=== PATIENT | male | born 1975 | race Caucasian/White ===

== ENCOUNTER → 2021-11-04 | Outpatient (CLI) | payer OTHER, SELFPAY ==
--- NOTE | 2021-11-04 13:46 | RAD_ITS ---
STUDY: X-RAY - LEFT ANKLE REASON FOR EXAM: Male, 46 years old. Left ankle pain. No history of injury. TECHNIQUE: 3 view(s) of the ankle. COMPARISON: None. FINDINGS: Normal visualized distal tibia and fibula. Normal medial and lateral malleoli. Degenerative changes of the distal tibial talar joint. Normal visualized talus and calcaneus. The visualized subtalar, talonavicular, calcaneocuboid and tarsal articulations are normal. Diffuse bilateral soft tissue swelling. RAD/Ankle min 3 Views IMPRESSION: Soft tissue swelling. Degenerative changes of the distal tibial talar joint. Electronically Signed: Marco Antonio Harrison MD at 14:32 EDT ,
== END | disposition home or self-care (01) ==
LOC: MTRAD 13:43
PROVIDERS: PCP Internal Medicine; Referring Provider Internal Medicine; Visit Provider Internal Medicine
DX: M25.572 Pain in left ankle and joints of left foot (principal)
CPT/HCPCS: 73610

== ENCOUNTER → 2021-12-17 | Outpatient (CLI) | payer OTHER, SELFPAY ==
--- NOTE | 2021-12-17 13:45 | RAD_ITS ---
EXAM: XR ABDOMEN, 1 VIEW CLINICAL INDICATION: KUB TECHNIQUE: Frontal supine view of the abdomen/pelvis. This report was created using [employer] report generation technology. COMPARISON: None. FINDINGS: LOWER THORAX: No acute pathology. GASTROINTESTINAL TRACT: Normal bowel gas pattern. ORGANS: No organomegaly. BONES/JOINTS: Right-sided L5 laminectomy noted. Interpedicular screws in place bilaterally at L5 and S1. SOFT TISSUES: No pathological calcification. RAD/Abdomen Single View IMPRESSION: No acute findings. Electronically Signed: Shashi Lobo MD at 16:28 EDT ,
== END | disposition home or self-care (01) ==
LOC: RAD 13:42
PROVIDERS: PCP Internal Medicine; Referring Provider Urology; Visit Provider Urology
DX: N20.0 Calculus of kidney (principal)
CPT/HCPCS: 74018

== ENCOUNTER 2022-08-05 15:00 | Outpatient (RCR) | payer OTHER, SELFPAY ==
--- NOTE | 2022-06-09 09:54 | HP.PTEVAL_ITS ---
Patient's Visit Information CASSI BABB is a 47 year old M referred to Physical Therapy by Dr. Usama Olivo, DO with a diagnosis of s/p peroneal tendon repair, FHL left, Calcaneal osteotomy left, first metat. Date of Evaluation: 06/09/22 Physical Therapist: Pattie Duffy DPT - Visit Plan Frequency: 1x/Week Duration: 6 Weeks Plan: Focus on LE and Core Strength/Stabilization- proprioception and functional mobility. HEP Given IE: Ankle ROM, Gastroc Stretch Towel Stretch, weight shift - October jumped in his garage and felt a snap-ankle swelled up- went boating and then he came into Dr. Lott for something else and had her look at his ankle- got Dr. Nazario who he set up an appt- had an MRI's and then she referred to Dr. Olivo- Apr 07 he had surgery- s/p peroneal tendon repair, FHL left, Calcaneal osteotomy left, first metatarsal osteotomy. He gave him partial WB May 27 with progression WBAT in the boot. Let the pain be the guide and come back to him around Jun 24 and at that point he hopes for shoe with brace. He reports that the ankle is pretty swollen and along the lateral malleolus across the top and into the medial mall. Worst: 7/10. Agg: walking on it Eases: propping it up. Best: 0/10. Describes the pain as achy and sharp pain. Does have some N/T in his toes. 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 He wears his boot at work. Normally pretty active- boat and smart- need to be able to get on the water- on [place] [employer]- and wants to get back to all of his normal stuff. Sleep: not disturbed. He feels that he is 50% through the process. Most of the time he is in work boots- unless he is boating then he is in boat shoes. PMHx: Rods in his back 2016- L5- S1 fusion- had drop foot in his right LE- does have massage 1x a month. Meds: none - Objective Posture: fair throughout IE. Gait: antalgic- axillary crutches- dec WB through left LE- CAM walker. Girth: Figure 8: 59.5 cm Mets: 26 cm Mall:30 cm. ROM: DF: neutral, PF: 30 degrees, Inv: 30 degrees, Ever: 10 deg. Strength: Core: fair, Hip: 4/5 throughout, Knee: 5/5, Ankle: 4/5 in available range. Flex: Gastroc: severe, HS: moderate. Palpation: tender throughout ankle and across top of foot. Observation: incisions well healed. SLS: weight shift. HR/TR: able with weight shifted to the right Stairs: asc/desc 8 non recip - Balance/Special Test Scores Lower Extremity Functional Score: 22 - Goals Goal 1:: Patient will be I with HEP and progression Goal Time Frame: 4-6 Weeks Goal 2:: Patient will ambulate >300 feet with a normalized gait pattern and LRD Goal Time Frame: 4-6 Weeks Goal 3:: Patient will SLS for 15 sec without LOB Goal Time Frame: 4-6 Weeks Goal 4:: Patient will report 80% improvement Goal Time Frame: 4-6 Weeks - Rehabilitation Potential Physical Therapy Diagnosis: Patient presents with hypomobility- he has decreased LE and core strength/stabilization, flex, ROM, proprioception and functional mobility leading to abnormal gait and increased pain with ADL's. Rehabilitation Potential: Good - Anticipated Interventions Patient/Client Instruction: Educate patient on: Benefits of Fitness Program Therapeutic Exercise to Include: Strength training, Endurance training, Balance training, Coordination, Agility training, Body mechanics, Postural training, Flexibilty training, Gait and locomotor training, Neuromotor development, Passive ROM, Active ROM, Dynamic Lumbar Stabilization, Scapular Strength/Stabilization For the Purpose of:: To improve muscle performance and motor function TENS: Yes Cryotherapy (ice pack, ice massage): Yes Thermo therapy (hot pack): Yes Thank you for the opportunity to evaluate your patient. For Medicare and Medicare HMO plans, please review the plan of care and approve it. It will need to be FAXED BACK to us at [phone] for Medicare purposes. For Medicare only, by signing this I certify the plan of care. Please let me know if there are questions or concerns regarding this plan of care. Physician Signature: Date:
--- NOTE | 2022-11-15 11:15 | HP.PT.NRP ---
Patient Information Patient Information: CASSI BABB was seen in my office for initial evaluation on 06/09/22. The following Plan of Care was established for this patient: POC Established Initial Frequency: 1x/Week Initial Duration: 6 Weeks Anticipated Interventions Patient/Client Instruction: Educate patient on: Benefits of Fitness Program Therapeutic Exercise to Include: Strength training, Endurance training, Balance training, Coordination, Agility training, Body mechanics, Postural training, Flexibilty training, Gait and locomotor training, Neuromotor development, Passive ROM, Active ROM, Dynamic Lumbar Stabilization and Scapular Strength/Stabilization For the Purpose of:: To improve muscle performance and motor function Manual Therapy Techniques to Include: Soft tissue mobilization TENS: Yes Cryotherapy (ice pack, ice massage): Yes Thermo therapy (hot pack): Yes Last Seen Last Seen: This patient was last seen in our office . Pertinent comments regarding their Physical therapy will appear below: Patient to continue to follow up with MD- appropriate to be d/c from PT At this point I will be discontinuing this patient from physical therapy. I would be happy to see this patient again in the future if found appropriate by the physician. Thank you! Pattie Duffy, JUDIE Balance/Gait/Functional tests Balance/Special Test Scores Lower Extremity Functional Score: 22
== END 2022-08-05 19:00 | disposition home or self-care (01) ==
LOC: PT 15:00
PROVIDERS: PCP Internal Medicine
DX: Z98.890 Other specified postprocedural states (principal)
CPT/HCPCS: 97110; 97162

== ENCOUNTER → 2022-11-27 | Outpatient (CLI) | payer OTHER, SELFPAY ==
--- NOTE | 2022-11-27 07:22 | MRI_ITS ---
STUDY: MRI LEFT ANKLE WITHOUT CONTRAST REASON FOR EXAM: Male, 47 years old. LEFT ANKLE INSTABILTY,PERONEAL TENDINITIS,OTHER DEFORMITIES FOOT TECHNIQUE: Standardized fat and water weighted pulse sequences were obtained in all 3 orthogonal planes. COMPARISON: X-ray 11/04/2021 FINDINGS: Normal subcutis adipose space. Normal posterior tibialis tendon. Normal flexor digitorum longus tendon. The flexor hallucis longus tendon is not clearly identified and may be torn and retracted into the leg. Severe thickening and abnormal signal of the peroneal tendons consistent with severe tendinosis. Normal tibialis anterior tendon. Normal extensor hallucis longus tendon. Normal extensor digitorum longus tendons. Normal Achilles tendon and teno-osseous insertion. Normal plantar fascia. Normal plantar calcaneal tubercles. Normal intrinsic muscles of the rearfoot. Healed osteotomy of the calcaneus with 2 screws. Normal distal tibiofibular syndesmotic ligamentous complex. There is scarring with thickening of the anterior talofibular ligament consistent with a remote sprain. Normal subtalar ligaments and sinus tarsi. Normal deltoid ligamentous complexes. Normal plantar calcaneonavicular (spring) ligament. There is a joint effusion of the tibiotalar articulation with capsular distension. 1 cm os trigonum. Normal talar dome. Normal subtalar articulations. Normal talonavicular articulation. Normal calcaneocuboid articulation. Normal navicular-cuneiform articulations. MRI/Lower Ext Joint Only (Routine) IMPRESSION: 1. Healed osteotomy of the calcaneus with 2 screws. 2. Thickened anterior talofibular ligament consistent with prior tear. 3. Severe peroneal tendon tendinosis with thickening and abnormal signal. 4. Nonvisualization of the flexor hallucis longus tendon which may be torn and retracted. Electronically Signed: Wei Stephen MD at 21:53 EDT ,
== END | disposition home or self-care (01) ==
PROVIDERS: PCP Internal Medicine; Referring Provider Podiatrist; Visit Provider Podiatrist
DX: M25.372 Other instability, left ankle (principal); M76.72 Peroneal tendinitis, left leg; M21.6X2 Other acquired deformities of left foot
CPT/HCPCS: 73721

== ENCOUNTER → 2023-10-07 | Outpatient (CLI) | payer OTHER, SELFPAY ==
--- NOTE | 2023-10-07 15:24 | RAD_ITS ---
STUDY: X-RAY CHEST REASON FOR EXAM: Male, 48 years old. ASTHMA, DYSPNEA TECHNIQUE: Frontal and lateral views of the chest. COMPARISON: 05/03/2023 FINDINGS: The lungs are clear and expanded. There is no demonstrated pleural abnormality. Normal size heart. Normal mediastinum and veronique. Normal visualized pulmonary arteries. Normal visualized aortic arch and descending thoracic aorta. Normal visualized thoracic spine. Normal visualized ribs, clavicles, and shoulders. There is no demonstrated abnormality of the visualized soft tissue structures of the upper abdomen. RAD/Chest PA and Lateral IMPRESSION: Normal x-ray examination of the chest. Electronically Signed: Jesús Woo MD at 16:49 EDT ,
== END | disposition home or self-care (01) ==
LOC: MTRAD 15:22
PROVIDERS: PCP Internal Medicine; Referring Provider Internal Medicine Pulmonary Disease; Visit Provider Internal Medicine Pulmonary Disease
DX: J45.909 Unspecified asthma, uncomplicated (principal); R06.00 Dyspnea, unspecified
CPT/HCPCS: 71046

== ENCOUNTER → 2024-08-20 | Outpatient (CLI) | payer BC, SELFPAY ==
--- NOTE | 2024-08-20 15:52 | RAD_ITS ---
PROCEDURE: CHEST PA AND LATERAL 08/20/2024 REASON FOR EXAM: COUGH TECHNIQUE: Frontal and lateral views of the chest. COMPARISON: No relevant prior FINDINGS: Lungs: Lungs clear of pneumonia and congestion. Pleura: No pleural effusions, thickening, or pneumothorax. Heart: Normal in size and configuration. Mediastinum/Ana: Unremarkable. Great vessels: Unremarkable. Bones/soft tissues: Unremarkable. RAD/Chest PA and Lateral IMPRESSION: No active cardiopulmonary disease. Reading Location: [facility]
== END | disposition home or self-care (01) ==
LOC: MTRAD 15:51
PROVIDERS: PCP Internal Medicine; Referring Provider Internal Medicine; Visit Provider Internal Medicine
DX: R05.8 Other specified cough (principal)
CPT/HCPCS: 71046

== ENCOUNTER → 2024-08-21 | Outpatient (CLI) | payer BC, SELFPAY ==
[2024-08-21 10:20] LABS: D-Dimer Quantitative (DVT/PE) 0.27 FEU/ug/m (0.27-0.49)
[2024-08-21 11:08] LABS: ALB/GLOB Ratio 1.6 RATIO (0.9-2.4); AST(SGOT) 27 U/L (<=37); Alanine Aminotransfer ALT/SGPT 36 U/L (<=46); Albumin, Serum 4.1 g/dL (3.5-5.0); Alkaline Phosphatase 67 U/L (40-129); Anion Gap 13 (5-15); BUN 12 mg/dL (4-19); BUN/Creat Ratio 11.9 RATIO (10-20); Calcium,Total 8.8 mg/dL (7.6-11.0); Carbon Dioxide 22.9 mmol/L (21.0-32.0); Chloride 104 mmol/L (98-108); Creatinine, Serum 0.98 mg/dL (0.70-1.20); EST Glomerular Filtration Rate 95 (>60); Globulin 2.6 g/dL (2.2-4.2); Glucose 128 mg/dL (70-99); Potassium 4.2 mmol/L (3.3-5.1); Protein, Total 6.7 g/dL (5.9-8.4); Sodium Level 140 mmol/L (133-145); Total Bilirubin 0.53 mg/dL (0.00-1.30)
[2024-08-21 11:38] LABS: Cholesterol 270 mg/dL (<=200); High Density Lipoprotein 41 mg/dL; Low Density Lipoprotein Calc. 185 mg/dL; Triglycerides 221 mg/dL; Very Low Density Lipoprotein 44 mg/dL (5-40)
[2024-08-24 12:08] LABS: Testosterone Free 5.8 pg/mL (6.8-21.5)
== END | disposition home or self-care (01) ==
LOC: MTLAB 07:09
PROVIDERS: PCP Internal Medicine; Referring Provider Internal Medicine; Visit Provider Internal Medicine
DX: I10 Essential (primary) hypertension (principal); R07.9 Chest pain, unspecified; E34.9 Endocrine disorder, unspecified
CPT/HCPCS: 36415; 80053; 80061; 84402; 84443; 85379

== ENCOUNTER → 2024-08-31 | Outpatient (CLI) | payer BC, SELFPAY | END | disposition home or self-care (01) | PROVIDERS: Physician Assistant; PCP Internal Medicine; Referring Provider Internal Medicine; Visit Provider Internal Medicine | DX: R79.89 Other specified abnormal findings of blood chemistry (principal) | CPT/HCPCS: 36415; 84402; 84403 ==

== ENCOUNTER → 2024-11-13 | Outpatient (CLI) | payer BC, SELFPAY ==
--- NOTE | 2024-11-13 12:49 | RAD_ITS ---
PROCEDURE: LUMBAR SPINE 2 OR 3 VIEWS 11/13/2024 REASON FOR EXAM: LOWER BACK PAIN INTO LEG TECHNIQUE: LUMBAR SPINE 2 OR 3 VIEWS COMPARISON: None FINDINGS: Vertebrae: Patient is status post laminectomy and fusion at the L5-S1 level. Discs: Moderate degree of disc space narrowing at the L5-S1 level with minimal anterior listhesis of L5 on S1. Disc space narrowing at the L4-L5 level. Alignment: Minimal anterior listhesis of L5 on S1. Other: RAD/Lumbar Spine 2 or 3 Views IMPRESSION: MILD DEGENERATIVE CHANGES OF THE LUMBAR SPINE. Status post fusion at the L5-S1 level with anterior listhesis of L5 on S1. Reading Location: [facility]
--- NOTE | 2024-11-13 12:49 | RAD_ITS ---
PROCEDURE: LUMBAR SPINE 2 OR 3 VIEWS 11/13/2024 REASON FOR EXAM: LOWER BACK PAIN INTO LEG TECHNIQUE: LUMBAR SPINE 2 OR 3 VIEWS COMPARISON: None FINDINGS: Vertebrae: Patient is status post laminectomy and fusion at the L5-S1 level. Discs: Moderate degree of disc space narrowing at the L5-S1 level with minimal anterior listhesis of L5 on S1. Disc space narrowing at the L4-L5 level. Alignment: Minimal anterior listhesis of L5 on S1. Other: RAD/Lumbar Spine 2 or 3 Views IMPRESSION: MILD DEGENERATIVE CHANGES OF THE LUMBAR SPINE. Status post fusion at the L5-S1 level with anterior listhesis of L5 on S1. Reading Location: [facility]
--- NOTE | 2024-11-13 12:49 | RAD_ITS ---
PROCEDURE: KNEE 3 VIEWS 11/13/2024 REASON FOR EXAM: PAIN TECHNIQUE: KNEE 3 VIEWS COMPARISON: None FINDINGS: Bones: No fracture seen. Joints: Mild degree of joint space narrowing of the medial compartment of the knee joint as well as the patellofemoral joint. Effusion: Minimal joint effusion. Soft tissues: Unremarkable Other: RAD/Knee 3 Views IMPRESSION: DEGENERATIVE OSTEOARTHROSIS. NO ACUTE FINDINGS. Minimal joint effusion. Reading Location: [facility]
--- NOTE | 2024-11-13 12:49 | RAD_ITS ---
PROCEDURE: KNEE 3 VIEWS 11/13/2024 REASON FOR EXAM: PAIN TECHNIQUE: KNEE 3 VIEWS COMPARISON: None FINDINGS: Bones: No fracture seen. Joints: Mild degree of joint space narrowing of the medial compartment of the knee joint as well as the patellofemoral joint. Effusion: Minimal joint effusion. Soft tissues: Unremarkable Other: RAD/Knee 3 Views IMPRESSION: DEGENERATIVE OSTEOARTHROSIS. NO ACUTE FINDINGS. Minimal joint effusion. Reading Location: [facility]
== END | disposition home or self-care (01) ==
LOC: MTRAD 12:49
PROVIDERS: PCP Internal Medicine; Referring Provider Physician Assistant; Visit Provider Physician Assistant
DX: M54.50 Low back pain, unspecified (principal)
CPT/HCPCS: 72100; 73562

== ENCOUNTER → 2024-11-23 | Outpatient (CLI) | payer BC, SELFPAY ==
--- NOTE | 2024-11-23 11:01 | MRI_ITS ---
PROCEDURE: LOWER EXT JOINT ONLY (ROUTINE) 11/23/2024 REASON FOR EXAM: PAIN, LOCKING TECHNIQUE: LOWER EXT JOINT ONLY (ROUTINE) Multiplanar and multisequence images were obtained without IV contrast administration. COMPARISON: November 13, 2024 FINDINGS: Bone Marrow: There is a 0.5 x 0.7 cm developing osteochondral defect in the central portion of the medial femoral condyle with no free fragment. There is a 0.4 cm corticated osteochondral fragment within the popliteus tendon sheath. Cruciate ligaments: The anterior and posterior cruciate ligaments appear intact. Collateral ligaments: There is thickening and edema in the mid and upper portion of the medial collateral ligament without laxity, grade 2 sprain. The lateral collateral ligament complex appears intact. Menisci: There is a small horizontal tear in the body of the medial meniscus which extends to the tibial surface, coronal image 16/30. The lateral meniscus appears intact. Effusion: There is a small joint effusion. Cartilage: There is a 0.45 cm focal chondral defect in the lateral femoral condyle. There is moderate chondromalacia in the medial compartment. MRI/Lower Ext Joint Only (Routine) IMPRESSION: There is a 0.5 x 0.7 cm developing osteochondral defect in the central portion of the medial femoral condyle with no free fragment. There is a 0.4 cm corticated osteochondral fragment within the popliteus tendon sheath. There is thickening and edema in the mid and upper portion of the medial collat eral ligament without laxity, grade 2 sprain. There is a small horizontal tear in the body of the medial meniscus which exten ds to the tibial surface, coronal image 16/30. There is a small joint effusion. There is a 0.45 cm focal chondral defect in the lateral femoral condyle. There is moderate chondromalacia in the medial compartment. Reading Location: [facility]
== END | disposition home or self-care (01) ==
PROVIDERS: PCP Internal Medicine; Referring Provider Physician Assistant; Visit Provider Physician Assistant
DX: M23.91 Unspecified internal derangement of right knee (principal)
CPT/HCPCS: 73721

== ENCOUNTER → 2024-11-27 | Outpatient (CLI) | payer BC, SELFPAY ==
[2024-11-27 22:57] LABS: Synovial Fld Mononuclear WBC # 1.416 10^3/ul; Synovial Fld Mononuclear WBC % 27.4 %; Synovial Fld Polynuclear WBC # 3.753 10^3/uL; Synovial Fld Polynuclear WBC % 72.6 %; Total Cell Count Synovial Fld 5.1790 10^3/uL (0.000-0.000); WBC / Synovial Fluid 5.1690 10^3/uL (0.000-0.002)
[2024-11-27 23:04] LABS: RBC /Synovial Fluid 0.010 10^6/uL (0)
[2024-11-27 23:05] LABS: AUTO B FLUID DILUENT BKGD CT WBC <0.1 RBC <0.01 (W<.1,R<.01); Source- Body Fluid SYNOVIAL
[2024-11-27 23:06] LABS: Source / Synovial Fluid R KNEE; Total Volume / Synovial Fluid > 8.0 ml (0.1-3.5); Viscosity / Synovial Fluid Sl. Viscous (HIGH)
[2024-11-27 23:07] LABS: Appearance /Synovial Fluid Cloudy (CLEAR); Color / Synovial Fluid Yellow (Pale Yellow)
[2024-11-28 00:50] LABS: Monocyte /Synovial Fluid 18 %
[2024-11-28 00:51] LABS: Body Fluid QC Type(s) BF1Q,BF2Q
[2024-11-29 14:08] LABS: GLUCOSE, SYNOVIAL FLUID 136 mg/dL (.); PROTEIN, SYNOVIAL FLUID 3.9 g/dL (.)
[2024-11-29 14:22] LABS: CRYSTALS, BODY FLUID CALCIUM PYROPHOS
== END | disposition home or self-care (01) ==
LOC: LABSPEC 20:46
PROVIDERS: PCP Internal Medicine; Visit Provider Orthopaedic Surgery Sports Medicine
DX: M25.461 Effusion, right knee (principal); M25.561 Pain in right knee
CPT/HCPCS: 82945; 84157; 87070; 87075; 87205; 89050; 89051; 89060

== ENCOUNTER → 2024-11-27 | Outpatient (CLI) | payer BC, SELFPAY ==
[2024-11-27 18:18] LABS: Hematocrit 45.6 % (40-54); Hemoglobin 15.7 g/dL (13.0-16.5); Immature Granulocytes Count 0.030 X10^3/uL (0.0-0.0); Mean Corp Hgb Conc 34.4 g/dL (32-36); Mean Corpuscular Volume 90.5 fL (80-94); Mean Platelet Vol. 10.1 fl (6.2-12.0); NRBC Flagged by Analyzer 0 % (0-5); Platelet Count 259 K/mm3 (150-450); RBC Distribution Width CV 12.5 % (11.6-14.6); RBC Distribution Width SD 41.1 fl (35.1-43.9); Red Blood Count 5.04 M/mm3 (4.6-6.2); White Blood Count 7.7 K/mm3 (4.4-11.0)
[2024-11-27 18:28] LABS: Anion Gap 14 (5-15); BUN 13 mg/dL (4-19); BUN/Creat Ratio 14.7 RATIO (10-20); CRP 12.90 mg/L (0.0-3.0); Calcium,Total 9.1 mg/dL (7.6-11.0); Carbon Dioxide 20.4 mmol/L (21.0-32.0); Chloride 105 mmol/L (98-108); Glucose 116 mg/dL (70-99); Potassium 3.9 mmol/L (3.3-5.1); Uric Acid 5.8 mg/dL (3.5-7.2)
--- OUTSIDE RECORDS SUMMARY | 2024-11-27 23:08 | XMS RPT_ITS | CCD ---
Author Organization [facility] Care Team Providers Care Molder Operator Name Role Phone [employer] RECORD[employer] ENGINEER, Maci N Unavailable [employer] RECORD[employer] ENGINEER, Maci N Unavailable CONKLE, KAREN Unavailable Unavailable CONKLE, KAREN Unavailable Unavailable NO REFERRING DR Unavailable Unavailable Lucie Thornton Primary Care Provider Mariluz Gaytan Unavailable Herlinda Chiu Unavailable Nahum Braden Unavailable Cande Mora Unavailable Unavailable GravNani valdes Unavailable Unavailable Unavailable Unavailable Mariluz Gaytan DO Unavailable Herlinda Chiu MD Unavailable Nahum Braden MD Unavailable Dr. Shiraz Tamayo MD Unavailable Eric MARIN Nani Unavailable Unavailable Cande Mora RN Unavailable Unavailable Unavailable Unavailable Sophia Kimble MD Primary Care Provider Mariluz Gaytan DO Unavailable [phone] May MARIN, Kayela Unavailable Unavailable Dr. Suni Nazario Unavailable Albino MARIN, Norma Unavailable Unavailable Mariluz Gaytan DO Primary Care Provider Mariluz Gaytan DO Primary Care Provider Gina Kellogg Unavailable [phone] Mariluz Gaytan DO Primary Care Provider MARILUZ GAYTAN Referring Unavailable LUCILA, MARILUZ K Primary Care Unavailable LUCILA MARILUZ AFSHIN Primary Care Unavailab sonido Gaytan DO, Dr. Mcgraw Primary Care Provider Lucila DO, Dr. Mcgraw Referring Provider [phone] Erum BRIGGS, Dr. Bean Attending Provider Erum BRIGGS, Dr. Bean Primary Care Provider [phone] Erum BRIGGS, Dr. Bean Referring Provider Alvino Tanner Attending Provider [phone] Huy Alvarez Attending Provider [phone] Erum BRIGGS, Dr. Bean Attending Provider Huy Alvarez Referring Provider [phone] Zeigler, [place] Attending Unavailable Martha Gaytaneen Referring Unavailable Lucila Mariluz Primary Care Unavailable Zeigler, [place] Attending Unavailable Zeigler, [place] Referring Unavailable Zeigler, [place] Primary Care Unavailable Huy Alvarez Attending Unavailable Huy Alvarez Referring Unavailable Erum, [place] Primary Care Unavailable Erum, [place] Attending Unavailable Zeigler, [place] Referring Unavailable Erum, [place] Primary Care Unavailable Huy Alvarez Attending Unavailable Huy Alvarez Referring Unavailable Erum, [place] Primary Care Unavailable Erum, [place] Attending Unavailable Zeigler, [place] Referring Unavailable Zeigler, [place] Primary Care Unavailable Erum, [place] Attending Unavailable Zeigler, [place] Referring Unavailable Zeigler, [place] Primary Care Unavailable Huy Alvarez Attending Unavailable Zeigler, [place] Referring Unavailable Zeigler, [place] Primary Care Unavailable Alvino Tanner Attending Unavailable Zeigler, [place] Referring Unavailable Zeigler, [place] Primary Care Unavailable Zeigler, [place] Attending Unavailable Erum, [place] Referring Unavailable Zeigler, [place] Primary Care Unavailable Huy Alvarez Attending Unavailable Zeigler, [place] Referring Unavailable Erum, [place] Primary Care Unavailable Zeigler MD, Dr. Bean Primary Care Provider Dr. [place] Danielson MD Referring Provider Saw Somers MD Attending Provider [phone] Allergies Allergy Classification Reported Allergen(s) Allergy Type Date of Onset Reaction(s) Facility (19 sources) HYDROmorphone; Translations: [HYDROMORPHONE] Drug Allergy 6 Shortness Of Breath [place] (2 sources) rosuvastatin Drug Allergy 8 [place] (1 source) ALLERGIES NOT ON FILE; Translations: [ALLERGIES NOT ON FILE] Propensity to adverse reactions (disorder) [facility] 2 Repository Medications Completed/Discontinued Medications Medication Drug Class(es) Dates Sig (Normalized) Sig (Original) acetaminophen 500 mg oral tablet (16 sources) take 1 tablet by mouth every eight hours as needed acetaminophen (TYLENOL) 500 mg tablet Take 500 mg by mouth every 8 hours as needed. 0 Active Comment on above: Take 500 mg by mouth every 8 hours as needed. acetaminophen 325 mg / oxyCODONE hydrochloride 5 mg oral tablet (20 sources) Opioid Agonist Start: 04-24-2022 take 1 tablet by mouth every eight hours as needed for pain oxyCODONE-acetamino phen (PERCOCET) 5-325 mg tablet Indications: S/P foot surgery Take 1 tablet by mouth every 8 hours as needed for pain. 28 tablet 0 04/24/2022 Active Start: 04-07-2022 take 1 tablet by lizz th every four hours as needed for pain oxyCODONE-acetaminophen (PERCOCET) 5-325 mg tablet Indications: Postoperative state , Postoperative pain Take 1 tablet by mouth every 4 hours as needed for pain. for pain. 30 tablet 0 04/15/2022 Active Start: 12-02-2021 End: 04-01-2022 take 1 tablet by mouth every four hours as needed for pain oxyCODONE-acetaminophen (PERCOCET) 5-325 mg tablet Indications: Kidney stones Take 1 tablet by mouth every 4 hours as needed for pain. 15 tablet 0 12/02/2021 04/01/2022 Discontinued Comment on above: Take 1 tablet by lizz th every 4 hours as needed for pain. Take 1-2 tablets by mouth every 4 hours as needed for pain. Take 1 tablet by lizz th every 4 hours as needed for pain. for pain. Take 1 tablet by lizz th every 8 hours as needed for pain. [id number] 200 actuat albuterol 0.09 mg/actuat metered dose inhaler (15 sources) beta2-Adrenergic Agonist Start: 11-08-2016 End: 05-25-2019 take 2 puff(s) by inhalation three times daily as needed ProAir HFA 108 (90 Base) MCG/ACT Inhalation Aerosol Solution 2 (two) Puff tid prn for 0 days Quantity: 1 {Inhaler} Refills: 0 Ordered: 25-May-2019 Nani Reyes CMA Start : 08-Nov-2016 End : 25-May-2019 Inactive Start: 11-08-2016 End: 05-25-2019 take 2 puff(s) by inhalation three times daily as needed ProAir HFA 108 (90 Base) MCG/ACT Inhalation Aerosol Solution 2 (two) Puff tid prn for 0 days Quantity: 1 {Inhaler} Refills: 0 Ordered: 25-May-2019 Nani Reyes CMA Start : 08-Nov-2016 End : 25-May-2019 Inactive amitriptyline hydrochloride 10 mg oral tablet (15 sources) Tricyclic Antidepressant Start: 01-29-2013 End: 11-06-2013 take 1 tablet by mouth once daily at bedtime AMITRIPTYLINE HCL, 10MG (Oral Tablet) 1 Tablet qhs for 0 days Quantity: 30 {Tablet} Refills: 3 Ordered: 06-Nov-2013 Lulú Dinero LPN Start : 29-Jan-2013 End : 06-Nov-2013 Inactive amoxicillin 875 mg / clavulanate 125 mg oral tablet (15 sources) Penicillin-class Antibacterial Start: 05-19-2015 End: 05-23-2015 take 1 tablet by mouth twice daily AUGMENTIN, 875-125MG (Oral Tablet) 1 (one) Tablet bid for 4 days Quantity: 8 {Tablet} Refills: 0 Ordered: 19-May-2015 Sugey Gamino Start : 19-May-2015 End : 23-May-2015 Inactive aspirin 81 mg delayed release oral tablet (11 sources) Platelet Aggregation Inhibitor, Nonsteroidal Anti-inflammatory Drug Start: 04-08-2022 End: 04-29-2022 take 1 tablet by mouth twice daily aspirin, enteric coated (ASPIRIN, ENTERIC COATED) 81 mg EC tablet Take 1 tablet by mouth twice daily for 21 days. 42 tablet 0 04/08/2022 Active Comment on above: Take 1 tablet by lizz th twice daily for 21 days. atorvastatin 40 mg oral tablet (15 sources) HMG-CoA Reductase Inhibitor Start: 11-07-2013 End: 01-21-2014 take 1 tablet by mouth once daily ATORVASTATIN CALCIUM, 40MG (Oral Tablet) 1 (one) Tablet daily for 0 days Quantity: 30 {Tablet} Refills: 11 Ordered: 21-Jan-2014 CIARA Mann LPN Start : 07-Nov-2013 End : 21-Jan-2014 Inactive azithromycin 250 mg oral tablet (4 sources) Macrolide Antimicrobial Start: 08-21-2024 End: 11-27-2024 Azithromycin 250 mg tablet Discontinued 0 PO .COMPLEX 6 0 August 21, 2024 12:00am November 27, 2024 3:24pm For 250 mg dose pack: take 500 mg today (day 1), then 250 mg for 4 days (days 2-5) PO cholecalciferol 0.075 mg oral tablet (15 sources) Vitamin D Start: 01-29-2013 End: 11-06-2013 take 2 tablets by mouth once daily VITAMIN D3, 3000UNIT (Oral Tablet) 2 (two) Tablet qd for 0 days Quantity: 60 {Tablet} Refills: 0 Ordered: 06-Nov-2013 Lulú Dinero LPN Start : 29-Jan-2013 End : 06-Nov-2013 Inactive 24 hr clarithromycin 500 mg extended release oral tablet (15 sources) Macrolide Antimicrobial Start: 08-19-2014 End: 08-29-2014 take 2 tablets by mouth once daily BIAXIN XL PAC, 500MG (Oral Tablet Extended Release 24 Hour) 2 (two) Tablet ER 24HR daily for 10 days Quantity: 20 {Tablet} Refills: 0 Ordered: 19-Aug-2014 Sugey Gamino Start : 19-Aug-2014 End : 29-Aug-2014 Inactive diphenhydrAMINE hydrochloride 25 mg oral capsule (15 sources) Histamine-1 Receptor Antagonist Start: 11-06-2013 End: 01-21-2014 take 1 capsule by mouth once daily at bedtime as needed BENADRYL ALLERGY, 25MG (Oral Capsule) 1 (one) Capsule qhs prn for 0 days Quantity: 30 {Capsule} Refills: 0 Ordered: 21-Jan-2014 CIARA Mann LPN Start : 06-Nov-2013 End : 21-Jan-2014 Inactive 60 actuat fluticasone propionate 0.25 mg/actuat dry powder inhaler (15 sources) Corticosteroid Start: 01-29-2013 End: 11-06-2013 FLOVENT DISKUS, 250MCG/BLIST (Inhalation Aerosol Powder Breath Activated) 2 (two) Aero Pow Br Act puffs bid for 0 days Quantity: 1 {Aero_Pow_Br_Act} Refills: 1 Ordered: 06-Nov-2013 Lulú Dinero LPN Start : 29-Jan-2013 End : 06-Nov-2013 Inactive Start: 01-29-2013 End: 11-06-2013 FLOVENT DISKUS, 250MCG/BLIST (Inhalation Aerosol Powder Breath Activated) 2 (two) Aero Pow Br Act puffs bid for 0 days Quantity: 1 {Aero_Pow_Br_Act} Refills: 1 Ordered: 06-Nov-2013 Lulú Dinero LPN Start : 29-Jan-2013 End : 06-Nov-2013 Inactive gabapentin 300 mg oral capsule (20 sources) Anti-epileptic Agent Start: 04-09-2022 End: 05-09-2022 take 1 capsule by mouth three times daily gabapentin (NEURONTIN) 300 mg capsule Indications: Postoperative state Take 1 capsule by mouth three times daily for 30 days. 90 capsule 0 04/09/2022 Active Start: 02-02-2021 End: 10-28-2021 Gabapentin 300 MG Oral Capsu le 1 (one) Capsule qhs for 5days then bid if needed for continued pain for 0 days Quantity: 60 {Capsule} Refills: 1 Ordered: 28-Oct-2021 [employer] BROKER, Nani Start : 02-Feb-2021 End : 28-Oct-2021 Inactive Comments: [id number] rev Comment on above: [id number] rev Take 1 capsule by mo sdh three times daily for 30 days. hydrocortisone 10 mg/ml / neomycin 3.5 mg/ml / polymyxin b [id number] unt/ml otic solution (15 sources) Aminoglycoside Antibacterial, Polymyxin-class Antibacterial, Corticosteroid Start: 05-13-2015 End: 05-19-2015 CORTISPORIN, 3.5-77563-1 (Otic Solution) 4 Metric Drop qid for 10 days Quantity: 1 {Bottle} Refills: 0 Ordered: 19-May-2015 Cande Mora RN Start : 13-May-2015 End : 19-May-2015 Inactive Comments: 4 gtt to left ear, lie with affected ear upward x5 min Comment on above: 4 gtt to left ear, l ie with affected ear upward x5 min ibuprofen 800 mg oral tablet (20 sources) Nonsteroidal Anti-inflammatory Drug Start: 12-11-2012 End: 11-06-2013 IBUPROFEN, 800MG (Oral Tablet) 1 Tablet q6-8 hrs prn for 0 days Quantity: 30 {Tablet} Refills: 0 Ordered: 06-Nov-2013 Lulú Dinero LPN Start : 11-Dec-2012 End : 06-Nov-2013 Inactive take 1 tablet by lizz th every six hours as needed ibuprofen (MOTRIN) 200 mg tablet Take 20 0 mg by mouth every 6 hours as needed. 0 Active Comment on above: Take 200 mg by mouth every 6 hours as needed. ketorolac tromethamine 10 mg oral tablet (15 sources) Nonsteroidal Anti-inflammatory Drug, Cyclooxygenase Inhibitor Start: 017 End: Ketorolac Tromethamine 10 MG Oral Tablet 1 (one) Tablet q6hrs x 2 days for 0 days Quantity: 8 {Tablet} Refills: 0 Ordered: 25-May-2019 Nani Reyes CMA Start : 10-Nov-2016 End : 25-May-2019 Inactive levocetirizine dihydrochloride 5 mg oral tablet (4 sources) Histamine-1 Receptor Antagonist Start: 025 End: take 1 tablet by mouth once daily Levocetirizine (Xyzal) 5 mg tablet Discontinued 5 mg PO daily 30 July 25, 2024 12:00am August 20, 2024 2:29pm levoFLOXacin 500 mg oral tablet (15 sources) Quinolone Antimicrobial Start: End: take 1 tablet by mouth once daily levoFLOXacin 500 MG Oral Tablet 1 (one) Tablet qd for 0 days Quantity: 10 {Tablet} Refills: 0 Ordered: 02-Feb-2021 Nani Reyes CMA Start : 09-Aug-2019 End : 02-Feb-2021 Inactive lisinopril 2.5 mg oral tablet (14 sources) Angiotensin Converting Enzyme Inhibitor Start: End: take 1 tablet by mouth once daily Lisinopril 2.5 mg tablet Discontinued 2.5 mg PO daily 30 0 September 17, 2024 1:10pm October 11, 2024 8:25am meloxicam 15 mg oral tablet (11 sources) Nonsteroidal Anti-inflammatory Drug Start: take 1 tablet by mouth once daily at mealtime Mobic 15 MG Oral Tablet 1 (one) Tablet qd with food for 0 days Quantity: 30 {Tablet} Refills: 0 Ordered: 28-Oct-2021 Mariluz Gaytan DO, DO, Kathleen Start : 28-Oct-2021 Active metaxalone 800 mg oral tablet (18 sources) Start: End: take 1 tablet by mouth three times daily as needed for pain Metaxalone 800 mg tablet Discontinued 800 mg PO THREE TIMES A DAY as needed for muscle pain 30 0 November 13, 2024 12:00am November 27, 2024 3:24pm Start: 12-11-2012 End: 11-06-2013 take 1 tablet by mouth three times daily as needed METAXALONE, 800MG (Oral Tablet) 1 Tablet tid as needed for 0 days Quantity: 30 {Tablet} Refills: 0 Ordered: 06-Nov-2013 Lulú Dinero LPN Start : 11-Dec-2012 End : 06-Nov-2013 Inactive Comments: Medication taken as needed. Comment on above: Medication taken as needed. mutlivitamin (4 sources) Start: 05-03-19 End: 08-21-19 mutlivitamin Discontinued PO May 03, 2024 1:00am August 20, 2024 2:29pm naloxone hydrochloride 40 mg/ml nasal spray (7 sources) Opioid Antagonist Start: 04-24-20 naloxone 4 mg/actuation nasal spray (NARCAN) Use 1 spray in one nostril as needed for overdose. May repeat every 2 to 3 min in alternating nostrils until medical assistance is available 1 Each 0 04/24/2022 Active Comment on above: Use 1 spray in one n ostril as needed for overdose. May repeat every 2 to 3 min in alternating nostrils until medical assistance is available perflutren lipid microspheres (DEFINITY) injection 1.65 mg (1 source) Start: 04-16-20 End: 04-16-20 perflutren lipid microspheres (DEFINITY) injection 1.65 mg pitavastatin calcium 4 mg oral tablet (15 sources) HMG-CoA Reductase Inhibitor Start: 06-08-19 End: 06-22-19 20 take 1 tablet by mouth once daily Livalo 4 MG Oral Tablet 1 (one) Tablet qd for 0 days Quantity: 30 {Tablet} Refills: 3 Ordered: 22-Jun-2019 Cande Mora RN Start : 08-Jun-2019 End : 22-Jun-2019 Inactive predniSONE 20 mg oral tablet (20 sources) Corticosteroid Start: 02-03-20 End: 10-29-19 predniSONE 20 MG Oral Tablet 1 (one) Tablet bid for 2days then qd for 4days for 0 days Quantity: 8 {Tablet} Refills: 0 Ordered: 28-Oct-2021 Nani Reyes CMA Start : 02-Feb-2021 End : 28-Oct-2021 Inactive Comments: take with food Start: 11-19-2016 PREDNISONE 20 MG TABS 3 tablets daily for 3 days, then 2 tablets daily for 3 days, then 1 tablet daily for 3 days, then half a tablet daily for 4 days PREDNISONE [id number] Huy FRANCO Start: 06-17-2015 End: 11-08-2016 PredniSONE 10 MG Oral Tablet 3 (three) Tablet pills for 3 days 2 pills for 3 days 1 pill for 3 days for 0 days Quantity: 18 {Tablet} Refills: 0 Ordered: 08-Nov-2016 Karol Stroud LPN Start : 17-Jun-2015 End : 08-Nov-2016 Discontinued Comments: with food in am Comment on above: with food in am take with food rosuvastatin calcium 20 mg oral tablet (20 sources) HMG-CoA Reductase Inhibitor Start: 0 End: 2 take 1 tablet by mouth once daily in the evening Rosuvastatin Calcium 20 MG Oral Tablet 1 (one) Tablet daily in evening for 30 days Quantity: 30 {Tablet} Refills: 5 Ordered: 28-Oct-2021 Nani Reyes CMA Start : 09-Aug-2019 End : 28-Oct-2021 Inactive Start: 06-17-2015 End: 11-08-2016 take 1 tablet by mouth once daily Crestor 10 MG Oral Tablet 1 Tablet qd for 0 days Quantity: 30 {Tablet} Refills: 3 Ordered: 08-Nov-2016 Karol Stroud LPN Start : 17-Jun-2015 End : 08-Nov-2016 Discontinued simvastatin 20 mg oral tablet (15 sources) HMG-CoA Reductase Inhibitor Start: 11-19-2016 End: 05-25-2019 take 1 tablet by mouth once daily at bedtime Simvastatin 20 MG Oral Tablet 1 (one) Tablet qhs for 0 days Quantity: 30 {Tablet} Refills: 3 Ordered: 25-May-2019 Nani Reyes CMA Start : 19-Nov-2016 End : 25-May-2019 Inactive 3 ml sodium chloride 9 mg/ml injection (1 source) Start: 04-16-2019 End: 04-16-2019 sodium chloride flush 0.9 % injection 10 mL triamcinolone acetonide 0.055 mg/actuat metered dose nasal spray (15 sources) Corticosteroid Start: 05-19-2015 End: 11-08-2016 Nasacort Allergy 24HR 55 MCG/ACT Nasal Aerosol 2 (two) Puff Puff daily for 0 days Quantity: 1 {Box} Refills: 0 Ordered: 08-Nov-2016 Karol Stroud LPN Start : 19-May-2015 End : 08-Nov-2016 Discontinued NEGATED: Highlighted row has not occurred!drug or medication (2 sources) No Known Historical Medications NEGATED: Highlighted row has not occurred!No Known Historical Medications (9 sources) No Known Historical Medications Problems Active Problems Problem Classification Problem Date Documented Date Episodic/Chronic Abdominal pain (20 sources) Generalized abdominal pain; Translations: [Left flank pain] Onset: 7 Resolved: 1 05-29-2019 Episodic Acquired foot deformities (20 sources) Right foot drop; Translations: [Foot drop, right] Onset: 2 02-02-2021 Episodic Acquired foot deformities (5 sources) Acquired cavus deformity of left foot; Translations: [Other acquired deformities of left foot] Episodic Acute bronchitis (9 sources) Acute bronchitis; Translations: [Acute bronchitis, unspecified] Onset: 5 08-21-2024 Episodic Adjustment disorders (1 source) Stress; Translations: [Reaction to severe stress, unspecified] 05-03-2024 Chronic Administrative/socia l admission (1 source) First encounter by subject; Translations: [Persons encountering health services in other specified circumstances] 05-03-2024 Episodic Anxiety disorders (19 sources) Acute stress disorder; Translations: [Stress reaction] 08-09-2019 Chronic Calculus of urinary tract (20 sources) Calculus of ureter; Translations: [Kidney stone] Onset: 7 08-09-2019 Episodic Chronic obstructive pulmonary disease and bronchiectasis (20 sources) Bronchitis; Translations: [Bronchitis] 08-09-2019 Episodic Diabetes mellitus without complication (20 sources) Hyperglycemia; Translations: [Hyperglycemia] Onset: 5 06-30-2020 Episodic Comment on above: 02/20/19 [facility] 5.4 Disorders of lipid metabolism (20 sources) Hyperlipidemia; Translations: [Hyperlipidemia, unspecified] Onset: 6 11-19-2016 Chronic Comment on above: on stains in past no t effective at reducing # ( crestor and lipitor maybe pravastatin?) also didnt toelrate with muscle cramps -- willing to try antoher statin - will pick livaloLDL >180 consider cardiac Ca++ score test-- pt had normal stress test and if cant take statins doesnt see utility??- keep working on lifestyle Essential hypertension (10 sources) Essential hypertension; Translations: [Essential (primary) hypertension] Onset: 5 05-03-2024 Chronic Fracture of lower limb (1 source) Displaced fracture of lateral malleolus of left fibula, initial encounter for closed fracture; Translations: [Fracture of lateral malleolus of left fibula] 11-26-2024 Episodic Headache; including migraine (20 sources) Headache; Translations: [Headache] 08-09-2019 Episodic Joint disorders and dislocations; trauma-related (8 sources) Internal derangement of right knee; Translations: [Derangement of right knee] Onset: 5 Chronic Joint disorders and dislocations; trauma-related (2 sources) Other tear of medial meniscus, current injury, right knee, initial encounter; Translations: [Tear of medial meniscus of right knee] 11-27-2024 Episodic Lymphadenitis (19 sources) Enlargement of lymph nodes; Translations: [Enlarged lymph node] Resolved: 4 01-21-2014 Episodic Comment on above: posterior head near site of ? dermatitis/acne observe Malaise and fatigue (20 sources) Fatigue; Translations: [Fatigue] 06-30-2020 Episodic Comment on above: work on diet and exe rcise ck some basic labs and go from there02/17 stress test normal and EF 65% Neoplasms of unspecified nature or uncertain behavior (19 sources) Neoplasm of uncertain behavior of skin; Translations: [Lesion-Unknown behavior] Resolved: 0 05-29-2019 Episodic Nonspecific chest pain (20 sources) Chest pain; Translations: [CHEST PAIN] Onset: 5 Resolved: 4 01-21-2014 Episodic Nutritional deficiencies (20 sources) Vitamin D deficiency; Translations: [Vitamin D deficiency] 06-30-2020 Chronic Comment on above: will db what current ly taking -- so 2K DAILY NOW Nutritional deficiencies (20 sources) Vitamin B12 deficiency (non anemic); Translations: [Cobalamin deficiency] 06-30-2020 Episodic Comment on above: normal range but lil low side will do otc daily Osteoarthritis (2 sources) Osteoarthritis of right knee joint; Translations: [Unilateral primary osteoarthritis, right knee] 11-27-2024 Chronic Other connective tissue disease (17 sources) H/O: musculoskeletal disease; Translations: [History of herniated intervertebral disc] 02-02-2021 Episodic Comment on above: s/p decompression & [id number] Other connective tissue disease (15 sources) Pain in left foot; Translations: [Foot pain, left] 10-28-2021 Episodic Other connective tissue disease (1 source) Pain of left calf; Translations: [Pain in left lower leg] Episodic Other ear and sense organ disorders (20 sources) Otitis externa; Translations: [Otitis externa] Resolved: 6 05-29-2019 Chronic Other ear and sense organ disorders (20 sources) Otalgia; Translations: [Acute ear pain, left] Resolved: 6 05-29-2019 Episodic Comment on above: L ear pain no drg Other ear and sense organ disorders (8 sources) Otitis externa; Translations: [Otitis externa] Resolved: 6 05-29-2019 Episodic Other ear and sense organ disorders (19 sources) Impacted cerumen; Translations: [Cerumen impaction] Resolved: 3 02-04-2015 Episodic Other ear and sense organ disorders (19 sources) Excessive cerumen in ear canal ; Translations: [Excessive cerumen in ear canal, left] Resolved: 6 05-29-2019 Episodic Other endocrine disorders (20 sources) Other testicular hypofunction; 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] 08-09-2019 Chronic Other endocrine disorders (1 source) Hypotestosteronism; Translations: [Endocrine disorder, unspecified] 05-03-2024 Episodic Other eye disorders (19 sources) Redness or discharge of eye; Translations: [Eye redness] Resolved: 4 01-21-2014 Episodic Comment on above: and dryness, use art ificial tears Other lower respiratory disease (20 sources) Cough; Translations: [Cough] 08-09-2019 Episodic Other lower respiratory disease (4 sources) Persistent cough; Translations: [Cough present for greater than 3 weeks] 08-20-2024 Episodic Other nervous system disorders (19 sources) Carpal tunnel syndrome; Translations: [Carpel Tunnel Syndrome] 08-09-2019 Chronic Other nervous system disorders (3 sources) Postoperative pain ; Translations: [Other acute postprocedural pain] Episodic Other non-traumatic joint disorders (20 sources) Ankle pain; Translations: [Ankle pain, left] Resolved: 0 05-29-2019 Episodic Comment on above: history of sprain. s een Dr. snow, had cast amde for anjkle. told may need surgery or wear brace. ice rest nsaids. check xray and back up to Dr. snow. sounds grade 1to 2. moderate ecchymoiss until recently. mild instablity. need to get back to [facility] because need to deal with chronic problem and then retrain the ankle so not keep doing. Other non-traumatic joint disorders (3 sources) Instability of joint of left ankle; Translations: [Other instability, left ankle] Episodic Other non-traumatic joint disorders (2 sources) Effusion of right knee joint; Translations: [Effusion, right knee] 11-27-2024 Episodic Other non-traumatic joint disorders (2 sources) Pain in right knee; Translations: [Right knee pain] 11-27-2024 Episodic Other nutritional; endocrine; and metabolic disorders (20 sources) Body mass index 30+ - obesity; Translations: [BMI 32.0-32.9,adult] Resolved: 2 08-09-2019 Chronic Other nutritional; endocrine; and metabolic disorders (12 sources) Obese class I; Translations: [Obesity, unspecified] Onset: 2 Chronic Other nutritional; endocrine; and metabolic disorders (1 source) Obesity, unspecified; Translations: [Obesity, unspecified] Onset: 5 Chronic Other screening for suspected conditions (not mental disorders or infectious disease) (20 sources) Elevated C-reactive protein; Translations: [CRP elevated] Onset: 5 02-02-2021 Episodic Other upper respiratory disease (19 sources) Nasal sinus problem; Translations: [Sinus drainage] Resolved: 6 05-29-2019 Episodic Other upper respiratory disease (20 sources) Bronchospasm; Translations: [Bronchospasm] Resolved: 0 05-29-2019 Episodic Other upper respiratory disease (1 source) Pain in throat Episodic Other upper respiratory infections (20 sources) Acute sinusitis; Translations: [Sinusitis, acute] Onset: 5 Resolved: 4 03-17-2015 Episodic Residual codes; unclassified (20 sources) Chews tobacco ; Translations: [Tobacco chew use] 08-09-2019 Episodic Residual codes; unclassified (17 sources) Influenza vaccination declined; Translations: [Influenza vaccination declined (Renamed from Refused influenza vaccine)] 02-02-2021 Episodic Residual codes; unclassified (20 sources) Non-smoker; Translations: [Nonsmoker] Resolved: 0 06-08-2019 Episodic Residual codes; unclassified (8 sources) Postoperative state; Translations: [Other specified postprocedural states] Episodic Residual codes; unclassified (1 source) History of operative procedure on foot; Translations: [Other specified postprocedural states] Episodic Residual codes; unclassified (1 source) Colon cancer screening declined; Translations: [Procedure and treatment not carried out because of patient's decision for unspecified reasons] 05-03-2024 Episodic Residual codes; unclassified (1 source) Medication refused; Translations: [Immunization not carried out because of patient refusal] 05-03-2024 Episodic Residual codes; unclassified (1 source) Pain, unspecified; Translations: [Pain, unspecified] Onset: 5 Episodic Spondylosis; intervertebral disc disorders; other back problems (20 sources) Low back pain; Translations: [Low back pain potentially associated with radiculopathy] Onset: 6 08-09-2019 Episodic Sprains and strains (5 sources) Rupture of peroneal tendon; Translations: [Strain of muscle(s) and tendon(s) of peroneal muscle group at lower leg level, left leg, initial encounter] Episodic Substance-related disorders (20 sources) Nicotine dependence, chewing tobacco, uncomplicated; Translations: [Tobacco use disorder] Onset: 7 Resolved: 6 05-29-2019 Chronic Unclassified (20 sources) Tobacco chew use Unclassified (20 sources) Unclassified (20 sources) Hypercholesteremia (272.0) Unclassified (20 sources) Low testosterone (257.2) Unclassified (13 sources) Influenza vaccination declined; Translations: [Influenza vaccination declined (Renamed from Refused influenza vaccine)] 08-09-2019 Unclassified (20 sources) Dyslipidemia with elevated low density lipoprotein cholesterol and abnormally low high density lipoprotein cholesterol Unclassified (20 sources) Hypercholesteremia Unclassified (11 sources) Lesion-Unknown behavior (238.2) Unclassified (11 sources) Carpel Tunnel Syndrome (354.0) Unclassified (20 sources) Non-smoker; Translations: [Nonsmoker] Resolved: 0 06-08-2019 Unclassified (20 sources) BMI 34.0-34.9,adult Unclassified (7 sources) BMI 33.0-33.9,adult Unclassified (7 sources) Foot pain, left Unclassified (11 sources) Left ankle pain, unspecified chronicity Unclassified (1 source) R73.03 - Prediabetes Unclassified (3 sources) J02.9 - Acute pharyngitis, unspecified Unclassified (6 sources) M23.91 - Unspecified internal derangement of right knee Unclassified (1 source) Low back pain, unspecified; Translations: [Low back pain, unspecified] Onset: 5 Unclassified (1 source) Other specified cough; Translations: [Other specified cough] Onset: 5 Past or Other Problems Problem Classification Problem Date Documented Date Episodic/Chronic Allergic reactions (2 sources) Contact dermatitis due to plants; Translations: [Unspecified contact dermatitis due to plants, except food] Onset: 11-19-2016 11-19-2016 Episodic Other lower respiratory disease (2 sources) Dyspnea; Translations: [SOB (shortness of breath)] Episodic Other screening for suspected conditions (not mental disorders or infectious disease) (2 sources) Elevated C-reactive protein; Translations: [CRP elevated] 08-16-2019 Residual codes; unclassified (1 source) Tobacco use; Translations: [Tobacco use] Onset: 08-21-2024 Episodic Unclassified (11 sources) Enlarged lymph node (785.6) Unclassified (11 sources) CERUMEN IMPACTION (380.4) Unclassified (11 sources) Tobacco chew use (305.1) Unclassified (11 sources) Eye redness (379.93) Unclassified (11 sources) Sinus drainage Unclassified (11 sources) SINUSITIS, ACUTE NOS (461.9) Unclassified (20 sources) Unspecified Diagnosis 08-09-2019 Unclassified (11 sources) Ankle pain, left Unclassified (11 sources) Excessive cerumen in ear canal, left Unclassified (20 sources) Acute ear pain, left Unclassified (11 sources) Low back pain potentially associated with radiculopathy Unclassified (11 sources) BMI 32.0-32.9,adult Unclassified (11 sources) CRP elevated Unclassified (11 sources) Abdominal pain, acute Unclassified (11 sources) Abdominal pain, lower Unclassified (11 sources) Stress reaction Unclassified (11 sources) Kidney stones Unclassified (9 sources) Foot drop, right Unclassified (9 sources) Low back pain with radiation Unclassified (9 sources) History of herniated intervertebral disc Results Test Name Value Interpretation Reference Range Facility Lower Ext Joint Only (Routin e)on 11-23-2024 Lower Ext Joint Only (Routine) [facility] [address] [place] [id number] Lower Ext Joint Only (Routine) MR#: [id number] Acct: [id number] Name: SID PRUITT Rep #: [id number] : 1975 M 49 From: Ty Perry MD PCP: Dr. Geneva Danielson MD Status: REG CLI Study: Lower Ext Joint Only (Routine) Date of Exam: 0 11/23/24 Exam# [id number] Ordering Dr: Huy Rodriguez PROCEDURE: LOWER EXT JOINT ONLY (ROUTINE) 11/23/2024 REASON FOR EXAM: PAIN, LOCKING TECHNIQUE: LOWER EXT JOINT ONLY (ROUTINE) Multiplanar and multisequence images were obtained without IV contrast administration. COMPARISON: November 13, 2024 FINDINGS: Bone Marrow: There is a 0.5 x 0.7 cm developing osteochondral defect in the central portion of the medial femoral condyle with no free fragment. There is a 0.4 cm corticated osteochondral fragment within the popliteus tendon sheath. Cruciate ligaments: The anterior and posterior cruciate ligaments appear intact. Collateral ligaments: There is thickening and edema in the mid and upper portion of the medial collateral ligament without laxity, grade 2 sprain. The lateral collateral ligament complex appears intact. Menisci: There is a small horizontal tear in the body of the medial meniscus which extends to the tibial surface, coronal image 16/30. The lateral meniscus appears intact. Effusion: There is a small joint effusion. Cartilage: There is a 0.45 cm focal chondral defect in the lateral femoral condyle. There is moderate chondromalacia in the medial compartment. MRI/Lower Ext Joint Only (Routine) IMPRESSION: There is a 0.5 x 0.7 cm developing osteochondral defect in the central portion of the medial femoral condyle with no free fragment. There is a 0.4 cm corticated osteochondral fragment within the popliteus tendon sheath. There is thickening and edema in the mid and upper portion of the medial collateral ligament without laxity, grade 2 sprain. There is a small horizontal tear in the body of the medial meniscus which extends to the tibial surface, coronal image 16/30. There is a small joint effusion. There is a 0.45 cm focal chondral defect in the lateral femoral condyle. There is moderate chondromalacia in the medial compartment. Reading Location: [facility] CC: Dr. 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 Geneva Danielson MD Status: REG CLI Study: Knee 3 Views Date of Exam: 11/13/24 Exam# [id number] Ordering Dr: Huy Rodriguez PROCEDURE: KNEE 3 VIEWS 11/13/2024 REASON FOR EXAM: PAIN TECHNIQUE: KNEE 3 VIEWS COMPARISON: None FINDINGS: Bones: No fracture seen. Joints: Mild degree of joint space narrowing of the medial compartment of the knee joint as well as the patellofemoral joint. Effusion: Minimal joint effusion. Soft tissues: Unremarkable Other: RAD/Knee 3 Views IMPRESSION: DEGENERATIVE OSTEOARTHROSIS. NO ACUTE FINDINGS. Minimal joint effusion. Reading Location: [facility] CC: Dr. Geneva Danielson MD; JOAN Morley [employer]er: Signed Normal [facility] Lumbar Spine 2 or 3 Viewson 11-13-2024 Lumbar Spine 2 or 3 Views [facility] [address] [place], [place] [address] Lumbar Spine 2 or 3 Views MR#: [id number] Acct: [id number] Name: SID PRUITT Rep #: [id number] : 1975 M 49 From: Marco Antonio monge MD PCP: Dr. Geneva Danielson MD Status: REG CLI Study: Lumbar Spine 2 or 3 Views Date of Exam: Exam# [id number] Ordering Dr: Huy Rodriguez PROCEDURE: LUMBAR SPINE 2 OR 3 VIEWS 11/13/2024 REASON FOR EXAM: LOWER BACK PAIN INTO LEG TECHNIQUE: LUMBAR SPINE 2 OR 3 VIEWS COMPARISON: None FINDINGS: Vertebrae: Patient is status post laminectomy and fusion at the L5-S1 level. Discs: Moderate degree of disc space narrowing at the L5-S1 level with minimal anterior listhesis of L5 on S1. Disc space narrowing at the L4-L5 level. Alignment: Minimal anterior listhesis of L5 on S1. Other: RAD/Lumbar Spine 2 or 3 Views IMPRESSION: MILD DEGENERATIVE CHANGES OF THE LUMBAR SPINE. Status post fusion at the L5-S1 level with anterior listhesis of L5 on S1. Reading Location: [id number] CC: Dr. Gneeva Danielson MD; JOAN Morley Con[employer] [place]er: Signed Normal [facility] Urgent Care Visit Reporton 0 11-13-2024 Urgent Care Visit Report [facility] [address], [address] [place] [address] OFFICE VISIT Date of Service: 11/13/24 MR#: [id number] Acct: [id number] Name: SID PRUITT Rep #: [id number] : 1975 Provider: JOAN Morley Age/Sex: 49/M Location: [facility] Status: Signed Intake Vital Signs 08/21/24 07:38 11/13/24 12:36 Height 6 ft Weight: 266 lb BMI 36.1 BP 144/96 H 108/64 Blood Pressure Location Lt brachial Lt brachial Position Sitting Sitting Respiration 18 16 Pulse 71 88 Pulse Source Monitor Monitor Temp 98.3 F 98.4 F Temp Source Oral Oral Pulse Oximetry (%) 98 97 Oxygen Delivery Method room air Intake Visit Reasons: R KNEE PAIN Chief Complaint: R Knee Pain Field 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 Has surgical history of fusion in lower back and believes that this pain and numbness into right leg/knee is similar or due to the fusion. Has had pain for 2 weeks, but severe pain and numbness for 2 days. Patient has difficulty walking. 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 The knee pain began approximately a week ago and has progressively worsened, reaching a severity of 9 out of 10 today, making ambulation difficult. The patient reports a history of lumbar spine surgery in 2013, involving L5-S1 vertebrae fusion, which initially resulted in right leg weakness and foot drop, but these symptoms resolved post-surgery. The current knee pain is exacerbated by attempts to straighten the leg or stand, with tenderness noted laterally and posteriorly. The patient recalls a recent incident in a pool where a popping sensation was felt in the knee, suggesting possible internal derangement. The patient has been advised to undergo x-rays, which showed no significant bone abnormalities, but a possible meniscal tear is suspected due to the nature of the pain and physical examination findings. The patient has been referred for an MRI to further evaluate the knee condition and will follow up with orthopedics based on the MRI results. Attestation: Documentation on this patient encounter was supported using ambient scribe technology/ voice AI technology. The patient consented to recording for the purpose of documenting the encounter. Provider reviewed content of the generated note prior to signature. Review of Systems - Musculoskeletal: Reports severe right knee pain, inability to fully extend the knee, and lumbar spine discomfort. Denies loss of bowel or bladder control. Physical Exam - Musculoskeletal: Tenderness noted in the right knee, particularly laterally and posteriorly. Inability to fully extend the right knee. Tenderness upon palpation of the lateral collateral ligament area. Results - Imaging: X-ray of the right knee showed no significant bone abnormalities but suggested possible internal derangement. X-ray of the lumbar spine revealed stable surgical revision without acute pathology appreciated per my review, pending radiologist interpretation at the time patient discharge. Assessment and P (more content not included)... Normal [facility] Testosterone, Total / Freeon 09-18-2024 TESTMCLAREN FLINT,FREE 11.13 ng/dL Normal 5.00-21.00 [facility] Comment on above: Order Comment: N Performed By: #### L 3100.5310 #### [facility] [address] [place], [place], [address] TESTOSTER,TOTAL 289 ng/dL Normal 264-916 [facility] Comment on above: Order Comment: N Result Comment: Adul t male reference interval is based on a population of healthy nonobese males (BMI <30) between 19 and 39 years old. aristeo Lenz.al. JCEM 2017,102;8733-9329. PMID: [id number]. Performed By: #### L 3100.5310 #### [facility] [address] [place], [place], [address] TESTOSTERONE,%F 3.85 Normal 1.50-4.20 [facility] Comment on above: Order Comment: N Result Comment: Perf ormed at: [facility] [id number] Warehouse Operations Manager: Chevy Aparicio PhD, Phone: [phone] Performed at: [facility] [id number] Warehouse Operations Manager: Nichol Thomas MD, Phone: [phone] Performed By: #### L 4643.4884 #### [facility] [address] [place], [address] Free testosterone percentage Ordered By: Alvino Mathur on 08-31-2024 Testosterone Free/Testosterone.tot al [Mass fraction] 3.85 % 1.50-4.20 [facility] Comment on above: Performed at: [facility] [address] [id number] Director: Chevy Aparicio PhD, Phone: [phone] at: [facility] [id number] Director: Nichol Thomas MD, Phone: [phone] Serum or plasma free testost erone measurement (mass/volume)Ordered By: Alvino Mathur on 08-31-2024 Testosterone Free [Mass/Vol] 11.13 ng/dL 5.00-21.00 [facility] Testosterone, totalOrdered B y: Alvino Mathur on 08-31-2024 Testosterone [Mass/Vol] 289 ng/dL 264-916 [facility] Comment on above: Adult male reference interval is based on a population ofhealthy nonobese males (BMI <30) between 19 and 39 yearsold. aristeo Lenz.al. JCEM 2017,102;8346-4654. PMID:[id number]. Testosterone Freeon 08-25-19 TESTOSTER FREE 5.8 pg/mL Abnormal 6.8-21.5 [facility] Comment on above: Result Comment: Perf ormed at: [address] [id number] Warehouse Operations Manager: Nichol Thomas MD, Phone: [phone] Performed By: #### L 3400.4800, L500.4100, L500.4050, L300.8000, L501.9520 ####[facility] [id number] [place], [place], [id number] Anion gap in Serum or Plasma Ordered By: Geneva Danielson on 08-21-2024 Anion gap [Moles/Vol] 13 mmol/L 5-15 [facility] BUN/creatinine ratioOrdered By: Geneva Erum on 08-21-2024 Urea nitrogen/Creatinine [Mass ratio] 11.9 mg/mg 10- [facility] Bilirubin, totalOrdered By: Geneva Erum on 08-21-2024 Bilirubin [Mass/Vol] 0.53 mg/dL 0.00-1.30 [facility] Calculated very low density lipoprotein (VLDL) cholesterol measurementOrdered By: Geneva Erum on 08-21-2024 Calculated very low density lipoprotein (VLDL) cholesterol measurement 44 mg/dL High 5-40 [facility] VLDL Cholesterol 44 mg/dL High -40 [facility] Carbon dioxide, total [Moles /volume] in Central venous bloodOrdered By: Geneva Danielson on 08-21-2024 CO2 [Moles/Vol] 22.9 mmol/L 21.0-32.0 [facility] Chloride assayOrdered By: Elliot ycandriy Danielson on 08-21-2024 Chloride [Moles/Vol] 104 mmol/L 98-108 [facility] Comprehensive Metabolic Prof ilon 08-21-2024 Albumin [Mass/Vol] 4.1 g/dL Normal 3.5-5.0 [facility] Comment on above: Performed By: #### L 3400.4800, L500.4100, L500.4050, L300.8000, L501.9520 #### [facility] [address] [place], [place], [id number] Albumin/Globulin [Mass ratio] 1.6 {ratio} Normal 0.9-2.4 [facility] Comment on above: Performed By: #### L 3400.4800, L500.4100, L500.4050, L300.8000, L501.9520 #### [facility] [address] [place], [address] ALK PHOS 67 U/L Normal 40-129 [facility] Comment on above: Performed By: #### L 3400.4800, L500.4100, L500.4050, L300.8000, L501.9520 #### [facility] [address] [place], [address] ALT [Catalytic activity/Vol] 36 U/L Normal <=46 [facility] Comment on above: Performed By: #### L 3400.4800, L500.4100, L500.4050, L300.8000, L501.9520 #### [facility] [address] [place], [address] AST [Catalytic activity/Vol] 27 U/L Normal <=37 [facility] Comment on above: Performed By: #### L 3400.4800, L500.4100, L500.4050, L300.8000, L501.9520 #### [facility] [address] [place], [address] Bilirubin [Mass/Vol] 0.53 mg/dL Normal 0.00-1.30 [facility] Comment on above: Performed By: #### L 3400.4800, L500.4100, L500.4050, L300.8000, L501.9520 #### [facility] [address] [place], [address] BUN/CRE 11.9 RATIO Normal 10-20 [facility] Comment on above: Performed By: #### L 3400.4800, L500.4100, L500.4050, L300.8000, L501.9520 #### [facility] [address] [place], [address] Calcium [Mass/Vol] 8.8 mg/dL Normal 7.6-11.0 [facility] Comment on above: Performed By: #### L 3400.4800, L500.4100, L500.4050, L300.8000, L501.9520 #### [facility] [address] [place], [address] Chloride [Moles/Vol] 104 mmol/L Normal 98-108 [facility] Comment on above: Performed By: #### L 3400.4800, L500.4100, L500.4050, L300.8000, L501.9520 #### [facility] [address] [place], [address] CO2 [Moles/Vol] 22.9 mmol/L Normal 21.0-32.0 [facility] Comment on above: Performed By: #### L 3400.4800, L500.4100, L500.4050, L300.8000, L501.9520 #### [facility] [address] [place], [address] Creatinine [Mass/Vol] 0.98 mg/dL Normal 0.70-1.20 [facility] Comment on above: Performed By: #### L 3400.4800, L500.4100, L500.4050, L300.8000, L501.9520 #### [facility] [address] [place], [address] GAP 13 Normal 5-15 [facility] Comment on above: Performed By: #### L 3400.4800, L500.4100, L500.4050, L300.8000, L501.9520 #### [facility] [address] [place], [address] GFR/1.73 sq M.predicted among non-blacks MDRD (S/P/Bld) [Vol rate/Area] 95 mL/min/{1.73_m2} Normal >60 [facility] Comment on above: Result Comment: mL/m in/1.73m2 CKD-EPI Creatinine Equation (2020) Performed By: #### L 3400.4800, L500.4100, L500.4050, L300.8000, L501.9520 #### [facility] [address] [place], [address] Globulin (S) [Mass/Vol] 2.6 g/dL Normal 2.2-4.2 [facility] Comment on above: Performed By: #### L 3400.4800, L500.4100, L500.4050, L300.8000, L501.9520 #### [facility] [address] [place], [address] Glucose [Mass/Vol] 128 mg/dL High 70-99 [facility] Comment on above: Performed By: #### L 3400.4800, L500.4100, L500.4050, L300.8000, L501.9520 #### [facility] [address] [place], [address] Potassium [Moles/Vol] 4.2 mmol/L Normal 3.3-5.1 [facility] Comment on above: Performed By: #### L 3400.4800, L500.4100, L500.4050, L300.8000, L501.9520 #### [facility] [address] [place], [address] Sodium [Moles/Vol] 140 mmol/L Normal 133-145 [facility] Comment on above: Performed By: #### L 3400.4800, L500.4100, L500.4050, L300.8000, L501.9520 #### [facility] [address] [place], [address] T PROT 6.7 g/dL Normal 5.9-8.4 [facility] Comment on above: Performed By: #### L 3400.4800, L500.4100, L500.4050, L300.8000, L501.9520 #### [facility] [address] [place], [place], [address] Urea nitrogen [Mass/Vol] 12 mg/dL Normal 4-19 [facility] Comment on above: Performed By: #### L 3400.4800, L500.4100, L500.4050, L300.8000, L501.9520 #### [facility] [address] [place], [address] D-Dimer Quantitative (DVT/PE )on 08-21-2024 D-DIMER QUANT 0.27 FEU/ug/m Normal 0.27-0.49 [facility] Comment on above: Result Comment: NORM AL D-Dimer level (<0.50) indicates no DVT or PE. Performed By: #### L 3400.4800, L500.4100, L500.4050, L300.8000, L501.9520 #### [facility] [address] [place], [address] D-dimer measurement for deep venous thrombosisOrdered By: Geneva Danielson on 08-21-2024 D-Dimer Quantitative (PE/DVT) 0.27 FEU/ug/m 0.27-0.49 [facility] Comment on above: NORMAL D-Dimer level (<0.50) indicates no DVT or PE. GFR/1.73 sq M.predicted uriah g non-blacks MDRD (S/P/Bld) [Vol rate/Area]Ordered By: Geneva Danielson on 08-21-2024 Estimated GFR (MDRD) Non-Af Amer 95 >60 [facility] Comment on above: mL/min/1.73m2 CKD-EP I Creatinine Equation (2020) Glomerular filtration rate ( GFR) estimation/1.73 sq m using serum, plasma, or whole bOrdered By: Geneva Danielson on 08-21-2024 GFR/1.73 sq M.predicted among non-blacks MDRD (S/P/Bld) [Vol rate/Area] 95 mL/min/{1.73_m2} >60 [facility] Comment on above: mL/min/1.73m2 CKD-EP I Creatinine Equation (2020) LDL calc ser/plasOrdered By: Geneva Danielson on 08-21-2024 Cholesterol in LDL [Mass/Vol] 185 mg/dL [facility] Comment on above: Bnxhnhyplj=428-152 m g/dL & Higher Yajn=171 mg/dL or greater LDL Cholesterol, Calculated 185 mg/dL [facility] Comment on above: Hdnvoympwo=674-537 m g/dL & Higher Teux=123 mg/dL or greater Laboratory - Chemistry and C hemistry - challengeOrdered By: Geneva Danielson on 08-21-2024 AST [Catalytic activity/Vol] 27 U/L <38 [facility] Lipid Profileon 08-21-2024 CHOL:HDL 6.60 Normal [facility] Comment on above: Performed By: #### L 3400.4800, L500.4100, L500.4050, L300.8000, L501.9520 ####[facility] [address], [address] Cholesterol [Mass/Vol] 270 mg/dL High <=200 [facility] Comment on above: Result Comment: Chol esterol level, Desirable <200 mg/dL Borderline high cholesterol 200-239 mg/dL High cholesterol >=240 mg/dL Recommendations of the NCEP Adult Treatment Panel for the following risk-cutoff thresholds for the [place] population. Performed By: #### L 3400.4800, L500.4100, L500.4050, L300.8000, L501.9520 ####[facility] [address] [place] [place], [address] Cholesterol in HDL [Mass/Vol] 41 mg/dL Normal [facility] Comment on above: Result Comment: Jil onal Cholesterol Education Program (NCEP) guidelines: <40 mg/dL: Low HDL-cholesterol (major risk factor for CHD) >= 60 mg/dL: High HDL-cholesterol (negative risk factor for CHD) HDL-cholesterol is affected by a number of factors, e.g. smoking, exercise, hormones, sex and age. Performed By: #### L 3400.4800, L500.4100, L500.4050, L300.8000, L501.9520 ####[facility] [address] [place], [address] Cholesterol in LDL [Mass/Vol] 185 mg/dL Normal [facility] Comment on above: Result Comment: Bord imxkbn=368-860 mg/dL Higher Lyna=246 mg/dL or greater Performed By: #### L 3400.4800, L500.4100, L500.4050, L300.8000, L501.9520 ####[facility] [address] [place], [address] Cholesterol in VLDL [Mass/Vol] 44 mg/dL High 5-40 [facility] Comment on above: Performed By: #### L 3400.4800, L500.4100, L500.4050, L300.8000, L501.9520 ####[facility] [address] [place], [address] Triglyceride [Mass/Vol] 221 mg/dL High [facility] Comment on above: Result Comment: The drugs N-Acetylcysteine and Metamizole may falsely depress this assay. Normal range: <150 mg/dL Borderline High: 150-199 mg/dL High: 200-499 mg/dL Very High: >500 mg/dL Performed By: #### L 3400.4800, L500.4100, L500.4050, L300.8000, L501.9520 ####[facility] [address] [place], [address] Potassium (Unsp spec) [Mass/ Vol]Ordered By: Geneva Danielson on 08-21-2024 Potassium [Moles/Vol] 4.2 mmol/L 3.3-5.1 [facility] Potassium measurement (mass/ volume)Ordered By: Geneva Danielson on 08-21-2024 Potassium (Unsp spec) [Mass/Vol] 4.2 mmol/L 3.3-5.1 [facility] Screening total cholesterol/ high density lipoprotein (HDL) cholesterol ratioOrdered By: Geneva Danielson on 08-21-2024 Cholesterol.total/Cho lesterol in HDL [Mass ratio] 6.60 {ratio} [facility] Serum creatinine measurement (mass/volume)Ordered By: Geneva Danielson on 08-21-2024 Creatinine [Mass/Vol] 0.98 mg/dL 0.70-1.20 [facility] Serum globulin measurementOr dered By: Geneva Danielson on 08-21-2024 Globulin (S) [Mass/Vol] 2.6 g/dL 2.2-4.2 [facility] Serum glucose measurement (m ass/volume)Ordered By: Geneva Danielson on 08-21-2024 Glucose [Mass/Vol] 128 mg/dL High 70-99 [facility] Serum or plasma alanine suárez otransferase (ALT) measurementOrdered By: Geneva Danielson on 08-21-2024 ALT [Catalytic activity/Vol] 36 U/L <47 [facility] Serum or plasma albumin ainsley urement (mass/volume)Ordered By: Geneva Danielson on 08-21-2024 Albumin [Mass/Vol] 4.1 g/dL 3.5-5.0 [facility] Serum or plasma albumin/glob ulin mass ratioOrdered By: Geneva Danielson on 08-21-2024 Albumin/Globulin [Mass ratio] 1.6 {ratio} 0.9-2.4 [facility] Serum or plasma alkaline dawn sphatase measurementOrdered By: Geneva Danielson on 08-21-2024 ALP [Catalytic activity/Vol] 67 U/L 40-129 [facility] Serum or plasma calcium ainsley urement (mass/volume)Ordered By: Geneva Danielson on 08-21-2024 Calcium [Mass/Vol] 8.8 mg/dL 7.6-11.0 [facility] Serum or plasma cholesterol in HDL measurement (mass/volume)Ordered By: Geneva Danielson on 08-21-2024 Cholesterol in HDL [Mass/Vol] 41 mg/dL >40 [facility] Comment on above: National Cholesterol Education Program (NCEP) guidelines:<40 mg/dL: Low HDL-cholesterol (major risk factor for CHD)>= 60 mg/dL: High HDL-cholesterol (negative risk factor for CHD)HDL-cholesterol is affected by a number of factors, e.g. smoking, exercise, hormones, sex and age. Serum or plasma cholesterol measurement (mass/volume)Ordered By: Geneva Danielson on 08-21-2024 Cholesterol [Mass/Vol] 270 mg/dL High <201 [facility] Comment on above: Cholesterol level, D esirable <200 mg/dLBorderline high cholesterol 200-239 mg/dLHigh cholesterol >=240 mg/dLRecommendations of the NCEP Adult Treatment Panel for the following risk-cutoff thresholds for the [place] population. Serum or plasma free testost erone measurement (mass/volume)Ordered By: Geneva Danielson on 08-21-2024 Testosterone Free [Mass/Vol] 5.8 pg/mL Low 6.8-21.5 [facility] Comment on above: Performed at: - [address] [id number] Director: Nichol Thomas MD, Phone: [phone] Serum or plasma urea nitroge n measurement (mass/volume)Ordered By: Geneav Danielson on 08-21-2024 Urea nitrogen [Mass/Vol] 12 mg/dL 4-19 [facility] Sodium levelOrdered By: Gilberto Danielson on 08-21-2024 Sodium [Moles/Vol] 140 mmol/L 133-145 [facility] TSH DL <= 0.005 mIU/L QnOrde red By: Geneva Danielson on 08-21-2024 Thyroid Stimulating Hormone (TSH) 2.390 uIU/mL 0.300-4.200 [facility] TSH Qn 2.390 uIU/mL 0.300-4.200 [facility] Thyroid Stim Hormone (TSH)on 08-21-2024 TSH 2.390 uIU/mL Normal 0.300-4.200 [facility] Comment on above: Performed By: #### L 3400.4800, L500.4100, L500.4050, L300.8000, L501.9520 ####[facility] [address] [place], [place], [address] Total proteinOrdered By: Isaiahsanjeev horton Erum on 08-21-2024 Protein [Mass/Vol] 6.7 g/dL 5.9-8.4 [facility] Triglycerides measurementOrd ered By: Geneva Liaolay on 08-21-2024 Triglyceride [Mass/Vol] 221 mg/dL High <199 [facility] Comment on above: The drugs N-Acetylcy steine and Metamizole may falsely depress this assay. Normal range: <150 mg/dLBorderline High: 150-199 mg/dLHigh: 200-499 mg/dLVery High: >500 mg/dL Urgent Care Visit Reporton 0 08-21-2024 Urgent Care Visit Report [facility] [address], [address] [place], [place] [address] OFFICE VISIT Date of Service: 08/21/24 MR#: [id number] Acct: [id number] Name: SID PRUITT Rep #: [id number] : 1975 Provider: JOAN Morley Age/Sex: 49/M Location: [facility] Status: Signed Intake Vital Signs 08/20/24 14:29 08/21/24 07:38 Height 5 ft 11 in 6 ft Weight: 266 lb 266 lb BMI 37.0 36.1 BP 150/78 H 144/96 H Blood Pressure Location Lt brachial Lt brachial Position Sitting Sitting Respiration 18 18 Pulse 93 71 Pulse Source Monitor Monitor Temp 99 F 98.3 F Temp Source Temporal Oral Pulse Oximetry (%) 96 98 Oxygen Delivery Method room air room air Intake Visit Reasons: CHEST CONGESTION Chief Complaint: cough, chest congestion Field Irrigation Worker Required: No Accompanied by: Self Is patient in pain?: No Allergies No Known Allergies Allergy (Unverified 08/21/24 07:38) Medications ???Medication ???Instructions ???Recorded ???Confirmed ???Type lisinopril 2.5 mg tablet 2.5 mg PO QDAY #30 tabs 07/27/24 0 08/21/24 Rx azithromycin 250 mg tablet See Rx Instructions PO .COMPLEX #6 08/21/24 08/21/24 Rx tabs PFSH Medical History (Updated 08/21/24 @ 07:49 by Huy FRANCO, PA) Kidney stone Surgical History (Updated 08/21/24 @ 07:31 by Karen Willingham) History of ankle surgery H/O lithotripsy History of back surgery History of surgery Family History (Updated 08/21/24 @ 07:32 by Karen Willingham) Brother Cancer skin; mouth Aunt Diabetes Father Brain bleed Grandfather Myocardial infarction, Onset Age: 79 Social History (Updated 08/21/24 @ 07:32 by Karen Willingham) household members: spouse and children housing: house current occupational status: employed 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 No complaints of fever, chills, sweats, lightheadedness/dizzin ess, nausea/vomiting, and no complaints of chest pressure or shortness of breath or dyspnea on exertion. Patient notes ever since being exposed to environmental aerosol exposure from local farm a year ago and developing pneumonia as result he has had chronic intermittent persistent cough symptoms ever since. Non-smoker. No dref-gyx-izqbcnx products diagnosis. No other associated symptoms and no alleviating/aggravatin g factors. ROS Const Constitutional: No other (As above) Exam Const General: cooperative, healthy appearing and no acute distress Orientation: alert and awake [facility] Head: normal to inspection Ears: hearing grossly normal bilaterally, external ears normal, TM's normal bilaterally and EAC's normal Nose: external nose normal, nares normal, septum normal and no nasal discharge Face and sinus: normal facial exam, sinuses nontender and face symmetric Mouth: oral mucosae normal, lip normal, tongue normal, oropharynx normal and moist mucous membranes Throat: posterior oropharynx normal, tonsils normal, uvula midline and postnasal drainage Eyes General: appearance normal, both eyes and all related structures Neck Neck: normal visual inspection, no lymphadenopathy, no meningeal signs and supple Neck mass: No Thyroid: thyroid normal Lymphatic: no lymphadenopathy noted Chest Chest palpation inspection: normal inspection of the chest Resp Effort Inspection: normal respiratory effort and able to speak in complete sentences Auscultation: Bilateral: Clear to Auscultation Cardio Palpation: normal PMI Rate: regular rate Rhythm: regular rhythm Heart Sounds: S1 normal, S2 normal, no gallops, no murmurs and no rubs Pulses: radial pulses present GI Inspection: normal to inspection Neuro General: patient alert, patient awake and patient oriented x3 Cognition: normal cognition Speech: speech normal Psych Appearance: grossly normal Mental Status: mental status grossly normal Mood: congruent mood Affect: normal affect Speech and Movement: speech and movement normal Attitude: cooperative Coding Level of Care Code Off vis,new,level 3 Diagnoses Acute bronchitis, unspecified J20.9 Assessment and Plan Assessment and Plan (1) Acute bronchitis, unspecified: Status: Acute Plan: Azithromycin as prescribed today. Supportive measures as instructed today. Declined wor (more content not included)... Normal [facility] Chest PA and Lateralon 08-20 Chest PA and Lateral [facility] [address] [place] [address] Chest PA and Lateral MR#: [id number] Acct: [id number] Name: SID PRUITT Rep #: [id number] : 1975 M 49 From: Jose Coronado MD PCP: Dr. Geneva Danielson MD Status: REG CLI Study: Chest PA and Lateral Date of Exam: 08/20/24 Exam# [id number] Ordering Dr: Geneva Danielson MD PROCEDURE: CHEST PA AND LATERAL 08/20/2024 REASON FOR EXAM: COUGH TECHNIQUE: Frontal and lateral views of the chest. COMPARISON: No relevant prior FINDINGS: Lungs: Lungs clear of pneumonia and congestion. Pleura: No pleural effusions, thickening, or pneumothorax. Heart: Normal in size and configuration. Mediastinum/Ana: Unremarkable. Great vessels: Unremarkable. Bones/soft tissues: Unremarkable. RAD/Chest PA and Lateral IMPRESSION: No active cardiopulmonary disease. Reading Location: [facility] CC: Dr. Geneva Danielson MD [employer] [place]: Signed Normal [facility] Internal Medicine Office Vis agatha 08-20-2024 Internal Medicine Office Visit [facility] [address] [address] [place] [address] OFFICE VISIT Date of Service: 08/20/24 MR#: [id number] Acct: [id number] Name: SID PRUITT Rep #: [id number] : 1975 Provider: Dr. Geneva lucas MD Age/Sex: 49/M Location: [facility] Status: Signed Intake Vital Signs 07/25/24 07:39 08/20/24 14:29 08/20/24 16:56 Height 5 ft 11 in 5 ft 11 in Weight: 266 lb BMI 37.0 BP 150/78 H 122/78 H Blood Pressure Location Lt brachial Position Sitting Respiration 18 Pulse 93 Pulse Source Monitor Temp 99 F Temp Source Temporal Pulse Oximetry (%) 96 Oxygen Delivery Method room air Intake Visit Reasons: chest congestion/cough Field Irrigation Worker Required: No Is patient in pain?: No Allergies No Known Allergies Allergy (Unverified 08/20/24 14:18) Medications ???Medication ???Instructions ???Recorded ???Confirmed ???Type lisinopril 2.5 mg tablet 2.5 mg PO QDAY #30 tabs 07/27/24 0 08/20/24 Rx Nurse's Note: States for months he has had a lot of chest congestion which causes SOB. He denies rattling. He has a pretty tight, mostly nonproductive cough. He states his inhaler and nebulizer does not help. He gets into coughing spells and being SOB makes him dizzy and lightheaded.States last week he did have some nasal congestion but it resolved, and states when things come to him it goes straight to his lungs. States when he puts his L arm above his head breathing is a little bit better. Has taken clartin to help but got no relief. Had Influenza A in June. He thinks this is when sx's intially started. Was seen at [facility] for this, took an atb. States Dr. Danielson ran a CXR at last visit. 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 He never did his routine blood work as previously ordered. He previously declined any screening and immunizations. He doesn't smoke, but does chew tobacco. He states his dentist told him he wouldn't be at risk of cancer since he doesn't chew it in one spot. He states he has read about the benefits of nicotine use. He doesn't need any refills today. At the patient's last office visit, he complained of chest pain. He was started on medications and a stress test was ordered. He reports that the stress test was too expensive, so he never completed it. He reports the chest pain has since resolved. He has been checking his blood pressure and reports it has been in the 120-130/80-90s. He has been taking his lisinopril as prescribed without problems. He has concerns about cough and congestion. He reports that he has had a cough since last year, but states it has been worse a little over a month and worse still this morning. He reports he will occasionally bring up a white/yellow sputum. He reports he has been having chest tightness and shortness of breath. He has tried taking claritin which didn't help. He reports last year he saw Dr. Mehta and was diagnosed with asthma and lung irritation. He reports he tried using his nebulizer and inhaler which was prescribed last year (xopenex and budesonide) which didn't help. ROS Const Constitutional: Positive for headache(s) and weight change; No body ache, chills, excessive sweating, fatigue, fever(s) (resolved), frequent falls, snoring, weakness, sleep problems or change in appetite Eyes Eyes: No blurry vision, change in vision, eye pain or Light sensitivity ENT ENT: Positive for headache(s); No abnormal hearing, ear or mastoid pain, tinnitus, nasal congestion, sinus pressure, sinus pain, neck pain or sore throat (resolved) Resp Respiratory: Positive for cough, chest congestion, shortness of breath, pain with cough and other; No snoring or wheezing Cardio Cardiology: Positive for other (leg swelling); No chest pain at rest, chest pain with exertion, excessive sweating, shortness of breath, dyspnea on exertion, l (more content not included)... Normal [facility] Internal Medicine Office Vis iton 07-25-2024 Internal Medicine Office Visit [facility] [address] [place] [address] [place] [address] OFFICE VISIT Date of Service: 07/25/24 MR#: [id number] Acct: [id number] Name: SID PRUITT Rep #: [id number] : 1975 Provider: JOAN Murry Age/Sex: 49/M Location: [facility] Status: Signed Intake Vital Signs 05/03/24 13:56 07/25/24 07:39 Height 5 ft 11 in 5 ft 11 in Weight: 259 lb 263 lb BMI 36.1 36.6 BP 158/88 H 140/92 H Blood Pressure Location Lt brachial Lt brachial Position Sitting Sitting Respiration 16 16 Pulse 89 80 Pulse Source Monitor Monitor Temp 98.2 F 98.6 F Temp Source Temporal Temporal Pulse Oximetry (%) 97 96 Oxygen Delivery Method room air room air Intake Visit Reasons: ACUTE - SORE THROAT Chief Complaint: est care Field Irrigation Worker Required: No Is patient in pain?: No Allergies No Known Allergies Allergy (Unverified 07/25/24 07:35) Nurse's Note: Has been having a sore throat for months states he found a spot that is white and has a red spot. He is concerned. States his brother had a cancer that he did not know what the type was. It started w/ spots in his mouth/throat. He is concerned. Sore throat is staying the same. States he noticed the spot about a week ago, States the spot has not changed at all. has a residual cough from flu a from a month ago. States he has tried throat lozenges and gargling w/ peroxide. States that he feels like something is poking him and pain is described as stinging to achey states that eating makes it worse. 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 He states that it started randomly without any acute sickness / illness. He states that he was not sick at the time. He did get influenza about a month ago but the sore throat started before that. He did not have any fevers with this. He states that the pains are pretty constant without any certain time of day worse than others. HE denies having difficulties swallowing but that it is uncomfortable. He has not noticed any swollen glands or lumps in the neck area. He states that he as tried tylenol as well as as some throat lozenges, and peroxide. He states that he noticed a small area that is red on the bottom left of the throat. His brother had a form of mouth cancer that he states started out similar and that is worrisome to him. ROS Const Constitutional: No body ache, chills, excessive sweating, fatigue, fever(s), frequent falls, headache(s), snoring, weakness, sleep problems or change in appetite Eyes Eyes: No blurry vision, change in vision, eye pain or Light sensitivity ENT ENT: Positive for sore throat and other; No abnormal hearing, ear or mastoid pain, tinnitus, nasal congestion, headache(s) or neck pain Resp Respiratory: No cough, shortness of breath, snoring or wheezing Cardio Cardiology: No chest pain at rest, chest pain with exertion, excessive sweating, shortness of breath, dyspnea on exertion, lightheadedness, orthopnea or palpitations Gastro GI: No abdominal pain, change in bowel habits, constipation, cramping, diarrhea, nausea/dyspepsia or vomiting Genitourinary Male: No burning urination, painful urination, urinary incontinence or urinary frequency Musc Musculoskeletal: No abnormal gait, joint pain, back pain, limited range of motion, neck pain or numbness Skin Skin: No dry skin, redness, lesions, itchy eyes, rash or wounds Neuro Neurology: No abnormal gait, abnormal hearing, weakness, frequent falls, headache(s), memory loss or numbness Psych Psychiatric: No anxiety, No change in appetite, No depression, No memory loss and No Thoughts of harming yourself/Others Endo Endocrine: Positive for other; No cold intolerance, excessive sweating, fatigue, flushing, heat intolerance, increased thirst/drinking or increased hunger Aller (more content not included)... Normal [facility] Laboratory - Hematology and Cell countson 05-03-2024 HbA1c (Bld) [Mass fraction] 6.3 % 4.2-6.3 [facility] Internal Medicine Office Vis itopaulino 05-02-2024 Internal Medicine Office Visit [facility] [place] [address] [place] [address] OFFICE VISIT Date of Service: 05/03/24 MR#: [id number] Acct: [id number] Name: SID PRUITT Rep #: [id number] : 1975 Provider: Dr. 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 Geneva Danielson MD) Kidney stone Surgical History H/O lithotripsy History of back surgery History of surgery Family History (Updated 05/03/24 @ 14:[address] Geneva Danielson MD) Brother Cancer skin Aunt Diabetes Father Brain bleed Grandfather Myocardial infarction, Onset Age: 79 Social History (Updated 05/03/24 @ 14:[address] 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 He was seeing Dr. Gaytan and last saw them in the fall. He is due for some routine blood work. He doesn't want to do any colon cancer screening. He doesn't want any immunizations. He doesn't smoke, but does chew tobacco. He doesn't take any prescription medications. He reports he tries to eat healthy, but does eat fast food. He isn't very active. The patient was seen in the ED back in April with complaints of chest pain. Per the ED visit, his symptoms started the day prior, however, he reports it had been intermittent for a few months. He will get symptoms a few times per week, but seems to be getting more frequent. He has associated dizziness and short of breath. It doesn't seem to be associated with activity. He reports he does have associated pain between his shoulder blades occasionally. He describes the pain as a tightness in his substernal region. He states laying flat seems to help with his breathing, but he doesn't notice a difference in terms of the pain. He will occasionally take tylenol for his symptoms, but didn't feel it helped much. He reports he has some discomfort currently, rating it 5-6/10 currently. He denies any nausea, vomiting or numbness/tingling. He denies any immediate family history of heart disease or heart attacks. In the ED, the patient had blood work and a chest XR completed. An EKG was also done which showed NSR with sinus arrhythmia. It was unable to rule out an anterior infarct. He was given maalox to rule out GERD, which didn't seem to help. The patient had a stress echo in 2018 and a calcium score done earlier this year by his previous PCP. In the ED, the patient's blood pressure was elevated to 191/97. He was never told he had high blood pressure previously. He has been checking it every day since his ED visit and it has been consistently in the 160s/100s. He has never been on any medications. He drinks one cup of coffee per day and will rarely drink pop. He may add salt to certain foods. He doesn't feel he is eating much in terms of salty foods. During his ED visit, he was also noted to have a glucose of 213. He was told around a year ago that his sugars were borderline. He started checking his sugars since his ED visit and reports they have been consistently in the 200 ranges. He had one reading of 109, but hadn't eaten all day. He doesn't really monitor his carbohydrates or sugar intake. He is interested in seeing a principal clerk typist to help with his diet and weight. ROS Const Constitutional: Positive for weight change; No body ache, chills, excessive sweating, fatigue, fever(s), frequent falls, headache(s), snoring, weakness or change in appetite Eyes Eyes: Positive for blurry vision; No change in vision, eye pain or Light sensitivity ENT ENT: No abnormal hearing, (more content not included)... Normal [facility] Basic metabolic 2000 panelon 04-25-2024 Anion gap [Moles/Vol] 11 mmol/L Normal 8-15 [facility] Comment on above: Order Comment: Speci men Type: BLOOD SPECIMEN Ordering Facility: [facility] Address: [address] [place] [address] Performed By: #### 2 4321-2 #### [facility] CLIA [id number] [address] [place] [address] [place] Calcium [Mass/Vol] 8.9 mg/dL Normal 8.5-10.2 [facility] Comment on above: Order Comment: Speci men Type: BLOOD SPECIMEN Ordering Facility: [facility] Address: [address] [place] [address] Performed By: #### 2 4321-2 #### [facility] CLIA [id number] [address] [place] [address] [place] Chloride [Moles/Vol] 103 mmol/L Normal 98-107 [facility] Comment on above: Order Comment: Speci men Type: BLOOD SPECIMEN Ordering Facility: [facility] Address: [address] [place] [address] Performed By: #### 2 4321-2 #### [facility] CLIA [id number] [address] [place] [address] [place] CO2 [Moles/Vol] 23 mmol/L Normal 22-30 [facility] Comment on above: Order Comment: Speci men Type: BLOOD SPECIMEN Ordering Facility: [facility] Address: [address] [place] [address] Performed By: #### 2 4321-2 #### [facility] CLIA [id number] [address] [place] [address] [place] Creatinine [Mass/Vol] 1.00 mg/dL Normal 0.73-1.22 [facility] Comment on above: Order Comment: Steven lopes Type: BLOOD SPECIMEN Ordering Facility: [facility] Address: [address] [place] [address] Performed By: #### 2 4321-2 #### [facility] CLIA [id number] [address] [place] [address] [facility] [place] Creatinine and Glomerular filtration rate.predicted panel (S/P/Bld) 92 mL/min/1.73m??? Normal >=60 [facility] Comment on above: Order Comment: Steven lopes Type: BLOOD SPECIMEN Ordering Facility: [facility] Address: [address] [place] [address] Result Comment: Rosario mated Glomerular Filtration Rate (eGFR) is calculated using the 2020 CKD-EPI creatinine equation. This equation utilizes serum creatinine, sex, and age as parameters. The creatinine assay has traceable calibration to isotope dilution-mass spectrometry. Refer to KDIGO guidelines for clinical interpretation. In patients with unstable renal function, e.g. those with acute kidney injury, the eGFR may not accurately reflect actual GFR. Performed By: #### 2 4321-2 #### [facility] CLIA [id number] [address] [place] [address] [place] Glucose [Mass/Vol] 213 mg/dL High 74-99 [facility] Comment on above: Order Comment: Steven lopes Type: BLOOD SPECIMEN Ordering Facility: [facility] Address: [address] [place] [address] Result Comment: The [place] [employer] (ADA) provides guidance for cutoff values for fasting glucose and random glucose. The ADA defines fasting as no caloric intake for at least 8 hours. Fasting plasma glucose results between 100 to 125 mg/dL indicate increased risk for diabetes (prediabetes). Fasting plasma glucose results greater than or equal to 126 mg/dL meet the criteria for diagnosis of diabetes. In the absence of unequivocal hyperglycemia, results should be confirmed by repeat testing. In a patient with classic symptoms of hyperglycemia or hyperglycemic crisis, random plasma glucose results greater than or equal to 200 mg/dL meet the criteria for diagnosis of diabetes. Reference: Standards of Medical Care in Diabetes 2016, [place] [employer]. Diabetes Care. 2016.39(Suppl 1). Performed By: #### 2 4321-2 #### [facility] CLIA [id number] [address] [place] [address] [place] Potassium [Moles/Vol] 3.8 mmol/L Normal 3.7-5.1 [facility] Comment on above: Order Comment: Speci men Type: BLOOD SPECIMEN Ordering Facility: [facility] Address: [address] [place] [address] Performed By: #### 2 4321-2 #### [facility] CLIA [id number] [address] [place] [address] [place] Sodium [Moles/Vol] 137 mmol/L Normal 136-144 [facility] Comment on above: Order Comment: Mohseni marianne Type: BLOOD SPECIMEN Ordering Facility: [facility] Address: [address] [place] [address] Performed By: #### 2 4321-2 #### [facility] CLIA [id number] [address] [place], [place] [address] [place] [address] [place] Urea nitrogen [Mass/Vol] 15 mg/dL Normal 9-24 [facility] Comment on above: Order Comment: Mohseni men Type: BLOOD SPECIMEN Ordering Facility: [facility] Address: [address] [place] [address] Performed By: #### 2 4321-2 #### [facility] CLIA [id number] [address] [place] [address] [place] CBC W Auto Differential pane l (Bld)on 04-25-2024 Basophils (Bld) [#/Vol] 0.04 10*3/uL Normal <0.11 [facility] Comment on above: Order Comment: Mohseni men Type: BLOOD SPECIMEN Ordering Facility: [facility] Address: [address] [place] [address] Performed By: #### 5 7021-8 #### [facility] CLIA [id number] [address] [place] [address] [place] Basophils/100 WBC (Bld) 0.6 % Normal [facility] Comment on above: Order Comment: Speci men Type: BLOOD SPECIMEN Ordering Facility: [facility] Address: [address] [place] [address] Performed By: #### 5 7021-8 #### [facility] CLIA [id number] [address] [place] [address] [place] Differential cell count method Nom (Bld) Auto Normal [facility] Comment on above: Order Comment: Speci men Type: BLOOD SPECIMEN Ordering Facility: [facility] Address: [address] [place] [address] Performed By: #### 5 7021-8 #### [facility] CLIA [id number] [address] [place] [address] [place] Eosinophils (Bld) [#/Vol] 0.13 10*3/uL Normal <0.46 [facility] Comment on above: Order Comment: Speci men Type: BLOOD SPECIMEN Ordering Facility: [facility] Address: [address] [place] [address] Performed By: #### 5 7021-8 #### [facility] CLIA [id number] [address] [place] [address] [facility] Eosinophils/100 WBC (Bld) 1.9 % Normal [facility] Comment on above: Order Comment: Speci men Type: BLOOD SPECIMEN Ordering Facility: [facility] Address: [address] [place] [address] Performed By: #### 5 7021-8 #### [facility] CLIA [id number] [address] [place] [address] [facility] Erythrocyte distribution width (RBC) [Ratio] 12.4 % Normal 11.5-15.0 [facility] Comment on above: Order Comment: Speci men Type: BLOOD SPECIMEN Ordering Facility: [facility] Address: [address] [place] [address] Performed By: #### 5 7021-8 #### [facility] CLIA [id number] [address] [place] [address] [place] Hematocrit (Bld) [Volume fraction] 46.0 % Normal 39.0-51.0 [facility] Comment on above: Order Comment: Speci men Type: BLOOD SPECIMEN Ordering Facility: [facility] Address: [address] [place] [address] Performed By: #### 5 7021-8 #### [facility] CLIA [id number] [address] [place] [address] [place] Hemoglobin (Bld) [Mass/Vol] 15.2 g/dL Normal 13.0-17.0 [facility] Comment on above: Order Comment: Speci men Type: BLOOD SPECIMEN Ordering Facility: [facility] Address: [address] [place] [address] Performed By: #### 5 7021-8 #### [facility] CLIA [id number] [address] [place] [address] [place] Immature granulocytes (Bld) [#/Vol] 10*3/uL Normal <0.10 [facility] Comment on above: Order Comment: Speci men Type: BLOOD SPECIMEN Ordering Facility: [facility] Address: [address] [place] [address] Performed By: #### 5 7021-8 #### [facility] CLIA [id number] [address] [place] [address] [place] Immature granulocytes/100 WBC (Bld) 0.3 % Normal [facility] Comment on above: Order Comment: Speci men Type: BLOOD SPECIMEN Ordering Facility: [facility] Address: [address] [place] [address] Performed By: #### 5 7021-8 #### [facility] CLIA [id number] [address] [place] [address] [place] Lymphocytes (Bld) [#/Vol] 2.15 10*3/uL Normal 1.00-4.00 [facility] Comment on above: Order Comment: Speci men Type: BLOOD SPECIMEN Ordering Facility: [facility] Address: [address] [place] [address] Performed By: #### 5 7021-8 #### [facility] CLIA [id number] [address] [place] [address] [place] [facility] Lymphocytes/100 WBC (Bld) 31.3 % Normal [facility] Comment on above: Order Comment: Speci men Type: BLOOD SPECIMEN Ordering Facility: [facility] Address: [address] [place] [address] Performed By: #### 5 7021-8 #### [facility] CLIA [id number] [address] [place] [address] [place] MCH (RBC) [Entitic mass] 30.5 pg Normal 26.0-34.0 [facility] Comment on above: Order Comment: Speci men Type: BLOOD SPECIMEN Ordering Facility: [facility] Address: [address] [place] [address] Performed By: #### 5 7021-8 #### [facility] CLIA [id number] [address] [place], [place] [address] [place] [address] [place] MCHC (RBC) [Mass/Vol] 33.0 g/dL Normal 30.5-36.0 [facility] Comment on above: Order Comment: Speci men Type: BLOOD SPECIMEN Ordering Facility: [facility] Address: [address] [place] [address] Performed By: #### 5 7021-8 #### [facility] CLIA [id number] [address] [place] [address] [place] MCV (RBC) [Entitic vol] 92.4 fL Normal 80.0-100.0 [facility] Comment on above: Order Comment: Speci men Type: BLOOD SPECIMEN Ordering Facility: [facility] Address: [address] [place] [address] Performed By: #### 5 7021-8 #### [facility] CLIA [id number] [address] [place] [address] [place] Monocytes (Bld) [#/Vol] 0.75 10*3/uL Normal <0.87 [facility] Comment on above: Order Comment: Speci men Type: BLOOD SPECIMEN Ordering Facility: [facility] Address: [address] [place] [address] Performed By: #### 5 7021-8 #### [facility] CLIA [id number] [address] [place] [address] [place] Monocytes/100 WBC (Bld) 10.9 % Normal [facility] Comment on above: Order Comment: Speci men Type: BLOOD SPECIMEN Ordering Facility: [facility] Address: [address] [place] [address] Performed By: #### 5 7021-8 #### [facility] CLIA [id number] [address] [place] [address] [place] Neutrophils (Bld) [#/Vol] 3.78 10*3/uL Normal 1.45-7.50 [facility] Comment on above: Order Comment: Speci men Type: BLOOD SPECIMEN Ordering Facility: [facility] Address: [address] [place] [address] Performed By: #### 5 7021-8 #### [facility] CLIA [id number] [address] [place] [address] [place] Neutrophils/100 WBC (Bld) 55.0 % Normal [facility] Comment on above: Order Comment: Speci men Type: BLOOD SPECIMEN Ordering Facility: [facility] Address: [address] [place] [address] Performed By: #### 5 7021-8 #### [facility] CLIA [id number] [address] [place] [address] [place] Nucleated RBC (Bld) [#/Vol] Normal [facility] Comment on above: Order Comment: Speci men Type: BLOOD SPECIMEN Ordering Facility: [facility] Address: [address] [place] [address] Performed By: #### 5 7021-8 #### [facility] CLIA [id number] [address] [place] [address] [place] Nucleated RBC/100 WBC (Bld) [Ratio] Normal [facility] Comment on above: Order Comment: Speci men Type: BLOOD SPECIMEN Ordering Facility: [facility] Address: [address] [place] [address] Performed By: #### 5 7021-8 #### [facility] CLIA [id number] [address] [place] [address] [place] Platelet mean volume (Bld) [Entitic vol] 9.5 fL Normal 9.0-12.7 [facility] Comment on above: Order Comment: Speci men Type: BLOOD SPECIMEN Ordering Facility: [facility] Address: [address] [place] [address] Performed By: #### 5 7021-8 #### [facility] CLIA [id number] [address] [place] [address] [place] Platelets (Bld) [#/Vol] 237 10*3/uL Normal 150-400 [facility] Comment on above: Order Comment: Speci men Type: BLOOD SPECIMEN Ordering Facility: [facility] Address: [address] [place] [address] Performed By: #### 5 7021-8 #### [facility] CLIA [id number] [address] [place] [address] [place] RBC (Bld) [#/Vol] 4.98 10*6/uL Normal 4.20-6.00 [facility] Comment on above: Order Comment: Speci men Type: BLOOD SPECIMEN Ordering Facility: [facility] Address: [address] [place] [address] Performed By: #### 5 7021-8 #### [facility] CLIA [id number] [address] [place] [address] [place] WBC (Bld) [#/Vol] 6.87 10*3/uL Normal 3.70-11.00 [facility] Comment on above: Order Comment: Speci men Type: BLOOD SPECIMEN Ordering Facility: [facility] Address: [address] [place] [address] [place] [address] Performed By: #### 5 7021-8 #### [facility] CLIA [id number] [address] [place] [address] ECG COMPLETEon 04-25-2024 ECG COMPLETE Ventricular Rate : 6 9 BPM Atrial Rate : 69 BPM P-R Interval : 172 ms QRS Duration : 90 ms Q-T Interval : 362 ms QTC Calculation(Bazett) : 387 ms Calculated P Hasty : 34 degrees Calculated R Hasty : 43 degrees Calculated T Hasty : 15 degrees NORMAL SINUS RHYTHM WITH SINUS ARRHYTHMIA CANNOT RULE OUT ANTERIOR INFARCT , AGE UNDETERMINED ABNORMAL ECG NO PREVIOUS ECGS AVAILABLE Confirmed by MD JEFFRIES VINAYAK ([id number]) on 05/01/2024 10:08:50 PM NAME : SID PRUITT PID : [id number] : 1975 Gender : Male Race : ORD : [id number] Procedure Date : Apr 25 2024 20:26:04 Edit Date : May 01 2024 22:08:54 Diagnosis: NORMAL SINUS RHYTHM WITH SINUS ARRHYTHMIA CANNOT RULE OUT ANTERIOR INFARCT , AGE UNDETERMINED ABNORMAL ECG NO PREVIOUS ECGS AVAILABLE Confirmed by MD JEFFRIES VINAYAK ([id number]) on 05/01/2024 10:08:50 PM Test Reason : cp Location : 191 : [facility] ED Overread By : MD JEFFRIES VINAYAK Edited By : MD JEFFRIES VINAYAK Referred By : Vimal Acquired by : SEDA JOY [facility] ED PROV NOTEon 04-25-2024 ED PROV NOTE HNO ID: [id number] Author: JOSSELIN ARORA MD Service: Emergency Medicine Author Type: Physician Type: ED Provider Notes Filed: 04/25/2024 21:41 Note Text: ED Provider Note Patient Name: Sid Pruitt : 1975 SERVICE DATE: 04/25/24 History Patient presents with: Chest Pain The patient is a 49-year-old male presenting with complaint of chest pain. Chest pain has been present since about noon yesterday. States has been constant in nature although will somewhat improve when he stepped outside in the cool air. States he also notices the pain improves when he is up and more active. It is worse when he sits down and rests. Thought might be acid reflux and so he tried some water without much improvement. Describes as a tightness sensation with some burning. There are some radiation between his shoulder blades. No cardiac like this before. Only past medical history is of mild hyperlipidemia. He is currently not on any medications for it. No family history of heart disease at a young age. He does not smoke and has no history of hypertension. Denies any recent travel hospitalizations or surgeries. No recent cough runny nose or congestion. He gets some edema to his lower extremities but states that this has been going on for some time. Is better in the morning and accumulates by the afternoon. PAST MEDICAL HISTORY Diagnosis Date Acquired cavovarus foot deformity, left Arthritis Delayed emergence from general anesthesia when awakening from back sx 2016 w/ gamaliel had moderate SOB Kidney stone Left ankle pain Traumatic rupture of peroneal tendon of left foot PAST SURGICAL HISTORY Procedure Laterality Date ANKLE SURGERY HX Left 04/07/2022 PAST SURGICAL HISTORY OF 07/01/2015 lumbar spine decompression L5 S1 x2 PAST SURGICAL HISTORY OF 11/2021 procedure for kidney stone FAMILY HISTORY Problem Relation Age of Onset Prostate Cancer Father Cancer Brother Social History Tobacco Use Smoking status: Never Smokeless tobacco: Former Types: Chew Tobacco comments: i can lasts 4-6 days Vaping Use Vaping status: Never Used Substance and Sexual Activity Alcohol use: Yes Comment: rare Drug use: No Sexual activity: Not on file ALLERGIES Allergen Reactions Hydromorphone Shortness of Breath Pt received medication in 2016;AND reports moderate SOB upon awakening in RR Review of Systems Constitutional: Negative for activity change, appetite change, chills, fatigue and fever. HENT: Negative for congestion, ear pain, rhinorrhea and sore throat. Respiratory: Positive for chest tightness and shortness of breath. Negative for cough, wheezing and stridor. Cardiovascular: Positive for chest pain and leg swelling. Negative for palpitations. Gastrointestinal: Negative for abdominal pain, diarrhea, nausea and vomiting. Genitourinary: Negative for dysuria, frequency and urgency. Musculoskeletal: Negative for arthralgias and myalgias. Skin: Negative for rash and wound. Neurological: Negative for dizziness and headaches. Psychiatric/Behavioral : Negative for self-injury and suicidal ideas. All other systems reviewed and are negative. Physical Exam Vitals [04/25/242021] BP Pulse Temp Temp src Resp SpO2 Weight Height 191/97 87 36.9 ?C (98.4 ?F) -- 19 98 % 119.3 kg (263 lb) -- Physical Exam Vitals and nursing note reviewed. Constitutional: General: He is not in acute distress. Appearance: He is well-developed. HENT: Head: Normocephalic and atraumatic. Nose: Nose normal. Mouth/Throat: Mouth: Mucous membranes are moist. Eyes: Extraocular Movements: Extraocular movements intact. Pupils: Pupils are equal, round, and reactive to light. Cardiovascular: Rate and Rhythm: Normal rate and regular rhythm. Heart sounds: Normal heart sounds. No murmur heard. No friction rub. No gallop. Pulmonary: Effort: Pulmonary effort is normal. No respiratory distress. Breath sounds: Normal breath sounds. No stridor. No decreased breath sounds, wheezing or rhonchi. Abdominal: General: Bowel sounds are normal. There is no distension. Palpations: Abdomen is soft. Tenderness: There is no abdominal tenderness. Musculoskeletal: General: Normal range of motion. Cervical back: Normal range of motion and neck supple. Right lower leg: No edema. Left lower leg: No edema. Skin: General: Skin is warm and dry. Capillary Refill: Capillary refill takes less than 2 seconds. Neurological: General: No focal deficit present. Mental Status: He is alert and oriented to person, place, and time. GCS: GCS eye subscore is 4. GCS verbal subscore is 5. GCS motor subscore is 6. Psychiatric: Mood and Affect: Mood normal. Behavior: Behavior normal. Diagnostic Testing ED Labs Ordered and Reviewed - No data to display Procedures ED Course / Clinical Impression Clinical Impressions as of 04/25/242137 Chest pain, unspecified type H (more content not included)... Normal [facility] HIGH SENSITIVITY TROPONIN To n 04-25-2024 Troponin T.cardiac High sensitivity method [Mass/Vol] 7 ng/L Normal <12 [facility] Comment on above: Order Comment: Speci men Type: BLOOD SPECIMEN Ordering Facility: [facility] Address: [address] [place], [place] [address] Performed By: #### H STNT #### [facility] CLIA [id number] [address] [place] [address] [facility] XR CHEST 2V FRONTAL/LATon XR CHEST 2V FRONTAL/LAT * * *Final Report* * * DATE OF EXAM: Apr 25 2024 9:09PM LDX 5291 - XR CHEST 2V FRONTAL/LAT / PROCEDURE REASON: Chest Pain * * * * Physician Interpretation * * * * XR CHEST 2V FRONTAL/LAT Technique: XR CHEST 2V FRONTAL/LAT Clinical history: Chest Pain Chest Pain Comparison: None DISCUSSION: Lines and Tubes: None. Heart/mediastinum: Normal for technique. Lungs/pleura: No consolidation or edema. No effusion or pneumothorax. Other: No acute findings. IMPRESSION: No acute abnormality. [employer] [place]er: LULA Transcribe Date/Time: Apr 25 2024 9:28P Dictated by : JUANY DIAS MD This examination was interpreted and the report reviewed and electronically signed by: JUANY DIAS MD on Apr 25 2024 9:31PM EST [id number] Normal [facility] CT CARDIAC SCORING WO IV CON TRASTon 08-29-2023 CT CARDIAC SCORING WO IV CONTRAST Interpreted By: Michael Nails, STUDY: CT CARDIAC SCORING WO IV CONTRAST; 08/29/2023 5:37 pm INDICATION: Signs/Symptoms:CARDIAC SCREENING HYPERLIPIDEMIA. COMPARISON: None. ACCESSION NUMBER(S): [id number] ORDERING CLINICIAN: MARILUZ GAYTAN TECHNIQUE: Using prospective ECG gating, CT scan of the coronary arteries was performed without intravenous contrast. Coronary calcium scoring was performed according to the method of Agatston. FINDINGS: The score and distribution of calcium in the coronary arteries is as follows: LM 0 LAD 44.53 LCx 3.33 RCA 26.91 Total 74.77 The visualized mid/lower ascending thoracic aorta measures 3.4 cm in diameter. The heart is normal in size. No pericardial effusion is present. No gross evidence of mediastinal or hilar lymphadenopathy or masses is identified. The visualized segments of the lungs are normally expanded. The visualized subdiaphragmatic structures appear intact. IMPRESSION: 1. Coronary artery calcium score of 74.77*. *Coronary artery calcium scoring may be helpful in predicting the risk for future coronary heart disease events. According to the [place] [employer] Foundation Clinical Expert Consensus Task Force, such testing provides important prognostic information in patients with more than one coronary heart disease risk factor. The coronary artery calcium score correlates with the annual risk of a non-fatal myocardial infarction or coronary heart disease . Coronary artery score Annual Risk 0-99 0.4% 100-399 1.3% >400 2.4% These three breakpoints correspond to lower, intermediate and high risk states for future coronary events. Such information should be used, along with appropriate clinical judgment, to make decisions regarding the intensity of risk factor management strategies to treat blood lipids and to modify other non-lipid coronary risk factors. Reference: [place] P et al. Circulation. 2007; 115:402-426 MACRO: None Signed by: Michael Nails 08/30/2023 11:19 AM Dictation workstation: [id number] [facility] No Panel Informationon 05-13 [facility] No Panel Informationon 04-23 [facility] CALCIFEDIOL ([id number])Ordered B y: Middleware Engineer on 07-03-2020 25-hydroxyvitamin D [Mass/Vol] 53.4 ng/mL Normal 30.0-100.0 [facility]; [facility] Work Phone: Comment on above: Vitamin D deficiency has been defined by the [place] ofMedicine and an Endocrine Society practice guideline as alevel of serum 25-OH vitamin D less than 20 ng/mL (1,2).The Endocrine Society went on to further define vitamin Dinsufficiency as a level between 21 and 29 ng/mL (2).1. IOM ([place] of Medicine). 2010. Dietary reference intakes for calcium and D. Ac [place]: The National Academies Press.2. Herberth MF, Lise NC, Evangelina AMBRIZ, et al. Evaluation, treatment, and prevention of vitamin D deficiency: an Endocrine Society clinical practice guideline. JCEM. 2010; 96(7):1911-30. PATIENT WAS FASTINGP ERFORMED BY: [facility] Ofrxdq1756 [facility] [id number] CBC & PLATELETS (AUTO) ([id number])Ordered By: Middleware Engineer on 07-03-2020 Erythrocyte distribution width (RBC) [Ratio] 12.1 % Normal 11.6-15.4 [facility]; [facility] Work Phone: Comment on above: PATIENT WAS FASTINGP ERFORMED BY: SHOSHANA Juancho Worxer7353 [facility] [place] [id number] Hematocrit (Bld) [Volume fraction] 49.3 % Normal 37.5-51.0 [facility]; [facility] Work Phone: Comment on above: PATIENT WAS FASTINGP ERFORMED BY: SHOSHANA [facility] Lmltqz4902 [address] [facility] [id number] Hemoglobin (Bld) [Mass/Vol] 16.3 g/dL Normal 13.0-17.7 [facility]; [facility] Work Phone: Comment on above: PATIENT WAS FASTINGP ERFORMED BY: SHOSHANA [facility] Byhnsz2174 [address] [facility] [id number] MCH (RBC) [Entitic mass] 30.0 pg Normal 26.6-33.0 [facility]; [facility] Work Phone: Comment on above: PATIENT WAS FASTINGP ERFORMED BY: SHOSHANA [facility] Izhpdm3362 [facility] [id number] MCHC (RBC) [Mass/Vol] 33.1 g/dL Normal 31.5-35.7 [facility] prehensive Internal Medicine; [facility] Work Phone: Comment on above: PATIENT WAS FASTINGP ERFORMED BY: [facility]Up [facility] System6370 [facility] [id number] MCV (RBC) [Entitic vol] 91 fL Normal 79-97 [facility]; [facility] Work Phone: Comment on above: PATIENT WAS FASTINGP ERFORMED BY: SHOSHANA [facility] Zxlbyh4776 [address] [facility] [place] [id number] Platelets (Bld) [#/Vol] 270 10*3/uL Normal 150-450 [facility]; [facility] Work Phone: Comment on above: PATIENT WAS FASTINGP ERFORMED BY: SHOSHANA [facility] Xdjzgh1387 Diaz RoadDublin [place] [id number] RBC (Bld) [#/Vol] 5.43 10*6/uL Normal 4.14-5.80 [facility]; [facility] Work Phone: Comment on above: PATIENT WAS FASTINGP ERFORMED BY: SHOSHANA [facility] Vjpeoa9272 Diaz RoadDublin [place] [id number] WBC (Bld) [#/Vol] 6.7 10*3/uL Normal 3.4-10.8 [facility]; [facility] Work Phone: Comment on above: PATIENT WAS FASTINGP ERFORMED BY: SHOSHANA [facility] Hrszlw4254 Diaz RoadDublin [place] [id number] LIPID PANEL ([id number])Ordered B y: Middleware Engineer on 07-03-2020 Cholesterol [Mass/Vol] 244 mg/dL Abnormal 100-199 [facility]; [facility] Work Phone: Comment on above: PATIENT WAS FASTINGP ERFORMED BY: SHOSHANA [facility] Esasbs3003 [address] RoadDublin [place] [id number]; fu 3-10 kf Cholesterol in HDL [Mass/Vol] 38 mg/dL Abnormal [facility]; [facility] Work Phone: Comment on above: PATIENT WAS FASTINGP ERFORMED BY: SHOSHANA [facility] Knibst1420 [address] RoadDublin [place] [id number]; fu 3-10 kf Triglyceride [Mass/Vol] 220 mg/dL Abnormal 0-149 [facility]; [facility] Work Phone: Comment on above: PATIENT WAS FASTINGP ERFORMED BY: CB [facility] Ujdatb6582 Diaz RoadDublin [place] [id number]; fu 3-10 kf LIPID PANEL (19637) 41 mg/dL Abnormal 5-40 [facility] Internal [facility]; [facility] Work Phone: Comment on above: PATIENT WAS FASTINGP ERFORMED BY: CB [facility] Qlltlh6707 [address] RoadDublin [place] [id number]; fu 3-10 kf LIPID PANEL (81966) 165 mg/dL Abnormal 0-99 [facility]; [facility] Work Phone: Comment on above: PATIENT WAS FASTINGP ERFORMED BY: SHOSHANA LabDerrick Blum6370 [facility] [id number]; fu 310 kf LIPID PANEL (86714) 4.3 {ratio} Abnormal 0.0-3.6 [facility]; [facility] Work Phone: Comment on above: LDL/HDL Ratio Men Wo men 1/2 Avg.Risk 1.0 1.5 Avg.Risk 3.6 3.2 2X Avg.Risk 6.2 5.0 3X Avg.Risk 8.0 6.1 PATIENT WAS FASTINGP ERFORMED BY: SHOSHANA LabDerrick CarcamoWlfebk7036 [facility] [id number]; fu 07-09 kf METABOLIC PANEL, COMPREHENSI VE (83803)Ordered By: Middleware Engineer on 07-03-2020 Albumin [Mass/Vol] 4.3 g/dL Normal 4.0-5.0 [facility]; [facility] Work Phone: Comment on above: PATIENT WAS FASTINGP ERFORMED BY: SHOSHANA Blum6370 [facility] [id number] Albumin/Globulin [Mass ratio] 1.6 {ratio} Normal 1.2-2.2 [facility]; [facility] Work Phone: Comment on above: PATIENT WAS FASTINGP ERFORMED BY: SHOSHANA LabDerrick CarcamoUmhkfd6987 [facility] [id number] ALP [Catalytic activity/Vol] 81 U/L Normal 39-117 [facility]; [facility] Work Phone: Comment on above: PATIENT WAS FASTINGP ERFORMED BY: SHOSHANA LabDerrick CarcamoFeiwni0970 [facility] [id number] ALT [Catalytic activity/Vol] 27 U/L Normal 0-44 [facility]; [facility] Work Phone: Comment on above: PATIENT WAS FASTINGP ERFORMED BY: SHOSHANA Dawkins Enynxp0428 [address] [facility]in [place] [id number] AST [Catalytic activity/Vol] 20 U/L Normal 0-40 [facility]; [facility] Work Phone: Comment on above: PATIENT WAS FASTINGP ERFORMED BY: [facility] Lszrqg9460 [address] RoadCritical Access Hospitalin [place] [id number] Bilirubin [Mass/Vol] 0.3 mg/dL Normal 0.0-1.2 [facility] rehensive Internal Medicine; [facility] Work Phone: Comment on above: PATIENT WAS FASTINGP ERFORMED BY: Lab[facility] Pgzhcq0076 [address] [facility]in [place] [id number] Calcium [Mass/Vol] 9.1 mg/dL Normal 8.7-10.2 [facility]; [facility] Work Phone: Comment on above: PATIENT WAS FASTINGP ERFORMED BY: [facility] Vcfpqa9432 [address] [facility] [id number] Chloride [Moles/Vol] 103 mmol/L Normal 96-106 [facility] rehensive Internal Medicine; [facility] Work Phone: Comment on above: PATIENT WAS FASTINGP ERFORMED BY: LabMarco Xdiepi6180 [address] [facility]in [place] [id number] CO2 [Moles/Vol] 24 mmol/L Normal 20-29 [facility] Internal Medicine; [facility] Work Phone: Comment on above: PATIENT WAS FASTINGP ERFORMED BY: [facility] Zwtlku1195 [address] [facility]in [place] [id number] Creatinine [Mass/Vol] 1.04 mg/dL Normal 0.76-1.27 [facility]; [facility] Work Phone: Comment on above: PATIENT WAS FASTINGP ERFORMED BY: [facility] Ntjkwv2747 [address] [facility] [id number] GFR/1.73 sq M.predicted among blacks CKD-EPI (S/P/Bld) [Vol rate/Area] 100 mL/min/1.73 Normal [facility]; [facility] Work Phone: Comment on above: PATIENT WAS FASTINGP ERFORMED BY: [facility] Dgumwd8432 [address] RoadDublin [place] [id number] GFR/1.73 sq M.predicted among non-blacks CKD-EPI (S/P/Bld) [Vol rate/Area] 86 mL/min/1.73 Normal [facility]; [facility] Work Phone: Comment on above: PATIENT WAS FASTINGP ERFORMED BY: SHOSHANA [facility] Cjieyz2807 [address] RoadDublin [place] [id number] Globulin (S) [Mass/Vol] 2.7 g/dL Normal 1.5-4.5 [facility]; [facility] Work Phone: Comment on above: PATIENT WAS FASTINGP ERFORMED BY: SHOSHANA [facility] Ksoxsh3564 [address] RoadDublin [place] [id number] Glucose [Mass/Vol] 87 mg/dL Normal 65-99 [facility]; [facility] Work Phone: Comment on above: PATIENT WAS FASTINGP ERFORMED BY: SHOSHANA [facility] Zooyfm7737 [address] RoadDublin [place] [id number] Potassium [Moles/Vol] 4.6 mmol/L Normal 3.5-5.2 [facility] prehensive Internal Medicine; [facility] Work Phone: Comment on above: PATIENT WAS FASTINGP ERFORMED BY: [facility] Ydnhgb3870 [address] RoadDublin [place] [id number] Protein [Mass/Vol] 7.0 g/dL Normal 6.0-8.5 [facility]; [facility] Work Phone: Comment on above: PATIENT WAS FASTINGP ERFORMED BY: CB [facility] Suybea3841 [address] RoadDublin [place] [id number] Sodium [Moles/Vol] 140 mmol/L Normal 134-144 [facility]; [facility] Work Phone: Comment on above: PATIENT WAS FASTINGP ERFORMED BY: [facility] Viqnrh0973 [address] RoadDublin [place] [id number] Urea nitrogen [Mass/Vol] 21 mg/dL Normal 6-24 [facility]; [facility] Work Phone: Comment on above: PATIENT WAS FASTINGP ERFORMED BY: SHOSHANA [facility] Rurelb9822 [address] Roadblin [place] [id number] Urea nitrogen/Creatinine [Mass ratio] 20 mg/mg Normal 9-20 [facility]; [facility] Work Phone: Comment on above: PATIENT WAS FASTINGP ERFORMED BY: SHOSHANA [facility] Nwvwmp3907 Diaz Roadblin [place] [id number] TSH (THYROID STIMULATING HOR DIVYA) ([id number])Ordered By: Middleware Engineer on 07-03-2020 TSH Qn 3.200 {uIU/mL} Normal 0.450-4.500 [facility] Internal [facility]; [facility] Work Phone: Comment on above: PATIENT WAS FASTINGP ERFORMED BY: SHOSHANA Lab[facility] Dscfnl0322 [address] [facility]in [place] [id number] Vitamin B-12 (cyanocobalamin ) ([id number])Ordered By: Middleware Engineer on 07-03-2020 Cobalamin (Vitamin B12) [Mass/Vol] 598 pg/mL Normal 232-1245 [facility]; [facility] Work Phone: Comment on above: PATIENT WAS FASTINGP ERFORMED BY: SHOSHANA [facility] Htxlwp7012 [facility]in [place] [id number] C-REACTIVE PROTEIN ([id number])Or dered By: Middleware Engineer on 08-10-2019 CRP [Mass/Vol] 26 mg/L Abnormal 0-10 [facility] Internal [facility]; [facility] Work Phone: Comment on above: PATIENT NOT FASTINGP ERFORMED BY: [facility] Ocmape4872 [address] [facility] Hospitalblin [place] [id number] CBC with auto diff ([id number])Or dered By: Middleware Engineer on 08-10-2019 Basophils (Bld) [#/Vol] 0.1 {x10E3/uL} Normal 0.0-0.2 [facility]; [facility] Work Phone: Comment on above: PATIENT NOT FASTINGP ERFORMED BY: CB [facility] Xtonch2046 [address] RoadDublin [place] [id number] Basophils (Bld) [#/Vol] 0.1 10*3/uL Normal 0.0-0.2 [facility]; [facility] Work Phone: Comment on above: PATIENT NOT FASTINGP ERFORMED BY: CB [facility] Dmrmfp9242 [address] RoadDublin [place] [id number] Basophils/100 WBC (Bld) 1 % Normal [facility]; [facility] Work Phone: Comment on above: PATIENT NOT FASTINGP ERFORMED BY: CB [facility] Soecqz5647 [address] RoadDublin [place] [id number] Eosinophils (Bld) [#/Vol] 0.2 {x10E3/uL} Normal 0.0-0.4 [facility]; [facility] Work Phone: Comment on above: PATIENT NOT FASTINGP ERFORMED BY: CB [facility] Svkltq2355 [address] RoadDublin [place] [id number] Eosinophils (Bld) [#/Vol] 0.2 10*3/uL Normal 0.0-0.4 [facility]; [facility] Work Phone: Comment on above: PATIENT NOT FASTINGP ERFORMED BY: CB [facility] Jwyigl1465 [address] RoadDublin [place] [id number] Eosinophils/100 WBC (Bld) 2 % Normal [facility]; [facility] Work Phone: Comment on above: PATIENT NOT FASTINGP ERFORMED BY: CB [facility] Jhunpr7861 [address] RoadDublin [place] [id number] Erythrocyte distribution width (RBC) [Ratio] 11.8 % Normal 11.6-15.4 [facility]; [facility] Work Phone: Comment on above: PATIENT NOT FASTINGP ERFORMED BY: CB [facility] Eougey9847 [address] RoadDublin [place] [id number] Hematocrit (Bld) [Volume fraction] 46.8 % Normal 37.5-51.0 [facility]; [facility] Work Phone: Comment on above: PATIENT NOT FASTINGP ERFORMED BY: SHOSHANA Blum6370 [address] [facility] [id number] Hemoglobin (Bld) [Mass/Vol] 16.1 g/dL Normal 13.0-17.7 [facility]; [facility] Work Phone: Comment on above: PATIENT NOT FASTINGP ERFORMED BY: CB [facility] Ymldjj5571 [address] [facility] [id number] Immature granulocytes (Bld) [#/Vol] 0.0 {x10E3/uL} Normal 0.0-0.1 [facility]; [facility] Work Phone: Comment on above: PATIENT NOT FASTINGP ERFORMED BY: SHOSHANA Blum6370 [address] [facility] [id number] Immature granulocytes (Bld) [#/Vol] 0.0 10*3/uL Normal 0.0-0.1 [facility]; [facility] Work Phone: Comment on above: PATIENT NOT FASTINGP ERFORMED BY: SHOSHANA WaltersCojoni BlumZokpva1603 [address] [facility] [id number] Immature granulocytes/100 WBC (Bld) 0 % Normal [facility]; [facility] Work Phone: Comment on above: PATIENT NOT FASTINGP ERFORMED BY: SHOSHANA LabCojoni CarcamoEybomk7725 [address] [facility] [id number] Lymphocytes (Bld) [#/Vol] 1.4 {x10E3/uL} Normal 0.7-3.1 [facility]; [facility] Work Phone: Comment on above: PATIENT NOT FASTINGP ERFORMED BY: CB [facility] Grpmsm7665 [address] [facility] [id number] Lymphocytes (Bld) [#/Vol] 1.4 10*3/uL Normal 0.7-3.1 [facility]; [facility] Work Phone: Comment on above: PATIENT NOT FASTINGP ERFORMED BY: CB [facility] Nkfdzl9331 [address] RoadDublin [place] [id number] Lymphocytes/100 WBC (Bld) 21 % Normal [facility]; [facility] Work Phone: Comment on above: PATIENT NOT FASTINGP ERFORMED BY: SHOSHANA Blum6370 [facility] [id number] MCH (RBC) [Entitic mass] 30.9 pg Normal 26.6-33.0 [facility]; [facility] Work Phone: Comment on above: PATIENT NOT FASTINGP ERFORMED BY: SHOSHANA [facility] Ubkdpu0607 [facility] [id number] MCHC (RBC) [Mass/Vol] 34.4 g/dL Normal 31.5-35.7 [facility] prehensive Internal Medicine; [facility] Work Phone: Comment on above: PATIENT NOT FASTINGP ERFORMED BY: [facility] Qvfplv2767 [facility] [id number] MCV (RBC) [Entitic vol] 90 fL Normal 79-97 [facility]; [facility] Work Phone: Comment on above: PATIENT NOT FASTINGP ERFORMED BY: SHOSHANA Dawkins Yovpnm3763 [facility] [id number] Monocytes (Bld) [#/Vol] 0.8 {x10E3/uL} Normal 0.1-0.9 [facility]; [facility] Work Phone: Comment on above: PATIENT NOT FASTINGP ERFORMED BY: JuanchoHunterdon Medical CenterTfyefh0888 [facility] [id number] Monocytes (Bld) [#/Vol] 0.8 10*3/uL Normal 0.1-0.9 [facility]; [facility] Work Phone: Comment on above: PATIENT NOT FASTINGP ERFORMED BY: SHOSHANA LabMarco Kfxzjx3435 [facility] [id number] Monocytes/100 WBC (Bld) 12 % Normal [facility]; [facility] Work Phone: Comment on above: PATIENT NOT FASTINGP ERFORMED BY: CB [facility] Wyrkju8938 [address] RoadDublin [place] [id number] Neutrophils (Bld) [#/Vol] 4.2 {x10E3/uL} Normal 1.4-7.0 [facility]; [facility] Work Phone: Comment on above: PATIENT NOT FASTINGP ERFORMED BY: CB [facility] Qcgots6621 [address] RoadDublin [place] [id number] Neutrophils (Bld) [#/Vol] 4.2 10*3/uL Normal 1.4-7.0 [facility]; [facility] Work Phone: Comment on above: PATIENT NOT FASTINGP ERFORMED BY: CB LabCojoni CarcamoKidbtb8477 [address] RoadDublin [place] [id number] Neutrophils/100 WBC (Bld) 64 % Normal [facility]; [facility] Work Phone: Comment on above: PATIENT NOT FASTINGP ERFORMED BY: CB [facility] Lsvmsz6168 [address] RoadDublin [place] [id number] Platelets (Bld) [#/Vol] 268 {x10E3/uL} Normal 150-450 [facility]; [facility] Work Phone: Comment on above: PATIENT NOT FASTINGP ERFORMED BY: CB LabDerrick CarcamoIeoqpf5214 [address] RoadDublin [place] [id number] Platelets (Bld) [#/Vol] 268 10*3/uL Normal 150-450 [facility]; [facility] Work Phone: Comment on above: PATIENT NOT FASTINGP ERFORMED BY: CB [facility] Rfkgjm9961 [address] RoadDublin [place] [id number] RBC (Bld) [#/Vol] 5.21 {x10E6/uL} Normal 4.14-5.80 [facility] Internal [facility]; [facility] Work Phone: Comment on above: PATIENT NOT FASTINGP ERFORMED BY: CB [facility] Edbeiz9194 [address] RoadDublin [place] [id number] RBC (Bld) [#/Vol] 5.21 10*6/uL Normal 4.14-5.80 [facility]; [facility] Work Phone: Comment on above: PATIENT NOT FASTINGP ERFORMED BY: SHOSHANA LabCojoni BlumUckvfs5992 Diaz RoadAidanblin [place] [id number] WBC (Bld) [#/Vol] 6.6 {x10E3/uL} Normal 3.4-10.8 [facility] Internal [facility]; [facility] Work Phone: Comment on above: PATIENT NOT FASTINGP ERFORMED BY: CB [facility] Afmhtu5846 [address] RoadDublin [place] [id number] WBC (Bld) [#/Vol] 6.6 10*3/uL Normal 3.4-10.8 [facility]; [facility] Work Phone: Comment on above: PATIENT NOT FASTINGP ERFORMED BY: SHOSHANA [facility] Mbnejv3255 [address] RoadDublin [place] [id number] Metabolic Panel, Comprehensi ve ([id number])Ordered By: Middleware Engineer on 08-10-2019 Albumin [Mass/Vol] 4.5 g/dL Normal 4.0-5.0 [facility]; [facility] Work Phone: Comment on above: PATIENT NOT FASTINGP ERFORMED BY: SHOSHANA LabDerrick CarcamoRqbzee2545 [address] RoadDublin [place] [id number] Albumin/Globulin [Mass ratio] 2.0 {ratio} Normal 1.2-2.2 [facility] Internal [facility]; [facility] Work Phone: Comment on above: PATIENT NOT FASTINGP ERFORMED BY: CB [facility] Vtsfvk3014 [address] RoadDublin [place] [id number] ALP [Catalytic activity/Vol] 81 [iU]/L Normal 39-117 [facility] Internal [facility]; [facility] Work Phone: Comment on above: PATIENT NOT FASTINGP ERFORMED BY: SHOSHANA [facility] Ezhobj0826 [address] RoadDublin [place] [id number] ALP [Catalytic activity/Vol] 81 U/L Normal 39-117 [facility]; [facility] Work Phone: Comment on above: PATIENT NOT FASTINGP ERFORMED BY: SHOSHANA [facility] Zpqdrc2295 [address] RoadDublin [place] [id number] ALT [Catalytic activity/Vol] 32 [iU]/L Normal 0-44 [facility]; [facility] Work Phone: Comment on above: PATIENT NOT FASTINGP ERFORMED BY: CB [facility] Okuxzf0871 [address] RoadDublin [place] [id number] ALT [Catalytic activity/Vol] 32 U/L Normal 0-44 [facility]; [facility] Work Phone: Comment on above: PATIENT NOT FASTINGP ERFORMED BY: CB [facility] Yxuhmy0950 [address] RoadDublin [place] [id number] AST [Catalytic activity/Vol] 21 [iU]/L Normal 0-40 [facility]; [facility] Work Phone: Comment on above: PATIENT NOT FASTINGP ERFORMED BY: CB LabDerrick CarcamoRzwcod8287 [address] RoadDublin [place] [id number] AST [Catalytic activity/Vol] 21 U/L Normal 0-40 [facility]; [facility] Work Phone: Comment on above: PATIENT NOT FASTINGP ERFORMED BY: CB LabDerrick CarcamoOcsfad9239 [address] RoadDublin [place] [id number] Bilirubin [Mass/Vol] 0.4 mg/dL Normal 0.0-1.2 Comp rehensive Internal Medicine; [facility] Work Phone: Comment on above: PATIENT NOT FASTINGP ERFORMED BY: CB [facility] Xaqerv2327 Diaz RoadDublin [place] [id number] Calcium [Mass/Vol] 9.3 mg/dL Normal 8.7-10.2 [facility]; [facility] Work Phone: Comment on above: PATIENT NOT FASTINGP ERFORMED BY: CB [facility] Drdtkn0312 Diaz RoadDublin [place] [id number] Chloride [Moles/Vol] 100 mmol/L Normal 96-106 [facility] Internal Medicine; [facility] Work Phone: Comment on above: PATIENT NOT FASTINGP ERFORMED BY: CB [facility] Wtqlct8311 [address] RoadDublin [place] [id number] CO2 [Moles/Vol] 24 mmol/L Normal 20-29 [facility] Internal Medicine; [facility] Work Phone: Comment on above: PATIENT NOT FASTINGP ERFORMED BY: CB [facility] Ajneeh4389 [address] RoadDublin [place] [id number] Creatinine [Mass/Vol] 1.10 mg/dL Normal 0.76-1.27 [facility]; [facility] Work Phone: Comment on above: PATIENT NOT FASTINGP ERFORMED BY: CB [facility] Exzhcv8099 [address] RoadDublin [place] [id number] GFR/1.73 sq M predicted among blacks CKD-EPI (S/P/Bld) [Vol rate/Area] 94 mL/min/1.73 Normal [facility]; [facility] Work Phone: Comment on above: PATIENT NOT FASTINGP ERFORMED BY: CB [facility] Bmpnye0518 [address] RoadDublin [place] [id number] GFR/1.73 sq M predicted among non-blacks CKD-EPI (S/P/Bld) [Vol rate/Area] 81 mL/min/1.73 Normal [facility]; [facility] Work Phone: Comment on above: PATIENT NOT FASTINGP ERFORMED BY: CB [facility] Bxnyjd5882 [address] RoadDublin [place] [id number] Globulin (S) [Mass/Vol] 2.3 g/dL Normal 1.5-4.5 [facility]; [facility] Work Phone: Comment on above: PATIENT NOT FASTINGP ERFORMED BY: CB [facility] Qbqoaa9228 [address] RoadDublin [place] [id number] Glucose [Mass/Vol] 163 mg/dL Abnormal 65-99 [facility] Internal Medicine; [facility] Work Phone: Comment on above: PATIENT NOT FASTINGP ERFORMED BY: CB [facility] Xmfsxs9722 [address] RoadDublin [place] [id number] Potassium [Moles/Vol] 5.1 mmol/L Normal 3.5-5.2 [facility]; [facility] Work Phone: Comment on above: PATIENT NOT FASTINGP ERFORMED BY: SHOSHANA LabCojoni CarcamoZcbzso6762 [address] RoadDublin [place] [id number] Protein [Mass/Vol] 6.8 g/dL Normal 6.0-8.5 [facility] Internal Medicine; [facility] Work Phone: Comment on above: PATIENT NOT FASTINGP ERFORMED BY: SHOSHANA [facility] Hqlaid1734 [address] RoadDublin [place] [id number] Sodium [Moles/Vol] 140 mmol/L Normal 134-144 [facility] Internal Medicine; [facility] Work Phone: Comment on above: PATIENT NOT FASTINGP ERFORMED BY: SHOSHANA LabCojoni CarcamoQalfpf8229 [address] RoadDublin [place] [id number] Urea nitrogen [Mass/Vol] 11 mg/dL Normal 6-24 [facility] Internal Medicine; [facility] Work Phone: Comment on above: PATIENT NOT FASTINGP ERFORMED BY: SHOSHANA [facility] Feutbf2664 [address] RoadDublin [place] [id number] Urea nitrogen/Creatinine [Mass ratio] 10 mg/mg Normal 9-20 [facility] Internal Medicine; [facility] Work Phone: Comment on above: PATIENT NOT FASTINGP ERFORMED BY: SHOSHANA [facility] Sbglnr0535 [address] RoadDublin [place] [id number] Sed Rate Erythrocyte (89998) Ordered By: Middleware Engineer on 08-10-2019 ESR (Bld) [Velocity] 25 mm/h Abnormal 0-15 [facility]; [facility] Work Phone: Comment on above: PATIENT NOT FASTINGP ERFORMED BY: SHOSHANA [facility] Xxivjt6217 [address] Roadblin [place] [id number] C-REACTIVE PROTEIN (16430)Or dered By: Middleware Engineer on 05-25-2019 CRP [Mass/Vol] 4 mg/L Normal 0-10 [facility] Internal Medicine; [facility] Work Phone: Comment on above: Test(s) 658853-HFL-Y ; 119081-SJB-W; 880810-EMI-T; 180436-Svdilbcespivo; 685768-Ycbggunemei, Total; 580829-PTE-L (Total);233199-Wduiq LDL-P; 463152-BCX Size; 555222-EU-HR Scorewas developed and its performance characteristics determinedby Pixable. It has not been cleared or approved by the Foodand Drug Administration.PATIENT NOT FASTINGPERFORMED BY: BN [facility] Zcodvggexm0295 [facility] [id number] BY: CB [facility] Jemjsc6944 [facility] [id number] CALCIFIDIOL (38602) VIT D 25 Ordered By: Middleware Engineer on 05-25-2019 25-Hydroxyvitamin D2+25-Hydroxyvitamin D3 [Mass/Vol] 18.4 ng/mL Abnormal 30.0-100.0 [facility]; [facility] Work Phone: Comment on above: Vitamin D deficiency has been defined by the [place] ofMedicine and an Endocrine Society practice guideline as alevel of serum 25-OH vitamin D less than 20 ng/mL (1,2).The Endocrine Society went on to further define vitamin Dinsufficiency as a level between 21 and 29 ng/mL (2).1. IOM ([place] of Medicine). 2010. Dietary reference intakes for calcium and D. [place]: The National Academies Press.2. Herberth MF, Lise KENDALL, Evangelina AMBRIZ, et al. Evaluation, treatment, and prevention of vitamin D deficiency: an Endocrine Society clinical practice guideline. JCEM. 2010; 96(7):1911-30. Test(s) 038885-ETM-J ; 794380-LTR-V; 883766-CPB-O; 032267-Jgoxpnhxmqkjo; 989525-Hexciadscxn, Total; 894838-ESL-F (Total);197545-Urqaq LDL-P; 580537-TRH Size; 215308-HH-KB Scorewas developed and its performance characteristics determinedby Pixable. It has not been cleared or approved by the Foodand Drug Administration.PATIENT NOT FASTINGPERFORMED BY: [facility] [address] [id number] BY: Gridsum Rbobsx2500 RiverWiredCarolinas ContinueC[facility] [id number] CBC W/AUTO DIFF WBC (18765)O rdered By: Middleware Engineer on 05-25-2019 Basophils (Bld) [#/Vol] 0.1 {x10E3/uL} Normal 0.0-0.2 [facility]; [facility] Work Phone: Comment on above: Test(s) 307931-IKK-G ; 027658-TCK-K; 228339-BMR-I; 609393-Eakwghlgoagpm; 280864-Acckveshakv, Total; 117640-QUF-B (Total);518758-Jafuo LDL-P; 491606-ZBN Size; 732782-VX-RS Scorewas developed and its performance characteristics determinedby Pixable. It has not been cleared or approved by the Foodand Drug Administration.PATIENT NOT FASTINGPERFORMED BY: [email or web address] [address] [id number] BY: InStitchu70 RiverWiredCarolinas ContinueC[facility] [id number] Basophils (Bld) [#/Vol] 0.1 10*3/uL Normal 0.0-0.2 [facility]; [facility] Work Phone: Comment on above: Test(s) 794916-QWM-P ; 856401-BFY-J; 840562-YVN-P; 661398-Rjbgiatqyxqvz; 739201-Enqedliohcd, Total; 022741-IDV-C (Total);784170-Oqlsh LDL-P; 238416-MHC Size; 841836-CV-CX Scorewas developed and its performance characteristics determinedby Pixable. It has not been cleared or approved by the Foodand Drug Administration.PATIENT NOT FASTINGPERFORMED BY: [email or web address] [address] [id number] BY: [employer]works Nlcbeq6448 RiverWiredCarolinas [facility] [id number] Basophils/100 WBC (Bld) 1 % Normal [facility]; [facility] Work Phone: Comment on above: Test(s) 481314-VSB-G ; 415140-DUH-O; 575816-OWI-Y; 467904-Zukidsshzfijn; 812698-Hbylgiqlntr, Total; 676822-FLP-Z (Total);124630-Slmqc LDL-P; 877481-RBW Size; 771610-EM-HF Scorewas developed and its performance characteristics determinedby Pixable. It has not been cleared or approved by the Foodand Drug Administration.PATIENT NOT FASTINGPERFORMED BY: [facility] [address] [id number] BY: InStitchu70 [facility] [id number] Eosinophils (Bld) [#/Vol] 0.2 {x10E3/uL} Normal 0.0-0.4 [facility]; [facility] Work Phone: Comment on above: Test(s) 844477-CKN-Z ; 192269-VAF-Q; 934850-JTI-J; 596748-Snocfimoqysxi; 606742-Yxuknltlfoh, Total; 121336-BJO-E (Total);193960-Zzchw LDL-P; 791259-DJQ Size; 133201-PH-HU Scorewas developed and its performance characteristics determinedby Pixable. It has not been cleared or approved by the Foodand Drug Administration.PATIENT NOT FASTINGPERFORMED BY: [facility] [address] [id number] BY: Liquid[employer] Wqcmdt7273 [facility] [id number] Eosinophils (Bld) [#/Vol] 0.2 10*3/uL Normal 0.0-0.4 [facility]; [facility] Work Phone: Comment on above: Test(s) 312917-UYH-O ; 027027-GCO-F; 567409-GVM-G; 114533-Huhorfalguogg; 302892-Rfzqlqvnzwc, Total; 195005-BHG-M (Total);272305-Ouieh LDL-P; 137360-UDY Size; 516050-WS-DR Scorewas developed and its performance characteristics determinedby Pixable. It has not been cleared or approved by the Foodand Drug Administration.PATIENT NOT FASTINGPERFORMED BY: [email or web address] [address] [id number] BY: Segway Jwurrz3764 RiverWiredCarolin[facility] [id number] Eosinophils/100 WBC (Bld) 3 % Normal [facility]; [facility] Work Phone: Comment on above: Test(s) 745270-ARN-Y ; 667706-BZJ-V; 778345-CSC-F; 370141-Iqcgsmvbvkisz; 870682-Uohlbznygmf, Total; 617858-EMM-V (Total);918946-Dcbxg LDL-P; 930224-BQT Size; 337419-ZC-QO Scorewas developed and its performance characteristics determinedby Pixable. It has not been cleared or approved by the Foodand Drug Administration.PATIENT NOT FASTINGPERFORMED BY: [facility] [address] [id number] BY: InStitchu70 [facility]Car[facility] [id number] Erythrocyte distribution width (RBC) [Ratio] 12.8 % Normal 11.6-15.4 [facility]; [facility] Work Phone: Comment on above: Test(s) 998973-JHN-F ; 277507-RQD-I; 354916-SRD-W; 839540-Mehurphzbcvyd; 088448-Qkipdxrqchl, Total; 044023-TFM-A (Total);987788-Yznud LDL-P; 511509-XPA Size; 879243-UO-AK Scorewas developed and its performance characteristics determinedby Pixable. It has not been cleared or approved by the Foodand Drug Administration.PATIENT NOT FASTINGPERFORMED BY: [facility] [address] [id number] BY: InStitchu70 [address] ConferenceEdgeVidant P[facility] Hospital [id number] Hematocrit (Bld) [Volume fraction] 49.2 % Normal 37.5-51.0 [facility]; [facility] Work Phone: Comment on above: Test(s) 747218-KTE-Z ; 300471-TPH-D; 700787-NZQ-F; 949355-Zrkdjvttfwxdz; 503498-Llfxgunjbcl, Total; 080308-DTL-T (Total);081991-Szval LDL-P; 358871-DVY Size; 584914-XE-MX Scorewas developed and its performance characteristics determinedby Pixable. It has not been cleared or approved by the Foodand Drug Administration.PATIENT NOT FASTINGPERFORMED BY: GeoEye[address] [id number] BY: InStitchu70 Posh EyesVidant Pungo Hospital [id number] Hemoglobin (Bld) [Mass/Vol] 16.5 g/dL Normal 13.0-17.7 [facility]; [facility] Work Phone: Comment on above: Test(s) 111322-WPO-R ; 007836-AYL-P; 187876-BCI-T; 945080-Sejaceilmwqnq; 933927-Iffkjlhohzn, Total; 497225-DBA-J (Total);267430-Hjwwk LDL-P; 109494-KLZ Size; 325101-SV-ZV Scorewas developed and its performance characteristics determinedby Pixable. It has not been cleared or approved by the Foodand Drug Administration.PATIENT NOT FASTINGPERFORMED BY: [facility] [address] [id number] BY: Ivantis6370 RiverWiredCarolin[facility] [id number] Immature granulocytes (Bld) [#/Vol] 0.0 {x10E3/uL} Normal 0.0-0.1 [facility]; [facility] Work Phone: Comment on above: Test(s) 438214-MMP-J ; 513223-LMW-D; 675220-BLA-G; 220800-Pivofclzayolm; 019536-Ywbeopwsiuz, Total; 052306-COD-V (Total);368662-Rhjsx LDL-P; 464504-JIV Size; 335295-IP-HE Scorewas developed and its performance characteristics determinedby Pixable. It has not been cleared or approved by the Foodand Drug Administration.PATIENT NOT FASTINGPERFORMED BY: [facility] [address] [id number] BY: LiquidFrameworks Onnlaf2504 [facility] [id number] Immature granulocytes (Bld) [#/Vol] 0.0 10*3/uL Normal 0.0-0.1 [facility]; [facility] Work Phone: Comment on above: Test(s) 203615-LTP-F ; 489812-RWR-I; 057343-JXS-Q; 347032-Ahymbglbvqjuh; 950321-Ogxmzubbpgd, Total; 432429-OKI-M (Total);724715-Cebeq LDL-P; 196099-OFC Size; 816253-WQ-PY Scorewas developed and its performance characteristics determinedby Pixable. It has not been cleared or approved by the Foodand Drug Administration.PATIENT NOT FASTINGPERFORMED BY: [facility] [address] [id number] BY: InStitchu70 [facility] [id number] Immature granulocytes/100 WBC (Bld) 1 % Normal [facility]; [facility] Work Phone: Comment on above: Test(s) 452097-NGQ-R ; 473064-KHU-H; 256600-EKJ-H; 820622-Rjgpbryqcberp; 368130-Trrqsokloqf, Total; 249452-CSW-L (Total);531360-Szniw LDL-P; 343523-NNC Size; 516869-OQ-PN Scorewas developed and its performance characteristics determinedby Pixable. It has not been cleared or approved by the Foodand Drug Administration.PATIENT NOT FASTINGPERFORMED BY: [facility] [address] [id number] BY: InStitchu70 [facility] [id number] Lymphocytes (Bld) [#/Vol] 1.4 {x10E3/uL} Normal 0.7-3.1 [facility]; [facility] Work Phone: Comment on above: Test(s) 379509-YCX-D ; 415098-MES-M; 285502-KGA-B; 818823-Uaybzrqpoyzxi; 808044-Kxrbhvuvnlv, Total; 349883-CZS-U (Total);469487-Ldjsr LDL-P; 682570-KPB Size; 053257-PV-RS Scorewas developed and its performance characteristics determinedby Pixable. It has not been cleared or approved by the Foodand Drug Administration.PATIENT NOT FASTINGPERFORMED BY: [facility] [address] [id number] BY: Ivantis6370 [facility] [id number] Lymphocytes (Bld) [#/Vol] 1.4 10*3/uL Normal 0.7-3.1 [facility]; [facility] Work Phone: Comment on above: Test(s) 935211-STF-P ; 719180-TCL-M; 579432-FBV-A; 919257-Bzoyidjcpweyh; 266059-Ykmwedqrvih, Total; 575551-WVS-E (Total);044711-Mbnar LDL-P; 834735-SPQ Size; 388874-WH-PY Scorewas developed and its performance characteristics determinedby Pixable. It has not been cleared or approved by the Foodand Drug Administration.PATIENT NOT FASTINGPERFORMED BY: [email or web address].com[address] [id number] BY: Watt & Companylin6370 [facility] [id number] Lymphocytes/100 WBC (Bld) 23 % Normal [facility]; [facility] Work Phone: Comment on above: Test(s) 052184-BLA-F ; 130653-TNM-U; 594939-HDD-O; 788220-Hcqkcjcrrpfyd; 739505-Myhegzgsbde, Total; 398898-NHH-J (Total);319852-Gmwtc LDL-P; 529420-DQS Size; 051700-NJ-SH Scorewas developed and its performance characteristics determinedby Pixable. It has not been cleared or approved by the Foodand Drug Administration.PATIENT NOT FASTINGPERFORMED BY: [email or web address].com[address] [id number] BY: Pixable Aqjlli6216 [facility] [id number] MCH (RBC) [Entitic mass] 30.4 pg Normal 26.6-33.0 [facility] Internal Medicine; [facility] Work Phone: Comment on above: Test(s) 213056-EDY-O ; 706602-AYV-K; 392026-QRP-P; 662863-Nwfwdwezrfwwx; 080564-Saphnlxayxq, Total; 816005-MLB-U (Total);697978-Xulqg LDL-P; 372696-TCB Size; 516283-SN-DV Scorewas developed and its performance characteristics determinedby Pixable. It has not been cleared or approved by the Foodand Drug Administration.PATIENT NOT FASTINGPERFORMED BY: [facility] [address] [id number] BY: LiquidFrameworks Dhaczd7457 [facility] [id number] MCHC (RBC) [Mass/Vol] 33.5 g/dL Normal 31.5-35.7 [facility] Internal Medicine; [facility] Work Phone: Comment on above: Test(s) 634352-XSS-A ; 566095-UXY-X; 461023-PXI-X; 093101-Aitvfklpmspay; 092749-Ogesaixkzsd, Total; 289251-XKC-S (Total);653293-Lghiy LDL-P; 398838-NXI Size; 530031-MG-BO Scorewas developed and its performance characteristics determinedby Pixable. It has not been cleared or approved by the Foodand Drug Administration.PATIENT NOT FASTINGPERFORMED BY: [facility] [address] [id number] BY: Gridsum Ifwqcl6685 [facility] [id number] MCV (RBC) [Entitic vol] 91 fL Normal 79-97 [facility]; [facility] Work Phone: Comment on above: Test(s) 379868-ZIH-W ; 560282-CNF-Y; 668386-JCY-U; 516269-Zuxdowegkuvpz; 602302-Bjfmjpgrmxm, Total; 125041-JHU-Z (Total);600996-Cepxr LDL-P; 514791-KON Size; 329537-XZ-YV Scorewas developed and its performance characteristics determinedby Pixable. It has not been cleared or approved by the Foodand Drug Administration.PATIENT NOT FASTINGPERFORMED BY: [facility] [address] [id number] BY: Ivantis6[address] [facility] [id number] Monocytes (Bld) [#/Vol] 0.6 {x10E3/uL} Normal 0.1-0.9 [facility]; [facility] Work Phone: Comment on above: Test(s) 598105-FRT-I ; 275534-DVM-E; 886649-EMJ-V; 890164-Kevdipzddyqcw; 776076-Xalkhgqvcrl, Total; 024492-FUJ-E (Total);587706-Uyyur LDL-P; 983107-MTU Size; 270935-XL-YU Scorewas developed and its performance characteristics determinedby Pixable. It has not been cleared or approved by the Foodand Drug Administration.PATIENT NOT FASTINGPERFORMED BY: [facility] [address] [id number] BY: Gridsum Gnfaua8358 [facility] [id number] Monocytes (Bld) [#/Vol] 0.6 10*3/uL Normal 0.1-0.9 [facility]; [facility] Work Phone: Comment on above: Test(s) 989433-WDH-Q ; 724555-UDX-J; 155392-YPS-J; 340436-Ugeztwtlwiijn; 574223-Jxsryrhxbgg, Total; 613165-TEN-K (Total);132031-Abefo LDL-P; 767231-BCT Size; 330886-HZ-JE Scorewas developed and its performance characteristics determinedby Pixable. It has not been cleared or approved by the Foodand Drug Administration.PATIENT NOT FASTINGPERFORMED BY: [facility] [address] [id number] BY: LiquidFrameworks Hgjoar4422 [facility] [id number] Monocytes/100 WBC (Bld) 10 % Normal [facility]; [facility] Work Phone: Comment on above: Test(s) 301308-WHQ-N ; 529253-EWZ-M; 630697-HTM-Q; 431161-Gggmbnvuvifai; 345201-Xkiuiinmsru, Total; 957404-OZA-R (Total);251142-Guqkq LDL-P; 081327-XSY Size; 304780-JF-VZ Scorewas developed and its performance characteristics determinedby Pixable. It has not been cleared or approved by the Foodand Drug Administration.PATIENT NOT FASTINGPERFORMED BY: [facility] [address] [id number] BY: LiquidFrameworks Qpidhc3758 [facility] [id number] Neutrophils (Bld) [#/Vol] 3.8 {x10E3/uL} Normal 1.4-7.0 [facility]; [facility] Work Phone: Comment on above: Test(s) 207594-BZD-A ; 823238-PDW-K; 824748-ZEH-W; 942840-Oxytkcwrxmxyq; 273961-Xdppeetqjlx, Total; 860612-RAL-C (Total);507210-Vpjhe LDL-P; 320670-YJH Size; 374093-RL-QY Scorewas developed and its performance characteristics determinedby Pixable. It has not been cleared or approved by the Foodand Drug Administration.PATIENT NOT FASTINGPERFORMED BY: [facility] Nkjygdqasx2515 [facility] [id number] BY: Gridsum Odjfgn8551 [facility] EyesVidant Pung[facility] Hospital [id number] Neutrophils (Bld) [#/Vol] 3.8 10*3/uL Normal 1.4-7.0 [facility]; [facility] Work Phone: Comment on above: Test(s) 192745-LGX-A ; 415380-DFQ-M; 426811-DDG-J; 493258-Vncvbkfyrsulc; 700010-Ignnuauptnf, Total; 358576-QWH-N (Total);776095-Fzuui LDL-P; 742786-OBX Size; 555309-FV-DF Scorewas developed and its performance characteristics determinedby Pixable. It has not been cleared or approved by the Foodand Drug Administration.PATIENT NOT FASTINGPERFORMED BY: [facility] [address] [id number] BY: Ivantis6[address] CLASEMOVILCarolinas ContinueCARE Hospital [facility] [id number] Neutrophils/100 WBC (Bld) 62 % Normal [facility]; [facility] Work Phone: Comment on above: Test(s) 295834-YHU-E ; 124123-HDN-L; 589766-FEO-K; 230613-Jvlsehggciiaz; 156922-Jdpfjnknhyf, Total; 536190-ZYJ-E (Total);430205-Cwnri LDL-P; 116338-LKG Size; 240318-YM-YL Scorewas developed and its performance characteristics determinedby Pixable. It has not been cleared or approved by the Foodand Drug Administration.PATIENT NOT FASTINGPERFORMED BY: [facility] [address] [id number] BY: Watt [employer] Companylin6370 [place] ConferenceEdge[facility] [id number] Platelets (Bld) [#/Vol] 286 {x10E3/uL} Normal 150-450 [facility]; [facility] Work Phone: Comment on above: Test(s) 400569-OOY-G ; 623040-DGH-K; 146057-AAK-F; 845154-Epwcgfanzevqo; 856839-Oicgodzmbnm, Total; 292739-GWO-J (Total);406287-Hgvfd LDL-P; 859545-FMC Size; 302852-IN-EI Scorewas developed and its performance characteristics determinedby Pixable. It has not been cleared or approved by the Foodand Drug Administration.PATIENT NOT FASTINGPERFORMED BY: Pixable [address] [id number] BY: Pixable Vvqkjw7954 [facility] [id number] Platelets (Bld) [#/Vol] 286 10*3/uL Normal 150-450 [facility]; [facility] Work Phone: Comment on above: Test(s) 418984-NTF-C ; 694658-ICO-X; 750297-QWL-J; 968954-Qnxvaeaqarbim; 042090-Fbzpfieuwiu, Total; 944518-MRI-E (Total);669671-Dliok LDL-P; 747011-YVA Size; 375497-GS-LR Scorewas developed and its performance characteristics determinedby Pixable. It has not been cleared or approved by the Foodand Drug Administration.PATIENT NOT FASTINGPERFORMED BY: Segwayrp [address] [id number] BY: Pixable Baapep4355 [facility] [id number] RBC (Bld) [#/Vol] 5.43 {x10E6/uL} Normal 4.14-5.80 [facility] Internal Medicine; [facility] Work Phone: Comment on above: Test(s) 054575-MDO-K ; 254428-PBY-T; 978561-IBW-Q; 297487-Rkssogwtdrpye; 389150-Unarlzbrdxd, Total; 477800-OSQ-D (Total);939777-Jxlge LDL-P; 554741-XYM Size; 367932-PL-ZU Scorewas developed and its performance characteristics determinedby Pixable. It has not been cleared or approved by the Foodand Drug Administration.PATIENT NOT FASTINGPERFORMED BY: [facility] Zgzqvcxwdb8199 [facility] [id number] BY: LabCoHunterdon Medical CenterEezjed8408 [facility] [id number] RBC (Bld) [#/Vol] 5.43 10*6/uL Normal 4.14-5.80 [facility] ehensive Internal Medicine; [facility] Work Phone: Comment on above: Test(s) 288264-CEG-H ; 442271-GAU-E; 231239-RTP-P; 601392-Xeisosxaxxikt; 208213-Bhufoouletv, Total; 898795-FZJ-W (Total);176609-Cwoub LDL-P; 561376-IUI Size; 217338-PS-QO Scorewas developed and its performance characteristics determinedby Pixable. It has not been cleared or approved by the Foodand Drug Administration.PATIENT NOT FASTINGPERFORMED BY: 24Fundraiser.comrp [address]ay[address] [id number] BY: Segwayrp Wdbkrd2237 [facility] [facility] [id number] WBC (Bld) [#/Vol] 6.1 {x10E3/uL} Normal 3.4-10.8 [facility] Internal Medicine; [facility] Work Phone: Comment on above: Test(s) 971533-NVH-A ; 835542-YYA-B; 347370-VHC-A; 706722-Wgcurfznfjbko; 019805-Ggifbkwejcq, Total; 214207-TIL-I (Total);434268-Qeuld LDL-P; 400169-CVX Size; 017751-LY-EW Scorewas developed and its performance characteristics determinedby Pixable. It has not been cleared or approved by the Foodand Drug Administration.PATIENT NOT FASTINGPERFORMED BY: [facility] Zifwrlzxio0012 [facility] [id number] BY: [employer] Itmokw4368 [facility] [id number] WBC (Bld) [#/Vol] 6.1 10*3/uL Normal 3.4-10.8 [facility] Internal Medicine; [facility] Work Phone: Comment on above: Test(s) 947939-SPS-U ; 332656-AAX-I; 149774-JOY-S; 679688-Mmxdghnpokeip; 722618-Jicwdxbedba, Total; 680708-YMX-G (Total);390032-Xexqx LDL-P; 411638-KJJ Size; 484474-FQ-UL Scorewas developed and its performance characteristics determinedby Pixable. It has not been cleared or approved by the Foodand Drug Administration.PATIENT NOT FASTINGPERFORMED BY: GeoEye[address] [id number] BY: [facility] [id number] METABOLIC PANEL, COMPREHENSI VE (29675)Ordered By: Middleware Engineer on 05-25-2019 Albumin [Mass/Vol] 4.4 g/dL Normal 4.0-5.0 [facility] Internal Medicine; [facility] Work Phone: Comment on above: Please note refere nce interval change Test(s) 655822-POT-U ; 165883-XHS-T; 566370-KQJ-N; 633107-Pdgynghmulswb; 403903-Dqrnzwfqxyd, Total; 864448-ZCL-T (Total);431264-Gumhh LDL-P; 189799-OEM Size; 890173-PF-SD Scorewas developed and its performance characteristics determinedby Pixable. It has not been cleared or approved by the Foodand Drug Administration.PATIENT NOT FASTINGPERFORMED BY: [facility] [address] [id number] BY: InStitchu70 [facility]Carolin[facility] [id number] Albumin/Globulin [Mass ratio] 1.6 {ratio} Normal 1.2-2.2 [facility]; [facility] Work Phone: Comment on above: Test(s) 928153-IUP-G ; 034237-IZS-L; 825925-KOK-H; 110736-Umntpbesgcodq; 464160-Lwjfdywolph, Total; 233062-DAI-Z (Total);457325-Mmzip LDL-P; 766124-PEA Size; 404005-ZD-JO Scorewas developed and its performance characteristics determinedby Pix[employer]. It has not been cleared or approved by the Foodand Drug Administration.PATIENT NOT FASTINGPERFORMED BY: Segway[address] [id number] BY: SegwayDavid [place]ille 0621370 [facility] [id number] ALP [Catalytic activity/Vol] 73 [iU]/L Normal 39-117 [facility]; [facility] Work Phone: Comment on above: Test(s) 555708-TRV-I ; 594105-JTN-Q; 842142-GFV-A; 256906-Ovdwuxxqkrkxp; 151761-Hlbcmrhzykw, Total; 682917-FOL-Q (Total);261905-Dkhhf LDL-P; 331285-RIN Size; 940212-OG-FA Scorewas developed and its performance characteristics determinedby Pixable. It has not been cleared or approved by the Foodand Drug Administration.PATIENT NOT FASTINGPERFORMED BY: Segway[address] [id number] BY: SegwayHunterdon Medical CenterBlarmz9956 [facility] [id number] ALP [Catalytic activity/Vol] 73 U/L Normal 39-117 [facility]; [facility] Work Phone: Comment on above: Test(s) 936471-XQS-N ; 081247-QGC-L; 579900-QUT-N; 778436-Wockmsddvlmxp; 129435-Ncfkzumuvdw, Total; 860815-MIZ-P (Total);883400-Nazeo LDL-P; 490756-BKR Size; 976578-KL-PG Scorewas developed and its performance characteristics determinedby Pix[employer]. It has not been cleared or approved by the Foodand Drug Administration.PATIENT NOT FASTINGPERFORMED BY: Segway[address] [id number] BY: Liquid[employer]works Iqavrr6865 [facility] EyesVid[facility] [id number] ALT [Catalytic activity/Vol] 36 [iU]/L Normal 0-44 [facility]; [facility] Work Phone: Comment on above: Test(s) 059351-XAM-P ; 372926-TTK-V; 846468-QGZ-R; 422883-Xxagbmnjwduey; 269872-Ultyjoucxlk, Total; 791249-OZB-B (Total);449783-Wazot LDL-P; 409412-SWG Size; 525153-HD-NJ Scorewas developed and its performance characteristics determinedby Pixable. It has not been cleared or approved by the Foodand Drug Administration.PATIENT NOT FASTINGPERFORMED BY: [facility] [address] [id number] BY: InStitchu70 [facility]Car[facility] [id number] ALT [Catalytic activity/Vol] 36 U/L Normal 0-44 [facility]; [facility] Work Phone: Comment on above: Test(s) 381666-QEY-O ; 223367-NTT-U; 881863-FVV-P; 024686-Vwdskqpzxouvt; 340133-Scbwxzkgnzl, Total; 996429-LXY-L (Total);342737-Zfejk LDL-P; 193628-BMP Size; 863511-DW-NU Scorewas developed and its performance characteristics determinedby Pixable. It has not been cleared or approved by the Foodand Drug Administration.PATIENT NOT FASTINGPERFORMED BY: [facility] [address] [id number] BY: Ivantis6370 [address] ConferenceEdgeVid[facility] [id number] AST [Catalytic activity/Vol] 23 [iU]/L Normal 0-40 [facility]; [facility] Work Phone: Comment on above: Test(s) 004417-HWV-C ; 528095-JYG-X; 929231-CMQ-S; 748769-Obwhqnodantig; 044911-Wzyjluxclni, Total; 468059-LFP-X (Total);071649-Wcens LDL-P; 651050-NUV Size; 418830-RF-ZW Scorewas developed and its performance characteristics determinedby Pixable. It has not been cleared or approved by the Foodand Drug Administration.PATIENT NOT FASTINGPERFORMED BY: Segway[address] [id number] BY: Segway Xwbdxq2316 [facility] [id number] AST [Catalytic activity/Vol] 23 U/L Normal 0-40 [facility]; [facility] Work Phone: Comment on above: Test(s) 916796-KXR-R ; 016183-RTI-A; 650277-DBQ-H; 669281-Lceryncymrkrj; 871068-Kxiwyincgcv, Total; 484329-GXA-Q (Total);261830-Gnbjd LDL-P; 590851-KUA Size; 635966-PU-XI Scorewas developed and its performance characteristics determinedby Pixable. It has not been cleared or approved by the Foodand Drug Administration.PATIENT NOT FASTINGPERFORMED BY: Segway[address] [id number] BY: ParkWhiz6370 [facility] [id number] Bilirubin [Mass/Vol] 0.4 mg/dL Normal 0.0-1.2 [facility] Internal Medicine; [facility] Work Phone: Comment on above: Test(s) 614160-RGS-Y ; 982917-HQE-J; 495480-XXK-V; 182182-Okjguoxieutoo; 556673-Jumvyhznjnu, Total; 246465-NAD-Q (Total);545205-Hicvr LDL-P; 902144-BFT Size; 913706-BQ-HN Scorewas developed and its performance characteristics determinedby Pixable. It has not been cleared or approved by the Foodand Drug Administration.PATIENT NOT FASTINGPERFORMED BY: Segway[address] [id number] BY: [employer] Companylin6370 [facility]Car[facility] [id number] Calcium [Mass/Vol] 9.2 mg/dL Normal 8.7-10.2 [facility] Internal [facility]; [facility] Work Phone: Comment on above: Test(s) 715464-ZEU-E ; 675666-UNN-J; 033694-JTW-F; 918873-Andsehgfwxmtd; 963578-Vsnbwrvtacx, Total; 849259-UXB-U (Total);569266-Refsx LDL-P; 787788-CEZ Size; 002622-KJ-ZF Scorewas developed and its performance characteristics determinedby Pixable. It has not been cleared or approved by the Foodand Drug Administration.PATIENT NOT FASTINGPERFORMED BY: GeoEye[address] [id number] BY: Ivantis6370 [facility]Car[facility] [id number] Chloride [Moles/Vol] 104 mmol/L Normal 96-106 Comp [facility] Internal Medicine; [facility] Work Phone: Comment on above: Test(s) 509497-KTD-O ; 693076-EAB-M; 473395-QUK-N; 258552-Pdgqjdcddjsiu; 757056-Vnvprmuvpuv, Total; 012713-PAY-W (Total);082917-Twzqv LDL-P; 640022-SRT Size; 087132-IZ-OG Scorewas developed and its performance characteristics determinedby Pixable. It has not been cleared or approved by the Foodand Drug Administration.PATIENT NOT FASTINGPERFORMED BY: [facility] [address] [place] [address] [id number] BY: [employer]Frameworks Mivcfe8987 Diaz ConferenceEdgeVidant Pung[facility] Hospital [id number] CO2 [Moles/Vol] 22 mmol/L Normal 20-29 [facility] Internal Medicine; [facility] Work Phone: Comment on above: Test(s) 632227-KEY-Z ; 154825-MQN-Q; 293124-YQU-R; 093396-Oorcujhbuvghc; 703244-Cizyewmzfyy, Total; 062089-NVT-T (Total);359028-Gcatq LDL-P; 162736-RNS Size; 132094-YS-DA Scorewas developed and its performance characteristics determinedby Pixable. It has not been cleared or approved by the Foodand Drug Administration.PATIENT NOT FASTINGPERFORMED BY: [facility] [address] [id number] BY: SegwayHunterdon Medical CenterKvnbgf5524 [facility] [id number] Creatinine [Mass/Vol] 0.96 mg/dL Normal 0.76-1.27 [facility] prehensive Internal Medicine; [facility] Work Phone: Comment on above: Test(s) 612019-UQL-U ; 266798-UCI-Q; 737432-ZZZ-H; 224821-Oewsvgqnnxsip; 103210-Xgycpypciop, Total; 737551-PUZ-C (Total);264934-Qoqxn LDL-P; 073757-THT Size; 377967-XI-LD Scorewas developed and its performance characteristics determinedby Pixable. It has not been cleared or approved by the Foodand Drug Administration.PATIENT NOT FASTINGPERFORMED BY: [facility] [address] [id number] BY: SegwayUNM Children's HospitalHtlgqe9677 [facility] [id number] GFR/1.73 sq M predicted among blacks CKD-EPI (S/P/Bld) [Vol rate/Area] 111 mL/min/1.73 Normal [facility]; [facility] Work Phone: Comment on above: Test(s) 465957-KHI-I ; 396381-VUR-L; 590697-ZGG-Y; 659031-Pxyzikbymvmda; 056832-Yrbfpklauza, Total; 634311-CAQ-Q (Total);355578-Zloif LDL-P; 403261-SCQ Size; 524508-IS-JV Scorewas developed and its performance characteristics determinedby Pixable. It has not been cleared or approved by the Foodand Drug Administration.PATIENT NOT FASTINGPERFORMED BY: BN LabCo[address] [id number] BY: SegwayUNM Children's HospitalAlsprc6564 [facility] [id number] GFR/1.73 sq M predicted among non-blacks CKD-EPI (S/P/Bld) [Vol rate/Area] 96 mL/min/1.73 Normal [facility]; [facility] Work Phone: Comment on above: Test(s) 107346-WTM-A ; 781861-KCF-Y; 983667-EMN-Z; 665611-Qbufmlmbffxpc; 449377-Vsepgqntddz, Total; 284330-RAX-A (Total);724039-Qnoql LDL-P; 049247-PRG Size; 818287-IX-SP Scorewas developed and its performance characteristics determinedby Pixable. It has not been cleared or approved by the Foodand Drug Administration.PATIENT NOT FASTINGPERFORMED BY: [facility] [address] [id number] BY: Ivantis6370 [facility] [id number] Globulin (S) [Mass/Vol] 2.7 g/dL Normal 1.5-4.5 [facility]; [facility] Work Phone: Comment on above: Test(s) 340442-HOA-U ; 774957-GYQ-A; 500026-XTK-C; 350009-Ziuhjjqorrjkq; 205491-Afhxjfrfbno, Total; 808314-QTO-B (Total);653849-Wjota LDL-P; 474369-WZP Size; 685362-SN-BB Scorewas developed and its performance characteristics determinedby Pixable. It has not been cleared or approved by the Foodand Drug Administration.PATIENT NOT FASTINGPERFORMED BY: [facility] [address] [id number] BY: LiquidFrameworks Azfiyp6052 [facility] [id number] Glucose [Mass/Vol] 103 mg/dL Abnormal 65-99 [facility] Internal Medicine; [facility] Work Phone: Comment on above: Test(s) 835250-STW-U ; 454716-JWG-N; 180202-SNE-X; 800704-Gcbxjlsvhyitk; 246571-Hrcbqkeppjk, Total; 496313-VNI-X (Total);018138-Mxwsn LDL-P; 584424-NGM Size; 710237-JC-BJ Scorewas developed and its performance characteristics determinedby Pixable. It has not been cleared or approved by the Foodand Drug Administration.PATIENT NOT FASTINGPERFORMED BY: [facility] [address] [id number] BY: InStitchu70 Diaz ConferenceEdgeVidant P[facility] Hospital [id number] Potassium [Moles/Vol] 4.5 mmol/L Normal 3.5-5.2 [facility]; [facility] Work Phone: Comment on above: Test(s) 838443-ISU-O ; 827341-PUD-T; 869238-ZRM-S; 598520-Melkwbnpdqvbu; 274587-Irmkfoigvam, Total; 731861-EFJ-W (Total);057274-Dedpq LDL-P; 150810-KWX Size; 505668-CC-FS Scorewas developed and its performance characteristics determinedby Pixable. It has not been cleared or approved by the Foodand Drug Administration.PATIENT NOT FASTINGPERFORMED BY: [employer] [address] [id number] BY: Ivantis6370 DiazSaint [facility] Hospital [id number] Protein [Mass/Vol] 7.1 g/dL Normal 6.0-8.5 [facility] Internal Medicine; [facility] Work Phone: Comment on above: Test(s) 879120-TFY-O ; 408496-NDF-J; 066708-XIA-I; 038937-Fzmaqxcttsczi; 524893-Kbawrwfeblu, Total; 068377-AHA-C (Total);096757-Logcs LDL-P; 818103-JBQ Size; 011066-ZI-ME Scorewas developed and its performance characteristics determinedby Pixable. It has not been cleared or approved by the Foodand Drug Administration.PATIENT NOT FASTINGPERFORMED BY: [employer] [address] [id number] BY: Segway Pxbgco2198 [facility] [id number] Sodium [Moles/Vol] 142 mmol/L Normal 134-144 [facility] Internal [facility]; [facility] Work Phone: Comment on above: Test(s) 546591-PUI-J ; 322917-FOK-C; 976516-KTW-A; 746754-Cjimgrogrumwp; 778628-Jgnlaocloya, Total; 299181-CTP-M (Total);797637-Rubpz LDL-P; 126401-KPA Size; 954073-ZA-OT Scorewas developed and its performance characteristics determinedby Pixable. It has not been cleared or approved by the Foodand Drug Administration.PATIENT NOT FASTINGPERFORMED BY: [facility] [address] [id number] BY: SegwayHunterdon Medical CenterOfbeig1886 [facility] [id number] Urea nitrogen [Mass/Vol] 16 mg/dL Normal 6-24 [facility]; [facility] Work Phone: Comment on above: Test(s) 987507-VJG-L ; 504713-LIJ-W; 638138-LBB-G; 774817-Vwnmyndlorjep; 913391-Kgaehdevinl, Total; 365145-EFZ-C (Total);788311-Tcsmd LDL-P; 392970-TUI Size; 858847-IE-SD Scorewas developed and its performance characteristics determinedby Pixable. It has not been cleared or approved by the Foodand Drug Administration.PATIENT NOT FASTINGPERFORMED BY: Segway[address] [id number] BY: SegwayHunterdon Medical CenterSupryc1251 [facility] [id number] Urea nitrogen/Creatinine [Mass ratio] 17 mg/mg Normal 9-20 [facility]; [facility] Work Phone: Comment on above: Test(s) 432494-IZL-L ; 034689-NKL-J; 441947-VCZ-W; 445179-Bfaafigkpoiks; 375610-Ywibragjspn, Total; 537179-IQA-S (Total);427622-Izxec LDL-P; 983592-CFZ Size; 221567-XL-ZO Scorewas developed and its performance characteristics determinedby Pixable. It has not been cleared or approved by the Foodand Drug Administration.PATIENT NOT FASTINGPERFORMED BY: [facility] [address] [id number] BY: InStitchu70 Diaz ConferenceEdgeVidant P[facility] [id number] NMR Profile (52541)Ordered B y: Middleware Engineer on 05-25-2019 Cholesterol [Mass/Vol] 266 mg/dL Abnormal 100-199 [facility]; [facility] Work Phone: Comment on above: Test(s) 603293-GBZ-A ; 097230-AHV-N; 550845-OAJ-B; 608323-Byrkpenauajdt; 826581-Bjusbhznjwr, Total; 142957-OGL-A (Total);715685-Qhuvp LDL-P; 550182-KKL Size; 350803-DR-XL Scorewas developed and its performance characteristics determinedby Pixable. It has not been cleared or approved by the Foodand Drug Administration.PATIENT NOT FASTINGPERFORMED BY: [facility] [address] [id number] BY: Ivantis6370 [address] CLASEMOVILCarolinas ContinueCARE Hospital at [facility]ville [id number] Lipoprotein.alpha [Moles/Vol] 33.3 umol/L Normal [facility]; [facility] Work Phone: Comment on above: Test(s) 720159-WDJ-F ; 055268-WHP-J; 226118-JXM-Z; 256084-Vjumuoorwngtf; 908735-Fptpzqxjxno, Total; 862292-ISX-S (Total);881680-Diuui LDL-P; 972286-HIF Size; 164892-HX-VG Scorewas developed and its performance characteristics determinedby Pixable. It has not been cleared or approved by the Foodand Drug Administration.PATIENT NOT FASTINGPERFORMED BY: [facility] [address] [id number] BY: SHOSHANA NanoPackCojoni Mybaoq9065 [facility] [id number] Lipoprotein.beta.subp article [Entitic length] 20.0 nm Abnormal [facility]; [facility] Work Phone: Comment on above: INTERPRETATIVE INFORMATION PARTICLE CONCENTRATION AND SIZE <--Lower CVD Risk Higher CVD Risk--> LDL AND HDL PARTICLES Percentile in Reference Population HDL-P (total) High 75th 50th 25th Low >34.9 34.9 30.5 26.7 <26.7 . Small LDL-P Low 25th 50th 75th High <117 117 527 839 >839 . LDL Size <-Large (Pattern A)-> <-Small (Pattern B)-> 23.0 20.6 20.5 19.0 Small LDL-P and LDL Size are associated with CVD risk, but not afterLDL-P is taken into account. Test(s) 566972-BYH-O ; 639196-FWZ-S; 204203-YLL-R; 980344-Dbqegwtoypidg; 739537-Vgexniaqqpg, Total; 700978-JMB-T (Total);516523-Cqwrz LDL-P; 394059-EQN Size; 383073-ZJ-LS Scorewas developed and its performance characteristics determinedby Pixable. It has not been cleared or approved by the Foodand Drug Administration.PATIENT NOT FASTINGPERFORMED BY: [facility] [address] [id number] BY: Ivantis6370 [address] ConferenceEdgeVidant P[facility] [id number] Lipoprotein.beta.subp article [Moles/Vol] 2687 nmol/L Abnormal Comprehens[facility] e Internal Medicine; [facility] Work Phone: Comment on above: Low < 1000 Moderate 1000 - 1299 Borderline-High 1300 - 1599 High 1600 - 2000 Very High > 2000 Test(s) 813775-RZI-Z ; 393316-RSG-K; 773442-PLP-P; 437623-Djpbmturgujmm; 966396-Hnarbtznnhc, Total; 738597-JXO-N (Total);878150-Yxtfv LDL-P; 769677-ZHP Size; 604445-BM-LL Scorewas developed and its performance characteristics determinedby Pixable. It has not been cleared or approved by the Foodand Drug Administration.PATIENT NOT FASTINGPERFORMED BY: GeoEye[address] [id number] BY: InStitchu70 Diaz CLASEMOVILCarolinas ContinueCARE Hospital at [facility] [id number] Lipoprotein.beta.subp article.small [Moles/Vol] 1710 nmol/L Abnormal [facility]; [facility] Work Phone: Comment on above: Test(s) 798445-FTD-M ; 251710-SPX-W; 447642-EIZ-Z; 820667-Xmvybqqcpodnv; 795731-Bjkcewsomuy, Total; 089819-DJH-G (Total);759072-Pehqo LDL-P; 128027-CBE Size; 722032-VG-HR Scorewas developed and its performance characteristics determinedby Pixable. It has not been cleared or approved by the Foodand Drug Administration.PATIENT NOT FASTINGPERFORMED BY: [facility] [address] [id number] BY: Ivantis6370 [facility] [id number] Triglyceride [Mass/Vol] 251 mg/dL Abnormal 0-149 [facility]; [facility] Work Phone: Comment on above: Test(s) 785693-CLE-I ; 693464-IBD-N; 392402-JOV-J; 663640-Dwoovxcothbtg; 680245-Udsxobpamcy, Total; 824246-VNH-H (Total);737131-Syjuc LDL-P; 651932-CMO Size; 035205-MN-CV Scorewas developed and its performance characteristics determinedby Pixable. It has not been cleared or approved by the Foodand Drug Administration.PATIENT NOT FASTINGPERFORMED BY: Segway[address] [id number] BY: SegwayDavid [place] 0621370 [facility] [id number] NMR Profile (82512) 43 mg/dL Normal [facility] Internal Medicine; [facility] Work Phone: Comment on above: Test(s) 354186-MAH-X ; 580626-IOT-J; 623719-DXT-H; 851022-Ueghnnaosoaod; 981754-Kuzfzgujmsy, Total; 551400-XSY-Q (Total);612087-Anxbt LDL-P; 042896-HTY Size; 525429-CY-RW Scorewas developed and its performance characteristics determinedby Pixable. It has not been cleared or approved by the Foodand Drug Administration.PATIENT NOT FASTINGPERFORMED BY: Segway[address] [id number] BY: Pixable Rhflkc3427 [facility] [id number] NMR Profile (81048) 173 mg/dL Abnormal 0-99 [facility] Internal Medicine; [facility] Work Phone: Comment on above: . Optimal < 100 Abov e optimal 100 - 129 Borderline 130 - 159 High 160 - 189 Very high > 189 .LDL-C is inaccurate if patient is non-fasting. Test(s) 777604-JEX-O ; 040686-DHO-K; 487834-YCP-Z; 103526-Rnmlewccilpqz; 044083-Gknlzzcsruu, Total; 531594-LSI-K (Total);010292-Lqcch LDL-P; 016394-DEA Size; 225594-ML-CC Scorewas developed and its performance characteristics determinedby Pixable. It has not been cleared or approved by the Foodand Drug Administration.PATIENT NOT FASTINGPERFORMED BY: [facility] [address] [id number] BY: SegwayUNM Children's HospitalHqwaez5036 [facility] [id number] SED RATE ERYTHROCYTE (21810) Ordered By: Middleware Engineer on 05-25-2019 ESR (Bld) [Velocity] 16 mm/h Abnormal 0-15 [facility]; [facility] Work Phone: Comment on above: Test(s) 988857-FUS-E ; 874062-WMC-U; 831684-LPY-R; 936001-Gtmdsbrasnzny; 631215-Ellplimlecd, Total; 495443-MUX-V (Total);795053-Ihvwp LDL-P; 109469-RSJ Size; 194460-SI-KL Scorewas developed and its performance characteristics determinedby Pixable. It has not been cleared or approved by the Foodand Drug Administration.PATIENT NOT FASTINGPERFORMED BY: [facility] [address] [id number] BY: ParkWhiz6370 [facility] [id number] TSH (95775)Ordered By: Syste m Leadlighter on 05-25-2019 TSH Qn 1.990 {uIU/mL} Normal 0.450-4.500 [facility] Internal Medicine; [facility] Work Phone: Comment on above: Test(s) 338258-WOA-B ; 326186-RYM-N; 783964-XBT-B; 812211-Woljexgigesdm; 081060-Aobokuxzbaa, Total; 330123-TYQ-V (Total);281529-Cerjc LDL-P; 795858-LRI Size; 522013-ZN-CW Scorewas developed and its performance characteristics determinedby Pixable. It has not been cleared or approved by the Foodand Drug Administration.PATIENT NOT FASTINGPERFORMED BY: [facility] [address] [id number] BY: LabCoHunterdon Medical CenterLumrqo6652 [facility] [id number] VITAMIN B-12 (CYANOCOBALAMIN ) (98706)Ordered By: Middleware Engineer on 05-25-2019 Cobalamin (Vitamin B12) [Mass/Vol] 423 pg/mL Normal 232-1245 [facility]; [facility] Work Phone: Comment on above: Test(s) 852590-KIX-M ; 162493-QJC-A; 799254-NMF-W; 258618-Awqbaxnttajlp; 976588-Kzzuaizomph, Total; 359934-RVN-W (Total);241728-Isbjt LDL-P; 733243-KVF Size; 241870-FJ-EV Scorewas developed and its performance characteristics determinedby [employer]. It has not been cleared or approved by the Foodand Drug Administration.PATIENT NOT FASTINGPERFORMED BY: SegwayDavid Ville 924147 [facility] [id number] BY: SegwayHunterdon Medical CenterUniaxb2938 [facility] [id number] ECHO Stress TestOrdered By: Sophia Kimble on 04-16-2019 STRESS ECHOCARDIOGRA M Bladimir Protocol PATIENT: Sid Pruitt STUDY DATE: 04/16/2019 : 1975 AGE: 44 HT/WT: 182.9 cm (72 108.9 kg in) (239.5 lb) GENDER: M BP: 140 / 90 LOCATION: [facility]IENT [facility] STATUS: *ORDERING PHYSICIAN: * Sophia Kimble *SUPERVISING PHYSICIAN: * Yuliana, *RN: * Lolis Mitchell RN Loretta MD *READING PHYSICIAN: * David *POLYMER MATERIALS CONSULTANT: * Brit Mendoza RDCS, MD AE ----- INDICATIONS: Unspec chest pain (R07.9). Shortness breath (R06.02). Nonspec abnormal ECG (R94.31). ----- HISTORY: Dyslipidemia. Constant pressure in chest since September that worsens when his heart rate increases with walking or activity. Back surgeries. Fatigue and exertional dyspnea. Allergies: Hydromorphone. Rosuvastatin. Patient is NPO per policy. No Cardiac medications. ----- CONCLUSIONS SUMMARY: 1. Left ventricle: Systolic function is normal by the biplane method of disks. The estimated ejection fraction is 65%. There are no regional wall motion abnormalities. 2. Stress: Stress testing did not produce any symptoms suggestive of coronary artery disease. Functional capacity is average. 3. Stress ECG conclusions: The stress ECG is equivocal for ischemia. Inconsistent horizontal ST depressions in inferior leads. 4. Overall, study findings suggest a low risk of cardiovascular events. 5. Normal study after maximal exercise without reproduction of symptoms. The stress electrocardiography portion appears to be a false positive. Low risk/extent of ischemia. ----- STUDY DATA: Stress echocardiogram. Procedure: Initial setup. A baseline ECG was recorded. Surface ECG leads and blood pressure measurements were monitored. Image quality was suboptimal. The study was technically limited due to body habitus and respiratory interference. Intravenous imaging enhancement (Definity) was administered. Definity lot #: [id number]. Treadmill exercise testing was performed using the Bladimir protocol. The patient exercised for 9 min, to a maximal work rate of 10.1 mets. Exercise was terminated due to dyspnea and fatigue. Post-stress images were obtained within 90 seconds of peak stress. Transthoracic stress echocardiography. Images were captured at baseline and peak exercise. Exercise was terminated when the patient's Manohar scale was 17. Limited 2D, limited spectral Doppler, and color flow Doppler images were acquired and archived for permanent storage and are available for subsequent review. Study status: Routine. Patient status: Outpatient. Pre pain assessment is 2 out of 10. Pre pain location is chest pressure n middle of chest. Post pain assessment is 0 out of 10. Location: Echo laboratory. Consent: The procedure was reviewed with the patient and the patient voices understanding. Study completion: The patient tolerated the procedure well. There were no complications. Discharge: Discharge instructions given The patient was discharged to homewhile ambulatory. ----- FINDINGS LEFT VENTRICLE: Not well visualized. The cavity size is normal. Wall thickness is mildly increased. Systolic function is normal by the biplane method of disks. The estimated ejection fraction is 65%. There are no regional wall motion abnormalities. RIGHT VENTRICLE: Systolic function is normal by visual assessment. MITRAL VALVE: Normal (thickness) leaflets. Doppler: There is no significant regurgitation. AORTIC VALVE: Trileaflet. Doppler: There is no stenosis. There is no regurgitation. The peak systolic gradient is 8 mm Hg. The peak systolic velocity is 1.4 m/sec. TRICUSPID VALVE: Doppler: There is no significant regurgitation. AORTA: Aortic root: The aortic root is normal in size. Ascending aorta: The ascending aorta is normal in size. PERICARDIUM: There is no pericardial effusion. BASELINE ECG: Normal sinus rhythm. Poor R-wave progression in the precordial leads. STRESS PROTOCOL: + +---+--- ---------+ ----+ ----+ +Stage +HR +BP +Symptoms +Comments + + +---+--- ---------+ ----+ ----+ +Rest +81 +140/90 (107)+No symptoms. + + + +---+--- ---------+ ----+ ----+ +Peak stress +171+1 (more content not included)... [place] Work Phone: [facility], [employer] Incoming Cardiology Results From [employer] - 04/16/2019 3:15 PM EST STRESS ECHOCARDIOGRAM Bladimir Protocol PATIENT: Sid Pruitt STUDY DATE: 04/16/2019 : 1975 AGE: 44 HT/WT: 182.9 cm (72 108.9 kg in) (239.5 lb) GENDER: M BP: 140 / 90 LOCATION: [facility]IENT [facility] STATUS: *ORDERING PHYSICIAN: * Sophia Kimble *SUPERVISING PHYSICIAN: * Yuliana, *RN: * Lolis Mitchell RN Loretta MD *READING PHYSICIAN: * David *POLYMER MATERIALS CONSULTANT: Brit Araiza RDCS, MD AE ----- INDICATIONS: Unspec chest pain (R07.9). Shortness breath (R06.02). Nonspec abnormal ECG (R94.31). ----- HISTORY: Dyslipidemia. Constant pressure in chest since September that worsens when his heart rate increases with walking or activity. Back surgeries. Fatigue and exertional dyspnea. Allergies: Hydromorphone. Rosuvastatin. Patient is NPO per policy. No Cardiac medications. ----- CONCLUSIONS SUMMARY: 1. Left ventricle: Systolic function is normal by the biplane method of disks. The estimated ejection fraction is 65%. There are no regional wall motion abnormalities. 2. Stress: Stress testing did not produce any symptoms suggestive of coronary artery disease. Functional capacity is average. 3. Stress ECG conclusions: The stress ECG is equivocal for ischemia. Inconsistent horizontal ST depressions in inferior leads. 4. Overall, study findings suggest a low risk of cardiovascular events. 5. Normal study after maximal exercise without reproduction of symptoms. The stress electrocardiography portion appears to be a false positive. Low risk/extent of ischemia. ----- STUDY DATA: Stress echocardiogram. Procedure: Initial setup. A baseline ECG was recorded. Surface ECG leads and blood pressure measurements were monitored. Image quality was suboptimal. The study was technically limited due to body habitus and respiratory interference. Intravenous imaging enhancement (Definity) was administered. Definity lot #: [id number]. Treadmill exercise testing was performed using the Bladimir protocol. The patient exercised for 9 min, to a maximal work rate of 10.1 mets. Exercise was terminated due to dyspnea and fatigue. Post-stress images were obtained within 90 seconds of peak stress. Transthoracic stress echocardiography. Images were captured at baseline and peak exercise. Exercise was terminated when the patient's Manohar scale was 17. Limited 2D, limited spectral Doppler, and color flow Doppler images were acquired and archived for permanent storage and are available for subsequent review. Study status: Routine. Patient status: Outpatient. Pre pain assessment is 2 out of 10. Pre pain location is chest pressure n middle of chest. Post pain assessment is 0 out of 10. Location: Echo laboratory. Consent: The procedure was reviewed with the patient and the patient voices understanding. Study completion: The patient tolerated the procedure well. There were no complications. Discharge: Discharge instructions given The patient was discharged to homewhile ambulatory. ----- FINDINGS LEFT VENTRICLE: Not well visualized. The cavity size is normal. Wall thickness is mildly increased. Systolic function is normal by the biplane method of disks. The estimated ejection fraction is 65%. There are no regional wall motion abnormalities. RIGHT VENTRICLE: Systolic function is normal by visual assessment. MITRAL VALVE: Normal (thickness) leaflets. Doppler: There is no significant regurgitation. AORTIC VALVE: Trileaflet. Doppler: There is no stenosis. There is no regurgitation. The peak systolic gradient is 8 mm Hg. The peak systolic velocity is 1.4 m/sec. TRICUSPID VALVE: Doppler: There is no significant regurgitation. AORTA: Aortic root: The aortic root is normal in size. Ascending aorta: The ascending aorta is normal in size. PERICARDIUM: There is no pericardial effusion. BASELINE ECG: Normal sinus rhythm. Poor R-wave progression in the precordial leads. STRESS PROTOCOL: + +---+--- ---------+ ----+ ----+ +Stage +HR +BP +Symptoms +Comments + + +---+--- ---------+ ----+ ----+ +Rest +81 +140/90 (107)+No symptoms. + + + +---+--- ---------+ ----+ ----+ +Peak stress +171+180/80 (113)+Dyspnea, +SpO2 97% on room air.+ + + + +fatigue. + + + +---+--- ---------+ ----+ ----+ +Recovery +113+160/70 (100)+Subsiding. +-------- (more content not included)... [place] Work Phone: Echo Stress Echo w/wo Aldair cornejo 04-16-2019 Echo Stress Echo w/wo Contrast Patient Name: SID PRUITT Ultrasound Exam Date/Time 04/16/2019 14:50:31 EST Exam Echo Stress Echo w/wo Contrast Ordering Physician MD LAMIN, SOPHIA Bryan Accession Number [id number] Reason For Exam GIBBS chest pain abnormal electrocardiogram Report STRESS ECHOCARDIOGRAM Bladimir Protocol PATIENT: Sid Pruitt STUDY DATE: 04/16/2019 : 1975 AGE: 44 HT/WT: 182.9 cm (72 108.9 kg in) (239.5 lb) GENDER: M BP: 140 / 90 LOCATION: [facility] PATIENT [facility] STATUS: *ORDERING PHYSICIAN: * Sophia Kimble *SUPERVISING PHYSICIAN: * Yuliana, *RN: * Lolis Mitchell RN Loretta MD *READING PHYSICIAN: * David *POLYMER MATERIALS CONSULTANT: [place] [facility], MD Brit AE ----- INDICATIONS: Unspec chest pain (R07.9). Shortness breath (R06.02). Nonspec abnormal ECG (R94.31). ----- HISTORY: Dyslipidemia. Constant pressure in chest since September that worsens when his heart rate increases with walking or activity. Back surgeries. Fatigue and exertional dyspnea. Allergies: Hydromorphone. Rosuvastatin. Patient is NPO per policy. No Cardiac medications. ----- CONCLUSIONS SUMMARY: 1. Left ventricle: Systolic function is normal by the biplane method of disks. The estimated ejection fraction is 65%. There are no regional wall motion abnormalities. 2. Stress: Stress testing did not produce any symptoms suggestive of coronary artery disease. Functional capacity is average. 3. Stress ECG conclusions: The stress ECG is equivocal for ischemia. Inconsistent horizontal ST depressions in inferior leads. 4. Overall, study findings suggest a low risk of cardiovascular events. 5. Normal study after maximal exercise without reproduction of symptoms. The stress electrocardiography portion appears to be a false positive. Low risk/extent of ischemia. ----- STUDY DATA: Stress echocardiogram. Procedure: Initial setup. A baseline ECG was recorded. Surface ECG leads and blood pressure measurements were monitored. Image quality was suboptimal. The study was technically limited due to body habitus and respiratory interference. Intravenous imaging enhancement (Definity) was administered. Definity lot #: [id number]. Treadmill exercise testing was performed using the Bladimir protocol. The patient exercised for 9 min, to a maximal work rate of 10.1 mets. Exercise was terminated due to dyspnea and fatigue. Post-stress images were obtained within 90 seconds of peak stress. Transthoracic stress echocardiography. Images were captured at baseline and peak exercise. Exercise was terminated when the patient's Manohar scale was 17. Limited 2D, limited spectral Doppler, and color flow Doppler images were acquired and archived for permanent storage and are available for subsequent review. Study status: Routine. Patient status: Outpatient. Pre pain assessment is 2 out of 10. Pre pain location is chest pressure n middle of chest. Post pain assessment is 0 out of 10. Location: Echo laboratory. Consent: The procedure was reviewed with the patient and the patient voices understanding. Study completion: The patient tolerated the procedure well. There were no complications. Discharge: Discharge instructions given The patient was discharged to homewhile ambulatory. ----- FINDINGS LEFT VENTRICLE: Not well visualized. The cavity size is normal. Wall thickness is mildly increased. Systolic function is normal by the biplane method of disks. The estimated ejection fraction is 65%. There are no regional wall motion abnormalities. RIGHT VENTRICLE: Systolic function is normal by visual assessment. MITRAL VALVE: Normal (thickness) leaflets. Doppler: There is no significant regurgitation. AORTIC VALVE: Trileaflet. Doppler: There is no stenosis. There is no regurgitation. The peak systolic gradient is 8 mm Hg. The peak systolic velocity is 1.4 m/sec. TRICUSPID VALVE: Doppler: There is no significant regurgitation. AORTA: Aortic root: The aortic root is normal in size. Ascending aorta: The ascending aorta is normal in size. PERICARDIUM: There is no pericardial effusion. BASELINE ECG: Normal sinus rhythm. Poor R-wave progression in the precordial leads. STRESS PROTOCOL: + +---+--- ---------+ ----+ ----+ +Stage +HR +BP +Symptoms +Comments + + +---+--- ---------+ ----+ ----+ +Rest +81 +140/90 (107)+No symptoms. + + + +---+--- ---------+ ----+ ----+ +Peak stress +171+180/80 (113)+Dyspnea, +SpO2 97% on room air.+ + + + +fatigue. + + + +---+--- ---------+ ----+ ----+ +Recovery +113+160/70 (100)+Subsiding. + + + +---+--- ---------+ ----+ ----+ +Late recovery+105+126/80 (95) +No symptoms. + + + +---+--- ---------+ ----+ ----+ STRESS RESULTS: There is resting hypertension with an appropriate response to stress. The rate-pressure product for the peak heart rate and blood pressure was 56314 mm Hg/min. Stress testing did not produce any symptoms suggestive of coronary artery disease. Functional capacity is average. Peak heart rate during stress was 171 bpm (97% of maximal predicted heart rate). The maximal predicted heart rate was 176 bpm.The target heart rate was achieved. The heart rate recovery at one minute is normal. The heart rate at 1 minute into recovery was 130 bpm. The heart rate response to stress was normal. STRESS ECG: There are no stress arrhythmias or conduction abnormalities. The stress ECG is equivocal for ischemia. Inconsistent horizontal ST depressions in inferior leads. Significant ECG artifact at peak limits test interpretation. Baseline: LV size is normal. LV global systolic function is normal. Normal wall motion; no LV regional wall motion abnormalities. Wall motion score: 1.00. Peak stress: LV size is appropriately decreased from baseline. LV global systolic function is hyperdynamic and appropriately augmented from baseline. Normal wall motion; no LV regional wall motion abnormalities. No evidence for new LV regional wall motion abnormalities. Wall motion score: 1.00. STRESS ECHO RESULTS: Left ventricular ejection fraction was normal at rest and with stress. There is no evidence for stress-induced ischemia. ----- Measurements Value Reference Ascending aorta ID, A-P, S 3.0 cm --------- Ascending aorta ID/bsa, A-P, S 1.3 cm/m^2 --------- Left ventricle Value Reference LV ID, ED (L) 4.0 cm 4.2 - 5.8 LV ID, ES 2.5 cm 2.5 - 4.0 LV ID/bsa, ED (L) 1.7 cm/m^2 2.2 - 3.0 LV ID/bsa, ES (L) 1.1 cm/m^2 1.3 - 2.1 LV PW thickness, ED (H) 1.3 cm 0.6 - 1.0 LV PW/LV ID ratio, ED 0.34 --------- LV wall mass 176 g 96 - 200 LV wall mass/bsa 74 g/m^2 50 - 102 Stroke volume/bsa, 1-p A2C 34.7 ml/m^2 --------- LV end-diastolic volume, 1-p A4C 124 ml 69 - 185 LV end-systolic volume, 1-p A4C 40 ml 22 - 78 LV end-diastolic volume, 2-p 130 ml 62 - 150 LV end-systolic volume, 2-p 45 ml 21 - 61 LV ejection fraction, 2-p 65 % 52 - 72 Ventricular septum Value Reference IVS thickness, ED (H) 1.2 cm 0.6 - 1.0 LVOT Value Reference LVOT ID, A-P 2.1 cm --------- LVOT mean velocity, S 0.6 m/sec --------- LVOT peak gradient, S 3 mm Hg --------- Stroke volume (SV), LVOT DP 69 ml --------- Stroke index (SV/bsa), LVOT DP 29 ml/m^2 --------- Aortic valve Value Reference Aortic valve peak velocity, S 1.4 m/sec --------- Aortic peak gradient, S 8 mm Hg --------- Legend: (L) and (H) darien values outside specified reference range. Electronically signed by David Perea MD 04/16/2019 15:14 Prior Signatures: Final Dictated: 04/16/2019 3:15 pm Dictating Physician: MD PEREA STEPHEN A Signed Date and Time: 04/16/2019 3:14 pm Signed by: MD PEREA STEPHEN A Normal [facility] CR Chest PA/LATon 12-29-2018 CR Chest PA/LAT Patient Name: SID LEZAMA Diagnostic Radiology Exam Date/Time 12/29/2018 13:40:24 EDT Exam CR Chest PA/LAT Ordering Physician MD KIMBLE KRISTIN N. Accession Number [id number] CPT4 Codes 96571 () Reason For Exam chest pain Report CLINICAL INFORMATION: Chest pain for two weeks. Frontal and lateral views of the chest were obtained. No old examinations were available for comparison at the time of dictation. No acute pulmonary disease is noted. The cardiovascular silhouette is within normal limits. There are no pleural effusions. IMPRESSION: No acute pulmonary disease. Report Dictated on Final Dictated: 12/29/2018 2:06 pm Dictating Physician: DO RAIN ANTHONY Signed Date and Time: 12/29/2018 2:06 pm Signed by: DO RAIN ANTHONY Transcribed Date and Time: 12/29/2018 2:06 Normal [facility] XR CHEST STANDARD (2 VW)on 0 12-29-2018 Patient Name: SID LEZAMA ---Diagnostic Radiology--- Exam Date/Time 12/29/2018 13:40:24 EDT Exam CR Chest PA/LAT Ordering Physician MD KIMBLE KRISTIN N. Accession Number [id number] CPT4 Codes 28147 () Reason For Exam chest pain Report CLINICAL INFORMATION: Chest pain for two weeks. Frontal and lateral views of the chest were obtained. No old examinations were available for comparison at the time of dictation. No acute pulmonary disease is noted. The cardiovascular silhouette is within normal limits. There are no pleural effusions. IMPRESSION: No acute pulmonary disease. Report Dictated on --- Final --- Dictated: 12/29/2018 2:06 pm Dictating Physician: DO RAIN ANTHONY Signed Date and Time: 12/29/2018 2:06 pm Signed by: DO RAIN ANTHONY Transcribed Date and Time: 12/29/2018 2:06 [place], [place] [facility] Incoming Radiology Results From [facility] - 12/29/2018 2:08 PM EDT Patient Name: SID PRUITT ---Diagnostic Radiology--- Exam Date/Time 12/29/2018 13:40:24 EDT Exam CR Chest PA/LAT Ordering Physician MD LAMIN, SOPHIA Bryan Accession Number [id number] CPT4 Codes 13051 () Reason For Exam chest pain Report CLINICAL INFORMATION: Chest pain for two weeks. Frontal and lateral views of the chest were obtained. No old examinations were available for comparison at the time of dictation. No acute pulmonary disease is noted. The cardiovascular silhouette is within normal limits. There are no pleural effusions. IMPRESSION: No acute pulmonary disease. Report Dictated on --- Final --- Dictated: 12/29/2018 2:06 pm Dictating Physician: DO RAIN ANTHONY Signed Date and Time: 12/29/2018 2:06 pm Signed by: DO RAIN ANTHONY Transcribed Date and Time: 12/29/2018 2:06 [place], [place] Basic Panelon 12-01-2016 Anion gap 11 mmol/L Normal 8-20 [facility] Comment on above: Performed By: #### L P8 ####[address] [address] BUN (urea nitrogen) 19 mg/dL Normal 7-25 [facility] Comment on above: Performed By: #### L P8 ####[address] [address] BUN/Creatinine Ratio 16 mg/mg Normal 10-20 [facility] Comment on above: Performed By: #### L P8 ####[facility] [place], [place] [address] Calcium 9.2 mg/dL Normal 8.5-10.1 [facility] Comment on above: Performed By: #### L P8 ####[facility] [place], [place] [address] Chloride 101 mmol/L Normal 98-107 [facility] Comment on above: Performed By: #### L P8 ####[facility] [place], [place] [address] CO2 26 mmol/L Normal 21-32 [facility] Comment on above: Performed By: #### L P8 ####[facility] [place] [address] Creatinine 1.22 mg/dL High 0.67-1.17 [facility] Comment on above: Performed By: #### L P8 ####[facility] [place] [address] Glucose mass conc 124 mg/dL High 70-99 [facility] [place] [facility] Comment on above: Performed By: #### L P8 ####[facility] [place] [address] Potassium molar conc 4.2 mmol/L Normal 3.5-5.1 [facility] Comment on above: Performed By: #### L P8 ####[facility] [place] [address] Sodium 134 mmol/L Low 136-145 [facility] Comment on above: Performed By: #### L P8 ####[place] [address] CT ABDOMEN AND PELVIS W/O CO NTRASTon 12-01-2016 CT ABDOMEN AND PELVIS W/O CONTRAST Performed at [facility] APPROVED BY: Dustin Alicia MD EXAM TITLE: CT OF THE ABDOMEN AND PELVIS WITHOUT CONTRAST DATE:12/01/2016 13:54 COMPARISON: None. CLINICAL INDICATION/HISTORY: Right flank pain; patient had CT 2 weeks ago at [facility] and the patient reports left-sided stones TECHNIQUE: Axial images were obtained of the abdomen and pelvis without contrast CT Radiation dose: Integrated Dose-length product (DLP) for this visit = 1211 mGy*cm.CT Dose Reduction Employed: Automated exposure control (AEC) was used. FINDINGS: The lack of intravenous contrast does somewhat degrade evaluation of the solid abdominal organs and vascular structures. Oral contrast was not administered. Included lung bases and lower thorax: UnremarkableIncluded osseous structures: Unremarkable Liver: Diffuse hepatic steatosis without a focal lesion seen.Gallbladder and extrahepatic bile duct: Unremarkable. No ductal dilatation is seen.Pancreas and spleen: UnremarkableAdrenal glands: Unremarkable Kidneys: There are multiple punctate calculi within the right kidney. There is mild to moderate right-sided hydronephrosis which appears to be secondary to a 3 mm calculus within the distal right ureter at the ureterovesicular junction.The left kidney demonstrates a punctate nonobstructive calculus. No left hydronephrosis.Ureters and urinary bladder: Mild right ureteral dilatation. Left ureter is unremarkable.Pelvic Organs: Unremarkable Stomach and small bowel: Unremarkable. No evidence of obstruction or acute inflammatory process.Large bowel: Unremarkable with no acute inflammatory process.Appendix: Visualized and unremarkable. No peritoneal free air, free fluid or lymphadenopathy is seen.The aorta is normal in caliber. Small fat-containing umbilical hernia. IMPRESSION: 1. Mild to moderate right-sided hydronephrosis secondary to a 3 mm right UVJ calculus. Additional punctate calculi within the right kidney. 2. Punctate nonobstructive left renal calculus. 3. Hepatic steatosis Normal [facility] Cult Urineon 12-01-2016 Cult Urine Test performed at [facility] No growth Normal [facility] Comment on above: Performed By: #### C _URI ####[place] [address] Hemogram/Diffon 12-01-2016 Erythrocyte distribution width Auto Ratio (RBC) 12.8 % Normal 11.5-15.9 [facility] Comment on above: Performed By: #### L CBCD ####[place] [address] Performed By: #### L MCBD ####[place] [address] MCH 30.9 pg Normal 27.0-31.0 [facility] Comment on above: Performed By: #### L CBCD ####[place] [address] Performed By: #### L MCBD ####[place] [address] MCV 90.1 fL Normal 80.0-94.0 [facility] Comment on above: Performed By: #### L CBCD ####[place] [address] Performed By: #### L MCBD ####[place] [address] Platelet mean volume (PMV) 9.9 fL Normal 7.1-10.5 [facility] Comment on above: Performed By: #### L CBCD ####[place] [address] Performed By: #### L MCBD ####[place] [address] Platelets 288 thou/cmm Normal 150-400 [facility] Comment on above: Performed By: #### L CBCD ####[place] [address] Performed By: #### L MCBD ####[place] [address] Hemogram/Manual Diffon 12-01 Basophils Auto #/vol (Bld) 0.13 thou/cmm High 0.00-0.08 [facility] Comment on above: Performed By: #### L MCBD ####[place] [address] Basophils/100 WBC Auto (Bld) 1.0 % Normal [facility] Comment on above: Performed By: #### L MCBD ####[place] [address] Eosinophils 0.00 thou/cmm Normal 0.00-0.41 [facility] Comment on above: Performed By: #### L MCBD ####[place] [address] Eosinophils/100 leukocytes 0.0 % Normal [facility] Comment on above: Performed By: #### L MCBD ####[facility] [place], [place] [address] Erythrocyte morphology Normal Normal [facility] Comment on above: Performed By: #### L MCBD ####[facility] [place], [place] [address] Lymphocytes 1.81 thou/cmm Normal 1.50-3.65 [facility] Comment on above: Performed By: #### L MCBD ####[address] [address] Lymphocytes/100 leukocytes 14.0 % Normal [facility] Comment on above: Performed By: #### L MCBD ####[place] [address] Monocytes 0.52 thou/cmm Normal 0.20-1.00 [facility] Comment on above: Performed By: #### L MCBD ####[place] [address] Monocytes/100 leukocytes 4.0 % Normal [facility] Comment on above: Performed By: #### L MCBD ####[address] [address] Platelets Normal Normal [facility] Comment on above: Performed By: #### L MCBD ####[address] [address] Seg Neutrophil 81.0 % Normal [facility] Comment on above: Performed By: #### L MCBD ####[place] [address] Seg. Neut.# 10.44 thou/cmm High 3.00-5.67 [facility] Comment on above: Performed By: #### L MCBD ####[place] [address] Erythrocytes (RBC) 5.24 mil/cmm Normal 4.60-6.20 [facility] Comment on above: Performed By: #### L MCBD ####[place] [address] Performed By: #### L CBCD ####[place] [address] Hematocrit (HCT) 47.2 % Normal 42.0-52.0 [facility] Comment on above: Performed By: #### L MCBD ####[place] [address] Performed By: #### L CBCD ####[place] [address] Hemoglobin mass conc (Bld) 16.2 g/dL Normal 14.0-18.0 [facility] Comment on above: Performed By: #### L MCBD ####[place] [address] Performed By: #### L CBCD ####[place] [address] MCHC mass conc (RBC) 34.3 % Normal 32.0-36.0 [facility] Comment on above: Performed By: #### L MCBD ####[place] [address] Performed By: #### L CBCD ####[place] [address] WBC (Leukocytes) 12.9 thou/cmm High 4.8-10.8 [facility] Comment on above: Performed By: #### L MCBD ####[place] [address] Performed By: #### L CBCD ####[place] [address] MDRD eGFRon 12-01-2016 eGFR (non-black) mL/min/{1.73_m2} Normal >60mL/m in/1 .73m2 [facility] Comment on above: Result Comment: If t he patient is , multiply the result by 1.210. Performed By: #### L GFR ####[place] [address] Urinalysis Routineon 017 Bilirubin Urine Negative Normal Negative [facility] Comment on above: Performed By: #### L URIN ####[facility] [place], [place] [address] Ep Cells Urine 0-2 Normal 0-5 [facility] Comment on above: Performed By: #### L URIN ####[address] [address] Hemoglobin,Urine 2+ Abnormal Negative [facility] Comment on above: Performed By: #### L URIN ####[place] [address] Ketone Urine Negative Normal Negative [facility] Comment on above: Performed By: #### L URIN ####[place] [address] Mucus Threads FEW Normal None [facility] Comment on above: Performed By: #### L URIN ####[place] [address] Nitrites Urine Negative Normal Negative [facility] Comment on above: Performed By: #### L URIN ####[place] [address] Protein Urine Negative Normal Negative [facility] Comment on above: Performed By: #### L URIN ####[place] [address] Specific Pender, Ur 1.020 Normal 1.005-1.030 [facility] Comment on above: Performed By: #### L URIN ####[place] [address] Urine, appearance 1+ (HAZY) Normal [facility] Comment on above: Performed By: #### L URIN ####[place] [address] Urine, bacteria in sediment FEW Abnormal None [facility] Comment on above: Performed By: #### L URIN ####[place] [address] Urine, color YELLOW Normal [facility] Comment on above: Performed By: #### L URIN ####[place] [address] Urine, erythrocytes in sediment by area 6-12 Abnormal 0-3 [facility] Comment on above: Performed By: #### L URIN ####[facility] [place] [address] Urine, glucose presence Negative Normal Negative [facility] Comment on above: Performed By: #### L URIN ####[facility] [place] [address] Urine, leukocytes in sedmiment 1-3 Normal 0-5 [facility] Comment on above: Performed By: #### L URIN ####[facility] [place] [address] Urine, pH 6.0 [pH] Normal 5.0-8.0 [facility] Comment on above: Performed By: #### L URIN ####[facility] [place] [address] Urobilinogen,Ur 0.2 EU/dL Normal 0.0-1.0 [facility] Comment on above: Performed By: #### L URIN ####[place] [address] WBC (Leukocytes) Negative Normal Negative [facility] Comment on above: Performed By: #### L URIN ####[place] [address] Office Visit: [facility]: contact [place] 11-19-2016 Documentation of current medications (procedure) Done Invalid Interpretation Code [facility] Work Phone: Tobacco smoking status NHIS Current Invalid Interpretation Code [facility] Work Phone: Tobacco use CPHS Never smoker Invalid Interpretation Code [facility] Work Phone: Urinalysis, Office ([id number])Or dered By: Afshin Jasmine on 11-08-2016 Bilirubin Ql (U) Negative Normal [facility]; [facility] Work Phone: Bilirubin Ql (U) Negative Normal [facility]; [facility] Work Phone: Glucose Test strip (U) [Mass/Vol] Negative Normal [facility]; [facility] Work Phone: Glucose Test strip (U) [Mass/Vol] Negative Normal [facility]; [facility] Work Phone: Hemoglobin Ql (U) Negative Normal Compreh ens[facility]; [facility] Work Phone: Hemoglobin Ql (U) Negative Normal [facility]pre[facility]; [facility] Work Phone: Ketones Ql (U) Negative Normal Comprehens [facility]; [facility] Work Phone: Ketones Ql (U) Negative Normal [facility]; [facility] Work Phone: Leukocyte esterase Test strip Ql (U) Negative Normal [facility]; [facility] Work Phone: Leukocyte esterase Test strip Ql (U) Negative Normal [facility]; [facility] Work Phone: Nitrite Ql (U) Negative Normal [facility]; [facility] Work Phone: Nitrite Ql (U) Negative Normal [facility]; [facility] Work Phone: pH (U) 6.5 [pH] Normal [facility]; [facility] Work Phone: Protein Ql (U) Trace Normal [facility]prehens [facility]; [facility] Work Phone: Specific gravity (U) [Rel density] 1.020 1 Normal [facility]; [facility] Work Phone: Urobilinogen (24H U) [Mass/Time] Normal Normal [facility]; [facility] Work Phone: Sputum Culture ([id number])Ordere d By: Middleware Engineer on 08-19-2014 Bacteria identified Cx Nom (Sput) Final report Normal [facility]; [facility] Work Phone: Comment on above: PATIENT NOT FASTINGP ERFORMED BY: SHOSHANA [facility] Qzklul2272 [facility] [id number] Information: [id number] Bacteria identified Cx Nom (Unsp spec) RRF Normal [facility]; [facility] Work Phone: Comment on above: Routine respiratory jose PATIENT NOT FASTINGP ERFORMED BY: SHOSHANA Blum6370 [facility] [id number] Information: [id number] Lipid Panel (00836)Ordered B y: Middleware Engineer on 11-06-2013 Cholesterol [Mass/Vol] 287 mg/dL Abnormal 100-199 [facility]; [facility] Work Phone: Comment on above: PATIENT WAS FASTINGP ERFORMED BY: SHOSHANA Dawkins Osvdpt9416 [facility] [id number] Information: [id number] Cholesterol in HDL [Mass/Vol] 51 mg/dL Normal [facility]; [facility] Work Phone: Comment on above: According to ATP-III Guidelines, HDL-C >59 mg/dL is considered anegative risk factor for CHD. PATIENT WAS FASTINGP ERFORMED BY: SHOSHANA Carcamolin6370 [facility] [id number] Information: [id number] Cholesterol in LDL [Mass/Vol] 198 mg/dL Abnormal 0-99 [facility]; [facility] Work Phone: Comment on above: PATIENT WAS FASTINGP ERFORMED BY: SHOSHANA Carcamolin6370 [facility] [id number] Information: [id number] Cholesterol in LDL/Cholesterol in HDL [Mass ratio] 3.9 {ratio_units} Abnormal 0.0-3.6 [facility]; [facility] Work Phone: Comment on above: PATIENT WAS FASTINGP ERFORMED BY: SHOSHANA [facility] Cpbcrs6424 [facility] [id number] Information: [id number] Cholesterol in VLDL [Mass/Vol] 38 mg/dL Normal 5-40 [facility]; [facility] Work Phone: Comment on above: PATIENT WAS FASTINGP ERFORMED BY: SHOSHANA [facility] Cxdjdr2883 [facility] [id number] Information: [id number] Laboratory comment Ceasar (Report) LDLCOM Normal [facility]; [facility] Work Phone: Comment on above: Possible Familial Hy percholesterolemia. FH should be suspected whenfasting LDL cholesterol is above 189 mg/dL or non-HDL cholesterolis above 219 mg/dL. A family history of high cholesterol and heartdisease in 1st degree relatives should be collected. J Clin Ikpjrrj9541;5:133-140 PATIENT WAS FASTINGP ERFORMED BY: LabCoDavid [place] 0621370 [facility] [id number] Information: [id number] Triglyceride [Mass/Vol] 190 mg/dL Abnormal 0-149 [facility]; [facility] Work Phone: Comment on above: PATIENT WAS FASTINGP ERFORMED BY: [address] [id number] Information: [id number] CBC WITH MANUAL DIFF (12396) Ordered By: Middleware Engineer on 01-12-2013 Basophils (Bld) [#/Vol] 0.1 {x10E3/uL} Normal 0.0-0.2 [facility]; [facility] Work Phone: Comment on above: PATIENT WAS FASTINGP ERFORMED BY: [facility]6370 [facility] [id number] Information: ADD [id number] AND DRAW FEE 99 [address] Basophils (Bld) [#/Vol] 0.1 10*3/uL Normal 0.0-0.2 [facility]; [facility] Work Phone: Comment on above: PATIENT WAS FASTINGP ERFORMED BY: [facility] Bxueen2568 [facility] [id number] Information: ADD [id number] AND DRAW FEE 99 6660 Basophils/100 WBC (Bld) 1 % Normal 0-3 [facility]; [facility] Work Phone: Comment on above: PATIENT WAS FASTINGP ERFORMED BY: [facility]Co[place] 0621370 [facility] [id number] Information: ADD [id number] AND DRAW FEE 99 6660 Eosinophils (Bld) [#/Vol] 0.2 {x10E3/uL} Normal 0.0-0.4 [facility]; [facility] Work Phone: Comment on above: Please note refere nce interval change PATIENT WAS FASTINGP ERFORMED BY: SHOSHANA Sweetie Gerardo70 [facility] [id number] Information: ADD [id number] AND DRAW FEE 99 6660 Eosinophils (Bld) [#/Vol] 0.2 10*3/uL Normal 0.0-0.4 [facility]; [facility] Work Phone: Comment on above: Please note refere nce interval change PATIENT WAS FASTINGP ERFORMED BY: SHOSHANA Juanchojoni CarcamoXjtgff8709 [facility] [id number] Information: ADD Q74039 AND DRAW FEE 99 6660 Eosinophils/100 WBC (Bld) 3 % Normal 0-5 [facility]; [facility] Work Phone: Comment on above: Please note refere nce interval change PATIENT WAS FASTINGP ERFORMED BY: SHOSHANA Juanchojoni CarcamoLqmray8347 [facility] [id number] Information: ADD [id number] AND DRAW FEE 99 6660 Erythrocyte distribution width (RBC) [Ratio] 13.3 % Normal 12.3-15.4 [facility]; [facility] Work Phone: Comment on above: PATIENT WAS FASTINGP ERFORMED BY: SHOSHANA Juanchojoni Welooc2780 [facility] [id number] Information: ADD [id number] AND DRAW FEE 99 6660 Hematocrit (Bld) [Volume fraction] 46.0 % Normal 37.5-51.0 [facility]; [facility] Work Phone: Comment on above: PATIENT WAS FASTINGP ERFORMED BY: SHOSHANA Juanchojoni Smjlwy7159 [facility] [id number] Information: ADD [id number] AND DRAW FEE 99 6660 Hemoglobin (Bld) [Mass/Vol] 15.5 g/dL Normal 12.6-17.7 [facility]; [facility] Work Phone: Comment on above: PATIENT WAS FASTINGP ERFORMED BY: SHOSHANA [facility] Vsqmrt7015 [facility] [id number] Information: ADD [id number] AND DRAW FEE 99 6660 Immature granulocytes (Bld) [#/Vol] 0.0 {x10E3/uL} Normal 0.0-0.1 [facility]; [facility] Work Phone: Comment on above: PATIENT WAS FASTINGP ERFORMED BY: SHOSHANA [facility] Hztqxx12[address] [id number] Information: ADD [id number] AND DRAW FEE 99 6660 Immature granulocytes (Bld) [#/Vol] 0.0 10*3/uL Normal 0.0-0.1 [facility]; [facility] Work Phone: Comment on above: PATIENT WAS FASTINGP ERFORMED BY: SHOSHANA [facility] Prbkuk153[address] [id number] Information: ADD [id number] AND DRAW FEE 99 6660 Immature granulocytes/100 WBC (Bld) 0 % Normal 0-2 [facility]; [facility] Work Phone: Comment on above: PATIENT WAS FASTINGP ERFORMED BY: SHOSHANA [facility] Yzvepn5061 [facility] [id number] Information: ADD H50759 AND DRAW FEE 99 6660 Lymphocytes (Bld) [#/Vol] 2.1 {x10E3/uL} Normal 0.7-3.1 [facility]; [facility] Work Phone: Comment on above: Please note refere nce interval change PATIENT WAS FASTINGP ERFORMED BY: [facility]6370 [facility] [id number] Information: ADD [id number] AND DRAW FEE 99 6660 Lymphocytes (Bld) [#/Vol] 2.1 10*3/uL Normal 0.7-3.1 [facility]; [facility] Work Phone: Comment on above: Please note refere nce interval change PATIENT WAS FASTINGP ERFORMED BY: SHOSHANA Carcamolin6370 [facility] [id number] Information: ADD [id number] AND DRAW FEE 99 6660 Lymphocytes/100 WBC (Bld) 29 % Normal 14-46 [facility]; [facility] Work Phone: Comment on above: Please note refere nce interval change PATIENT WAS FASTINGP ERFORMED BY: [address] [id number] Information: ADD [id number] AND DRAW FEE 99 6660 MCH (RBC) [Entitic mass] 30.3 pg Normal 26.6-33.0 [facility]; [facility] Work Phone: Comment on above: PATIENT WAS FASTINGP ERFORMED BY: SHOSHANA Dawkins Yvtyvy5386 [facility] [id number] Information: ADD [id number] AND DRAW FEE 99 6660 MCHC (RBC) [Mass/Vol] 33.7 g/dL Normal 31.5-35.7 [facility]; [facility] Work Phone: Comment on above: PATIENT WAS FASTINGP ERFORMED BY: SHOSHANA Walters[address] [id number] Information: ADD [id number] AND DRAW FEE 99 6660 MCV (RBC) [Entitic vol] 90 fL Normal 79-97 [facility]; [facility] Work Phone: Comment on above: PATIENT WAS FASTINGP ERFORMED BY: SHOSHANA Walters[address] [id number] Information: ADD [id number] AND DRAW FEE 99 6660 Monocytes (Bld) [#/Vol] 0.8 {x10E3/uL} Normal 0.1-0.9 [facility]; [facility] Work Phone: Comment on above: Please note refere nce interval change PATIENT WAS FASTINGP ERFORMED BY: SHOSHANA Blum[address] [facility] [id number] Information: ADD [id number] AND DRAW FEE 99 6660 Monocytes (Bld) [#/Vol] 0.8 10*3/uL Normal 0.1-0.9 [facility]; [facility] Work Phone: Comment on above: Please note refere nce interval change PATIENT WAS FASTINGP ERFORMED BY: SHOSHANA Blum6370 [facility] [id number] Information: ADD [id number] AND DRAW FEE 99 6660 Monocytes/100 WBC (Bld) 11 % Normal 4-12 [facility]; [facility] Work Phone: Comment on above: Please note refere nce interval change PATIENT WAS FASTINGP ERFORMED BY: SHOSHANA Blum6370 [facility] [id number] Information: ADD F55592 AND DRAW FEE 99 6660 Neutrophils (Bld) [#/Vol] 4.0 {x10E3/uL} Normal 1.4-7.0 [facility]; [facility] Work Phone: Comment on above: Please note refere nce interval change PATIENT WAS FASTINGP ERFORMED BY: SHOSHANA Blum6370 [facility] [id number] Information: ADD [id number] AND DRAW FEE 99 6660 Neutrophils (Bld) [#/Vol] 4.0 10*3/uL Normal 1.4-7.0 [facility]; [facility] Work Phone: Comment on above: Please note refere nce interval change PATIENT WAS FASTINGP ERFORMED BY: SHOSHANA Blum6370 [facility] [id number] Information: ADD [id number] AND DRAW FEE 99 6660 Neutrophils/100 WBC (Bld) 56 % Normal 40-74 [facility]; [facility] Work Phone: Comment on above: Please note refere nce interval change PATIENT WAS FASTINGP ERFORMED BY: SHOSHANA LabCojoni BlumCqlski6537 [facility] [id number] Information: ADD R70094 AND DRAW FEE 99 6660 Platelets (Bld) [#/Vol] 282 {x10E3/uL} Normal 155-379 [facility]; [facility] Work Phone: Comment on above: Please note refere nce interval change PATIENT WAS FASTINGP ERFORMED BY: SHOSHANA LabCojoni CarcamoXyqzvg9842 [facility] [id number] Information: ADD [id number] AND DRAW FEE 99 6660 Platelets (Bld) [#/Vol] 282 10*3/uL Normal 155-379 [facility]; [facility] Work Phone: Comment on above: Please note refere nce interval change PATIENT WAS FASTINGP ERFORMED BY: SHOSHANA Pitt Yalbhs6839 [facility] [id number] Information: ADD [id number] AND DRAW FEE 99 6660 RBC (Bld) [#/Vol] 5.11 {x10E6/uL} Normal 4.14-5.80 [facility]; [facility] Work Phone: Comment on above: PATIENT WAS FASTINGP ERFORMED BY: SHOSHANA Juanchojoni CarcamoRetsih2580 [facility] [id number] Information: ADD [id number] AND DRAW FEE 99 6660 RBC (Bld) [#/Vol] 5.11 10*6/uL Normal 4.14-5.80 [facility]; [facility] Work Phone: Comment on above: PATIENT WAS FASTINGP ERFORMED BY: SHOSHANA [facility] Oiejla9649 [facility] [id number] Information: ADD [id number] AND DRAW FEE 99 6660 WBC (Bld) [#/Vol] 7.3 {x10E3/uL} Normal 3.4-10.8 Com [facility]; [facility] Work Phone: Comment on above: Please note refere nce interval change PATIENT WAS FASTINGP ERFORMED BY: SHOSHANA Blum6370 [address] ConferenceEdgeDublin [place] [id number] Information: ADD [id number] AND DRAW FEE 99 6660 WBC (Bld) [#/Vol] 7.3 10*3/uL Normal 3.4-10.8 [facility]; [facility] Work Phone: Comment on above: Please note refere nce interval change PATIENT WAS FASTINGP ERFORMED BY: SHOSHANA Blum[address] ConferenceEdgeCritical Access Hospitalin [place] [id number] Information: ADD [id number] AND DRAW FEE 99 6660 LIPID PANEL ([id number])Ordered B y: Middleware Engineer on 01-12-2013 Cholesterol [Mass/Vol] 282 mg/dL Abnormal 100-199 [facility]; [facility] Work Phone: Comment on above: PATIENT WAS FASTINGP ERFORMED BY: SHOSHANA Carcamolin6370 [address] ConferenceEdgeCritical Access Hospitalin [place] [id number] Cholesterol in HDL [Mass/Vol] 45 mg/dL Normal [facility]; [facility] Work Phone: Comment on above: According to ATP-III Guidelines, HDL-C >59 mg/dL is considered anegative risk factor for CHD. PATIENT WAS FASTINGP ERFORMED BY: SHOSHANA LabDerrick Zuhczp7525 [address] ConferenceEdgeCritical Access Hospitalin [place] [id number] Cholesterol in LDL [Mass/Vol] 196 mg/dL Abnormal 0-99 [facility]; [facility] Work Phone: Comment on above: PATIENT WAS FASTINGP ERFORMED BY: SHOSHANA [facility] Bejrwd7653 [address] ConferenceEdgeblin [place] [id number] Cholesterol in LDL/Cholesterol in HDL [Mass ratio] 4.4 {ratio_units} Abnormal 0.0-3.6 [facility]; [facility] Work Phone: Comment on above: PATIENT WAS FASTINGP ERFORMED BY: SHOSHANA [facility] Mbkddt8620 [address] ConferenceEdgeDocena [place] [id number] Cholesterol in VLDL [Mass/Vol] 41 mg/dL Abnormal 5-40 [facility]; [facility] Work Phone: Comment on above: PATIENT WAS FASTINGP ERFORMED BY: SHOSHANA Juanchojoni Ucyafx3699 [facility] [id number] Laboratory comment Ceasar (Report) LDLCOM Normal [facility]; [facility] Work Phone: Comment on above: Possible Familial Hy percholesterolemia. FH should be suspected whenfasting LDL cholesterol is above 189 mg/dL or non-HDL cholesterolis above 219 mg/dL. A family history of high cholesterol and heartdisease in 1st degree relatives should be collected. J Clin Vnvdtbq1552;5:133-140 PATIENT WAS FASTINGP ERFORMED BY: SHOSHANA SelenaMarco Euqqeo4526 [facility] [id number] Triglyceride [Mass/Vol] 203 mg/dL Abnormal 0-149 [facility]; [facility] Work Phone: Comment on above: PATIENT WAS FASTINGP ERFORMED BY: SHOSHANA [facility] Hpmsrp6513 [facility] [id number] METABOLIC PANEL, COMPREHENSI VE ([id number])Ordered By: Middleware Engineer on 01-12-2013 Albumin [Mass/Vol] 4.3 g/dL Normal 3.5-5.5 [facility]; [facility] Work Phone: Comment on above: PATIENT WAS FASTINGP ERFORMED BY: SHOSHANA [facility] Fiyzjc4217 [facility] [id number] Albumin/Globulin [Mass ratio] 1.9 {ratio} Normal 1.1-2.5 [facility]; [facility] Work Phone: Comment on above: PATIENT WAS FASTINGP ERFORMED BY: SHOSHANA [facility] Nugmkm6470 [facility] [id number] ALP [Catalytic activity/Vol] 71 [iU]/L Normal 44-102 [facility]; [facility] Work Phone: Comment on above: PATIENT WAS FASTINGP ERFORMED BY: SHOSHANA [facility]6370 Diaz RoadDublin [place] [id number] ALP [Catalytic activity/Vol] 71 U/L Normal 44-102 [facility]; [facility] Work Phone: Comment on above: PATIENT WAS FASTINGP ERFORMED BY: SHOSHANA [facility] Oeptfa9718 Diaz RoadDublin [place] [id number] ALT [Catalytic activity/Vol] 35 [iU]/L Normal 0-44 [facility]; [facility] Work Phone: Comment on above: PATIENT WAS FASTINGP ERFORMED BY: SHOSHANA [facility] Kthgzp5375 [address] RoadDublin [place] [id number] ALT [Catalytic activity/Vol] 35 U/L Normal 0-44 [facility]; [facility] Work Phone: Comment on above: PATIENT WAS FASTINGP ERFORMED BY: SHOSHANA SelenaDerrick CarcamoKnhqab4267 Diaz RoadDublin [place] [id number] AST [Catalytic activity/Vol] 22 [iU]/L Normal 0-40 [facility]; [facility] Work Phone: Comment on above: PATIENT WAS FASTINGP ERFORMED BY: SHOSHANA LabCojoni CarcamoNglmmn7548 Diaz RoadDublin [place] [id number] AST [Catalytic activity/Vol] 22 U/L Normal 0-40 [facility]; [facility] Work Phone: Comment on above: PATIENT WAS FASTINGP ERFORMED BY: SHOSHANA LabDerrick CarcamoLkmobn3712 Diaz RoadDublin [place] [id number] Bilirubin [Mass/Vol] 0.5 mg/dL Normal 0.0-1.2 [facility]; [facility] Work Phone: Comment on above: PATIENT WAS FASTINGP ERFORMED BY: SHOSHANA [facility] [id number] Diaz RoadDublin [place] [id number] Calcium [Mass/Vol] 9.1 mg/dL Normal 8.7-10.2 [facility]; [facility] Work Phone: Comment on above: PATIENT WAS FASTINGP ERFORMED BY: SHOSHANA LabCo [id number] Diaz RoadDublin [place] [id number] Chloride [Moles/Vol] 105 mmol/L Normal 97-108 [facility] rehensive Internal Medicine; [facility] Work Phone: Comment on above: PATIENT WAS FASTINGP ERFORMED BY: CB [facility] [id number] Diaz RoadDublin [place] [id number] CO2 [Moles/Vol] 21 mmol/L Normal 19-28 [facility]; [facility] Work Phone: Comment on above: PATIENT WAS FASTINGP ERFORMED BY: CB [facility] Zuznxu2414 [address] RoadDublin [place] [id number] Creatinine [Mass/Vol] 0.99 mg/dL Normal 0.76-1.27 [facility]; [facility] Work Phone: Comment on above: PATIENT WAS FASTINGP ERFORMED BY: CB [facility] Qzfzhp0504 [address] RoadDublin [place] [id number] GFR/1.73 sq M predicted among blacks CKD-EPI (S/P/Bld) [Vol rate/Area] 112 mL/min/1.73 Normal [facility]; [facility] Work Phone: Comment on above: PATIENT WAS FASTINGP ERFORMED BY: CB [facility] Mhvcft2124 Diaz RoadDublin [place] [id number] GFR/1.73 sq M predicted among non-blacks CKD-EPI (S/P/Bld) [Vol rate/Area] 97 mL/min/1.73 Normal [facility]; [facility] Work Phone: Comment on above: PATIENT WAS FASTINGP ERFORMED BY: CB [facility] Vipidq9749 [address] RoadDublin [place] [id number] Globulin (S) [Mass/Vol] 2.3 g/dL Normal 1.5-4.5 [facility]; [facility] Work Phone: Comment on above: PATIENT WAS FASTINGP ERFORMED BY: CB [facility] Xfwksv8615 [address] RoadDublin [place] [id number] Glucose [Mass/Vol] 97 mg/dL Normal 65-99 [facility]; [facility] Work Phone: Comment on above: PATIENT WAS FASTINGP ERFORMED BY: CB [facility] Eqbfed6010 [address] RoadDublin [place] [id number] Potassium [Moles/Vol] 4.3 mmol/L Normal 3.5-5.2 [facility] Internal Medicine; [facility] Work Phone: Comment on above: PATIENT WAS FASTINGP ERFORMED BY: CB [facility] Kcojyz8032 Diaz RoadDublin [place] [id number] Protein [Mass/Vol] 6.6 g/dL Normal 6.0-8.5 [facility]; [facility] Work Phone: Comment on above: PATIENT WAS FASTINGP ERFORMED BY: CB [facility] Ognnrk1757 [address] RoadDublin [place] [id number] Sodium [Moles/Vol] 140 mmol/L Normal 134-144 [facility]; [facility] Work Phone: Comment on above: PATIENT WAS FASTINGP ERFORMED BY: CB [facility] Isfgxh7147 [address] RoadDublin [place] [id number] Urea nitrogen [Mass/Vol] 16 mg/dL Normal 6-20 [facility]; [facility] Work Phone: Comment on above: PATIENT WAS FASTINGP ERFORMED BY: CB [facility] Cqhegc9373 [address] RoadDublin [place] [id number] Urea nitrogen/Creatinine [Mass ratio] 16 mg/mg Normal 8-19 [facility]; [facility] Work Phone: Comment on above: PATIENT WAS FASTINGP ERFORMED BY: CB [facility] Mrhvwi8661 [address] RoadDublin [place] [id number] TSH ([id number])Ordered By: Lenore Edgar on 01-12-2013 TSH Qn 3.630 {uIU/mL} Normal 0.450-4.500 [facility] Internal Medicine; [facility] Work Phone: Comment on above: PATIENT WAS FASTINGP ERFORMED BY: CB [facility] Fschiu6711 [address] RoadDublin [place] [id number] URINALYSIS, W/ MICRO ([id number]) Ordered By: Middleware Engineer on 01-12-2013 Appearance (U) Clear Normal Comprehens latosha Internal Medicine; [facility] Work Phone: Comment on above: PATIENT WAS FASTINGP ERFORMED BY: SHOSHANA [facility] Nytrqi1984 Diaz RoadDublin [place] [id number] Bilirubin Ql (U) Negative Normal Comprehe nsive Internal Medicine; [facility] Work Phone: Comment on above: PATIENT WAS FASTINGP ERFORMED BY: SHOSHANA [facility] Ydiiip2582 [address] RoadDublin [place] [id number] Bilirubin Ql (U) Negative Normal Comprehe nsive Internal Medicine; [facility] Work Phone: Comment on above: PATIENT WAS FASTINGP ERFORMED BY: SHOSHANA LabCojoni CarcamoPvuqqf8247 [address] RoadDublin [place] [id number] Color (U) Yellow Normal [facility]; [facility] Work Phone: Comment on above: PATIENT WAS FASTINGP ERFORMED BY: SHOSHANA [facility] Owwljh0734 [address] RoadDublin [place] [id number] Glucose Ql (U) Negative Normal Comprehens latosha [facility]; [facility] Work Phone: Comment on above: PATIENT WAS FASTINGP ERFORMED BY: SHOSHANA [facility] Yqoqjv1810 [address] RoadDublin [place] [id number] Glucose Ql (U) Negative Normal Comprehens latosha [facility]; [facility] Work Phone: Comment on above: PATIENT WAS FASTINGP ERFORMED BY: SHOSHANA [facility] Yrrezy0904 [address] RoadDublin [place] [id number] Hemoglobin Ql (U) Negative Normal Compreh ensive Internal Medicine; [facility] Work Phone: Comment on above: PATIENT WAS FASTINGP ERFORMED BY: SHOSHANA [facility] Ghvyar3214 [address] RoadDublin [place] [id number] Hemoglobin Ql (U) Negative Normal Compreh ensive Internal Medicine; [facility] Work Phone: Comment on above: PATIENT WAS FASTINGP ERFORMED BY: SHOSHANA [facility] [id number] [address] RoadDublin [place] [id number] Ketones Ql (U) Negative Normal Comprehens latohsa [facility]; [facility] Work Phone: Comment on above: PATIENT WAS FASTINGP ERFORMED BY: SHOSHANA [facility] Esbkkz7062 [address] RoadDublin [place] [id number] Ketones Ql (U) Negative Normal Comprehens latosha [facility]; [facility] Work Phone: Comment on above: PATIENT WAS FASTINGP ERFORMED BY: SHOSHANA [facility] Sdvgnc8104 [address] RoadDublin [place] [id number] Leukocyte esterase Test strip Ql (U) Negative Normal [facility]; [facility] Work Phone: Comment on above: PATIENT WAS FASTINGP ERFORMED BY: SHOSHANA [facility] Inwvvm8943 [address] RoadDublin [place] [id number] Leukocyte esterase Test strip Ql (U) Negative Normal [facility]; [facility] Work Phone: Comment on above: PATIENT WAS FASTINGP ERFORMED BY: SHOSHANA [facility] Jmqeyf8161 [address] RoadDublin [place] [id number] Microscopic observation LM Nom (Urine sed) MICRON Normal [facility]; [facility] Work Phone: Comment on above: Microscopic follows if indicated. PATIENT WAS FASTINGP ERFORMED BY: SHOSHANA [facility] Smvlgq7959 [address] RoadDublin [place] [id number] Microscopic observation LM Nom (Urine sed) See below: Normal [facility]; [facility] Work Phone: Comment on above: PATIENT WAS FASTINGP ERFORMED BY: SHOSHANA [facility] Wcncyo6620 [address] RoadDublin [place] [id number] Nitrite Ql (U) Negative Normal Comprehens latosha [facility]; [facility] Work Phone: Comment on above: PATIENT WAS FASTINGP ERFORMED BY: SHOSHANA [facility] Ltssmg1105 [address] RoadDublin [place] [id number] Nitrite Ql (U) Negative Normal Comprehens latosha [facility]; [facility] Work Phone: Comment on above: PATIENT WAS FASTINGP ERFORMED BY: SHOSHANA LabCojoni Llcfmk1031 [address] RoadDublin [place] [id number] pH (U) 6.0 [pH] Normal 5.0-7.5 [facility]; [facility] Work Phone: Comment on above: PATIENT WAS FASTINGP ERFORMED BY: SHOSHANA [facility] Vfwfbz7199 Diaz RoadDublin [place] [id number] Protein Ql (U) Negative Normal Comprehens latosha [facility]; [facility] Work Phone: Comment on above: PATIENT WAS FASTINGP ERFORMED BY: SHOSHANA [facility] Vzhgsp1336 [address] RoadDublin [place] [id number] Protein Ql (U) Negative Normal Comprehens latosha [facility]; [facility] Work Phone: Comment on above: PATIENT WAS FASTINGP ERFORMED BY: SHOSHANA LabMarcorp Vgsrty5087 Diaz RoadDublin [place] [id number] Specific gravity (U) [Rel density] 1.023 1 Normal 1.005-1.030 [facility]; [facility] Work Phone: Comment on above: PATIENT WAS FASTINGP ERFORMED BY: SHOSHANA [facility] Elkwsw5768 Diaz RoadDublin [place] [id number] Urobilinogen (U) [Mass/Vol] 0.2 mg/dL Normal 0.0-1.9 [facility]; [facility] Work Phone: Comment on above: PATIENT WAS FASTINGP ERFORMED BY: [facility] Nmmuqv7289 Diaz RoadDublin [place] [id number] Urobilinogen Test strip (U) [Mass/Vol] 0.2 mg/dL Normal 0.0-1.9 Comprehensi ve Internal Medicine; [facility] Work Phone: Comment on above: PATIENT WAS FASTINGP ERFORMED BY: SHOSHANA [facility] Aenvqa0500 Diaz RoadDublin [place] [id number] VITAMIN B-12 (CYANOCOBALAMIN ) ([id number])Ordered By: Middleware Engineer on 01-12-2013 Cobalamin (Vitamin B12) [Mass/Vol] 428 pg/mL Normal 211-946 [facility]; [facility] Work Phone: Comment on above: PATIENT WAS FASTINGP ERFORMED BY: [employer] Qzmrcv2853 [facility] [id number] Vitamin D Hydroxy ([id number])Ord ered By: Middleware Engineer on 01-12-2013 25-Hydroxyvitamin D2+25-Hydroxyvitamin D3 [Mass/Vol] 18.0 ng/mL Abnormal 30.0-100.0 [facility]; [facility] Work Phone: Comment on above: Vitamin D deficiency has been defined by the [place] ofMedicine and an Endocrine Society practice guideline as alevel of serum 25-OH vitamin D less than 20 ng/mL (1,2).The Endocrine Society went on to further define vitamin Dinsufficiency as a level between 21 and 29 ng/mL (2).1. IOM ([place] of Medicine). 2010. Dietary reference intakes for calcium and D. [place]: The National Academies Press.2. Herberth MF, Lise NC, Evangelina AMBRIZ, et al. Evaluation, treatment, and prevention of vitamin D deficiency: an Endocrine Society clinical practice guideline. JCEM. 2010; 96(7):1911-30. PATIENT WAS FASTINGP ERFORMED BY: [employer] Mejrcm3289 [facility] [id number] No Panel Information [facility] Vital Signs Date Time Vital Sign Value Performing Clinician Facility 11-27-2024 15:22-0400 Body height 182.[address] Geneva Danielson MD Work Phone: [facility] 11-27-2024 15:22-0400 Body mass index (BMI) [Ratio] 35.2 kg/m2 Dr. Geneva Danielson MD Work Phone: [facility] 11-27-2024 15:22-0400 Body weight 117.[address] Geneva Danielson MD Work Phone: [facility] 11-13-2024 12:36-0400 Body temperature 98.4 [degF] Dr. Geneva Danielson MD Work Phone: [facility] 11-13-2024 12:36-0400 Diastolic blood pressure 64 mm[Hg] Dr. Geneva Danielson MD Work Phone: [facility] 11-13-2024 12:36-0400 Heart rate 88 /min Dr. Geneva Danielson MD Work Phone: [facility] 11-13-2024 12:36-0400 Respiratory rate 16 /min Dr. Geneva Danielson MD Work Phone: [facility] 11-13-2024 12:36-0400 SaO2% (BldA) [Mass fraction] 97 % Dr. Geneva Danielson MD Work Phone: [facility] 11-13-2024 12:36-0400 Systolic blood pressure 108 mm[Hg] Dr. Geneva Danielson MD Work Phone: [facility] 08-21-2024 07:38-0400 Body height 182.[address] Mariluz Gaytan DO Work Phone: [facility] 08-21-2024 07:38-0400 Body mass index (BMI) [Ratio] 36.1 kg/m2 Dr. Mariluz Gaytan DO Work Phone: [facility] 08-21-2024 07:38-0400 Body temperature 98.3 [degF] Dr. Mariluz Gaytan DO Work Phone: [facility] 08-21-2024 07:38-0400 Body weight 120.[address] Mariluz Gaytan DO Work Phone: [facility] 08-21-2024 07:38-0400 Diastolic blood pressure 96 mm[Hg] Dr. Mariluz Gaytan DO Work Phone: [facility] 08-21-2024 07:38-0400 Heart rate 71 /min Dr. Mariluz Gaytan DO Work Phone: [facility] 08-21-2024 07:38-0400 Respiratory rate 18 /min Dr. Mariluz Gaytan DO Work Phone: [facility] 08-21-2024 07:38-0400 SaO2% (BldA) [Mass fraction] 98 % Dr. Mariluz Gaytan DO Work Phone: [facility] 08-21-2024 07:38-0400 Systolic blood pressure 144 mm[Hg] Dr. Mariluz Gaytan DO Work Phone: [facility] 08-20-2024 16:56-0400 Diastolic blood pressure 78 mm[Hg] Dr. Mariluz Gaytan DO Work Phone: [facility] 08-20-2024 16:56-0400 Systolic blood pressure 122 mm[Hg] Dr. Mariluz Gaytan DO Work Phone: [facility] 08-20-2024 14:29-0400 Body mass index (BMI) [Ratio] 37 kg/m2 Dr. Mariluz Gaytan DO Work Phone: [facility] 08-20-2024 14:29-0400 Body temperature 99 [degF] Dr. Mariluz Gaytan DO Work Phone: [facility] 08-20-2024 14:29-0400 Body weight 120.[address] Mariluz Gaytan DO Work Phone: [facility] 08-20-2024 14:29-0400 Heart rate 93 /min Dr. Mariluz Gaytan DO Work Phone: [facility] 08-20-2024 14:29-0400 Respiratory rate 18 /min Dr. Mariluz Gaytan DO Work Phone: [facility] 08-20-2024 14:29-0400 SaO2% (BldA) [Mass fraction] 96 % Dr. Mariluz Gaytan DO Work Phone: [facility] 07-25-2024 07:39-0400 Body mass index (BMI) [Ratio] 36.6 kg/m2 Dr. Mariluz Gaytan DO Work Phone: [facility] 07-25-2024 07:39-0400 Body temperature 98.6 [degF] Dr. Mariluz Gaytan DO Work Phone: [facility] 07-25-2024 07:39-0400 Body weight 119.[address] Mariluz Gaytan DO Work Phone: [facility] 07-25-2024 07:39-0400 Diastolic blood pressure 92 mm[Hg] Dr. Mariluz Gaytan DO Work Phone: [facility] 07-25-2024 07:39-0400 Heart rate 80 /min Dr. Mariluz Gaytan DO Work Phone: [facility] 07-25-2024 07:39-0400 Respiratory rate 16 /min Dr. Mariluz Gaytan DO Work Phone: [facility] 07-25-2024 07:39-0400 SaO2% (BldA) [Mass fraction] 96 % Dr. Mariluz Gaytan DO Work Phone: [facility] 07-25-2024 07:39-0400 Systolic blood pressure 140 mm[Hg] Dr. Mariluz Gaytan DO Work Phone: [facility] 05-03-2024 17:24-0500 Diastolic blood pressure 82 mm[Hg] Dr. Mariluz Gaytan DO Work Phone: [facility] 05-03-2024 17:24-0500 Systolic blood pressure 138 mm[Hg] Dr. Mariluz Gaytan DO Work Phone: [facility] 05-03-2024 13:56-0500 Body mass index (BMI) [Ratio] 36.1 kg/m2 Dr. Mariluz Gaytan DO Work Phone: [facility] 05-03-2024 13:56-0500 Body temperature 98.2 [degF] Dr. Mariluz Gaytan DO Work Phone: [facility] 05-03-2024 13:56-0500 Body weight 117.[address] Mariluz Gaytan DO Work Phone: [facility] 05-03-2024 13:56-0500 Heart rate 89 /min Dr. Mariluz Gaytan DO Work Phone: [facility] 05-03-2024 13:56-0500 Respiratory rate 16 /min Dr. Mariluz Gaytan DO Work Phone: [facility] 05-03-2024 13:56-0500 SaO2% (BldA) [Mass fraction] 97 % Dr. Mariluz Gaytan DO Work Phone: [facility] 06-24-2022 08:42-0500 Body height 182.9 cm Usama Pallavi DPM Work Phone: [facility] 06-24-2022 08:42-0500 Body weight 104.33 kg Usama Pallavi DPM Work Phone: [facility] 06-24-2022 08:42-0500 Respiratory rate 16 /min Usama Pallavi DPM Work Phone: [facility] 05-27-2022 09:07-0500 Body height 182.9 cm Usama Pallavi DPM Work Phone: [facility] 05-27-2022 09:07-0500 Body temperature 98.2 [degF] Usama Pallavi DPM Work Phone: [facility] 05-27-2022 09:07-0500 Body weight 104.33 kg Usama Pallavi DPM Work Phone: [facility] 05-13-2022 09:00-0500 Body height 182.9 cm Usama Pallavi DPM Work Phone: [facility] 05-13-2022 09:00-0500 Body weight 104.33 kg Usama Pallavi DPM Work Phone: [facility] 05-13-2022 09:00-0500 Respiratory rate 17 /min Usama Pallavi DPM Work Phone: [facility] 04-23-2022 09:13-0500 Body height 182.9 cm Usama Pallavi DPM Work Phone: [facility] 04-23-2022 09:13-0500 Body weight 104.33 kg Usama Pallavi DPM Work Phone: [facility] 04-23-2022 09:13-0500 Respiratory rate 18 /min Usama Pallavi DPM Work Phone: [facility] 04-15-2022 09:25-0500 Body height 182.9 cm Usama Pallavi DPM Work Phone: [facility] 04-15-2022 09:25-0500 Body weight 104.33 kg Usama Pallavi DPM Work Phone: [facility] 04-15-2022 09:25-0500 Respiratory rate 20 /min Usama Pallavi DPM Work Phone: [facility] 04-01-2022 15:10-0500 Body height 182.9 cm [address] 1 [facility] 04-01-2022 15:10-0500 Body temperature 99 [degF] [address] [place] [address] 04-01-2022 15:10-0500 Body weight 109.32 kg Pst 1 [facility] 04-01-2022 15:10-0500 Diastolic blood pressure 91 mm[Hg] Pst 1 [facility] 04-01-2022 15:10-0500 Heart rate 92 /min Pst 1 [facility] 04-01-2022 15:10-0500 Respiratory rate 16 /min Pst [address] [place] [address] 04-01-2022 15:10-0500 SaO2% (BldA) [Mass fraction] 95 % Pst 1 [facility] 04-01-2022 15:10-0500 Systolic blood pressure 139 mm[Hg] Pst 1 [facility] 02-04-2022 08:35-0400 Body height 182.9 cm Usama Pallavi DPM Work Phone: [facility] 02-04-2022 08:35-0400 Body weight 104.33 kg Usama Pallavi DPM Work Phone: [facility] 02-04-2022 08:35-0400 Respiratory rate 20 /min Usama Pallavi DPM Work Phone: [facility] 01-14-2022 08:22-0400 Body height 182.9 cm Usama Pallavi DPM Work Phone: [facility] 01-14-2022 08:22-0400 Body weight 103.42 kg Usama Pallavi DPM Work Phone: [facility] 01-14-2022 08:22-0400 Respiratory rate 18 /min Usama Pallavi DPM Work Phone: [facility] 10-28-2021 15:34-0400 Body height 182.88 cm Nani Reyes [facility]; [facility] Work Phone: 10-28-2021 15:34-0400 Body mass index (BMI) [Ratio] 33.36 kg/m2 Nani Reyes [facility]; [facility] Work Phone: 10-28-2021 15:34-0400 Body surface area Derived from formula 2.33 m2 Nani Reyes [facility]; [facility] Work Phone: 10-28-2021 15:34-0400 Body temperature 97.3 [degF] Nani Reyes [employer] Comprehensiv e Internal Medicine; [facility] Work Phone: Comment on above: Method: Infrared 10-28-2021 15:34-0400 Body weight 111.59 kg Nani Reyes [facility]; [facility] Work Phone: 10-28-2021 15:34-0400 Diastolic blood pressure 68 mm[Hg] Nani Reyes [facility]; [facility] Work Phone: Comment on above: Patient Position: Sitting; Cuff Location : Left Arm; Cuff Size: Standard 10-28-2021 15:34-0400 Heart rate 94 /min Nani Reyes [facility]; [facility] Work Phone: Comment on above: Pattern: Regular 10-28-2021 15:34-0400 Respiratory rate 18 /min Nani Reyes [facility] Comprehensiv e Internal Medicine; [facility] Work Phone: Comment on above: Pattern: Unlabored 10-28-2021 15:34-0400 SaO2% (BldA) [Mass fraction] 97 % Nani Reyes [facility]; [facility] Work Phone: Comment on above: Room air 10-28-2021 15:34-0400 Systolic blood pressure 122 mm[Hg] Nani Reyes [facility]; [facility] Work Phone: Comment on above: Patient Position: Sitting; Cuff Location : Left Arm; Cuff Size: Standard 02-02-2021 09:19-0400 Body height 182.88 cm Nani Reyes [facility]; [facility] Work Phone: Comment on above: no vs taken as this is phone encounter d ue to covid 02-02-2021 09:19-0400 Body mass index (BMI) [Ratio] 34.72 kg/m2 Nani Reyes [facility]; [facility] Work Phone: Comment on above: no vs taken as this is phone encounter d ue to covid 02-02-2021 09:19-0400 Body surface area Derived from formula 2.37 m2 Nani Reyes [facility]; [facility] Work Phone: Comment on above: no vs taken as this is phone encounter d ue to covid 02-02-2021 09:19-0400 Body weight 116.12 kg Nani Reyes [facility]; [facility] Work Phone: Comment on above: no vs taken as this is phone encounter d ue to covid 08-09-2019 07:54-0400 BMI (Body Mass Index) 34.72 kg/m2 Cande Mora RN [facility]; [facility] Work Phone: Comment on above: no fevers 08-09-2019 07:54-0400 Body Temperature 98 [degF] Cande Mora RN [facility]; [facility] Work Phone: Comment on above: Method: Temporal no fevers 08-09-2019 07:54-0400 Body weight 116.12 kg Cande Mora RN [facility]; [facility] Work Phone: Comment on above: no fevers 08-09-2019 07:54-0400 BSA (Body Surface Area) 2.37 m2 Cande Mora RN [facility]; [facility] Work Phone: Comment on above: no fevers 08-09-2019 07:54-0400 Height 182.88 cm Cande Mora RN [facility]; [facility] Work Phone: Comment on above: no fevers 08-09-2019 07:54-0400 Pulse (Heart Rate) 80 /min Cande Mora RN [facility]; [facility] Work Phone: Comment on above: Pattern: Regular no fevers 06-08-2019 07:30-0500 BMI (Body Mass Index) 34.72 kg/m2 Nani Gravius [employer] [facility]; [facility] Work Phone: 06-08-2019 07:30-0500 Body Temperature 97.2 [degF] Nani Gravius [employer] Comprehens e [facility] Medicine; [facility] Work Phone: Comment on above: Method: Temporal 06-08-2019 07:30-0500 Body weight 116.12 kg Nani Gravius [employer] [facility]; [facility] Work Phone: 06-08-2019 07:30-0500 BP Diastolic 80 mm[Hg] Nani Gravius [employer] [facility]; [facility] Work Phone: Comment on above: Patient Position: Sitting; Cuff Location : Left Arm; Cuff Size: Standard 06-08-2019 07:30-0500 BP Systolic 142 mm[Hg] Nani Gravius [employer] [facility]; [facility] Work Phone: Comment on above: Patient Position: Sitting; Cuff Location : Left Arm; Cuff Size: Standard 06-08-2019 07:30-0500 BSA (Body Surface Area) 2.37 m2 Nani Gravius [facility]; [facility] Work Phone: 06-08-2019 07:30-0500 Height 182.88 cm Nani Reyes CMA [facility]; [facility] Work Phone: 06-08-2019 07:30-0500 Pulse (Heart Rate) 75 /min Nani Reyes CMA [facility]; [facility] Work Phone: Comment on above: Pattern: Regular 06-08-2019 07:30-0500 Pulse Oximetry 95 % Mariluz Gaytan [facility]; [facility] Work Phone: Comment on above: Room air 06-08-2019 07:30-0500 Respiratory Rate 18 /min Nani Reyes CMA [facility]; [facility] Work Phone: Comment on above: Pattern: Unlabored 06-08-2019 07:30-0500 SaO2% (BldA) [Mass fraction] 95 % Nani Reyes [facility]; [facility] Work Phone: Comment on above: Room air 05-25-2019 07:20-0500 BMI (Body Mass Index) 34.86 kg/m2 Nani Reyes [employer] [facility]; [facility] Work Phone: 05-25-2019 07:20-0500 Body Temperature 96.8 [degF] Nani Reyes CMA [facility]; [facility] Work Phone: Comment on above: Method: Temporal 05-25-2019 07:20-0500 Body weight 116.58 kg Nani Reyes [facility]; [facility] Work Phone: 05-25-2019 07:20-0500 BP Diastolic 80 mm[Hg] Nani Reyes [employer] [facility]; [facility] Work Phone: Comment on above: Patient Position: Sitting; Cuff Location : Left Arm; Cuff Size: Standard 05-25-2019 07:20-0500 BP Systolic 118 mm[Hg] Nani Reyes [employer] [facility]; [facility] Work Phone: Comment on above: Patient Position: Sitting; Cuff Location : Left Arm; Cuff Size: Standard 05-25-2019 07:20-0500 BSA (Body Surface Area) 2.37 m2 Nani Reyes CMA [facility]; [facility] Work Phone: 05-25-2019 07:20-0500 Height 182.88 cm Nani Reyes CMA [facility]; [facility] Work Phone: 05-25-2019 07:20-0500 Pulse (Heart Rate) 86 /min Nani Reyes CMA [facility]; [facility] Work Phone: Comment on above: Pattern: Regular 05-25-2019 07:20-0500 Pulse Oximetry 94 % Mariluz Gaytan [facility]; [facility] Work Phone: Comment on above: Room air 05-25-2019 07:20-0500 Respiratory Rate 16 /min Nani Reyes CMA [facility]; [facility] Work Phone: Comment on above: Pattern: Unlabored 05-25-2019 07:20-0500 SaO2% (BldA) [Mass fraction] 94 % Nani Reyes [facility]; [facility] Work Phone: Comment on above: Room air 04-16-2019 13:43-0500 Body height 182.9 cm Sophia Kimble MD Work Phone: [facility] Work Phone: 04-16-2019 13:43-0500 Body mass index (BMI) [Ratio] 32.55 kg/m2 Sophia Kimble MD Work Phone: [facility] Work Phone: 04-16-2019 13:43-0500 Body weight 108.86 kg Sophia Kimble MD Work Phone: [facility] Work Phone: 11-19-2016 17:42-0400 BMI (Body Mass Index) 32.95 kg/m2 Maci Umana LPN [facility] Work Phone: 11-19-2016 17:42-0400 Body Temperature 98.5 [degF] Maci Umana LPN [facility] Work Phone: 11-19-2016 17:42-0400 BP Diastolic 76 mm[Hg] Maci Umana LPN [facility] Work Phone: 11-19-2016 17:42-0400 BP Systolic 118 mm[Hg] Maci Umana LPN [facility] Work Phone: 11-19-2016 17:42-0400 Height 182.88 cm Maci Umana LPN [facility] Work Phone: 11-19-2016 17:42-0400 Pulse (Heart Rate) 87 /min Maci Umana LPN [facility] Work Phone: 11-19-2016 17:42-0400 Respiratory Rate 14 /min Maci Umana LPN [facility] Work Phone: 11-19-2016 17:42-0400 Weight 110.22 kg Maci Umana LPN [facility] Work Phone: 11-08-2016 15:44-0400 BMI (Body Mass Index) 32.96 kg/m2 Karol Maximus DANIELSN [facility]; [facility] Work Phone: 11-08-2016 15:44-0400 Body Temperature 97.5 [degF] Karol Caseyrb [employer] [facility]; [facility] Work Phone: 11-08-2016 15:44-0400 Body weight 110.22 kg Karol Slarb [employer] ENGINEER [facility]; [facility] Work Phone: 11-08-2016 15:44-0400 BP Diastolic 80 mm[Hg] Karol Slarb [employer]INE[employer] [facility]; [facility] Work Phone: Comment on above: Patient Position: Sitting; Cuff Location : Left Arm; Cuff Size: Standard 11-08-2016 15:44-0400 BP Systolic 120 mm[Hg] Karol Slarb [employer] [facility]; [facility] Work Phone: Comment on above: Patient Position: Sitting; Cuff Location : Left Arm; Cuff Size: Standard 11-08-2016 15:44-0400 BSA (Body Surface Area) 2.31 m2 Karol Stroud LPN [facility]; [facility] Work Phone: 11-08-2016 15:44-0400 Height 182.88 cm Karol Maximus BENNETT [facility]; [facility] Work Phone: 11-08-2016 15:44-0400 Pulse (Heart Rate) 80 /min Karol Maximus BENNETT [facility]; [facility] Work Phone: Comment on above: Pattern: Regular 11-08-2016 15:44-0400 Pulse Oximetry 98 % Mariluz Gaytan [facility]; [facility] Work Phone: Comment on above: Room air 11-08-2016 15:44-0400 Respiratory Rate 17 /min Karol Stroud LPN [facility]; [facility] Work Phone: Comment on above: Pattern: Unlabored 11-08-2016 15:44-0400 SaO2% (BldA) [Mass fraction] 98 % Karol Stroud LPN [facility]; [facility] Work Phone: Comment on above: Room air 06-17-2015 14:27-0500 BMI (Body Mass Index) 31.87 kg/m2 Josselin Oneal [facility]; [facility] Work Phone: 06-17-2015 14:27-0500 Body Temperature 99 [degF] Josselin Oneal [facility]; [facility] Work Phone: Comment on above: Method: Temporal 06-17-2015 14:27-0500 Body weight 106.6 kg Josselin Oneal [facility]; [facility] Work Phone: 06-17-2015 14:27-0500 BP Diastolic 70 mm[Hg] Josselin Oneal [facility]; [facility] Work Phone: Comment on above: Patient Position: Sitting; Cuff Location : Left Arm; Cuff Size: Standard 06-17-2015 14:27-0500 BP Systolic 122 mm[Hg] Josselin Oneal [facility]; [facility] Work Phone: Comment on above: Patient Position: Sitting; Cuff Location : Left Arm; Cuff Size: Standard 06-17-2015 14:27-0500 BSA (Body Surface Area) 2.28 m2 Josselin Oneal [facility]; [facility] Work Phone: 06-17-2015 14:27-0500 Height 182.88 cm Josselin Oneal [facility]; [facility] Work Phone: 06-17-2015 14:27-0500 Pulse (Heart Rate) 82 /min [facility]; [facility] Work Phone: Comment on above: Pattern: Regular 06-17-2015 14:27-0500 Pulse Oximetry 96 % Mariluz Gaytan [facility]; [facility] Work Phone: Comment on above: Room air 06-17-2015 14:27-0500 Respiratory Rate 16 /min Josselin Oneal [facility]; [facility] Work Phone: Comment on above: Pattern: Unlabored 06-17-2015 14:27-0500 SaO2% (BldA) [Mass fraction] 96 % Josselin Oneal [facility]; [facility] Work Phone: Comment on above: Room air 05-19-2015 15:47-0500 BMI (Body Mass Index) 32.55 kg/m2 Cande Mora RN [facility]; [facility] Work Phone: 05-19-2015 15:47-0500 Body Temperature 97.8 [degF] Cande Mora RN [facility]; [facility] Work Phone: Comment on above: Method: Temporal 05-19-2015 15:47-0500 Body weight 108.86 kg Cande Mora RN [facility]; [facility] Work Phone: 05-19-2015 15:47-0500 BP Diastolic 70 mm[Hg] Cande Mora RN [facility]; [facility] Work Phone: Comment on above: Patient Position: Sitting; Cuff Location : Left Arm; Cuff Size: Standard 05-19-2015 15:47-0500 BP Systolic 124 mm[Hg] Cande Mora RN [facility]; [facility] Work Phone: Comment on above: Patient Position: Sitting; Cuff Location : Left Arm; Cuff Size: Standard 05-19-2015 15:47-0500 BSA (Body Surface Area) 2.3 m2 Cande Mora RN [facility]; [facility] Work Phone: 05-19-2015 15:47-0500 Height 182.88 cm Cande Mora RN [facility]; [facility] Work Phone: 05-19-2015 15:47-0500 Pulse (Heart Rate) 88 /min Cande Mora RN [facility]; [facility] Work Phone: Comment on above: Pattern: Regular 05-19-2015 15:47-0500 Pulse Oximetry 98 % Mariluz Gaytan [facility]; [facility] Work Phone: Comment on above: Room air 05-19-2015 15:47-0500 Respiratory Rate 16 /min Cande Mora RN [facility]; [facility] Work Phone: Comment on above: Pattern: Unlabored 05-19-2015 15:47-0500 SaO2% (BldA) [Mass fraction] 98 % Cande Mora RN [facility]; [facility] Work Phone: Comment on above: Room air 05-13-2015 15:28-0500 BMI (Body Mass Index) 32.41 kg/m2 Karol Stroud LPN [facility]; [facility] Work Phone: 05-13-2015 15:28-0500 Body Temperature 97.6 [degF] Karol Stroud LPN [facility]; [facility] Work Phone: 05-13-2015 15:28-0500 Body weight 108.41 kg Karol Stroud LPN [facility]; [facility] Work Phone: 05-13-2015 15:28-0500 BP Diastolic 76 mm[Hg] Karol Slarb [employer] ENGINEER [facility]; [facility] Work Phone: Comment on above: Patient Position: Sitting; Cuff Location : Left Arm; Cuff Size: Standard 05-13-2015 15:28-0500 BP Systolic 112 mm[Hg] Karol Slarb [employer] ENGINEER [facility]; [facility] Work Phone: Comment on above: Patient Position: Sitting; Cuff Location : Left Arm; Cuff Size: Standard 05-13-2015 15:28-0500 BSA (Body Surface Area) 2.3 m2 Karol Slarb [employer] ENGINEER [facility]; [facility] Work Phone: 05-13-2015 15:28-0500 Height 182.88 cm Karol Slarb [employer] ENGINEER [facility]; [facility] Work Phone: 05-13-2015 15:28-0500 Pulse (Heart Rate) 79 /min Karol Slarb [employer] ENGINEER [facility]; [facility] Work Phone: Comment on above: Pattern: Regular 05-13-2015 15:28-0500 Pulse Oximetry 97 % Mariluz Gaytan [facility]; [facility] Work Phone: Comment on above: Room air 05-13-2015 15:28-0500 Respiratory Rate 17 /min Karol Slarb [employer] ENGINEER [facility]; [facility] Work Phone: Comment on above: Pattern: Unlabored 05-13-2015 15:28-0500 SaO2% (BldA) [Mass fraction] 97 % Karol Slarb [employer] ENGINEER [facility]; [facility] Work Phone: Comment on above: Room air 03-19-2015 15:12-0500 BMI (Body Mass Index) 32.41 kg/m2 Sofi Mendieta [facility]; [facility] Work Phone: 03-19-2015 15:12-0500 Body Temperature 99 [degF] Sofi Mendieta [facility]; [facility] Work Phone: Comment on above: Method: Tympanic 03-19-2015 15:12-0500 Body weight 108.41 kg Sofi Mendieta [facility]; [facility] Work Phone: 03-19-2015 15:12-0500 BP Diastolic 58 mm[Hg] Sofi Mendieta [facility]; [facility] Work Phone: Comment on above: Patient Position: Sitting; Cuff Location : Left Arm; Cuff Size: Standard 03-19-2015 15:12-0500 BP Systolic 102 mm[Hg] Sofi Mendieta [facility]; [facility] Work Phone: Comment on above: Patient Position: Sitting; Cuff Location : Left Arm; Cuff Size: Standard 03-19-2015 15:12-0500 BSA (Body Surface Area) 2.3 m2 Sofi Mendieta [facility]; [facility] Work Phone: 03-19-2015 15:12-0500 Height 182.88 cm Sofi Mendieta [facility]; [facility] Work Phone: 03-19-2015 15:12-0500 Pulse (Heart Rate) 60 /min Sofi Mendieta [facility]; [facility] Work Phone: Comment on above: Pattern: Regular 03-19-2015 15:12-0500 Pulse Oximetry 96 % Mariluz Lucila [facility]; [facility] Work Phone: Comment on above: Room air 03-19-2015 15:12-0500 Respiratory Rate 18 /min Sofi Mendieta [facility]; [facility] Work Phone: Comment on above: Pattern: Unlabored 03-19-2015 15:12-0500 SaO2% (BldA) [Mass fraction] 96 % Sofi Mendieta [facility]; [facility] Work Phone: Comment on above: Room air 08-19-2014 09:39-0400 BMI (Body Mass Index) 30.52 kg/m2 Lulú Dinero LPN [facility]; [facility] Work Phone: 08-19-2014 09:39-0400 Body Temperature 98.9 [degF] Lulú Bar BENNETT [facility]; [facility] Work Phone: Comment on above: Method: Oral 08-19-2014 09:39-0400 Body weight 102.06 kg Lulú Bar BENNETT [facility]; [facility] Work Phone: 08-19-2014 09:39-0400 BP Diastolic 80 mm[Hg] Lulúgeorges Dinero LPN [facility]; [facility] Work Phone: Comment on above: Patient Position: Sitting; Cuff Location : Left Arm; Cuff Size: Standard 08-19-2014 09:39-0400 BP Systolic 120 mm[Hg] Lulú Dinero LPN [facility]; [facility] Work Phone: Comment on above: Patient Position: Sitting; Cuff Location : Left Arm; Cuff Size: Standard 08-19-2014 09:39-0400 BSA (Body Surface Area) 2.24 m2 Lulú Dinero LPN [facility]; [facility] Work Phone: 08-19-2014 09:39-0400 Height 182.88 cm Lulú Dinero LPN [facility]; [facility] Work Phone: 08-19-2014 09:39-0400 Pulse (Heart Rate) 82 /min Lulú Bar BENNETT [facility]; [facility] Work Phone: Comment on above: Pattern: Regular 08-19-2014 09:39-0400 Pulse Oximetry 98 % Mariluz Gaytan [facility]; [facility] Work Phone: Comment on above: Room air 08-19-2014 09:39-0400 SaO2% (BldA) [Mass fraction] 98 % Lulú Dinero LPN [facility]; [facility] Work Phone: Comment on above: Room air 01-21-2014 16:22-0400 BMI (Body Mass Index) 32.01 kg/m2 CIARA Mann LPN [facility]; [facility] Work Phone: 01-21-2014 16:22-0400 Body Temperature 97.9 [degF] CIARA Mann DONALD [facility]; [facility] Work Phone: Comment on above: Method: Oral 01-21-2014 16:220400 Body weight 107.05 kg CIARA Mann DONALD [facility]; [facility] Work Phone: 01-21-2014 16:22-0400 BP Diastolic 74 mm[Hg] CIARARIMA Mann LPN [facility]; [facility] Work Phone: Comment on above: Patient Position: Sitting; Cuff Location : Left Arm; Cuff Size: Standard 01-21-2014 16:22-0400 BP Systolic 118 mm[Hg] CIARA Mann DONALD [facility]; [facility] Work Phone: Comment on above: Patient Position: Sitting; Cuff Location : Left Arm; Cuff Size: Standard 01-21-2014 16:220400 BSA (Body Surface Area) 2.29 m2 CIARA Mann LPN [facility]; [facility] Work Phone: 01-21-2014 16:220400 Height 182.88 cm CIARA Mann LPN [facility]; [facility] Work Phone: 01-21-2014 16:22-0400 Pulse (Heart Rate) 74 /min CIARA Mann DONALD [facility]; [facility] Work Phone: Comment on above: Pattern: Regular 01-21-2014 16:22-0400 Respiratory Rate 20 /min CIARA Mann DONALD [facility]; [facility] Work Phone: Comment on above: Pattern: Unlabored 11-06-2013 11:22-0400 BMI (Body Mass Index) 32.01 kg/m2 Lulú Dinero LPN [facility]; [facility] Work Phone: 11-06-2013 11:22-0400 Body Temperature 98.6 [degF] Lulú Dinero LPN [facility]; [facility] Work Phone: Comment on above: Method: Oral 11-06-2013 11:220400 Body weight 107.05 kg Lulú Bar BENNETT [facility]; [facility] Work Phone: 11-06-2013 11:22-0400 BP Diastolic 70 mm[Hg] Lulú Dinero DONALD [facility]; [facility] Work Phone: Comment on above: Patient Position: Sitting; Cuff Location : Left Arm; Cuff Size: Standard 11-06-2013 11:22-0400 BP Systolic 118 mm[Hg] Lulú Dinero DONALD [facility]; [facility] Work Phone: Comment on above: Patient Position: Sitting; Cuff Location : Left Arm; Cuff Size: Standard 11-06-2013 11:220400 BSA (Body Surface Area) 2.29 m2 Lulú Dueñasyola BENNETT [facility]; [facility] Work Phone: 11-06-2013 11:22-0400 Height 182.88 cm Lulú Bar BENNETT [facility]; [facility] Work Phone: 11-06-2013 11:22-0400 Pulse (Heart Rate) 66 /min Lulú Bar BENNETT [facility]; [facility] Work Phone: Comment on above: Pattern: Regular 11-06-2013 11:22-0400 Pulse Oximetry 98 % Mariluz Gaytan [facility]; [facility] Work Phone: Comment on above: Room air 11-06-2013 11:22-0400 Respiratory Rate 16 /min Lulú Dinero DONALD [facility]; [facility] Work Phone: 11-06-2013 11:22-0400 SaO2% (BldA) [Mass fraction] 98 % Lulú Bar BENNETT [facility]; [facility] Work Phone: Comment on above: Room air 01-29-2013 14:58-0400 BMI (Body Mass Index) 33.23 kg/m2 Cande Mora RN [facility]; [facility] Work Phone: 01-29-2013 14:58-0400 Body Temperature 97.4 [degF] Cande Mora RN [facility]; [facility] Work Phone: Comment on above: Method: Temporal 01-29-2013 14:58-0400 Body weight 111.13 kg Cande Mora RN [facility]; [facility] Work Phone: 01-29-2013 14:58-0400 BP Diastolic 76 mm[Hg] Cande Mora RN [facility]; [facility] Work Phone: Comment on above: Patient Position: Sitting; Cuff Location : Left Arm; Cuff Size: Standard 01-29-2013 14:58-0400 BP Systolic 122 mm[Hg] Cande Mora RN [facility]; [facility] Work Phone: Comment on above: Patient Position: Sitting; Cuff Location : Left Arm; Cuff Size: Standard 01-29-2013 14:58-0400 BSA (Body Surface Area) 2.32 m2 Cande Mora RN [facility]; [facility] Work Phone: 01-29-2013 14:58-0400 Height 182.88 cm Cande Mora RN [facility]; [facility] Work Phone: 01-29-2013 14:58-0400 Pulse (Heart Rate) 72 /min Cande Mora RN [facility]; [facility] Work Phone: Comment on above: Pattern: Regular 01-29-2013 14:58-0400 Respiratory Rate 16 /min Cande Mora RN [facility]; [facility] Work Phone: Comment on above: Pattern: Unlabored 12-25-2012 17:11-0400 BMI (Body Mass Index) 33.23 kg/m2 Josselin Oneal [facility]; [facility] Work Phone: 12-25-2012 17:11-0400 Body Temperature 98 [degF] Josselin Oneal [facility]; [facility] Work Phone: 12-25-2012 17:11-0400 Body weight 111.13 kg Josselin Oneal [facility]; [facility] Work Phone: 12-25-2012 17:11-0400 BP Diastolic 70 mm[Hg] Josselin Kimmy [facility]; [facility] Work Phone: Comment on above: Patient Position: Sitting; Cuff Location : Left Arm; Cuff Size: Large 12-25-2012 17:11-0400 BP Systolic 106 mm[Hg] Josselin Oneal [facility]; [facility] Work Phone: Comment on above: Patient Position: Sitting; Cuff Location : Left Arm; Cuff Size: Large 12-25-2012 17:11-0400 BSA (Body Surface Area) 2.32 m2 Josselin Oneal [facility]; [facility] Work Phone: 12-25-2012 17:11-0400 Height 182.88 cm Josselin Oneal [facility]; [facility] Work Phone: 12-25-2012 17:11-0400 Pulse (Heart Rate) 62 /min Josselin Oneal [facility]; [facility] Work Phone: Comment on above: Pattern: Regular 12-25-2012 17:11-0400 Respiratory Rate 18 /min Josselin Oneal [facility]; [facility] Work Phone: Comment on above: Pattern: Unlabored 12-11-2012 16:42-0400 BMI (Body Mass Index) 33.24 kg/m2 Lulú Dinero LPN [facility]; [facility] Work Phone: 12-11-2012 16:42-0400 Body Temperature 98.2 [degF] Lulú Dinero LPN [facility]; [facility] Work Phone: Comment on above: Method: Oral 12-11-2012 16:42-0400 Body weight 111.16 kg Lulú Dinero LPN [facility]; [facility] Work Phone: 12-11-2012 16:42-0400 BP Diastolic 74 mm[Hg] Lulú Dinero LPN [facility]; [facility] Work Phone: Comment on above: Patient Position: Sitting; Cuff Location : Left Arm; Cuff Size: Standard 12-11-2012 16:42-0400 BP Systolic 120 mm[Hg] Lulú Dinero DONALD [facility]; [facility] Work Phone: Comment on above: Patient Position: Sitting; Cuff Location : Left Arm; Cuff Size: Standard 12-11-2012 16:42-0400 BSA (Body Surface Area) 2.32 m2 Lulú Dueñasyola BENNETT [facility]; [facility] Work Phone: 12-11-2012 16:42-0400 Height 182.88 cm Lulú Bar BENNETT [facility]; [facility] Work Phone: 12-11-2012 16:42-0400 Pulse (Heart Rate) 70 /min Lulú Dinero DONALD [facility]; [facility] Work Phone: Comment on above: Pattern: Regular 12-11-2012 16:42-0400 Pulse Oximetry 98 % Mariluz Gaytan [facility]; [facility] Work Phone: Comment on above: Room air 12-11-2012 16:42-0400 Respiratory Rate 18 /min Lulú Dinero DONALD [facility]; [facility] Work Phone: 12-11-2012 16:42-0400 SaO2% (BldA) [Mass fraction] 98 % Lulú Dueñasyola BENNETT [facility]; [facility] Work Phone: Comment on above: Room air Encounters Encounter Date Encounter Type Care Provider Facility Start: 11-27-2024 End: 11-27-[address] Geneva Danielson MD Work Phone: -[facility] Start: 11-27-2024 End: 11-27-[address] Saw Somers MD -[facility] Work Phone: Start: 11-23-2024 Patient encounter procedure Huy [place] -[facility] Work Phone: Start: 11-23-2024 ambulatory Huy FRANCO [facility] ity:[facility] Start: 11-13-2024 End: 11-13-[address] Geneva Danielson MD Work Phone: -[facility] [place] Start: 11-13-2024 End: 11-13-2024 Patient encounter procedure Huy FRANCO -[facility] [place] Work Phone: Start: 11-13-2024 End: 11-13-[address] Geneva Danielson MD Work Phone: [facility] Start: 11-13-2024 End: 11-13-2024 Patient encounter procedure Huy FRANCO -[facility] Work Phone: Start: 11-13-2024 End: 11-13-2024 ambulatory Huy FRANCO Facility:[facility] Start: 08-31-2024 End: 08-31-[address] Geneva Danielson MD -[facility] [place] Work Phone: Start: 08-31-2024 End: 08-31-2024 ambulatory Geneva Danielson Facility:[facility] Start: 08-21-2024 End: 08-21-2024 ambulatory Huy FRANCO Facility:[facility] Start: 08-21-2024 End: 08-21-2024 Patient encounter procedure Huy FRANCO -[facility] Work Phone: Start: 08-20-2024 End: 08-21-[address] Mariluz Gaytan DO Work Phone: [facility] Work Phone: Start: 08-20-2024 End: 08-20-[address] Geneva Danielson MD -[facility] [place] Work Phone: Start: 08-20-2024 End: 08-20-[address] Geneva Danielson MD -[facility] Work Phone: Start: 08-20-2024 End: 08-20-2024 ambulatory Geneva Zeigler Facility:[facility] Start: 08-20-2024 End: 08-20-2024 ambulatory Geneva Erum Facility:[facility] Start: 07-25-2024 End: 07-25-2024 Patient encounter procedure Alvino FRANCO -[facility] Work Phone: Start: 07-25-2024 End: 07-25-2024 ambulatory Alvino FRANCO Facility:[facility] Start: 05-21-2024 ambulatory Geneva Zeigler Facility :[facility] Start: 05-03-2024 End: 05-03-[address] Geneva Danielson MD -[facility] Work Phone: Start: 05-03-2024 End: 05-03-2024 ambulatory Geneva Zeigler Facility:[facility] Start: 04-25-2024 Emergency department patient visit MARILUZ GAYTAN Facility:[facility] Start: 08-29-2023 End: 08-30-2023 ambulatory MARILUZ Jg [facility] Start: 08-29-2023 End: 08-29-2023 Subsequent hospital visit by physician Leander Loaiza [facility] Comment on above: Hyperlipidemia, unsp ecified Start: 11-27-2022 End: 11-27-2022 ambulatory [facility] Work Phone: Start: 11-27-2022 End: 11-27-2022 Patient encounter procedure [facility] Work Phone: Start: 08-05-2022 End: 08-05-2022 ambulatory [facility] Work Phone: Start: 08-05-2022 End: 08-05-2022 Discharged Recurring [facility]-Physical Therapy Work Phone: Start: 06-24-2022 End: 06-24-2022 Patient encounter procedure Usama Olivo DPM Work Phone: [facility] Comment on above: Post-operative state (Primary Dx) Start: 05-27-2022 End: 05-27-2022 Patient encounter procedure Usama Olivo DPM Work Phone: [facility] Comment on above: Post-operative state (Primary Dx) Start: 05-13-2022 End: 05-13-2022 Subsequent hospital visit by physician [facility] Comment on above: Postoperative state [Z98.890] Start: 05-13-2022 End: 05-13-2022 Patient encounter procedure Usama TERRELLM Work Phone: [facility] Comment on above: Postoperative state (Primary Dx); Pain of left calf Start: 04-27-2022 Telephone encounter Usama Olivo DPM Work Phone: [facility] Comment on above: Appointment Start: 04-24-2022 Admission to [facility] Maurilio Mcfadden MD Work Phone: [facility] Comment on above: S/P foot surgery (Pr imary Dx) Start: 04-24-2022 Refill Usama TERRELLM Work Phone: [facility] Comment on above: Refill Request Start: 04-23-2022 End: 04-23-2022 Refill Usama Olivo DPM Work Phone: [facility] Comment on above: Refill Request; Refi ll Request Postoperative state (Primary Dx); Cavus deformity of left foot, acquired; Peroneal tendon rupture, left, subsequent encounter Start: 04-15-2022 End: 04-15-2022 Patient encounter procedure Usama Olivo DPM Work Phone: [facility] Comment on above: Postoperative state (Primary Dx); Postoperative pain Start: 04-09-2022 Telephone encounter Usama Olivo DPM Work Phone: [facility] Comment on above: Medication Problem Start: 04-01-2022 End: 04-01-2022 Admission to [facility] Start: 04-01-2022 End: 12-01-2022 ambulatory Pst 1 Pre Surgical Testing Comment on above: Preop examination [Z 01.818 (ICD-10-CM)] (Primary Dx); Obesity (BMI 30.0-34.9) [E66.9 (ICD-10-CM)]; Hyperlipidemia, unspecified hyperlipidemia type [E78.5 (ICD-10-CM)]; Ankle instability, left [M25.372 (ICD-10-CM)]; Acquired cavovarus foot deformity, left [M21.6X2 (ICD-10-CM)]; Traumatic rupture of peroneal tendon of left foot, subsequent encounter [S86.312D (ICD-10-CM)] Start: 04-01-2022 End: 04-01-2022 Preprocedural examination done Pst 1 Pre Surgical Testing Start: 02-18-2022 Telephone encounter Usama lOivo DPM Work Phone: [facility] Comment on above: Patient Question Start: 02-12-2022 Telephone encounter Ag Jhonatan Work Phone: [facility] Comment on above: Return Call Request Start: 02-04-2022 End: 02-04-2022 Patient encounter procedure Usama Olivo DPM Work Phone: [facility] Comment on above: Cavus deformity of l eft foot, acquired (Primary Dx); Peroneal tendon rupture, left, subsequent encounter; Ankle instability, left Start: 01-14-2022 End: 01-14-2022 Patient encounter procedure Usama TERRELLM Work Phone: [facility] Comment on above: Cavus deformity of l eft foot, acquired (Primary Dx); Peroneal tendon rupture, left, initial encounter; Ankle instability, left Start: 12-17-2021 End: 12-17-2021 ambulatory [facility] Work Phone: Start: 12-17-2021 End: 12-17-2021 Patient encounter procedure [facility], [facility] Start: 11-11-2021 End: 11-18-2021 Phone Encounter Mariluz Gaytan DO Work Phone: [facility] Start: 11-11-2021 Review Mariluz Cano n DO Work Phone: [facility] Start: 11-04-2021 End: 11-04-2021 Patient encounter procedure [facility] Start: 10-28-2021 End: 10-28-2021 Office outpatient visit 25 minutes Mariluz Lucila DO Work Phone: [facility] Start: 02-02-2021 End: 02-02-2021 Office outpatient visit 15 minutes Mariluz Lucila DO Work Phone: [facility] Start: 06-30-2020 End: 06-30-2020 Phone Encounter Mariluz Gaytan [facility] Start: 08-16-2019 End: 08-16-2019 Phone Encounter Mariluz Gaytan [facility] Start: 08-09-2019 End: 08-09-2019 Office outpatient visit 25 minutes Mariluz Gaytan [facility] Start: 07-10-2019 End: 07-12-2019 Office outpatient visit 5 minutes Mariluz Gaytan [facility] Start: 06-22-2019 End: 06-22-2019 Phone Encounter Mariluz Gaytan [facility] Start: 06-08-2019 End: 06-08-2019 Office outpatient visit 25 minutes Mariluz Gaytan [facility] Start: 05-25-2019 End: 05-25-2019 Office outpatient visit 25 minutes Mariluz Gaytan [facility] Start: 04-16-2019 End: 04-16-2019 Subsequent hospital visit by physician Sophia Kimble MD Work Phone: [facility] [employer] Comment on above: Chest pain, unspecif ied type; SOB (shortness of breath); Hypercholesteremia; Abnormal electrocardiogram Start: 12-29-2018 End: 12-29-2018 Subsequent hospital visit by physician Sophia Kimble Work Phone: [facility] Comment on above: Chest pain, unspecif ied type; SOB (shortness of breath) Start: 12-01-2016 End: 12-01-2016 Emergency department patient visit KAREN CHU Facility:[facility] Start: 11-19-2016 End: 11-19-2016 Phone Encounter Mariluz Gaytan [facility] Start: 11-19-2016 End: 11-19-2016 Annotation/Addendum Mariluz Gaytan [facility] Start: 11-10-2016 End: 11-10-2016 Annotation/Addendum Mariluz Gaytan [facility] Start: 11-08-2016 End: 11-08-2016 Office outpatient visit 25 minutes Mariluz Lucila [facility] Start: 06-17-2015 End: 06-17-2015 Office outpatient visit 25 minutes Mariluz Lucila [facility] Start: 05-19-2015 End: 05-19-2015 Office outpatient visit 15 minutes Mariluzrl Canon [facility] Start: 05-14-2015 End: 05-14-2015 Phone Encounter Mariluz Gaytan [facility] Start: 05-13-2015 End: 05-13-2015 Office outpatient visit 15 minutes Mariluz Canon [facility] Start: 03-19-2015 End: 03-19-2015 Office outpatient visit 25 minutes Mariluz Lucila [facility] Start: 03-10-2015 End: 03-10-2015 Phone Encounter Mariluz Gaytan [facility] Start: 08-19-2014 End: 08-19-2014 Office outpatient visit 15 minutes Mariluzrl Canon [facility] Start: 01-21-2014 End: 01-21-2014 Office outpatient visit 15 minutes Mariluzrl Canon [facility] Start: 11-07-2013 End: 11-07-2013 Lab Order Mariluz Gaytan [facility] Start: 11-07-2013 End: 11-07-2013 Annotation/Addendum Mariluz Gaytan [facility] Start: 11-06-2013 End: 11-06-2013 Patient encounter procedure Mariluz Lucila [facility] Start: 01-29-2013 End: 01-29-2013 Patient encounter procedure Mariluz Lucila [facility] Start: 12-25-2012 End: 12-25-2012 Patient encounter procedure Mariluz Lucila [facility] Start: 12-11-2012 End: 12-11-2012 Office outpatient visit 15 minutes Mariluz Lucila [facility] Procedures Date Procedure Procedure Detail Performing Clinician Start: 11-23-2024 MRI of joint of lowe r extremity Dr. Geneva Danielson MD Work Phone: Start: 11-13-2024 X-ray of lumbar spin e, two or three views Dr. Geneva Danielson MD Work Phone: Start: 11-13-2024 XR knee, [address] Demetrius BRIGGS Work Phone: Start: 08-21-2024 D-dimer assay, quantitative Dr. Geneva Danielson MD Work Phone: Comment on above: NORMAL D-Dimer level (<0.50) indicates no DVT or PE. Start: 08-20-2024 X-ray of chest, PA a nd lateral views Dr. Mariluz Gaytan DO Work Phone: Start: 08-29-2023 CT CARDIAC SCORING W O IV CONTRAST MARILUZ GAYTAN Start: 11-27-2022 MRI of joint of lowe r extremity Start: 06-24-2022 Radex foot complete minimum 3 views Dorothy TERRELLM Work Phone: Start: 06-09-2022 End: 06-09-2022 Inital Evaluation (1) - PT Procedure Note: See Note; NOTES: [facility] [address] [place] [address]. [address] [place] [address] / REHABILITATION SERVICES INITIAL EVALUATION MR#: [id number] Acct: [id number] Name: SID PRUITT Rep #: [id number] : 1975 47 From: Pattie Duffy DPT Referring Dr.: Dr. Usama Olivo, DO Status: REG RCR Insurance: [facility] SELF PAY INSURANCE Patient's Visit Information SID PRUITT is a 47 year old M referred to Physical Therapy by Dr. Usama Olivo, DO with a diagnosis of s/p peroneal tendon repair, FHL left, Calcaneal osteotomy left, first metat. Date of Evaluation: 06/09/22 Physical Therapist: Pattie Duffy DPT - Visit Plan Frequency: 1x/Week Duration: 6 Weeks Plan: Focus on LE and Core Strength/Stabilization- proprioception and functional mobility. HEP Given IE: Ankle ROM, Gastroc Stretch Towel Stretch, weight shift - Subjective October jumped in his garage and felt a snap-ankle swelled up- went boating and then he came into Dr. Gaytan for something else and had her look at his ankle- got Dr. Nazario who he set up an appt- had an MRI's and then she referred to Dr. Olivo- Apr 07 he had surgery- s/p peroneal tendon repair, FHL left, Calcaneal osteotomy left, first metatarsal osteotomy. He gave him partial WB May 27 with progression WBAT in the boot. Let the pain be the guide and come back to him around Jun 24 and at that point he hopes for shoe with brace. He reports that the ankle is pretty swollen and along the lateral malleolus across the top and into the medial mall. Worst: 7/10. Agg: walking on it Eases: propping it up. Best: 0/10. Describes the pain as achy and sharp pain. Does have some N/T in his toes. 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 He wears his boot at work. Normally pretty active- boat and smart- need to be able to get on the water- on [place] [employer]- and wants to get back to all of his normal stuff. Sleep: not disturbed. He feels that he is 50% through the process. Most of the time he is in work boots- unless he is boating then he is in boat shoes. PMHx: Rods in his back 2016- L5-S1 fusion- had drop foot in his right LE- does have massage 1x a month. Meds: none - Objective Posture: fair throughout IE. Gait: antalgic- axillary crutches- apr WB through left LE- CAM walker. Girth: Figure 8: 59.5 cm Mets: 26 cm Mall:30 cm. ROM: DF: neutral, PF: 30 degrees, Inv: 30 degrees, Ever: 10 deg. Strength: Core: fair, Hip: 4/5 throughout, Knee: 5/5, Ankle: 4/5 in available range. Flex: Gastroc: severe, HS: moderate. Palpation: tender throughout ankle and across top of foot. Observation: incisions well healed. SLS: weight shift. HR/TR: able with weight shifted to the right Stairs: asc/desc 8 non recip - Balance/Special Test Scores Lower Extremity Functional Score: 22 - Goals Goal 1:: Patient will be I with HEP and progression Goal Time Frame: 4-6 Weeks Goal 2:: Patient will ambulate >300 feet with a normalized gait pattern and LRD Goal Time Frame: 4-6 Weeks Goal 3:: Patient will SLS for 15 sec without LOB Goal Time Frame: 4-6 Weeks Goal 4:: Patient will report 80% improvement Goal Time Frame: 4-6 Weeks - Rehabilitation Potential Physical Therapy Diagnosis: Patient presents with hypomobility- he has decreased LE and core strength/stabilization, flex, ROM, proprioception and functional mobility leading to abnormal gait and increased pain with ADL's. Rehabilitation Potential: Good - Anticipated Interventions Patient/Client Instruction: Educate patient on: Benefits of Fitness Program Therapeutic Exercise to Include: Strength training, Endurance training, Balance training, Coordination, Agility training, Body mechanics, Postural training, Flexibilty training, Gait and locomotor training, Neuromotor development, Passive ROM, Active ROM, Dynamic Lumbar Stabilization, Scapular Strength/Stabilization For the Purpose of:: To improve muscle performance and motor function TENS: Yes Cryotherapy (ice pack, ice massage): Yes Thermo therapy (hot pack): Yes Thank you for the opportunity to evaluate your patient. For Medicare and Medicare HMO plans, please review the plan of care and approve it. It will need to be FAXED BACK to us at [phone] for Medicare purposes. For Medicare only, by signing this I certify the plan of care. Please let me know if there are questions or concerns regarding this plan of care. Physician Signature: Date: _ <Electronically signed by Pattie Duffy DPT> 06/09/22 0954 CC: Dr. Usama Olivo DO; Dr. Mariluz Gaytan DO ELR Signed Mariluz Gaytan DO Work Phone: Start: 05-27-2022 Radex foot complete minimum 3 views Dorothy Damon DPM Work Phone: Start: 05-13-2022 Dup-scan xtr veins unilateral/limited study Usama Olivo DPM Work Phone: Start: 04-23-2022 Radex foot complete minimum 3 views Bull Judge DPM Work Phone: Start: 01-14-2022 Radex ankle complete minimum 3 views Jacques Garcia DPM Work Phone: Start: 12-17-2021 End: 12-17-2021 Abdomen Single View Procedure Note: See Note; NOTES: [facility] [address] [place] [address] Abdomen Single View MR#: [id number] Acct: [id number] Name: SID PRUITT Rep #: [id number] : 1975 M 46 From: Shashi Lobo MD PCP: Dr. Mariluz Gaytan DO Status: REG CLI Study: Abdomen Single View Date of Exam: 12/17/21 Exam# [id number] Ordering Dr: Giuseppe Alvarado MD EXAM: XR ABDOMEN, 1 VIEW CLINICAL INDICATION: KUB TECHNIQUE: Frontal supine view of the abdomen/pelvis. This report was created using [employer] report generation technology. COMPARISON: None. FINDINGS: LOWER THORAX: No acute pathology. GASTROINTESTINAL TRACT: Normal bowel gas pattern. ORGANS: No organomegaly. BONES/JOINTS: Right-sided L5 laminectomy noted. Interpedicular screws in place bilaterally at L5 and S1. SOFT TISSUES: No pathological calcification. RAD/Abdomen Single View IMPRESSION: No acute findings. Electronically Signed: Shashi Lobo MD at 16:28 EDT , CC: Dr. Giuseppe Alvarado MD; Dr. Mariluz Gaytan DO [employer]: Signed Mariluz Gaytan DO Work Phone: Start: 12-17-2021 Diagnostic radiograp hy of abdomen Start: 11-04-2021 End: 11-04-2021 Ankle min 3 Views Comments: See Note; NOTES: [facility] [address] [place] [address] Ankle min 3 Views MR#: [id number] Acct: [id number] Name: SID PRUITT Rep #: [id number] : 1975 M 46 From: Marco Antonio monge MD PCP: Dr. Mariluz Gaytan DO Status: REG CLI Study: Ankle min 3 Views Date of Exam: 11/04/21 Exam# [id number] Ordering Dr: Mariluz Gaytan DO STUDY: X-RAY - LEFT ANKLE REASON FOR EXAM: Male, 46 years old. Left ankle pain. No history of injury. TECHNIQUE: 3 view(s) of the ankle. COMPARISON: None. FINDINGS: Normal visualized distal tibia and fibula. Normal medial and lateral malleoli. Degenerative changes of the distal tibial talar joint. Normal visualized talus and calcaneus. The visualized subtalar, talonavicular, calcaneocuboid and tarsal articulations are normal. Diffuse bilateral soft tissue swelling. RAD/Ankle min 3 Views IMPRESSION: Soft tissue swelling. Degenerative changes of the distal tibial talar joint. Electronically Signed: Marco Antonio Harrison MD at 14:32 EDT , CC: Dr. Mariluz Gaytan DO [employer]: Signed Mariluz Gaytan DO Work Phone: Start: 11-04-2021 Radiography of ankle Start: 02-03-2021 End: 02-03-2021 L/S Spine Min 4 Views Comments: See Note; NOTES: [facility] [address] [place] [address] L/S Spine Min 4 Views MR#: [id number] Acct: [id number] Name: SID PRUITT Rep #: [id number] : 1975 M 45 From: Herbert Sifuentes MD PCP: Dr. Mariluz Gaytan DO Status: DEP AMB Study: L/S Spine Min 4 Views Date of Exam: 02/03/21 Exam# [id number] Ordering Dr: Mariluz Gaytan DO EXAM: XR LUMBOSACRAL SPINE, 4 OR 5 VIEWS CLINICAL INDICATION: Pain -- STAT TECHNIQUE: Frontal, lateral and oblique views of the lumbar spine. This report was created using [employer] report [employer] technology. COMPARISON: None. FINDINGS: VERTEBRAE: Minimal degenerative retrolisthesis of L4 on L5. Preserved vertebral body height. No fracture. No spondylolisthesis. Preservation of the normal lumbar lordosis. No significant facet arthropathy. DISC SPACES: Intact pedicular screws and rods at L5-S1 level. GASTROINTESTINAL TRACT: Unremarkable as visualized. Included bowel gas pattern is non-obstructive. RAD/L/S Spine Min 4 Views IMPRESSION: 1. No acute findings in the lumbar spine. 2. Minimal degenerative retrolisthesis of L4 on L5. 3. Intact pedicular screws and rods at L5-S1 disc level. Electronically Signed: Herbert Sifuentes MD at 13:07 EDT , Service support , CC: Dr. Mariluz Gaytan DO [employer]: Signed Mariluz Gaytan DO Work Phone: Start: 04-16-2019 ECHOCARDIOGRAM EXERC ISE STRESS TEST Sophia Kimble MD Work Phone: Start: 12-29-2018 Radiologic exam ches t 2 views Sophia Kimble Work Phone: Start: 11-10-2016 End: 11-10-2016 Abdomen/Pelvis without Cont Comments: See Note; NOTES: [facility] [address] [place] [address] Verdana 4d Abdomen/Pelvis without Cont MR#: [id number] Acct: [id number] Name: SID PRUITT Rep #: [id number] : 1975 M 41 From: Marco Antonio Harrison MD PCP: Mariluz Gaytan DO Status: REG CLI Study: Abdomen/Pelvis without Cont Date of Exam: 11/10/16 Exam# [id number] Ordering Dr: Sugey Gamino STUDY: CT ABDOMEN AND PELVIS WITHOUT CONTRAST REASON FOR EXAM: Male, 41 years old. Left-sided flank pain. RADIATION DOSAGE (If Supplied By Facility): CTDIvol = ( 26.06 ) mGy, DLP = ( 1328.29 ) mGycm TECHNIQUE: Transaxial images were obtained from the dome of the diaphragm to the symphysis pubis without oral contrast, and without intravenous contrast. Sagittal and coronal images were reconstructed. Individualized dose optimization techniques were used for this CT. COMPARISON: None. FINDINGS: The visualized lung bases are unremarkable. The visualized portions of the heart are within normal limits. There is decreased attenuation of the liver consistent with steatosis. Normal gallbladder and extrahepatic biliary system. Normal spleen. Normal pancreas. Normal bilateral adrenal glands. 2 mm calculus in the upper pole calyx of the right kidney. There is a 3.4 mm calculus in the mid posterior calyx of the right kidney as well as tiny nonobstructive punctate calculus in the lower pole. There are 3 tiny nonobstructive left intrarenal calculi. There is evidence of a left retroaortic renal vein. Normal visualized stomach. Normal small intestine. There are multiple colonic diverticula consistent with diverticulosis. The appendix is visualized and appears normal. Normal abdominal aorta. Normal inferior vena cava. There is borderline retroperitoneal lymphadenopathy with enlarged nodes no greater than 10mm in the short axis diameter. Small mesenteric lymph nodes. Normal urinary bladder. There are prostatic calcifications. There is a small umbilical hernia containing fat. Small bilateral inguinal hernias containing fat. Prior fusion at the L5-S1 level. CT/Abdomen/Pelvis without Cont IMPRESSION: Several small nonobstructive bilateral intrarenal calculi. Sigmoid diverticulosis. Electronically Signed: Marco Antonio Harrison MD at 10:04 EDT Tel [phone], Service support , CC: Sugey Gamino; Mariluz Gaytan DO [employer]: Signed Sugey Gamino Work Phone: Start: 01-21-2014 End: 01-21-2014 Ankle min 3 Views Comments: See Note; NOTES: [facility] [address] [place] [address] Radiology Report MR#: [id number] Acct: [id number] Name: SID PRUITT Rep #: [id number] : 1975 M 38 From: Valentino Flores MD PCP: Alejandra Buchanan MD Status: REG CLI Study: Ankle min 3 Views Date of Exam: 01/21/14 Exam# [id number] Ordering Dr: Alejandra Buchanan MD STUDY: X-RAY - LEFT ANKLE REASON FOR EXAM: Male, 38 years old. Pain. Swelling TECHNIQUE: 3 view(s) of the ankle. COMPARISON: None. FINDINGS: Normal visualized distal tibia and fibula. Normal medial and lateral malleoli. Normal tibiotalar articulation and ankle mortise. Normal visualized talus and calcaneus. The visualized subtalar, talonavicular, calcaneocuboid and tarsal articulations are normal. There is no demonstrated fracture. Soft tissue swelling laterally. IMPRESSION: No fracture. Soft tissue swelling. Electronically Signed: Valentino Flores MD at 17:52 EDT , Service support [phone], RAD/Ankle min 3 Views IMPRESSION: No fracture. Soft tissue swelling. Electronically Signed: Valentino Flores MD at 17:52 EDT , Service support [phone], CC: Alejandra Buchanan MD [employer] [place]: Signed Alejandra Buchanan Work Phone: Kidney Stone Removal Cande L Long Kidney Stone Removal Nani Gravius [employer] Kidney Stone Removal Kayela May [employer] Operation on vertebra Cande L Long Comment on above: Decompression L5 S1, Fusion 2016 Operation on vertebra Nani Gravius [employer] Comment on above: Decompression L5 S1, Fusion 2016 Operation on vertebra Kayela May [employer] Comment on above: Decompression L5 S1, Fusion 2016 Plan of Treatment Date Care Activity Detail Author Start: 04-08-2025 DIABETES SCREEN [facility] Start: 2025 Zoster Vaccines (1 of 2) Zoste r Vaccines (1 of 2) [facility] Start: 12-02-2024 DIABETES SCREEN DIABETES SCREEN [facility] Start: 08-21-2024 Testosterone Free [Mass/volume] in Serum or Plasma [facility] Start: 07-25-2024 Patient referral [facility] Work Phone: Start: 05-03-2024 Patient referral [facility] Work Phone: Start: 02-21-2024 Lipid screen Lipid screen [facility] Work Phone: Start: 01-01-2024 Influenza vaccination Influenz a Vaccine (Season Ended) [facility] Start: 12-31-2022 COVID-19 Vaccine ( season) COVID-19 Vaccine ( season) [facility] Start: 11-14-2022 Lipid screen Lipid screen Masha Garcia th- [place], [place] Start: 05-02-2022 DEPRESSION ASSESSMENT DEPRESSION ASS ESSMENT [facility] Start: 12-31-2021 Influenza vaccination INFLUENZA (#1) [facility] Start: 10-28-2021 Procedure Education Eprescribe d prescriptions (G8553) [facility] Work Phone: Start: 05-02-2021 DEPRESSION ASSESSMENT DEPRESSION ASS ESSMENT [facility] Start: 02-02-2021 Procedure Education Eprescribe d prescriptions (G8553) [facility] Work Phone: Start: 06-30-2020 Lipid panel LIPID PANEL (93108) [facility] Work Phone: Start: 06-30-2020 Comprehensive metabo lic panel METABOLIC PANEL, COMPREHENSIVE (12691) [facility] Work Phone: Start: 06-30-2020 Blood count complete automated CBC & PLATELETS (AUTO) (60597) [facility] Work Phone: Start: 06-30-2020 TSH Qn TSH (THYROID STIMULATING HORMONE) (56304) [facility] Work Phone: Start: 06-30-2020 25 hydroxy includes fractions if performed CALCIFEDIOL (67117) [facility] Work Phone: Start: 06-30-2020 Cobalamin (Vitamin B 12) [Mass/Vol] Vitamin B-12 (cyanocobalamin) (28474) [facility] Work Phone: Start: 2020 COLOGUARD (FIT-DNA) COLOGUARD (FIT-D NA) [facility] Start: 2020 Colonoscopy COLONOSCOPY [facility] Start: 2020 COLORECTAL CANCER SCREENING COLORECTAL CANCER SCREENING [facility] Start: [address] COLONOGRAPHY [facility] Start: 2020 FECAL OCCULT BLOOD FECAL OCCULT BLOO D [facility] Start: 2020 SIGMOIDOSCOPY SIGMOIDOSCOPY [facility] Start: 08-16-2019 Sedimentation rate r bc automated Sedimentation Rate-ESR (76783) [facility] Work Phone: Start: 08-16-2019 C-reactive protein C-REACTIVE PROTEIN (11436) [facility] Work Phone: Start: 08-16-2019 CRP [Mass/Vol] C-REACTIVE PRO TEIN (21552) [facility] Work Phone: Start: 08-09-2019 Procedure Education Eprescribe d prescriptions (G8553) [facility] Work Phone: Start: 08-09-2019 Provider Instruction s for Treatment Follow up in 2 weeks [facility] Work Phone: Start: 06-22-2019 Renal function panel Renal fun ction Panel (00750) [facility] Work Phone: Start: 06-22-2019 Lipid panel Lipid Panel (09948) [facility] Work Phone: Start: 06-08-2019 Procedure Education Eprescribe d prescriptions (G8553) [facility] Work Phone: Start: 06-08-2019 Provider Instruction s for Treatment Reviewed Lab [facility] Work Phone: Start: 06-08-2019 Hepatic function panel HEPATIC FUNCTION PANEL (97865) [facility] Work Phone: Start: 06-08-2019 Lipoprotein blood qu an numbers & subclasses NMR Profile (61264) [facility] Work Phone: Start: 06-08-2019 HbA1c (Bld) [Mass fraction] HGB A1C (73098) [facility] Work Phone: Start: 06-08-2019 Hemoglobin glycosyla teresa a1c HGB A1C (80957) [facility]; [facility] Work Phone: Start: 05-25-2019 Procedure Education Eprescribe d prescriptions (G8553) [facility] Work Phone: Start: 05-25-2019 Provider Instruction s for Treatment [facility] Work Phone: Start: 02-02-2019 End: 02-02-2019 Office Visit 02/02/2019 Office Visit Family Medicine Sophia Kimble MD [address] [place] [address] [facility] Start: 12-31-2018 Influenza vaccination [facility] (# [facility] Start: 11-19-2016 End: 11-19-2016 Appointment Appointment [facility] Work Phone: Start: 11-19-2016 Comprehensive metabo lic panel Metabolic Panel, Comprehensive (75511) [facility] Work Phone: Comment on above: First week Sept Start: 11-19-2016 Lipid panel Lipid Panel (83672) [facility] Work Phone: Comment on above: First week Sep t Start: 11-08-2016 Comprehensive metabo lic panel Metabolic Panel, Comprehensive (91416) [facility]; [facility] Work Phone: Start: 11-08-2016 Blood count complete automated CBC & PLATELETS (AUTO) (88834) [facility]; [facility] Work Phone: Start: 11-08-2016 Lipid panel LIPID PANEL (87717) [facility]; [facility] Work Phone: Start: 11-08-2016 Procedure Education Eprescribe d prescriptions (G8553) [facility]; [facility] Work Phone: Start: 06-17-2015 Procedure Education Eprescribe d prescriptions (G8553) [facility]; [facility] Work Phone: Start: 05-19-2015 Procedure Education Eprescribe d prescriptions (G8553) [facility]; [facility] Work Phone: Start: 05-19-2015 Provider Instruction s for Treatment Follow up if no improvement or if symptoms worsen [facility]; [facility] Work Phone: Start: 2015 Diabetes screen Diabetes screen Luis Miguel [facility] Start: 03-19-2015 25 hydroxy includes fractions if performed Vitamin D Hydroxy (08723) [facility]; [facility] Work Phone: Start: 03-19-2015 Gonadotropin luteini zing hormone GONADOTROPIN-LH (94151) [facility] Work Phone: Start: 03-19-2015 Gonadotropin follicl e stimulating hormone GONADOTROPIN-FSH (79766) [facility]; [facility] Work Phone: Start: 03-19-2015 Assay of testosteron e free TESTOSTERONE FREE (17661) [facility]; [facility] Work Phone: Start: 03-19-2015 Assay of prolactin PROLACTIN (93572) [facility]; [facility] Work Phone: Start: 03-19-2015 Comprehensive metabo lic panel METABOLIC PANEL, COMPREHENSIVE (65519) [facility]; [facility] Work Phone: Start: 03-19-2015 Lipid panel LIPID PANEL (89616) [facility] Work Phone: Start: 03-19-2015 Cobalamin (Vitamin B 12) [Mass/Vol] VITAMIN B-12 (CYANOCOBALAMIN) (61600) [facility]; [facility] Work Phone: Start: 03-19-2015 Cyanocobalamin vitam in b-12 VITAMIN B-12 (CYANOCOBALAMIN) (04926) [facility]; [facility] Work Phone: Start: 03-19-2015 Procedure Education Eprescribe d prescriptions (G8553) [facility]; [facility] Work Phone: Start: 03-19-2015 Provider Instruction s for Treatment *Cholesterol - Medication Side Effects [facility] Work Phone: Start: 03-10-2015 25 hydroxy includes fractions if performed CALCIFEDIOL (15110) [facility]; [facility] Work Phone: Start: 03-10-2015 Assay of testosteron e free TESTOSTERONE FREE (34293) [facility]; [facility] Work Phone: Start: 03-10-2015 Lipid panel LIPID PANEL (68918) [facility]; [facility] Work Phone: Start: 03-10-2015 Comprehensive metabo lic panel METABOLIC PANEL, COMPREHENSIVE (81544) [facility]; [facility] Work Phone: Start: 08-19-2014 Provider Instruction s for Treatment [facility]; [facility] Work Phone: Start: 12-10-2013 Hepatic function panel HEPATIC FUNCTION PANEL (80531) [facility]; [facility] Work Phone: Start: 12-10-2013 Lipid panel Lipid Panel (10244) [facility]; [facility] Work Phone: Start: 11-07-2013 Hepatic function panel HEPATIC FUNCTION PANEL (42407) [facility]; [facility] Work Phone: Start: 11-07-2013 Lipid panel Lipid Panel (15959) [facility] Work Phone: Start: 11-06-2013 Provider Instruction s for Treatment [facility]; [facility] Work Phone: Start: 01-29-2013 Assay of prolactin PROLACTIN (28673) [facility]; [facility] Work Phone: Start: 01-29-2013 Assay of testosteron e free TESTOSTERONE FREE (62993) [facility]; [facility] Work Phone: Start: 01-29-2013 25 hydroxy includes fractions if performed Vitamin D Hydroxy (60151) [facility]; [facility] Work Phone: Start: 01-29-2013 Provider Instruction s for Treatment *Cholesterol - Medication Side Effects [facility]; [facility] Work Phone: Start: 12-11-2012 Provider Instruction s for Treatment Follow up in [address] Thornton but if not better return sooner [facility]; [facility] Work Phone: Start: 2010 LIPID SCREEN LIPID SCREEN [facility] Start: 1997 DTaP/Tdap/Td Vaccine s (1 - Tdap) DTaP/Tdap/Td Vaccines (1 - Tdap) [facility] Start: 1994 DTaP/Tdap/Td vaccine (1 - Tdap) DTaP/Tdap/Td vaccine (1 - Tdap) [place] Start: 1994 Hepatitis B Vaccines (1 of 3 - 19+ 3-dose series) Hepatitis B Vaccines (1 of 3 - 19+ 3-dose series) [facility] Start: 1994 Urine microalbumin profile DTAP,TDAP,TD (1 - Tdap) [facility] Start: 1993 HEPATITIS C SCREENING HEPATITIS C [facility] Start: 1993 Hepatitis C screening Hepatitis C [facility] Start: 1993 HIV SCREENING HIV SCREENING [facility] Start: 1990 HIV screen HIV screen [place], [place] Start: 1986 DTaP/Tdap/Td vaccine (1 - Tdap) DTaP/Tdap/Td vaccine (1 - Tdap) [facility] Work Phone: Start: 1976 MMR Vaccines (1 of 1 - Standard series) MMR Vaccines (1 of 1 - Standard series) [facility] Start: 1975 COVID-19 VACCINE (#1) COVID-19 VACCI NE (#1) [facility] Start: 1975 HEPATITIS B (1 of 3 - 3-dose series) HEPATITIS B (1 of 3 - 3-dose series) [facility] Start: 1975 HIV screening HIV Screening [facility] Start: 1975 Lipid panel Lipid Panel [facility] Start: 1975 Screening for malign ant neoplasm of colon [facility] Start: 1975 Yearly Adult Physical Yearly Adult P hysical [facility] Basic metabolic 2008 panel with ionized calcium - Serum or Plasma [facility] C reactive protein [Mass/volume] in Serum or Plasma [facility] Cardiovascular stres s testing [facility] CBC W Auto Different ial panel - Blood [facility] Cell count and Differential panel - Body fluid [facility] Crystals [type] in B latosha fluid by Light microscopy [facility] End: 08-29-2023 CT for calcium scoring WO contrast and CTA W contrast IV Heart and coronary arteries [facility] Service Area Work Phone: Comment on above: Once for 1 Occurrenc es starting 08/29/2023 until 08/29/2023 Glucose [Mass/volume ] in Synovial fluid [facility] Measurement of Borre taylor burgdorferi antibody [facility] Microbial culture, b latosha fluid [facility] Microscopic observat ion [Identifier] in Unspecified specimen by Gram stain [facility] MR Lower Extremity Joint [facility] End: 04-16-2019 Nasal Cannula Oxygen Nasal Cannula Oxygen Respiratory Care Routine As Needed until discontinued starting 04/16/2019 [facility] Work Phone: Comment on above: As Needed until disc ontinued starting 04/16/2019 Patient Education CONTACT%20DERMATITIS [facility] Work Phone: Patient referral [facility] Work Phone: Protein [Mass/volume ] in Synovial fluid [facility] Urate [Mass/volume] in Serum or Plasma [facility] Work Phone: [facility] Work Phone: [facility] Work Phone: [facility] Work Phone: [facility] Work Phone: [facility] Work Phone: [facility] Work Phone: [facility] Work Phone: [facility] Work Phone: [facility] Work Phone: [facility] Work Phone: [facility] Work Phone: [facility] Work Phone: [facility] Work Phone: [facility] Work Phone: [facility] Immunizations Immunization Date Immunization Notes Care Provider [facility] 04-16-2003 TD(adult) unspecifie d formulation Dr. Mariluz Gaytan DO Work Phone: [facility] 03-13-2003 poliovirus vaccine, inactivated Dr. Mariluz Gaytan DO Work Phone: [facility] Payers Date Payer Category Payer Unknown [id number] 2024 Unknown [id number] 2024 Self-pay [id number] 2022 Unknown 2022 Unknown [id number] 2021 Private Health Insurance [facility] [employer] [id number] 2021-Present [phone] [address] [place] [address] PPO [id number] 2017 Unknown [facility] xxxxxxxxxxx 2017-Present [phone] [address] [place] [address] xxxxxxxxxxx [id number] 2016 Private Health Insurance [id number] 1975 Unknown [id number] 1243 Unknown [id number] Unknown [id number] Unknown [id number]. 462 Unknown [id number] [id number]. 462 Unknown [id number] [id number]. 462 Unknown [id number] [id number]. 462 Unknown [id number] [id number]. 462 Unknown [id number] [id number]. 462 Unknown [id number] [id number]. 462 Unknown [id number] [id number]. 462 Unknown [id number] [id number]. 462 Unknown [id number]. 462 Unknown [id number] 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 Tobacco Use: Tobacco Use: [facility] Work Phone: Comment on above: working on quitting Alcohol Use: Alcohol Use: [facility] Work Phone: Tobacco Use: Tobacco Use: [facility] Work Phone: Comment on above: working on quitting Start: 04-16-2019 End: 02-04-2022 Alcohol intake Current non-drinker of alcohol (finding) [facility] Work Phone: Start: 1975 Sex Assigned At Male W [facility] Start: 01-14-2022 Tobacco use and exposure User of smokeless tobacco [facility] Start: 01-14-2022 Tobacco Comment i can lasts 4-6 days [facility] Start: 01-04-2022 End: 08-29-2023 Exposure to SARS-CoV-2 (event) Not sure [facility] Start: 04-01-2022 End: 07-06-2022 Alcohol intake Current drinker of alcohol (finding) [facility] Start: 04-01-2022 Alcohol Comment rare [facility] Start: 04-15-2022 Tobacco use and exposure Former smokeless tobacco user [facility] Tobacco smoking status NHIS Tobacco smoking consumption unknown [facility] Work Phone: Start: 08-22-2024 Sex Male (finding) [facility] Medical Equipment Procedure Code Equipment Code Equipment Origin al Text Equipment Identifier Dates Substitute Proge nix Plus Demineralized Bone Matrix Bovine Collagen Bone - [id number] Start: 09-05-2015 Comment on above: Description: Progeni x Plus Substitute Proge nix Demineralized Bone Matrix Bovine Collagen Bone Graft - [id number] Start: 09-05-2015 Comment on above: Description: Progeni x Bone Putty Screw Emma 3 Aarti nium Set Marie Spine - [id number] Start: 09-05-2015 Comment on above: Description: Marie s Yaa Emma 3 6mm Titanium 40mm Spinal Radiolucent - [id number] Start: 09-05-2015 Comment on above: Description: fixatio n yaa Screw Emma 7.5mm Titanium 55mm Bone Cannulated Spine Thoracolumbar - [id number] Start: 09-05-2015 Comment on above: Description: 7.5mm F ixation Screw Bee-Rs-C-Kind Im plant - [id number] Start: 04-07-2022 Wire Paul 6 5mm Fixation Smooth Trocar Tip 1.2mm [place] Plating - [id number] Start: 04-07-2022 Plt Slim Y 2 Hole [id number] Start: 04-07-2022 Screw Tamiko T8 F/T 2.7x28mm [id number] Start: 04-07-2022 Gwire Unthrd 2.5n271is [id number] Start: 04-07-2022 Functional Status Date Assessment Result Facility 05-25-2019 LP-IR Score LP-IR Score 87 [facility] Work Phone: Comment on above: INSULIN RESISTANCE Bronwyn HOPSON <--Insulin Sensitive Insulin Resistant--> Percentile in Reference PopulationInsulin Resistance ScoreLP-IR Score Low 25th 50th 75th High <27 27 45 63 >63LP-IR Score is inaccurate if patient is non-fasting. .The LP-IR score is a laboratory developed index that has beenassociated with insulin resistance and diabetes risk and should beused as one component of a physician's clinical assessment. Test(s) 453611-ATF-H ; 597916-GTL-J; 795054-ETJ-U; 766782-Cataracptlvrv; 985214-Ziljieulumx, Total; 945318-UCY-O (Total);154628-Zozyx LDL-P; 161556-FZS Size; 794829-NV-EW Scorewas developed and its performance characteristics determinedby [employer]. It has not been cleared or approved by the Foodand Drug Administration.PATIENT NOT FASTINGPERFORMED BY: BN [employer] [id number] BY: CB SegwayHunterdon Medical CenterWaxzkf4664 [facility] [id number] Clinical Notes 01-14-2022 to 11-27-2024 Note Date & Type Note Facility 11-27-2024 Progress note [facility] 11-27-2024 Progress note Note Date/Time November 27, 2024 4:10pm [facility] [address] [place], [place] [address] OFFICE VISIT Date of Service: 11/27/24 MR#: [id number] Acct: [id number] Name: SID PRUITT Rep #: [id number] : 1975 Provider: Dr. Darion Somers MD Age/Sex: 49/M Location: [facility] Status: Signed Intake Vital Signs 08/21/24 07:38 11/27/24 15:22 Height 6 ft 6 ft Weight: 259 lb 6 oz BMI 35.2 Intake Visit Reasons: RIGHT KNEE Chief Complaint: R Knee Pain Accompanied by: Is patient in pain?: Yes Pain scale (1-10): 9 Allergies No Known Allergies Allergy (Verified 11/27/24 15:24) Medications ?Medication ?Instructions ?Recorded ?Confirmed ?Type lisinopril 2.5 mg tablet 2.5 mg PO QDAY #30 tabs 09/3011/27/24 Rx PFSH Medical History (Updated 11/27/24 @ 15:45 by Saw Somers MD) Effusion, right knee Osteoarthritis of right knee Tear of medial meniscus of right knee Right knee pain Fracture of left ankle, lateral malleolus Internal derangement of right knee Kidney stone Surgical History History of ankle surgery H/O lithotripsy History of back surgery History of surgery Family History Brother Cancer skin; mouth Aunt Diabetes Father Brain bleed Grandfather Myocardial infarction, Onset Age: 79 Social History (Updated 11/27/24 @ 15:25 by Marcelle Huerta) household members: spouse and children housing: house current occupational status: employed 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 Saw Somers MD 11/27/24 1310. Part of today?s visit was documented by [ ], acting as scribe. SID PRUITT is a 49 year old M here today for R knee pain. medial and lateral side. 3 weeks no injury. never had it before. has a L spine fusion but no concerns from him there. No injury has had spontaneous diffuse onset of severe knee pain. It is a 12 out of 10. It is quite severe at night. There is been no injury. He has not had any drainage. There no history of gout. He was traveling about a week ago in [place]. 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 He has not hunted recently or had any recent tick bites. Denies fever chills or malaise. here with his and child. Supplemental Info [facility] Services [address] [place] [address] Knee 3 Views MR#: [id number] Acct: [id number] Name: SID PRUITT Rep #: [id number] : 1975 M 49 From: Marco Antonio Harrison MD PCP: Dr. Geneva Danielson MD Status: REG CLI Study: Knee 3 Views Date of Exam: 11/13/24 Exam# [id number] Ordering Dr: Huy Rodriguez PROCEDURE: KNEE 3 VIEWS 11/13/2024 REASON FOR EXAM: PAIN TECHNIQUE: KNEE 3 VIEWS COMPARISON: None FINDINGS: Bones: No fracture seen. Joints: Mild degree of joint space narrowing of the medial compartment of the knee joint as well as the patellofemoral joint. Effusion: Minimal joint effusion. Soft tissues: Unremarkable Other: RAD/Knee 3 Views IMPRESSION: DEGENERATIVE OSTEOARTHROSIS. NO ACUTE FINDINGS. Minimal joint effusion. Reading Location: [id number] [address] [place] [address] Lower Ext Joint Only (Routine) MR#: [id number] Acct: [id number] Name: SID PRUITT Rep #: [id number] : 1975 M 49 From: Ty Perry MD PCP: Dr. Geneva Danielson MD Status: REG CLI Study: Lower Ext Joint Only (Routine) Date of Exam: 11/23/24 Exam# [id number] Ordering Dr: Huy Rodriguez PROCEDURE: LOWER EXT JOINT ONLY (ROUTINE) 11/23/2024 REASON FOR EXAM: PAIN, LOCKING TECHNIQUE: LOWER EXT JOINT ONLY (ROUTINE) Multiplanar and multisequence images were obtained without IV contrast administration. COMPARISON: November 13, 2024 FINDINGS: Bone Marrow: There is a 0.5 x 0.7 cm developing osteochondral defect in the central portion of the medial femoral condyle with no free fragment. There is a 0.4 cm corticated osteochondral fragment within the popliteus tendon sheath. Cruciate ligaments: The anterior and posterior cruciate ligaments appear intact. Collateral ligaments: There is thickening and edema in the mid and upper portionof the medial collateral ligament without laxity, grade 2 sprain. The lateral collateral ligament complex appears intact. Menisci: There is a small horizontal tear in the body of the medial meniscus which extends to the tibial surface, coronal image 16/30. The lateral meniscus appears intact. Effusion: There is a small joint effusion. Cartilage: There is a 0.45 cm focal chondral defect in the lateral femoral condyle. There is moderate chondromalacia in the medial compartment. MRI/Lower Ext Joint Only (Routine) IMPRESSION: There is a 0.5 x 0.7 cm developing osteochondral defect in the central portion of the medial femoral condyle with no free fragment. There is a 0.4 cm corticated osteochondral fragment within the popliteus tendon sheath. There is thickening and edema in the mid and upper portion of the medial collateral ligament without laxity, grade 2 sprain. There is a small horizontal tear in the body of the medial meniscus which extends to the tibial surface, coronal image 16/30. There is a small joint effusion. There is a 0.45 cm focal chondral defect in the lateral femoral condyle. There is moderate chondromalacia in the medial compartment. Reading Location: [facility] I independently reviewed the imaging. Concur with radiologist report. Coding Level of Care Code Attention [employer] Product Tester Diagnoses Right knee pain M25.561 Tear of medial meniscus of right knee S83.241A Osteoarthritis of right knee M17.11 Effusion, right knee M25.461 Comment [id number] and cpt inject major joint Assessment and Plan Assessment and Plan (1) Right knee pain: Status: Acute Plan: 49 yr M with R knee pain moderate medial comp OA, small MM tear. Patient has a moderate-sized effusion and spontaneous onset of severe knee pain over 3 weeks, this could be gout pseudogout or infectious, Staph aureus or gonorrhea chlamydiainfection reactive arthritis, lyme, or effusion from osteoarthritis although given the severe pain moderate size of the effusion no trauma I would be leaningmore towards either a gout flare or an infectious cause. Discussed the pros cons risks and benefits going ahead with a right knee aspiration as well as I will send the patient for bloodwork. Right knee aspiration We discussed the pros and cons risks and benefits of going ahead with right kneeaspiration. The risks include but are not limited to infection, pain, acute flare reaction, stiffness, bleeding, damage to surrounding structures, worseningarthritis or damage to the cartilage, or missing a serious diagnosis that needs to be treated. This is to help in making the diagnosis. The patient wished to proceed. The lateral aspect of the knee was prepped with chlorhexidine in the usual sterile fashion. Sterile no touch technique was employed. Used Gebauer spray per bottle instructions. 6 cc of 0.25% bupivicaine was injected into the soft tissues. Gave it 10 minutes. Then 60cc syringe with 18 g needle to [id number] cc of orange/ straw fluid. No purulence. Bandage placed. The patient tolerated procedure well. There is no complications. Standard post procedure care instructions were given. Red flag symptoms were discussed in which case to return to clinic immediately or go to the emergency department such as redness, swelling, fever, discharge, drainage, increase pain or other symptoms. Sent to the lab for stat Gram stain culture and sensitivities crystals as well as glucose cell count and protein analysis. Asked the patient to follow-up on , but will call if abnormal results. I will also follow-up his blood work including the CBC with differential as well as CRP uric acid and Lyme titers and a basic metabolic panel. I stressed this is important to the patientshe understands will follow-up on . Cheryle to send fluids to lab for STAT analysis. Patient counselled on diagnosis, prognosis and treatment options. Osteoarthritis (OA) occurs when the cartilage in the knee joint breaks down, causing pain and stiffness. Here are several treatment options to help manage knee pain: 1. Lifestyle Changes What it is: Losing weight, avoiding high-impact activities, and exercising with low-impact activities like swimming or walking. How it helps: Reduces strain on the knee joint, improves muscle strength, and eases pain. 2. Physical Therapy What it is: Targeted exercises to strengthen the muscles around the knee and improve flexibility. How it helps: Provides support to the knee and improves mobility, reducing pain. 3. Medications What they are: Edry-mai-idmddlz pain relievers like ibuprofen, naproxen, or acetaminophen. How they help: Reduce pain and inflammation, making it easier to move the knee. 4. Injections What they are: Corticosteroid injections for inflammation, hyaluronic acid for lubrication, or PRP injections to promote healing. How they help: Provide temporary pain relief and improve knee function. 5. Assistive Devices What they are: Knee braces, sleeves, or custom shoe inserts. How they help: Provide support, stabilize the knee, and reduce pain. 6. Heat and Cold Therapy What it is: Applying heat or cold to the knee to relieve pain and swelling. How it helps: Heat relaxes muscles, and cold reduces inflammation. 7. Surgery What it is: Options like arthroscopy or knee replacement surgery for severe cases. How it helps: Provides long-term pain relief and improves knee function. When to Seek Help: If knee pain affects daily activities or doesn?t improve with self-care measures. (2) Tear of medial meniscus of right knee: Status: Acute (3) Osteoarthritis of right knee: Status: Acute (4) Effusion, right knee: Status: Acute Orders: Orders CBC W/Diff, Automated Today M25.461 - Effusion, right knee CRP Today M25.461 - Effusion, right knee Lyme Screen W/Reflex Today M25.461 - Effusion, right knee Uric Acid Today M25.461 - Effusion, right knee Basic Metabolic Profile (BMP) Today M25.461 - Effusion, right knee Ortho Exam General General: Yes no acute distress Neurologic: Yes alert and Yes oriented x3 Psychologic: Yes reasonable and appropriate Right Knee Skin/Wound: Yes CDI, No erythema, No ecchymosis and Yes swelling 2+: Effusion Examination: Yes Med jt line tenderness, Yes Lat jt line tenderness, Yes TTP infpole patella, No Crepitus, Yes Pain with flexion, No Thomas's Test, Yes TTP Patellar tendon, Yes TTP Tibial tubercle, No TTP Pes Anserine and No Illiotibialband tenderness Quad Atrophy: No Stability: NML: Anterior Drawer, NML: Jordon, NML: Posterior Drawer, NML: Valgus 0, NML: Valgus 30, NML: Varus 0 and NML: Varus 30 Patella Translation: 2 Apprehension with Lateral Translation: No Patellar Tilt Normal: Yes Patella Grind: No KNEE: NVI, antalgic gait, normal alignment, mild warmth, no redness or drainage, pain with flexion over 90, rom 0-90. Left Knee Patella Translation: 2 11/27/24 1610 <Electronically signed by Saw bob MD> Date _ Saw Somers MD Cosigner Signature: Date (if applicable) CC: ~ [facility] Work Phone: 1(534) 185-285007-15-2025 Radiology Diagnostic study note [facility] [address] [place], [place] [id number] Lumbar Spine 2 or 3 Views MR#: [id number] Acct: [id number] Name: SID PRUITT Rep #: [id number] : 1975 M 49 From: Gary Harrison MD PCP: Dr. Geneva Danielson MD Status: REG CLI Study:Lumbar Spine 2 or 3 Views Date of Exam: 11/13/24 Exam# [id number] Ordering Dr: St darline Rodriguez PROCEDURE: LUMBAR SPINE 2 OR 3 VIEWS 11/13/2024 REASON FOR EXAM: LOWER BACK PAIN INTO LEG TECHNIQUE: LUMBAR SPINE 2 OR 3 VIEWS COMPARISON: None FINDINGS: Vertebrae: Patient is status post laminectomy and fusion at the L5-S1 level. Discs: Moderate degree of disc space narrowing at the L5-S1 level with minimal anterior listhesis of L5 on S1. Disc space narrowing at the L4-L5 level. Alignment: Minimal anterior listhesis of L5 on S1. Other: RAD/Lumbar Spine 2 or 3 Views IMPRESSION: MILD DEGENERATIVE CHANGES OF THE LUMBAR SPINE. Status post fusion at the L5-S1 level with anterior listhesis of L5 on S1. Reading Location: [facility] CC: Dr. Geneva Danielson MD; JOAN Morley [employer]er: Signed [facility]07-15-2025 Radiology Diagnostic study note [facility] Services [address] [place] [id number] Knee 3 Views MR#: [id number] Acct: [id number] Name: SID PRUITT Rep #: [id number] : 1975 M 49 From: Gary Harrison MD PCP: Dr. Geneva Danielson MD Status: REG CLI Study:Knee 3 Views Date of Exam: 5 Exam# [id number] Ordering Dr: St darline Rodriguez PROCEDURE: KNEE 3 VIEWS 11/13/2024 REASON FOR EXAM: PAIN TECHNIQUE: KNEE 3 VIEWS COMPARISON: None FINDINGS: Bones: No fracture seen. Joints: Mild degree of joint space narrowing of the medial compartment of the knee joint as well asthe patellofemoral joint. Effusion: Minimal joint effusion. Soft tissues: Unremarkable Other: RAD/Knee 3 Views IMPRESSION: DEGENERATIVE OSTEOARTHROSIS. NO ACUTE FINDINGS. Minimal joint effusion. Reading Location: [id number] CC: Dr. Geneva Danielson MD; JOAN Morley ~ [employer]er: Signed [facility]04-21-2025 Radiology Diagnostic study note [facility] [address] [place] [address] Chest PA and Lateral MR#: [id number] Acct: [id number] Name: SID PRUITT Rep #: [id number] : 1975 M 49 From: Breana Coronado MD PCP: Dr. Geneva Danielson MD Status: REG CLI Study:Chest PA and Lateral Date of Exam: 08/20/24 Exam# [id number] Ordering Dr: Geneva Danielson MD PROCEDURE: CHEST PA AND LATERAL 08/20/2024 REASON FOR EXAM: COUGH TECHNIQUE: Frontal and lateral views of the chest. COMPARISON: No relevant prior FINDINGS: Lungs: Lungs clear of pneumonia and congestion. Pleura: No pleural effusions, thickening, or pneumothorax. Heart: Normal in size and configuration. Mediastinum/Ana: Unremarkable. Great vessels: Unremarkable. Bones/soft tissues: Unremarkable. RAD/Chest PA and Lateral IMPRESSION: No active cardiopulmonary disease. Reading Location: [facility] CC: Dr. Geneva Danielson MD ~ [employer]er: Signed [facility]04-21-2025 Evaluation note* Diagnosis Onset Date Resolution Status Admit Date Essential hypertension acute Ap 2024 2:18pm Prediabetes acute August 20, 2 025 2:18pm Chews tobacco noneactive August 20, 2024 2:18pm Cough present for greater th an 3 weeks noneactive August 20, 2024 2:18pm Chest pain in adult noneactive August 20, 2024 2:18pm Obesity (BMI 30-39.9) noneactive Jul 2:18pm Acute bronchitis, unspecified acute August 21, 2024 7:34am Effusion, right knee acute November 27, 2024 3:17pm Osteoarthritis of right knee acute November 27, 2024 3:17pm Right knee pain acute October 3:17pm Tear of medial meniscus of right knee acute November 27, 2024 3:17pm [facility] Work Phone: 1([phone]) 965-173503-26-2025 Evaluation note* Diagnosis Onset Date Resolution Status Admit Date Sore throat acute July 25, 2 025 7:34am Essential hypertension acute Ap ril 2024 2:18pm Prediabetes acute August 20, 2 025 2:18pm Chews tobacco noneactive August 20, 2024 2:18pm Cough present for greater th an 3 weeks noneactive August 20, 2024 2:18pm Chest pain in adult noneactive August 20, 2024 2:18pm Obesity (BMI 30-39.9) noneactive Jul 2:18pm Acute bronchitis, unspecified acute August 21, 2024 7:34am [facility] Work Phone: 1(650) 688-199201-02-2025 Evaluation note* Diagnosis Onset Date Resolution Status Admit Date Essential hypertension acute Ja nuary 2024 1:43pm Prediabetes acute May 03, 2024 1:43pm Colon cancer screening declined noneactive May 03 1:43pm Immunization declined noneactive May ua2024 1:43pm Establishing care with new doctor, encounter for noneactive May 1:43pm Stress noneactive May 03 2 025 1:43pm Testosterone deficiency noneactive J anuary 2024 1:43pm Chest pain in adult noneactive Janua ry 2024 1:43pm Sore throat acute July 25, 2 025 7:34am Essential hypertension acute Ap ril 2024 2:18pm Prediabetes acute August 20, 2 025 2:18pm Chews tobacco noneactive August 20, 2024 2:18pm Cough present for greater than 3 weeks noneactive August 20, 2024 2:18pm Chest pain in adult noneactive August 20, 2024 2:18pm Obesity (BMI 30-39.9) noneactive Jul 2:18pm Acute bronchitis, unspecified acute August 21, 2024 7:34am [facility] Work Phone: 1(344) 524-745007-17-2023 Discharge summary Author Pattie Duffy [facility] November 15, 2022 11:15am Note Date/Time November 15, 2022 11:1 5am [facility] Physical Therapy [facility] [address] [place] [address] / REHABILITATION SERVICES DISCHARGE SUMMARY MR#: [id number] Acct: [id number] Name: SID PRUITT Rep #: [id number] : 1975 47 From: Pattie Logan Referring Dr.: Dr. Usama Olivo DO Status: REG RCR Insurance: [facility] SELF PAY INSURANCE Patient Information Patient Information: SID PRUITT was seen in my office for initial evaluation on 06/09/22. The following Plan of Care was established for this patient: POC Established Initial Frequency: 1x/Week Initial Duration: 6 Weeks Anticipated Interventions Patient/Client Instruction: Educate patient on: Benefits of Fitness Program Therapeutic Exercise to Include: Strength training, Endurance training, Balance training, Coordination, Agility training, Body mechanics, Postural training, Flexibilty training, Gait and locomotor training, Neuromotor development, Passive ROM, Active ROM, Dynamic Lumbar Stabilization and Scapular Strength/Stabilization For the Purpose of:: To improve muscle performance and motor function Manual Therapy Techniques to Include: Soft tissue mobilization TENS: Yes Cryotherapy (ice pack, ice massage): Yes Thermo therapy (hot pack): Yes Last Seen Last Seen: This patient was last seen in our office . Pertinent comments regarding their Physical therapy will appear below: Patient to continue to follow up with MD- appropriate to be d/c from PT At this point I will be discontinuing this patient from physical therapy. I would be happy to see this patient again in the future if found appropriate by the physician. Thank you! Pattie Duffy DPT Balance/Gait/Functional tests Balance/Special Test Scores Lower Extremity Functional Score: 22 <Electronically signed by Pattie Duffy DPT> 11/15/22 1115 CC: Dr. Usama Olivo DO; Dr. Mariluz Gaytan, ~ ELR Signed [facility] Work Phone: 1(158) 770-744602-23-2023 History of Present illness Narrative* Usama Olivo DPM - 06/24/2022 8:45 AM EST DOS: 04/07/22 POD: 78 POV: 5 Procedure: Repair peroneal tendon rupture, left ankle Flexor hallucis longus tendon transfer, left ankle Calcaneal osteotomy, left foot First metatarsal osteotomy, left foot This 47 year old male presents for a post op visit. Patient states they are doing well overall. Pain is well controlled and primarily soreness at this point. Patient has been WB in CAM boot with the assistance of crutches when weight bearing. He has been going to PT. Rates pain as 3/10 which is improved compared to previous visit. Denies any current nausea, vomiting, fever, chills, shortness of breath, chest pain or calf pain. Denies any other pedal complaints. PAST MEDICAL HISTORY Diagnosis Date Acquired cavovarus foot deformity, left Arthritis Delayed emergence from general anesthesia when awakening from back sx 2016 w/ dilpauid had moderate SOB Kidney stone Left ankle pain Traumatic rupture of peroneal tendon of left foot Current Outpatient Medications Medication Sig naloxone 4 mg/actuation nasal spray (NARCAN) Use 1 spray in one nostril as needed for overdose. Mayrepeat every 2 to 3 min in alternating nostrils until medical assistance is available oxyCODONE-acetaminophen (PERCOCET) 5-325 mg tablet Take 1-2 tablets by mouth every 4 hours as needed for pain. acetaminophen (TYLENOL) 500 mg tablet Take 500 mg by mouth every 8 hours as needed. oxyCODONE-acetaminophen (PERCOCET) 5-325 mg tablet Take 1 tablet by mouth every 8 hours as needed for pain. (Patient not taking: Reported on 05/13/2022) oxyCODONE-acetaminophen (PERCOCET) 5-325 mg tablet Take 1 tablet by mouth every 4 hours as needed for pain. for pain. (Patient not taking: Reported on 05/13/2022) gabapentin (NEURONTIN) 300 mg capsule Take 1 capsule by mouth three times daily for 30 days. aspirin, enteric coated (ASPIRIN, ENTERIC COATED) 81 mg EC tablet Take 1 tablet by mouth twice daily for 21 days. ibuprofen (MOTRIN) 200 mg tablet Take 200 mg by mouth every 6 hours as needed. (Patient not taking:Reported on 05/13/2022) No current facility-administered medications for this visit. ALLERGIES Allergen Reactions Hydromorphone Shortness of Breath Pt received medication in 2016;& reports moderate SOB upon awakening in RR Objective: Patient presents weight bearing to left leg in CAM boot. Dressing is dry, clean, and intact with normal strike through noted. Problem focus examination to the left lower extremity: Incision site is well coapted without evidence of dehiscence. Mild erythema and edema surrounding surgical site. No drainage. No lymphadenopathy. No lymphangitis. No surrounding cellulitis. No signs of infection. Patient has no pain to palpation of calf. The calf is soft, supple no evidence of DVT. Satisfactoryalignment is noted. Pedal pulses are palpable. Capillary refill time is less than three seconds to all digits. Sensations are intact to light touch. Radiographs: 2 views left ankle, 3 views left foot (06/24/22) Impression: Hardware intact without breakage or loosening. Triplane position is maintained. No acute destructive changes. No soft tissue gas. No complications seen. Bony trabeculation with interval healing across osteotomy sites. Assessment: Satisfactory post-operative progress Plan: The patient was educated on clinical examination findings, postoperative prognosis and protocol. All questions were answered to patient's apparent satisfaction. -Begin to transition to weight bearing in lace up ankle brace with regular tennis shoe. Self limit from pain. -Lace up ankle brace fitted and dispensed to be worn on the operative extremity. -Continue physical therapy. -X-rays left foot and ankle reviewed. -Consider custom foot orthotics at next visit. Dorothy Damon DPM PGY-3 I personally saw and evaluated the patient. I reviewed the resident's note. I agree with the resident's assessment and plan unless otherwise noted. Usama Olivo DPM, FACFAS [facility] History of Present illness Narrative* Usama Olivo DPM - 05/27/2022 9:29 AM EST DOS: 04/07/22 POD: 50 POV: 4 Procedure: Repair peroneal tendon rupture, left ankle Flexor hallucis longus tendon transfer, left ankle Calcaneal osteotomy, left foot First metatarsal osteotomy, left foot This 47 year old male presents for a post op visit. Patient states they are doing well overall. Pain is well controlled and primarily soreness at this point. Has been icing and elevating the extremity as instructed preoperatively and has been nonweightbearing to the left lower extremity in cast. Denies any current nausea, vomiting, fever, chills, shortness of breath, chest pain or calf pain. Has discontinued taking Aspirin for DVT prophylaxis DVT US negative for DVT of the operative extremity. Denies any other pedal complaints. PAST MEDICAL HISTORY Diagnosis Date Acquired cavovarus foot deformity, left Arthritis Delayed emergence from general anesthesia when awakening from back sx 2016 w/ gamaliel had moderate SOB Kidney stone Left ankle pain Traumatic rupture of peroneal tendon of left foot Current Outpatient Medications Medication Sig naloxone 4 mg/actuation nasal spray (NARCAN) Use 1 spray in one nostril as needed for overdose. Mayrepeat every 2 to 3 min in alternating nostrils until medical assistance is available gabapentin (NEURONTIN) 300 mg capsule Take 1 capsule by mouth three times daily for 30 days. aspirin, enteric coated (ASPIRIN, ENTERIC COATED) 81 mg EC tablet Take 1 tablet by mouth twice daily for 21 days. oxyCODONE-acetaminophen (PERCOCET) 5-325 mg tablet Take 1-2 tablets by mouth every 4 hours as needed for pain. acetaminophen (TYLENOL) 500 mg tablet Take 500 mg by mouth every 8 hours as needed. oxyCODONE-acetaminophen (PERCOCET) 5-325 mg tablet Take 1 tablet by mouth every 8 hours as needed for pain. (Patient not taking: Reported on 05/13/2022) oxyCODONE-acetaminophen (PERCOCET) 5-325 mg tablet Take 1 tablet by mouth every 4 hours as needed for pain. for pain. (Patient not taking: Reported on 05/13/2022) ibuprofen (MOTRIN) 200 mg tablet Take 200 mg by mouth every 6 hours as needed. (Patient not taking:Reported on 05/13/2022) No current facility-administered medications for this visit. ALLERGIES Allergen Reactions Hydromorphone Shortness of Breath Pt received medication in 2016;& reports moderate SOB upon awakening in RR Objective: Patient presents nonweightbearing to left leg. Dressing is dry, clean, and intact with normal strike through noted. Problem focus examination to the left lower extremity: Incision site is well coapted without evidence of dehiscence. Mild erythema and edema surrounding surgical site. No drainage. No lymphadenopathy. No lymphangitis. No surrounding cellulitis. No signs of infection. Patient has no pain to palpation of calf. The calf is soft, supple no evidence of DVT. Satisfactoryalignment is noted. Pedal pulses are palpable. Capillary refill time is less than three seconds to all digits. Sensations are intact to light touch. Radiographs: 2 views left ankle, 3 views left foot (05/27/22) Impression: Hardware intact without breakage or loosening. Triplane position is maintained. No acute destructive changes. No soft tissue gas. No complications seen. Bony trabeculation with interval healing across osteotomy sites. Assessment: Satisfactory post-operative progress Plan: The patient was educated on clinical examination findings, postoperative prognosis and protocol. All questions were answered to patient's apparent satisfaction. -Begin to transition to weight bearing in CAM boot to operative extremity. Continue using knee scooter outside of the house. Self limit from pain. -Rx Physical therapy dispensed. -X-rays left foot and ankle reviewed. Follow up in 1 month Dorothy Damon DPM PGY-3 I personally saw and evaluated the patient. I reviewed the resident's note. I agree with the resident's assessment and plan unless otherwise noted. Usama Olivo DPM, FACFAS documented [facility] encounter[facility] History of Present illness Narrative* RT Dylan(Steff) - 05/13/2022 3:30 PM EST Radiology Service Progress Note PATIENT NAME: Sid Pruitt DATE OF SERVICE: May 13, 2022 TIME: 3:30 PM PATIENT IDENTITY VERIFICATION COMPLETED USING TWO (2) IDENTIFIERS: Name and Date of confirmedby patient verbally. FALL SCREENING: Has the patient had 2 falls in the last year or 1 fall with injury or currently using an Ambulatory Assistive Device (Walker, Cane, Wheelchair, Crutches, etc.)? No PATIENT GENDER DATA: Male PATIENT RELEVANT IMPLANT DATA REVIEWED: Not Applicable RADIOLOGY DEPARTMENT: Ultrasound PERIPHERAL IV DATA: Not applicable SIGNED BY: RT Dylan(R) May 13, 2022 3:30 PM documented in this encounterM[facility]01[facility] History of Present illness Narrative* Usama Olivo, KRIS - 05/13/2022 9:27 AM EST DOS: 04/07/22 POD: 36 POV: 3 Procedure: Repair peroneal tendon rupture, left ankle Flexor hallucis longus tendon transfer, left ankle Calcaneal osteotomy, left foot First metatarsal osteotomy, left foot This 47 year old male presents for a post op visit. Patient states they are doing well overall. Pain is well controlled and primarily soreness at this point. Has been icing and elevating the extremity as instructed preoperatively and has been nonweightbearing to the left lower extremity in cast. Denies any current nausea, vomiting, fever, chills, shortness of breath, chest pain or calf pain. Has discontinued taking Aspirin for DVT prophylaxis. + new calf pain and cramping over the past 1 week. Denies any other pedal complaints. PAST MEDICAL HISTORY Diagnosis Date Acquired cavovarus foot deformity, left Arthritis Delayed emergence from general anesthesia when awakening from back sx 2016 w/ gamaliel had moderate SOB Kidney stone Left ankle pain Traumatic rupture of peroneal tendon of left foot Current Outpatient Medications Medication Sig acetaminophen (TYLENOL) 500 mg tablet Take 500 mg by mouth every 8 hours as needed. oxyCODONE-acetaminophen (PERCOCET) 5-325 mg tablet Take 1 tablet by mouth every 8 hours as needed for pain. (Patient not taking: Reported on 05/13/2022) naloxone 4 mg/actuation nasal spray (NARCAN) Use 1 spray in one nostril as needed for overdose. Mayrepeat every 2 to 3 min in alternating nostrils until medical assistance is available oxyCODONE-acetaminophen (PERCOCET) 5-325 mg tablet Take 1 tablet by mouth every 4 hours as needed for pain. for pain. (Patient not taking: Reported on 05/13/2022) gabapentin (NEURONTIN) 300 mg capsule Take 1 capsule by mouth three times daily for 30 days. aspirin, enteric coated (ASPIRIN, ENTERIC COATED) 81 mg EC tablet Take 1 tablet by mouth twice daily for 21 days. oxyCODONE-acetaminophen (PERCOCET) 5-325 mg tablet Take 1-2 tablets by mouth every 4 hours as needed for pain. (Patient not taking: Reported on 05/13/2022) ibuprofen (MOTRIN) 200 mg tablet Take 200 mg by mouth every 6 hours as needed. (Patient not taking:Reported on 05/13/2022) No current facility-administered medications for this visit. ALLERGIES Allergen Reactions Hydromorphone Shortness of Breath Pt received medication in 2016;& reports moderate SOB upon awakening in RR Objective: Patient presents nonweightbearing to left leg. Dressing is dry, clean, and intact with normal strike through noted. Problem focus examination to the left lower extremity: Incision site is well coapted without evidence of dehiscence. Mild erythema and edema surrounding surgical site. No drainage. No lymphadenopathy. No lymphangitis. No surrounding cellulitis. No signs of infection. Patient has + pain to palpation of calf. The calf is soft, supple. + Serjio's test. Satisfactory alignment is noted. Pedal pulses are palpable. Capillary refill time is less than three seconds to all digits. Sensations are intact to light touch. Radiographs: 2 views left ankle, 3 views left foot (04/23/22) Impression: Hardware intact without breakage or loosening. Triplane position is maintained. No acute destructive changes. No soft tissue gas. No complications seen. Assessment: Satisfactory post-operative progress Plan: The patient was educated on clinical examination findings, postoperative prognosis and protocol. All questions were answered to patient's apparent satisfaction. - Tall CAM boot fitted and dispensed. - Begin NWB ROM exercises. - Patient to continue nonweightbearing to the operative extremity. - Stressed importance of continuing ASA 81 mg BID for DVT ppx. - STAT DVT US ordered LLE Follow up in 2 weeks with weight bearing x-rays of left foot. Mayra Givens DPM PGY-3 I personally saw and evaluated the patient. I reviewed the resident's note. I agree with the resident's assessment and plan unless otherwise noted. Usama Olivo DPM, FACFAS documented in this encounterM[facility]12-27-[facility] Miscellaneous Notes* Telephone Encounter - Geno Tineo [place] [facility] - 04/27/2022 9:10 AM EST This was sent to the providers and was address on Tuesday Geno John * Telephone Encounter - Geno John - 04/27/2022 9:10 AM EST ----- Message from Marjorie Roberts sent at 04/23/2022 4:10 PM EST ----- Regarding: ORthopedics/[facility]/Waiting on Meds Subject Line Format: Orthopedics / [Provider Name or Open & Body Part] / [Issue] Patient has been identified by name and Date of (Y/N): Y Patient: Sid Pruitt Date of : 1975 Previous Provider Seen: Pallavi Body Part(s) Identified: Left Ankle Diagnosis/Reason For Visit: waiting on Meds. Reason for the call/escalation: Pt currently waiting at the pharmacy because his meds have not beensent over. Explained provider has not signed off on them. Pt, said he called at noon. Explained provider is seeing pts. If reason for call/escalation is discharge from ED/ER or Hospital, which facility was the patient seen at: na Was an appointment scheduled (Y/N): N Person calling if other than patient: pt Return call to if other than patient: pt Best contact number: [phone] Thank you, Marjorie Roberts April 23, 2022 4:10 PM documented in this encounterM[facility]12-24-[facility] History of Present illness Narrative* Usama Olivo DPM - 04/24/2022 10:15 AM EST DOS: 04/07/22 POD: 16 POV: 2 Procedure: Repair peroneal tendon rupture, left ankle Flexor hallucis longus tendon transfer, left ankle Calcaneal osteotomy, left foot First metatarsal osteotomy, left foot This 47 year old male presents for a post op visit. Patient states they are doing well overall. Pain is better controlled since last visit. Has been icing and elevating the extremity as instructed preoperatively and has been nonweightbearing to the left lower extremity in cast. Denies any current nausea, vomiting, fever, chills, shortness of breath, chest pain or calf pain. Has been taking Aspirin for DVT prophylaxis. Denies any other pedal complaints. PAST MEDICAL HISTORY Diagnosis Date Acquired cavovarus foot deformity, left Arthritis Delayed emergence from general anesthesia when awakening from back sx 2016 w/ gamaliel had moderate SOB Kidney stone Left ankle pain Traumatic rupture of peroneal tendon of left foot Current Outpatient Medications Medication Sig oxyCODONE-acetaminophen (PERCOCET) 5-325 mg tablet Take 1 tablet by mouth every 4 hours as needed for pain. for pain. gabapentin (NEURONTIN) 300 mg capsule Take 1 capsule by mouth three times daily for 30 days. aspirin, enteric coated (ASPIRIN, ENTERIC COATED) 81 mg EC tablet Take 1 tablet by mouth twice daily for 21 days. oxyCODONE-acetaminophen (PERCOCET) 5-325 mg tablet Take 1-2 tablets by mouth every 4 hours as needed for pain. ibuprofen (MOTRIN) 200 mg tablet Take 200 mg by mouth every 6 hours as needed. acetaminophen (TYLENOL) 500 mg tablet Take 500 mg by mouth every 8 hours as needed. No current facility-administered medications for this visit. ALLERGIES Allergen Reactions Hydromorphone Shortness of Breath Pt received medication in 2016;& reports moderate SOB upon awakening in RR Objective: Patient presents nonweightbearing to left leg. Dressing is dry, clean, and intact with normal strike through noted. Problem focus examination to the left lower extremity: Incision site is well coapted without evidence of dehiscence. Mild erythema and edema surrounding surgical site. No drainage. No lymphadenopathy. No lymphangitis. No surrounding cellulitis. No signs of infection. Patient has no pain to palpation of calf. The calf is soft, supple and nontender without evidence of DVT. Negative Serjio's test. Satisfactory alignment is noted. Pedal pulses are palpable. Capillary refill time is less than three seconds to all digits. Sensations are intact to light touch. Radiographs: 2 views left ankle, 3 views left foot (04/23/22) Impression: Hardware intact without breakage or loosening. Triplane position is maintained. No acute destructive changes. No soft tissue gas. No complications seen. Assessment: Satisfactory post-operative progress Plan: The patient was educated on clinical examination findings, postoperative prognosis and protocol. All questions were answered to patient's apparent satisfaction. - X-rays reviewed with patient - Sutures removed today - Short leg cast was applied today - Patient to continue nonweightbearing to the operative extremity. - Continue ASA for DVT ppx. Follow up in 2 weeks Bull Judge DPM PGY-3 I personally saw and evaluated the patient. I reviewed the resident's note. I agree with the resident's assessment and plan unless otherwise noted. Usama Olivo DPM, FACFAS * Usama Olivo DPM - 04/23/2022 9:11 AM EST REVIEW OF SYSTEMS: GENERAL: Well developed, well nourished. No acute distress PAIN: Negative for pain, history of chronic pain or current treatment for chronic pain conditions left ankle CARDIOVASCULAR: Negative for chest pain, leg swelling and palpations. MSK: Negative for joint swelling SKIN: Negative for lesions, rash, itching, metal sensitivity NEURO: Negative for seizure, trauma, numbness/tingling of extremities. ENDOCRINE: Negative for diabetic associated symptoms HEMATOLOGY: Negative for excessive bleeding, clots, bleeding disorders. documented in this encounterM[facility]12-15-[facility]22 History of Present illness Narrative* Usama Olivo DPM - 04/15/2022 9:15 AM EST DOS: 04/07/22 POD: 8 POV: 1 Procedure: Repair peroneal tendon rupture, left ankle Flexor hallucis longus tendon transfer, left ankle Calcaneal osteotomy, left foot First metatarsal osteotomy, left foot This 47 year old male presents for a post op visit. Patient states they are doing well overall, butis complaining of significant pain despite percocet and gabapentin. Relates the gabapentin has beencausing him to breathe differently so he has stopped this. Has been icing and elevating the extremity as instructed preoperatively and has been nonweightbearing to the left lower extremity. Denies any current nausea, vomiting, fever, chills, shortness of breath, chest pain or calf pain. Has been taking Aspirin for DVT prophylaxis. Denies any other pedal complaints PAST MEDICAL HISTORY Diagnosis Date Acquired cavovarus foot deformity, left Arthritis Delayed emergence from general anesthesia when awakening from back sx 2016 w/ gamaliel had moderate SOB Kidney stone Left ankle pain Traumatic rupture of peroneal tendon of left foot Current Outpatient Medications Medication Sig gabapentin (NEURONTIN) 300 mg capsule Take 1 capsule by mouth three times daily for 30 days. aspirin, enteric coated (ASPIRIN, ENTERIC COATED) 81 mg EC tablet Take 1 tablet by mouth twice daily for 21 days. oxyCODONE-acetaminophen (PERCOCET) 5-325 mg tablet Take 1-2 tablets by mouth every 4 hours as needed for pain. ibuprofen (MOTRIN) 200 mg tablet Take 200 mg by mouth every 6 hours as needed. acetaminophen (TYLENOL) 500 mg tablet Take 500 mg by mouth every 8 hours as needed. No current facility-administered medications for this visit. ALLERGIES Allergen Reactions Hydromorphone Shortness of Breath Pt received medication in 2016;& reports moderate SOB upon awakening in RR Objective: Patient presents nonweightbearing to left leg. Dressing is dry, clean, and intact with normal strike through noted. Problem focus examination to the left lower extremity: Incision site is well coapted without evidence of dehiscence. Mild erythema and edema surrounding surgical site. No drainage. No lymphadenopathy. No lymphangitis. No surrounding cellulitis. No signs of infection. Patient has no pain to palpation of calf. The calf is soft, supple and nontender without evidence of DVT. Negative Serjio's test. Satisfactory alignment is noted. Pedal pulses are palpable. Capillary refill time is less than three seconds to all digits. Sensations are intact to light touch. Assessment: Satisfactory post-operative progress Plan: The patient was educated on clinical examination findings, postoperative prognosis and protocol. All questions were answered to patient's apparent satisfaction. - Bandage removed and new dressing applied. - Sutures were left intact at today's visit. - Short leg cast was applied today - Patient to continue nonweightbearing to the operative extremity. - Continue ASA for DVT ppx. - Rx for knee scooter dispensed to patient today. - Discussed pain control and given acute postoperative period, new Rx percocet dispensed. Advised patient to slowly wean off of percocet. Recommend additional supplementation with ibuprofen. Follow up in 1 week. Pat Steele DPM PGY3 I personally saw and evaluated the patient. I reviewed the resident's note. I agree with the resident's assessment and plan unless otherwise noted. Usama Olivo DPM, FACFAS documented in this encounterM[facility]12-09-2022 Miscellaneous Notes* Telephone Encounter - Geno Tineo Services Advisor Ppg - 04/09/2022 1:38 PM EST Sent to Dr Francois covering for Dr Pallavi Tineo Services Advisor Ppg documented in this encounterM[facility]12-[facility] History of Past illness Narrative* Problem Noted Date Resolved Date Ankle instability, left 04/07/2022 04/07/20 22 Acquired cavovarus foot deformity, left 04/07/20 22 04/07/2022 Traumatic rupture of peroneal tendon of left lisa t 04/07/2022 04/07/2022 documented as of this encounter (statuses as of 04/09/2022) [facility] of [facility] illness Narrative* Problem Noted Date Resolved Date Ankle instability, left 04/07/2022 04/07/20 22 Acquired cavovarus foot deformity, left 04/07/20 22 04/07/2022 Traumatic rupture of peroneal tendon of left lisa t 04/07/2022 04/07/2022 documented as of this encounter (statuses as of 04/15/2022) [facility] of [facility] illness Narrative* Problem Noted Date Resolved Date Ankle instability, left 04/07/2022 04/07/20 22 Acquired cavovarus foot deformity, left 04/07/20 22 04/07/2022 Traumatic rupture of peroneal tendon of left lisa t 04/07/2022 04/07/2022 documented as of this encounter (statuses as of 04/26/2022) [facility] of Past illness Narrative* Problem Noted Date Resolved Date Ankle instability, left 04/07/2022 04/07/20 22 Acquired cavovarus foot deformity, left 04/07/20 22 04/07/2022 Traumatic rupture of peroneal tendon of left lisa t 04/07/2022 04/07/2022 documented as of this encounter (statuses as of 05/02/2022) [facility] of [facility] illness Narrative* Problem Noted Date Resolved Date Ankle instability, left 04/07/2022 04/07/20 22 Acquired cavovarus foot deformity, left 04/07/20 22 04/07/2022 Traumatic rupture of peroneal tendon of left lisa t 04/07/2022 04/07/2022 documented as of this encounter (statuses as of 05/02/2022) [facility] of [facility] illness Narrative* Problem Noted Date Resolved Date Ankle instability, left 04/07/2022 04/07/20 22 Acquired cavovarus foot deformity, left 04/07/20 22 04/07/2022 Traumatic rupture of peroneal tendon of left lisa t 04/07/2022 04/07/2022 documented as of this encounter (statuses as of 05/05/2022) [facility] of [facility] illness Narrative* Problem Noted Date Resolved Date Ankle instability, left 04/07/2022 04/07/20 22 Acquired cavovarus foot deformity, left 04/07/20 22 04/07/2022 Traumatic rupture of peroneal tendon of left lisa t 04/07/2022 04/07/2022 documented as of this encounter (statuses as of 05/14/2022) [facility] of [facility] illness Narrative* Problem Noted Date Resolved Date Ankle instability, left 04/07/2022 04/07/20 22 Acquired cavovarus foot deformity, left 04/07/20 22 04/07/2022 Traumatic rupture of peroneal tendon of left lisa t 04/07/2022 04/07/2022 documented as of this encounter (statuses as of 05/14/2022) [facility] of [facility] illness Narrative* Problem Noted Date Resolved Date Ankle instability, left 04/07/2022 04/07/20 22 Acquired cavovarus foot deformity, left 04/07/20 22 04/07/2022 Traumatic rupture of peroneal tendon of left lisa t 04/07/2022 04/07/2022 documented as of this encounter (statuses as of 06/05/2022) [facility] of [facility] illness Narrative* Problem Noted Date Resolved Date Ankle instability, left 04/07/2022 04/07/20 Acquired cavovarus foot deformity, left 04/07/20 22 04/07/2022 Traumatic rupture of peroneal tendon of left lisa t 04/07/2022 04/07/2022 documented as of this encounter (statuses as of 07/07/2022) [facility] History and physical note* Shannon Caruso, ANJUM.[employer] OUTREACH WORKER - 04/01/2022 3:00 PM EST HISTORY AND PHYSICAL EXAMINATION SERVICE DATE: 04/01/2022 SERVICE TIME: 3:31 PM PRIMARY CARE PHYSICIAN: Mariluz Gaytan DO, DO REASON FOR VISIT: Sid Pruitt is a 46 year old male who is scheduled for Procedure(s) with comments: REPAIR, PERONEAL TENDON RUPTURE (Left) - POPLITEAL BLOCK OSTEOTOMY CALCANEOUS (Left) FHL TENDON TRANSFER (Left) OSTEOTOMY METATARSAL FIRST METATARSAL (Left) LATERAL ANKLE STABILIZATION (Left) at the request of Dr. Usama Olivo for routine H&P. My final recommendation will be communicated back to the requesting physician by way of shared medical record or letter. Subjective The patient has the following: ACTIVE PROBLEM LIST Low Back Pain With Right-Sided Sciatica Hyperlipemia Lumbar Stenosis Kidney Stones COVID-19 Immunization Status Overdue - COVID-19 VACCINE (1) Overdue - never done No completion, postpone, frequency change, or communication history exists for this topic. CHIEF COMPLAINT: left ankle pain HPI: Patient is a 46 year old male here for a preoperative exam. PT complaint of left ankle pain for the last 5 months after sustaining an injury 10/2021, describing the pain as burning across the topin the foot. Today pt rates pain 3/10. Walking makes the pain worse, elevation improves the pain. Pt discussed with surgeon and agrees to surgical intervention. REVIEW OF SYSTEMS: General: Negative for: unintentional weight change, malaise and fever. Neurological: Negative for: headaches, seizures and strokes. Respiratory: Negative for: asthma, COPD, URI < 2 weeks and obstructive sleep apnea. Cardiovascular: Positive for: hyperlipidemia Negative for: arrhythmia, CAD, chest pain, CHF, DVT/PE and hypertension. GI: Negative for: abdominal pain, GERD, nausea and vomiting. : Negative for: dysuria, hematuria and renal failure. Endocrine: Negative for: diabetes mellitus and hypothyroidism. Hematology: Negative for: anemia, factor V Leiden, von Willebrand disease and chronic anti-coagulation/plateletmeds. Oncology: No history of CA metastasis, chemo within 30 days, or radiotherapy within 90 days. No history of oncological symptoms or problems. Psych: Negative for: anxiety and depression. Musculoskeletal: See HPI. Positive for: back pain and joint pain. Skin: Negative for lesions, rash and itching. PAST MEDICAL HISTORY Diagnosis Date Acquired cavovarus foot deformity, left Kidney stone Left ankle pain Traumatic rupture of peroneal tendon of left foot PAST SURGICAL HISTORY Procedure Laterality Date PAST SURGICAL HISTORY OF 07/01/2015 lumbar spine decompression L5 S1 x2 PAST SURGICAL HISTORY OF 11/2021 procedure for kidney stone FAMILY HISTORY Problem Relation Age of Onset Prostate Cancer Father Cancer Brother Social History Tobacco Use Smoking status: Never Smokeless tobacco: Current Types: Chew Tobacco comments: i can lasts 4-6 days Vaping Use Vaping Use: Never used Substance Use Topics Alcohol use: Yes Comment: rare Drug use: No Prior to Admission medications as of 04/01/22 1502 Medication Sig Last Dose Taking ibuprofen (MOTRIN) 200 mg tablet Take 200 mg by mouth every 6 hours as needed. Taking Yes acetaminophen (TYLENOL) 500 mg tablet Take 500 mg by mouth every 8 hours as needed. Taking Yes No medication comments found. ALLERGIES Allergen Reactions Hydromorphone Shortness of Breath Objective PHYSICAL EXAM: General: alert and oriented and healthy appearance. Pertinent negatives noted - not distressed. Skin: normal color, no rash or lesions. HEENT: No additional findings for patient's neck. Cardiovascular: regular rate and rhythm, normal S1 and S2, no rub, murmurs, or gallop. Respiratory: normal breath sounds, no wheezes or crackles. No chest wall deformity or tenderness. Abdomen: bowel sounds present and soft. Pertinent negatives noted - not tender. Extremities: no deformity, no edema or tenderness, no joint swelling or clubbing. Neurological: normal cognition and motor skills. Gait normal. No weakness or sensory deficit. PAIN ASSESSMENT: VITALS: BP 139/91 Pulse 92 Temp 99 Resp 16 Ht 6' 0 (1.83m) Wt 241 lb (109.3kg) SpO2 95% BMI 32.68 kg/(m^2). Diagnostic tests reviewed for today's visit: Lab Value Units Date High Low HB 16.0 g/dL 12/02/2021 17.0 13.0 HCT 46.9 % 12/02/2021 51.0 39.0 WBC 6.31 k/uL 12/02/2021 11.00 3.70 PLT 233 k/uL 12/02/2021 400 150 NA 140 mmol/L 12/02/2021 144 136 K 4.3 mmol/L 12/02/2021 5.1 3.7 GLUC 98 mg/dL 12/02/2021 99 74 BUN 11 mg/dL 12/02/2021 24 9 CREAT 0.97 mg/dL 12/02/2021 1.22 0.73 PTSEC No results within date range. INR No results within date range. APTT No results within date range. ALT 37 U/L 12/02/2021 54 10 AST 25 U/L 12/02/2021 40 14 TBILI 0.4 mg/dL 12/02/2021 1.3 0.2 TSH No results within date range. Lab Value Units Date High Low HCGQT No results within date range. UHCG No results within date range. HCG, BODY* No results within date range. Lab Value Units Date High Low ABORHD No results within date range. ABSCREEN No results within date range. No results found for: HBA1C No results found for this or any previous visit (from the past 8760 hour(s)). No results found for this or any previous visit (from the past 49775 hour(s)). Assessment No problem-specific Assessment & Plan notes found for this encounter. Woods Activity Status Index: METS: Climb a flight of stairs or walk up a hill (5.50 METs) DASI Score: 5.5 Patient denies any chest pain or undue shortness of breath with the above physical activity. ARISCAT Score: Age: <=50 Preoperative SpO2: 91-95% Respiratory infection in the last month: No Preoperative anemia: No Surgical incision: peripheral Duration of surgery: 2-3 hrs Emergency procedure: No ARISCAT Score: 24 ANESTHESIA FINDINGS: Intubation History: No history of difficult intubation. No abnormal airway history Significant Anesthesia Considerations: none Airway History: No history of difficult airway No abnormal airway history I - PHYSICAL EVALUATION AIRWAY Patient intubated: No. Kwan present: no DENTAL Dental findings: teeth intact. II - ANESTHESIA PLAN Anesthetic Plan: general Beta Marie Monitoring Plan Post Procedure Analgesic Plan Prepared for Surgery: CONSULTS: Patient does not require consults for optimization at this time Planned Anesthetic: general Implantable Devices: None Patient has the following medical conditions which may affect fernie-operative course Hyperlipidemia - diet controlled Obesity - BMI 32.69 Pt denies daily use of blood thinners The Following Tests/Procedures Have Been Initiated: No orders per surgeon in [facility]. Assessment/Plan Diagnosis: Acquired cavovarus foot deformity, left [M21.6X2] Traumatic rupture of peroneal tendon of left foot, subsequent encounter [S86.312D] Ankle instability, left [M25.372] PLAN Planned Procedure: Procedure(s) with comments: REPAIR, PERONEAL TENDON RUPTURE (Left) - POPLITEAL BLOCK OSTEOTOMY CALCANEOUS (Left) FHL TENDON TRANSFER (Left) OSTEOTOMY METATARSAL FIRST METATARSAL (Left) LATERAL ANKLE STABILIZATION (Left) The Following Tests/Procedures Have Been Initiated: No orders of the defined types were placed in this encounter. Instructions Given to Patient: Instructions located in the after visit summary. Patient given verbal and written preop instructions and voices comprehension and compliance. SIGNATURE: Shannon Caruso APRN.CNP PATIENT NAME: Sid Pruitt DATE: April 01, 2022 TIME: 11:19 AM PAGER/CONTACT #: documented in this encounterM[facility]12[facility] Instructions* Patient Instructions* Shannon Caruso APRN.CNP - 04/01/2022 11:18 AM EST PATIENT PREOPERATIVE INSTRUCTIONS Dr. Olivo has scheduled you for your procedure at this surgery center: [facility]: [phone], [address], [place] [address] Please read below carefully for your personalized instructions. Arrival Time for Surgery: DATE: 04/07/2022 OR TIME: 1 PM CHECK IN TIME: 11 AM Please be aware that emergency situations arise, which may delay or change your surgical time. If this happens, we will notify you as soon as possible and regret any inconvenience. Dietary Restrictions: - No solid food after midnight. - You may have 12 ounces of clear liquids (water, clear juices such as apple juice or gatorade, carbonated beverages, clear tea, black coffee, jello) until 2 hours before scheduled arrival at facility. Do not eat or drink anything, including water and coffee, after 9 AM on the morning of your surgery. This is important because if you do, your surgery may have to be cancelled Blood Thinning Medications: - Stop NSAIDS (Ibuprofen, Advil, Aleve, Motrin, Celebrex, Mobic, Voltaren, Diclofenac etc.) 7 days before surgery, as directed by your surgeon. IF YOU TAKE ANY OF THE FOLLOWING BLOOD THINNERS, PLEASE CONTACT YOUR SURGEON AND THE PHYSICIAN WHO PRESCRIBES IT FOR YOU IN ORDER TO GET PERIOPERATIVE INSTRUCTIONS SOON POSSIBLE. BLOOD THINNERS: Aspirin , Coumadin, Plavix, Eliquis, Pradaxa, Xarelto, Lovenox, Brilinta, Effient, Savaysa, Arixtra, etc - Stop Vitamin E, fish oil, multivitamins, Marijuana, CBD oil and other over the counter herbals and dietary supplements 7 days before surgery. ?-This would not apply to cancer patients who are prescribed Marinol or any other prescription formon marijuana or CBD. Medications: Approved medications to take the morning of surgery with a sip of water: BP, Heart, thyroid, psych,seizure, and pain medications excluding NSAIDS. Use inhalers as prescribed. Please bring inhalers. Please follow up with the provider that manages your diabetes and how to prepare you for surgery. If you are taking the following medications for Type 2 diabetes: Canagliflozin (INVOKANA), dapagliflozin (FARXIGA), and empagliflozin (JARDIANCE) should each be discontinued at least 3 days before scheduled surgery. Ertugliflozin (STEGLATRO) should be discontinued at least four days before scheduled surgery. Pain Medications: - Your pain medication may cause thinning of your blood. Please see directions for Blood Thinning Medications. If you take any medications for erectile dysfunction-Cialis (Tadalafil), Levitra, Staxyn (Vardenafil) Viagra (Sildenenafil please do not take these for 48 hours before surgery. Medications to be taken with small amount of fluid on the morning of surgery: see medication list If you start any new medications after today's visit, please contact the surgeon's office. Important Reminders: -- If you have a stimulator, implant or pump that requires a remote please bring the remote with you day of surgery. - If you use CPAP/BIPAP, bring the machine with you to the surgery center. - If you are prescribed inhalers for breathing, continue using them AND bring them to the surgery center. - Candy, mints, gum and tobacco products are NOT permitted the morning of surgery. - Hearing aids, dentures and glasses may be worn the morning of surgery. - NO jewelry, body piercings, makeup, hairpins or contacts are to be worn the day of surgery. -NO keys, wallet, watches, or purses -Oral hygiene and a shower or bath is required the evening before or the morning of surgery. Use the [employer] body wash supplied to you along with the instruction. - NO lotion, creams, powders or deodorants on the skin the day of surgery -Wear loose, comfortable clothing that will accommodate bandages. -Your length of stay will be determined by your surgeon - You will need to have someone else (Family or friend) drive you home once discharged from the hospital. You are not allowed to drive yourself home after surgery. - YOU MUST HAVE A RESPONSIBLE TEMPORARY DATA ENTRY CLERK TAKE YOU HOME. A METAL CONTAINER MAKER, CAB OR UBER TEMPORARY DATA ENTRY CLERK CANNOT BE MADEA RESPONSIBLE TEMPORARY DATA ENTRY CLERK. - We recommend that a responsible person stays with you overnight to take care of you. - You cannot stay in a hotel alone after outpatient surgery. You will not be permitted to have yoursurgery, if you do not have someone to take care of you. --IF you are having a TOTAL KNEE or HIP REPLACEMENT please bring your walker into the building withyou. Update to visitor policy. Current policy will allow for 2 visitors. We are not allowing children inour waiting room. No food or drink is allowed. Everyone must keep their masks on. We are not allowing a visitor in our PACU area unless a minor, manager mountain or a special circumstance. Each patient isallowed two visitor on the day of surgery/procedure. Visitors will be asked to wear a mask that covers their nose and mouth at all times. The visitors will be allowed to stay with the patient prior to going to surgery/procedure. No visitors are allowed in our recovery room. -It is recommended patients have a 72 hour period between getting their vaccine and date of surgery. If you develop symptoms such as a fever, cold, or flu, or have other changes to your health within TWO DAYS of scheduled surgery or the morning of surgery, please contact the surgery center above. Personal Belongings: - Leave ALL valuables and money at home or with family members. - You will need a form of ID and insurance card to check in the morning of surgery. - You will have to wear a hospital gown during your stay but if you wish to bring undergarments forafter surgery you may. Shannon Caruso APRN.CNP 04/01/22 documented in this encounterM[facility]10-20-2022 Miscellaneous Notes* Telephone Encounter - Geno Tineo Services Advisor Ppg - 02/18/2022 3:44 PM EDT Returned call got voicemail left message to call the office back Geno Tineo Services Advisor Ppg * Telephone Encounter - Geno Wagner Ppg - 02/18/2022 3:44 PM EDT ----- Message from Gina Damon sent at 02/18/2022 2:59 PM EDT ----- Regarding: Orthopedics/[place] Ankle/IRequest To Expedite Ins Auth For Surgery Contact: Subject Line Format: Orthopedics / [Provider Name or Open & Body Part] / [Issue] Patient has been identified by name and Date of (Y/N): y Patient: Sid Pruitt Date of : 1975 Previous Provider Seen: Dr Olivo Body Part(s) Identified: L ankle Diagnosis/Reason For Visit: asking if there is any way insurance authorization can be expedited for04/07/22 L ankle surgery w/ Dr Olivo. Said their lives are pretty much on hold waiting to determine whether insurance will approve, and how much will be approved. Reason for the call/escalation: see above If reason for call/escalation is discharge from ED/ER or Hospital, which facility was the patient seen at: n/a Was an appointment scheduled (Y/N): n Person calling if other than patient: Josselin Pruitt (spouse) Return call to if other than patient: same Best contact number: [phone] Thank you, Gina Nelson February 18, 2022 3:01 PM documented in this encounterM[facility]10-14-2022 Miscellaneous Notes* Telephone Encounter - Varun Garcia Services Advisor Ppg - 02/12/2022 10:21 AM EDT Left message for pt to call me back. Varun Garcia [place] [facility] * Telephone Encounter - Magui Slade [place] [facility]pg - 02/12/2022 9:15 AM EDT ----- Message from Alia Wang sent at 02/12/2022 9:10 AM EDT ----- Regarding: Orthopedic/Mariam Olivo/Left Ankle QUESTIONS ABOUT UPCOMING SURGERY 04.07.2022 Contact: Patient has been identified by name and Date of (Y/N): y Patient: Sid Pruitt Date of : 1975 Previous Provider Seen: Dr Olivo Body Part(s) Identified: Left Ankle Diagnosis/Reason For Visit: Left Ankle Reason for the call/escalation: Question about upcoming sx 04.07.2022 / Please reach out If reason for call/escalation is discharge from ED/ER or Hospital, which facility was the patient seen at: n/a Was an appointment scheduled (Y/N): n Person calling if other than patient: n Return call to if other than patient: n Best contact number: Work mobile [phone] or personal mobile [phone] Thank you, Alia Wang February 12, 2022 9:10 AM documented in this encounterM[facility]10-06-2022 History of Present illness Narrative* Usama Olivo, DPM - 02/04/2022 8:37 AM EDT CC: Ankle pain left ankle HPI: This 46 year old male with PMH indicated below presents for follow up of left ankle pain secondary to cavus foot deformity and peroneal tendon rupture. Original injury sustained 09/2021. He is here today to further discuss surgical intervention. He is having insurance coverage issues and is concerned regarding the financial situation, but is interested in surgery given his pain is not improving. He admits to wearing the lace up ankle brace initially, but states the pain worsened due to the pressure along the area. Pain is severe 10/10 and constant, but worse after weightbearing for prolonged periods of time. History of L5-S1 fusion. Patient denies constitutional symptoms or other pedal c omplaints. PAST MEDICAL HISTORY Diagnosis Date Kidney stone Left ankle pain Current Outpatient Medications Medication Sig Dispense Refill ibuprofen (MOTRIN) 200 mg tablet Take 200 mg by mouth every 6 hours as needed. acetaminophen (TYLENOL) 500 mg tablet Take 500 mg by mouth every 8 hours as needed. oxyCODONE-acetaminophen (PERCOCET) 5-325 mg tablet Take 1 tablet by mouth every 4 hours as needed for pain. 15 tablet 0 No current facility-administered medications for this visit. ALLERGIES Allergen Reactions Hydromorphone Shortness of Breath PAST SURGICAL HISTORY Procedure Laterality Date PAST SURGICAL HISTORY OF 07/2015 lumbar spine decompression L5 S1 PAST SURGICAL HISTORY OF procedure for kidney stone FAMILY HISTORY Problem Relation Age of Onset Cancer Brother Social History Tobacco Use Smoking status: Never Smokeless tobacco: Current Types: Chew Tobacco comments: i can lasts 4-6 days Substance Use Topics Alcohol use: No Drug use: No REVIEW OF SYSTEMS See MA note MSK: + as noted in HPI. Physical Examination: On General Observation: Patient is a pleasant, cooperative, well developed 46 year old adult male. The patient is alert and oriented to time, place and person. Patient has normal affect and mood. Resp 20 Ht 182.9 cm (6') Wt 104.3 kg (230 lb) BMI 31.19 kg/m Vascular: DP and PT pulses are palpable. CFT less than 3 seconds to all digits bilateral. Skin temperature is warm to warm from proximal to distal bilateral. Hair growth is noted. Local edema to lateral ankle left. No varicosities noted. Neuro: Light touch intact bilateral. Derm: Skin texture and turgor within normal limits. Toenails normal in appearance. Webspaces 1-4 clean, dry, intact bilateral. No rashes, subcutaneous nodules, or open lesions noted. No ecchymosis. No fracture blisters. No cellulitis, no lymphangitis, no SSI. No hyperkeratotic tissue. Musculoskeletal/Orthopaedic: Cavus foot type and plantarflexed first ray with subtalar joint in neutral. There is heel inversionon dorsiflexion of the foot. Forefoot valgus noted. Anterior drawer of the ankle is positive left foot. Talar tilt is positive. Pain is noted with maximal plantarflexion and inversion of the foot relative to the ankle. There is pain to palpation of the ATFL, CFL ligament. There is pain to palpation of the lateral gutter of the ankle. The range of motion of the ankle is noted to be smooth. Muscle strength testing is full and nonpainful.no pain to palpation anterior aspect of ankle joint and medial ankle gutter. There is pain to palpation of the peroneal tendon course posterior and inferior to ankle joint and at insertion into 5th metatarsal base. Muscle strength testing is guarded. Previous Radiographs: 3 views of the left ankle Radiographic Impression: Degenerative changes noted to the ankle joint with periarticular osteophytes and flattening of the talar dome. Ankle mortise is intact. No acute fractures or dislocations noted. No bony cysts or tumors noted. Good tib fib overlap. No increased in medial clear space. Fibula out to length. Assessment: This is a 46 year old patient presenting with chronic ankle instability left ankle, peroneal tendonrupture, and cavus foot deformity. Plan: A focused history and physical examination were preformed. The patient was educated on clinical andradiographic findings, diagnosis and treatment plans. Patient state that he understands all that has been explained and all questions were answered to his apparent satisfaction. -Etiology and tx options, both conservative and surgical were discussed in detail with the pt. Pt believes they have exhausted conservative measures consisting of physical therapy, immobilization, bracing and analgesics and opts to pursue surgical measures; however, he is still working with insurance regarding coverage. - Advised patient, he would most benefit from repair peroneal tendon rupture, flexor hallucis longus tendon transfer, lateral ankle stabilization, calcaneal osteotomy, first metatarsal osteotomy, allleft foot. Patient was educated on the details of the procedures as well as medically reasonable risks, benefits, alternatives and prognosis. Patient was also educated on perioperative management including preoperative medical clearance, preoperative physical therapy consultation, postoperative care and rehabi litation, anticipated time to full weightbearing, return to shoes and maximum medical improvement. Lastly patient was educated to their apparent understanding on potential complications including butnot limited to infection, recurrence, over correction or under correction, persistent pain, swelling or disability, nerve injury or entrapment, bone and soft tissue healing complications, complications with anesthesia and deep vein thrombosis or pulmonary embolism. All questions were answered to the patient s apparent satisfaction. No guarantees were given as to the outcome of the surgery. - Continue lace up ankle brace and/or lace up boots - Continue AJ strengthening exercises. Follow up for surgery after medical clearance Pat Steele DPM PGY3 Total patient care time w/ pt was at least 45 minutes w/ at least 50% of the time spent reviewing the results of the recent imaging including radiographs, MRI, counseling the pt on treatment options and coordinating their care. I personally saw and evaluated the patient. I reviewed the resident's note. I agree with the resident's assessment and plan unless otherwise noted. Usama Olivo DPM, FACFAS documented in this encounterM[facility]09-15-2022 History of Present illness Narrative* Usama Olivo DPM - 01/14/2022 9:14 AM EDT CC: Ankle pain left ankle HPI: This 46 year old male with PMH indicated below presents complaining of left ankle pain and feelings of instability for over a year. Patient states he has had left ankle pain and swelling and feeling that his ankle rolls out on him. States that a couple months ago he jumped up in his garage to reach a cord and when he came down felt a pop in his foot with severe pain to his lateral foot. Patient has since had an MRI (brought on disc) and has been referred by Dr. Park. Patient states that he has tried lace up ankle brace and lace up boots to alleviate some of the feeling of instability and pain in his ankle. Pain is severe 10/10 and constant, but worse after weightbearing for prolonged periods of time. Of note, patient states he has been having more left knee pain lately and has a history of L5-S1 fusion. Patient denies constitutional symptoms or other pedal complaints. PAST MEDICAL HISTORY Diagnosis Date Kidney stone Current Outpatient Medications Medication Sig Dispense Refill ibuprofen (MOTRIN) 200 mg tablet Take 200 mg by mouth every 6 hours as needed. acetaminophen (TYLENOL EXTRA STRENGTH) 500 mg tablet Take 500 mg by mouth every 8 hours as needed. oxyCODONE-acetaminophen (PERCOCET) 5-325 mg tablet Take 1 tablet by mouth every 4 hours as needed for pain. (Patient not taking: Reported on 01/14/2022) 15 tablet 0 No current facility-administered medications for this visit. ALLERGIES Allergen Reactions Hydromorphone Shortness of Breath PAST SURGICAL HISTORY Procedure Laterality Date PAST SURGICAL HISTORY OF 07/2015 lumbar spine decompression L5 S1 PAST SURGICAL HISTORY OF procedure for kidney stone FAMILY HISTORY Problem Relation Age of Onset Cancer Brother Social History Tobacco Use Smoking status: Never Smokeless tobacco: Current Types: Chew Tobacco comments: i can lasts 4-6 days Substance Use Topics Alcohol use: No Drug use: No REVIEW OF SYSTEMS See MA note MSK: + as noted in HPI. Physical Examination: On General Observation: Patient is a pleasant, cooperative, well developed 46 year old adult male. The patient is alert and oriented to time, place and person. Patient has normal affect and mood. Resp 18 Ht 182.9 cm (6') Wt 103.4 kg (228 lb) BMI 30.92 kg/m Vascular: DP and PT pulses are palpable. CFT less than 3 seconds to all digits bilateral. Skin temperature is warm to warm from proximal to distal bilateral. Hair growth is noted. Local edema to lateral ankle left. No varicosities noted. Neuro: Light touch intact bilateral. Protective sensation intact at all pedal sites via Morrill Brianne 5.07 monofilament bilateral. Proprioception intact at the hallux bilateral. No clonus noted. Babinski reflex not elicited bilateral. Derm: Skin texture and turgor within normal limits. Toenails normal in appearance. Webspaces 1-4 clean, dry, intact bilateral. No rashes, subcutaneous nodules, or open lesions noted. No ecchymosis. No fracture blisters. No cellulitis, no lymphangitis, no SSI. No hyperkeratotic tissue. Musculoskeletal/Orthopaedic: Patient has cavus foot type and plantarflexed first ray with subtalar joint in neutral. There is heel inversion on dorsiflexion of the foot. Forefoot valgus noted. Anterior drawer of the ankle is positive left foot. Talar tilt is positive. Pain is noted with maximal plantarflexion and inversion of the foot relative to the ankle. There is pain to palpation of the ATFL, CFL ligament. There is pain to palpation of the lateral gutter of the ankle. The range of motion of the ankle is noted to be smooth. Muscle strength testing is full and nonpainful.no pain to palpation anterior aspect of ankle joint and medial ankle gutter. There is pain to palpation of the peroneal tendon course posterior and inferior to ankle joint and at insertion into 5th metatarsal base. Muscle strength testing is guarded. Radiographs: 3 views of the left ankle were obtained and evaluated. Radiographic Impression: Degenerative changes noted to the ankle joint with periarticular osteophytes and flattening of the talar dome. Ankle mortise is intact. No acute fractures or dislocations noted. No bony cysts or tumors noted. Good tib fib overlap. No increased in medial clear space. Fibula out to length. Assessment: This is a 46 year old patient presenting with chronic ankle instability left ankle, peroneal tendonrupture, and cavus foot deformity. Plan: A comprehensive history and physical examination were preformed. The patient was educated on clinical and radiographic findings, diagnosis and treatment plans. Patient state that he understands all that has been explained and all questions were answered to his apparent satisfaction. -Reviewed MRI and radiographic findings with patient -Etiology and tx options, both conservative and surgical were discussed in detail with the pt. Pt believes they have exhausted conservative measures consisting of physical therapy,immobilization, bracing and analgesics and opts to pursue surgical measures. - Advised patient, he would most benefit from a cavus reconstruction including DFWO, peroneal tendon repair with possible FHL transfer, and possible Lechuga calc osteotomy. Patient would like time to make the decision of coordinating surgery. - Lace up ankle brace with fit and dispensed in office today. - Discussed the importance of performing AJ strengthening exercises. - Continue good supportive shoe gear. Follow up in 2 weeks to sign consent and schedule surgery Jacques Garcia DPM PGY3 Total patient care time w/ pt was at least 45 minutes w/ at least 50% of the time spent reviewing the results of the recent imaging including MRI, counseling the pt on treatment options and coordinating their care. I personally saw and evaluated the patient. I reviewed the resident's note. I agree with the resident's assessment and plan unless otherwise noted. Usama Olivo DPM, FACFAS * Rosalba Velásquez MA - 01/14/2022 8:21 AM EDT REVIEW OF SYSTEMS: GENERAL: Well developed, well nourished. No acute distress PAIN: Negative for pain, history of chronic pain or current treatment for chronic pain conditions and Pain 06/11 CARDIOVASCULAR: Negative for chest pain, leg swelling and palpations. and Hyperlipemia MSK: Negative for joint swelling SKIN: Negative for lesions, rash, itching, metal sensitivity NEURO: Negative for seizure, trauma, numbness/tingling of extremities. ENDOCRINE: Negative for diabetic associated symptoms HEMATOLOGY: Negative for excessive bleeding, clots, bleeding disorders. Rosalba Velásquez MA documented in this encounterM[facility] HospitalEvaluation note* Diagnosis Chest pain, unspecified type SOB (shortness of breath) Shortness of breath Hypercholesteremia Pure hypercholesterolemia Abnormal electrocardiogram Nonspecific abnormal electrocardiogram (ECG) (EKG) documented in this encounter [facility] Work Phone: Evaluation noteNo assessment information available [facility] Work Phone: Evaluation note* Diagnosis Cavus deformity of left foot, acquired- Primary Peroneal tendon rupture, left, initial encounter Ankle instability, left [facility] Diagnosis Cavus deformity of left foot, acquired- Primary Peroneal tendon rupture, left, subsequent encounter Ankle instability, left Acquired cavovarus foot deformity, left Traumatic rupture of peroneal tendon of left foot, subsequent encounter Ankle instability, left [facility] Diagnosis Preop examination [Z01.818 (ICD-10-CM)]- Primary Preoperative examination, unspecified Obesity (BMI 30.0-34.9) [E66.9 (ICD-10-CM)] Obesity, unspecified Hyperlipidemia, unspecified hyperlipidemia type [E78.5 (ICD-10-CM)] Ankle instability, left [M25.372 (ICD-10-CM)] Acquired cavovarus foot deformity, left [M21.6X2 (ICD-10-CM)] Traumatic rupture of peroneal tendon of left foot, subsequent encounter [S86.312D (ICD-10-CM)] Acquired cavovarus foot deformity, left Traumatic rupture of peroneal tendon of left foot, subsequent encounter [facility]le instability, [facility] Diagnosis Postoperative state- Primary Other [facility] Postoperative state- Primary Other postprocedural status Postoperative pain Other acute [facility] S[facility]P foot surgery- Primary Other [facility]proced[facility] Diagnosis Postoperative state Other postprocedural status Postoperative pain Other acute postoperative pain Acquired cavovarus foot deformity, left Traumatic rupture of peroneal tendon of left foot, initial encounter [facility] Diagnosis Postoperative state Other postprocedural status Postoperative pain Other acute postoperative pain [facility] Diagnosis Postoperative state- Primary Other postprocedural status Cavus deformity of left foot, acquired Peroneal tendon rupture, left, subsequent encounter [facility] Diagnosis Postoperative state- Primary Other postprocedural status Pain of left calf Pain in limb [facility] Diagnosis Post-operative state- Primary Other postprocedural status [facility] Post-operative state- Primary Other postprocedural status [facility] Hyperlipidemia, unspecified documented in this encounter [facility] Work Phone: Hospital Discharge instructionsAmbulatory Orders* Orthopedics Location: None [facility] Work Phone: Instructions* Name Dates Details Patient Instructions Indication:Tobacco chew use Start:02-Feb-2021 Instruction Type:Provider Instructions for Treatment How to Access Health Informa tion Online using Patient Portal and [employer] Apps Indication:Tobacco chew use Start:02-Feb-2021 Instruction Type:Patient Education How to access health informa tion online Indication:Tobacco chew use Start:09-Aug-2019 Instruction Type:Patient Education How to access health informa tion online - Detail Indication:Tobacco chew use Start:09-Aug-2019 Instruction Type:Patient Education Patient Instructions Indication:Tobacco chew use Start:09-Aug-2019 Instruction Type:Provider Instructions for Treatment How to access health informa tion online Indication:BMI 34.0-34.9,adult Start:08-Jun-2019 Instruction Type:Patient Education How to access health informa tion online - Detail Indication:BMI 34.0-34.9,adult Start:08-Jun-2019 Instruction Type:Patient Education Patient Instructions Indication:BMI 34.0-34.9,adult Start:08-Jun-2019 Instruction Type:Provider Instructions for Treatment How to access health informa tion online Indication:BMI 34.0-34.9,adult Start:25-May-2019 Instruction Type:Patient Education How to access health informa tion online - Detail Indication:BMI 34.0-34.9,adult Start:25-May-2019 Instruction Type:Patient Education Patient Instructions Indication:BMI 34.0-34.9,adult Start:25-May-2019 Instruction Type:Provider Instructions for Treatment How to access health informa tion online Indication:Left flank pain Start:08-Nov-2016 Instruction Type:Patient Education How to access health informa tion online - Detail Indication:Left flank pain Start:08-Nov-2016 Instruction Type:Patient Education Patient Instructions Indication:Left flank pain Start:08-Nov-2016 Instruction Type:Provider Instructions for Treatment How to access health informa tion online Indication:Low back pain potentially associated with radiculopathy Start:17-Jun-2015 Instruction Type:Patient Education How to access health informa tion online - Detail Indication:Low back pain potentially associated with radiculopathy Start:17-Jun-2015 Instruction Type:Patient Education Patient Instructions Indication:Low back pain potentially associated with radiculopathy Start:17-Jun-2015 Instruction Type:Provider Instructions for Treatment How to access health informa tion online Indication:Otitis externa Start:19-May-2015 Instruction Type:Patient Education How to access health informa tion online - Detail Indication:Otitis externa Start:19-May-2015 Instruction Type:Patient Education Patient Instructions Indication:Otitis externa Start:19-May-2015 Instruction Type:Provider Instructions for Treatment Patient Instructions Indication:Vitamin D deficiency Start:19-Mar-2015 Instruction Type:Provider Instructions for Treatment Patient Instructions Indication:CHEST PAIN Start:29-Jan-2013 Instruction Type:Provider Instructions for Treatment Patient Instructions Indication:Fatigue Start:25-Dec-2012 Instruction Type:Provider Instructions for Treatment [facility] Work Phone: Instructions* Name Dates Details Patient Instructions Indication:Tobacco chew use Start:28-Oct-2021 Instruction Type:Provider Instructions for Treatment How to Access Health Informa tion Online using Patient Portal and [employer] Apps Indication:Tobacco chew use Start:28-Oct-2021 Instruction Type:Patient Education Patient Instructions Indication:Tobacco chew use Start:02-Feb-2021 Instruction Type:Provider Instructions for Treatment How to Access Health Informa tion Online using Patient Portal and [employer] Apps Indication:Tobacco chew use Start:02-Feb-2021 Instruction Type:Patient Education How to access health informa tion online Indication:Tobacco chew use Start:09-Aug-2019 Instruction Type:Patient Education How to access health informa tion online - Detail Indication:Tobacco chew use Start:09-Aug-2019 Instruction Type:Patient Education Patient Instructions Indication:Tobacco chew use Start:09-Aug-2019 Instruction Type:Provider Instructions for Treatment How to access health informa tion online Indication:BMI 34.0-34.9,adult Start:08-Jun-2019 Instruction Type:Patient Education How to access health informa tion online - Detail Indication:BMI 34.0-34.9,adult Start:08-Jun-2019 Instruction Type:Patient Education Patient Instructions Indication:BMI 34.0-34.9,adult Start:08-Jun-2019 Instruction Type:Provider Instructions for Treatment How to access health informa tion online Indication:BMI 34.0-34.9,adult Start:25-May-2019 Instruction Type:Patient Education How to access health informa tion online - Detail Indication:BMI 34.0-34.9,adult Start:25-May-2019 Instruction Type:Patient Education Patient Instructions Indication:BMI 34.0-34.9,adult Start:25-May-2019 Instruction Type:Provider Instructions for Treatment How to access health informa tion online Indication:Left flank pain Start:08-Nov-2016 Instruction Type:Patient Education How to access health informa tion online - Detail Indication:Left flank pain Start:08-Nov-2016 Instruction Type:Patient Education Patient Instructions Indication:Left flank pain Start:08-Nov-2016 Instruction Type:Provider Instructions for Treatment How to access health informa tion online Indication:Low back pain potentially associated with radiculopathy Start:17-Jun-2015 Instruction Type:Patient Education How to access health informa tion online - Detail Indication:Low back pain potentially associated with radiculopathy Start:17-Jun-2015 Instruction Type:Patient Education Patient Instructions Indication:Low back pain potentially associated with radiculopathy Start:17-Jun-2015 Instruction Type:Provider Instructions for Treatment How to access health informa tion online Indication:Otitis externa Start:19-May-2015 Instruction Type:Patient Education How to access health informa tion online - Detail Indication:Otitis externa Start:19-May-2015 Instruction Type:Patient Education Patient Instructions Indication:Otitis externa Start:19-May-2015 Instruction Type:Provider Instructions for Treatment Patient Instructions Indication:Vitamin D deficiency Start:19-Mar-2015 Instruction Type:Provider Instructions for Treatment Patient Instructions Indication:CHEST PAIN Start:29-Jan-2013 Instruction Type:Provider Instructions for Treatment Patient Instructions Indication:Fatigue Start:25-Dec-2012 Instruction Type:Provider Instructions for Treatment [facility] Work Phone: Instructions* Name Dates Details Patient Instructions Indication:Tobacco chew use Start:28-Oct-2021 Instruction Type:Provider Instructions for Treatment How to Access Health Informa tion Online using Patient Portal and [employer] Apps Indication:Tobacco chew use Start:28-Oct-2021 Instruction Type:Patient Education Patient Instructions Indication:Tobacco chew use Start:02-Feb-2021 Instruction Type:Provider Instructions for Treatment How to Access Health Informa tion Online using Patient Portal and [employer] Apps Indication:Tobacco chew use Start:02-Feb-2021 Instruction Type:Patient Education How to access health informa tion online Indication:Tobacco chew use Start:09-Aug-2019 Instruction Type:Patient Education How to access health informa tion online - Detail Indication:Tobacco chew use Start:09-Aug-2019 Instruction Type:Patient Education Patient Instructions Indication:Tobacco chew use Start:09-Aug-2019 Instruction Type:Provider Instructions for Treatment How to access health informa tion online Indication:BMI 34.0-34.9,adult Start:08-Jun-2019 Instruction Type:Patient Education How to access health informa tion online - Detail Indication:BMI 34.0-34.9,adult Start:08-Jun-2019 Instruction Type:Patient Education Patient Instructions Indication:BMI 34.0-34.9,adult Start:08-Jun-2019 Instruction Type:Provider Instructions for Treatment How to access health informa tion online Indication:BMI 34.0-34.9,adult Start:25-May-2019 Instruction Type:Patient Education How to access health informa tion online - Detail Indication:BMI 34.0-34.9,adult Start:25-May-2019 Instruction Type:Patient Education Patient Instructions Indication:BMI 34.0-34.9,adult Start:25-May-2019 Instruction Type:Provider Instructions for Treatment How to access health informa tion online Indication:Left flank pain Start:08-Nov-2016 Instruction Type:Patient Education How to access health informa tion online - Detail Indication:Left flank pain Start:08-Nov-2016 Instruction Type:Patient Education Patient Instructions Indication:Left flank pain Start:08-Nov-2016 Instruction Type:Provider Instructions for Treatment How to access health informa tion online Indication:Low back pain potentially associated with radiculopathy Start:17-Jun-2015 Instruction Type:Patient Education How to access health informa tion online - Detail Indication:Low back pain potentially associated with radiculopathy Start:17-Jun-2015 Instruction Type:Patient Education Patient Instructions Indication:Low back pain potentially associated with radiculopathy Start:17-Jun-2015 Instruction Type:Provider Instructions for Treatment How to access health informa tion online Indication:Otitis externa Start:19-May-2015 Instruction Type:Patient Education How to access health informa tion online - Detail Indication:Otitis externa Start:19-May-2015 Instruction Type:Patient Education Patient Instructions Indication:Otitis externa Start:19-May-2015 Instruction Type:Provider Instructions for Treatment Patient Instructions Indication:Vitamin D deficiency Start:19-Mar-2015 Instruction Type:Provider Instructions for Treatment Patient Instructions Indication:CHEST PAIN Start:29-Jan-2013 Instruction Type:Provider Instructions for Treatment Patient Instructions Indication:Fatigue Start:25-Dec-2012 Instruction Type:Provider Instructions for Treatment [facility] Work Phone: Instructions* Name Dates Details Patient Instructions Indication:Tobacco chew use Start:28-Oct-2021 Instruction Type:Provider Instructions for Treatment How to Access Health Informa tion Online using Patient Portal and [employer] Apps Indication:Tobacco chew use Start:28-Oct-2021 Instruction Type:Patient Education Patient Instructions Indication:Tobacco chew use Start:02-Feb-2021 Instruction Type:Provider Instructions for Treatment How to Access Health Informa tion Online using Patient Portal and [employer] Apps Indication:Tobacco chew use Start:02-Feb-2021 Instruction Type:Patient Education How to access health informa tion online Indication:Tobacco chew use Start:09-Aug-2019 Instruction Type:Patient Education How to access health informa tion online - Detail Indication:Tobacco chew use Start:09-Aug-2019 Instruction Type:Patient Education Patient Instructions Indication:Tobacco chew use Start:09-Aug-2019 Instruction Type:Provider Instructions for Treatment How to access health informa tion online Indication:BMI 34.0-34.9,adult Start:08-Jun-2019 Instruction Type:Patient Education How to access health informa tion online - Detail Indication:BMI 34.0-34.9,adult Start:08-Jun-2019 Instruction Type:Patient Education Patient Instructions Indication:BMI 34.0-34.9,adult Start:08-Jun-2019 Instruction Type:Provider Instructions for Treatment How to access health informa tion online Indication:BMI 34.0-34.9,adult Start:25-May-2019 Instruction Type:Patient Education How to access health informa tion online - Detail Indication:BMI 34.0-34.9,adult Start:25-May-2019 Instruction Type:Patient Education Patient Instructions Indication:BMI 34.0-34.9,adult Start:25-May-2019 Instruction Type:Provider Instructions for Treatment How to access health informa tion online Indication:Left flank pain Start:08-Nov-2016 Instruction Type:Patient Education How to access health informa tion online - Detail Indication:Left flank pain Start:08-Nov-2016 Instruction Type:Patient Education Patient Instructions Indication:Left flank pain Start:08-Nov-2016 Instruction Type:Provider Instructions for Treatment How to access health informa tion online Indication:Low back pain potentially associated with radiculopathy Start:17-Jun-2015 Instruction Type:Patient Education How to access health informa tion online - Detail Indication:Low back pain potentially associated with radiculopathy Start:17-Jun-2015 Instruction Type:Patient Education Patient Instructions Indication:Low back pain potentially associated with radiculopathy Start:17-Jun-2015 Instruction Type:Provider Instructions for Treatment How to access health informa tion online Indication:Otitis externa Start:19-May-2015 Instruction Type:Patient Education How to access health informa tion online - Detail Indication:Otitis externa Start:19-May-2015 Instruction Type:Patient Education Patient Instructions Indication:Otitis externa Start:19-May-2015 Instruction Type:Provider Instructions for Treatment Patient Instructions Indication:Vitamin D deficiency Start:19-Mar-2015 Instruction Type:Provider Instructions for Treatment Patient Instructions Indication:CHEST PAIN Start:29-Jan-2013 Instruction Type:Provider Instructions for Treatment Patient Instructions Indication:Fatigue Start:25-Dec-2012 Instruction Type:Provider Instructions for Treatment [facility]; [facility] Work Phone: Instructions* Name Dates Details Patient Instructions Indication:Tobacco chew use Start:28-Oct-2021 Instruction Type:Provider Instructions for Treatment How to Access Health Informa tion Online using Patient Portal and [employer] Apps Indication:Tobacco chew use Start:28-Oct-2021 Instruction Type:Patient Education Patient Instructions Indication:Tobacco chew use Start:02-Feb-2021 Instruction Type:Provider Instructions for Treatment How to Access Health Informa tion Online using Patient Portal and [employer] Apps Indication:Tobacco chew use Start:02-Feb-2021 Instruction Type:Patient Education How to access health informa tion online Indication:Tobacco chew use Start:09-Aug-2019 Instruction Type:Patient Education How to access health informa tion online - Detail Indication:Tobacco chew use Start:09-Aug-2019 Instruction Type:Patient Education Patient Instructions Indication:Tobacco chew use Start:09-Aug-2019 Instruction Type:Provider Instructions for Treatment How to access health informa tion online Indication:BMI 34.0-34.9,adult Start:08-Jun-2019 Instruction Type:Patient Education How to access health informa tion online - Detail Indication:BMI 34.0-34.9,adult Start:08-Jun-2019 Instruction Type:Patient Education Patient Instructions Indication:BMI 34.0-34.9,adult Start:08-Jun-2019 Instruction Type:Provider Instructions for Treatment How to access health informa tion online Indication:BMI 34.0-34.9,adult Start:25-May-2019 Instruction Type:Patient Education How to access health informa tion online - Detail Indication:BMI 34.0-34.9,adult Start:25-May-2019 Instruction Type:Patient Education Patient Instructions Indication:BMI 34.0-34.9,adult Start:25-May-2019 Instruction Type:Provider Instructions for Treatment How to access health informa tion online Indication:Left flank pain Start:08-Nov-2016 Instruction Type:Patient Education How to access health informa tion online - Detail Indication:Left flank pain Start:08-Nov-2016 Instruction Type:Patient Education Patient Instructions Indication:Left flank pain Start:08-Nov-2016 Instruction Type:Provider Instructions for Treatment How to access health informa tion online Indication:Low back pain potentially associated with radiculopathy Start:17-Jun-2015 Instruction Type:Patient Education How to access health informa tion online - Detail Indication:Low back pain potentially associated with radiculopathy Start:17-Jun-2015 Instruction Type:Patient Education Patient Instructions Indication:Low back pain potentially associated with radiculopathy Start:17-Jun-2015 Instruction Type:Provider Instructions for Treatment How to access health informa tion online Indication:Otitis externa Start:19-May-2015 Instruction Type:Patient Education How to access health informa tion online - Detail Indication:Otitis externa Start:19-May-2015 Instruction Type:Patient Education Patient Instructions Indication:Otitis externa Start:19-May-2015 Instruction Type:Provider Instructions for Treatment Patient Instructions Indication:Vitamin D deficiency Start:19-Mar-2015 Instruction Type:Provider Instructions for Treatment Patient Instructions Indication:CHEST PAIN Start:29-Jan-2013 Instruction Type:Provider Instructions for Treatment Patient Instructions Indication:Fatigue Start:25-Dec-2012 Instruction Type:Provider Instructions for Treatment [facility]; [facility] Work Phone: Instructions* Name Dates Details Patient Instructions Indication:Tobacco chew use Start:28-Oct-2021 Instruction Type:Provider Instructions for Treatment How to Access Health Informa tion Online using Patient Portal and [employer] Apps Indication:Tobacco chew use Start:28-Oct-2021 Instruction Type:Patient Education Patient Instructions Indication:Tobacco chew use Start:02-Feb-2021 Instruction Type:Provider Instructions for Treatment How to Access Health Informa tion Online using Patient Portal and [employer] Indication:Tobacco chew use Start:02-Feb-2021 Instruction Type:Patient Education How to access health informa tion online Indication:Tobacco chew use Start:09-Aug-2019 Instruction Type:Patient Education How to access health informa tion online - Detail Indication:Tobacco chew use Start:09-Aug-2019 Instruction Type:Patient Education Patient Instructions Indication:Tobacco chew use Start:09-Aug-2019 Instruction Type:Provider Instructions for Treatment How to access health informa tion online Indication:BMI 34.0-34.9,adult Start:08-Jun-2019 Instruction Type:Patient Education How to access health informa tion online - Detail Indication:BMI 34.0-34.9,adult Start:08-Jun-2019 Instruction Type:Patient Education Patient Instructions Indication:BMI 34.0-34.9,adult Start:08-Jun-2019 Instruction Type:Provider Instructions for Treatment How to access health informa tion online Indication:BMI 34.0-34.9,adult Start:25-May-2019 Instruction Type:Patient Education How to access health informa tion online - Detail Indication:BMI 34.0-34.9,adult Start:25-May-2019 Instruction Type:Patient Education Patient Instructions Indication:BMI 34.0-34.9,adult Start:25-May-2019 Instruction Type:Provider Instructions for Treatment How to access health informa tion online Indication:Left flank pain Start:08-Nov-2016 Instruction Type:Patient Education How to access health informa tion online - Detail Indication:Left flank pain Start:08-Nov-2016 Instruction Type:Patient Education Patient Instructions Indication:Left flank pain Start:08-Nov-2016 Instruction Type:Provider Instructions for Treatment How to access health informa tion online Indication:Low back pain potentially associated with radiculopathy Start:17-Jun-2015 Instruction Type:Patient Education How to access health informa tion online - Detail Indication:Low back pain potentially associated with radiculopathy Start:17-Jun-2015 Instruction Type:Patient Education Patient Instructions Indication:Low back pain potentially associated with radiculopathy Start:17-Jun-2015 Instruction Type:Provider Instructions for Treatment How to access health informa tion online Indication:Otitis externa Start:19-May-2015 Instruction Type:Patient Education How to access health informa tion online - Detail Indication:Otitis externa Start:19-May-2015 Instruction Type:Patient Education Patient Instructions Indication:Otitis externa Start:19-May-2015 Instruction Type:Provider Instructions for Treatment Patient Instructions Indication:Vitamin D deficiency Start:19-Mar-2015 Instruction Type:Provider Instructions for Treatment Patient Instructions Indication:CHEST PAIN Start:29-Jan-2013 Instruction Type:Provider Instructions for Treatment Patient Instructions Indication:Fatigue Start:25-Dec-2012 Instruction Type:Provider Instructions for Treatment [facility] Work Phone: Instructions* Name Dates Details Patient Instructions Indication:Tobacco chew use Start:28-Oct-2021 Instruction Type:Provider Instructions for Treatment How to Access Health Informa tion Online using Patient Portal and [employer] Indication:Tobacco chew use Start:28-Oct-2021 Instruction Type:Patient Education Patient Instructions Indication:Tobacco chew use Start:02-Feb-2021 Instruction Type:Provider Instructions for Treatment How to Access Health Informa tion Online using Patient Portal and [employer] Indication:Tobacco chew use Start:02-Feb-2021 Instruction Type:Patient Education How to access health informa tion online Indication:Tobacco chew use Start:09-Aug-2019 Instruction Type:Patient Education How to access health informa tion online - Detail Indication:Tobacco chew use Start:09-Aug-2019 Instruction Type:Patient Education Patient Instructions Indication:Tobacco chew use Start:09-Aug-2019 Instruction Type:Provider Instructions for Treatment How to access health informa tion online Indication:BMI 34.0-34.9,adult Start:08-Jun-2019 Instruction Type:Patient Education How to access health informa tion online - Detail Indication:BMI 34.0-34.9,adult Start:08-Jun-2019 Instruction Type:Patient Education Patient Instructions Indication:BMI 34.0-34.9,adult Start:08-Jun-2019 Instruction Type:Provider Instructions for Treatment How to access health informa tion online Indication:BMI 34.0-34.9,adult Start:25-May-2019 Instruction Type:Patient Education How to access health informa tion online - Detail Indication:BMI 34.0-34.9,adult Start:25-May-2019 Instruction Type:Patient Education Patient Instructions Indication:BMI 34.0-34.9,adult Start:25-May-2019 Instruction Type:Provider Instructions for Treatment How to access health informa tion online Indication:Left flank pain Start:08-Nov-2016 Instruction Type:Patient Education How to access health informa tion online - Detail Indication:Left flank pain Start:08-Nov-2016 Instruction Type:Patient Education Patient Instructions Indication:Left flank pain Start:08-Nov-2016 Instruction Type:Provider Instructions for Treatment How to access health informa tion online Indication:Low back pain potentially associated with radiculopathy Start:17-Jun-2015 Instruction Type:Patient Education How to access health informa tion online - Detail Indication:Low back pain potentially associated with radiculopathy Start:17-Jun-2015 Instruction Type:Patient Education Patient Instructions Indication:Low back pain potentially associated with radiculopathy Start:17-Jun-2015 Instruction Type:Provider Instructions for Treatment How to access health informa tion online Indication:Otitis externa Start:19-May-2015 Instruction Type:Patient Education How to access health informa tion online - Detail Indication:Otitis externa Start:19-May-2015 Instruction Type:Patient Education Patient Instructions Indication:Otitis externa Start:19-May-2015 Instruction Type:Provider Instructions for Treatment Patient Instructions Indication:Vitamin D deficiency Start:19-Mar-2015 Instruction Type:Provider Instructions for Treatment Patient Instructions Indication:CHEST PAIN Start:29-Jan-2013 Instruction Type:Provider Instructions for Treatment Patient Instructions Indication:Fatigue Start:25-Dec-2012 Instruction Type:Provider Instructions for Treatment [facility] Work Phone: Reason for referral (narrative)* Diagnostic Procedure Only (Routine) - Pending Review Specialty Diagnoses / Procedures Referred By Contac t Referred To Contact XR IMAGING Diagnoses Cavus deformity of left foot, acquired Peroneal tendon rupture, left, initial encounter Ankle instability, left Procedures XR ANKLE GENERAL 3V AP/LAT/OBL LEFT RADEX ANKLE COMPLETE MINIMUM 3 VIEWS Usama Olivo DPM [address] [place] [phone] Xr Imaging Referral ID Status Reason Start Date Expiration Date Visits Requested Visits Authorized [id number] Pending Review Auto-Generat ed Referral 01/17/2022 02/13/2023 1 1 [facility] for referral (narrative)* Diagnostic Procedure Only (Routine) - Denied Specialty Diagnoses / Procedures Referred By Contac t Referred To Contact XR IMAGING Diagnoses Postoperative state Cavus deformity of left foot, acquired Peroneal tendon rupture, left, subsequent encounter Procedures XR ANKLE 2V AP/LAT LEFT RADIOLOGIC EXAMINATION ANKLE 2 VIEWS Usama Olivo DPM [address] [place] [address] Xr Imaging Referral ID Status Reason Start Date Expiration Date V isits Requested Visits Authorized [id number] Denied Auto-Generate d Referral 04/24/2022 05/23/2023 1 0 * Diagnostic Procedure Only (Routine) - Denied Specialty Diagnoses / Procedures Referred By Contac t Referred To Contact XR IMAGING Diagnoses Postoperative state Cavus deformity of left foot, acquired Peroneal tendon rupture, left, subsequent encounter Procedures XR FOOT GENERAL 3V AP/LAT/OBL LEFT RADEX FOOT COMPLETE MINIMUM 3 VIEWS Usama Olivo DPM [address] [place] [id number] Xr Imaging Referral ID Status Reason Start Date Expiration Date V isits Requested Visits Authorized [id number] Denied Auto-Generate d Referral 04/24/2022 05/23/2023 1 0 [facility] for referral (narrative)* Diagnostic Procedure Only (Urgent) - Closed Specialty Diagnoses / Procedures Referred By Contac t Referred To Contact US IMAGING Diagnoses Postoperative state Pain of left calf Procedures US DVT LOWER LT DUP-SCAN XTR VEINS UNILATERAL/LIMITED STUDY Usama Olivo DPM [address] [place] [phone] Us Imaging Referral ID Status Reason Start Date Expiration Date V isits Requested Visits Authorized [id number] Closed Auto-Generate d Referral 05/13/2022 06/12/2023 1 1 [facility] for referral (narrative)* Diagnostic Procedure Only (Routine) - Closed Specialty Diagnoses / Procedures Referred By Contac t Referred To Contact XR IMAGING Diagnoses Post-operative state Procedures XR FOOT GENERAL 3V AP/LAT/OBL LEFT RADEX FOOT COMPLETE MINIMUM 3 VIEWS Usama Olivo DPM [address] [place] [phone] Xr Imaging Referral ID Status Reason Start Date Expiration Date V isits Requested Visits Authorized [id number] Closed Auto-Generate d Referral 06/26/2022 07/26/2023 1 1 [facility] Summary Purpose Family History Relationship Condition Age at Onset Recorded Date/T car brother Malignant neoplasm Unknown aunt Diabetes mellitus Unknown father Cerebral hemorrhage Unknown grandfather Myocardial infarction 79 Advance Directives Documents on File Type Date Recorded 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 Watch Officer Expl anation Advance Directives and Living Will Power of Property And Casualty Insurance Agent Documents on File Type Date Recorded Patient 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 Watch Officer Expl anation Advance Directives and Living Will Power of Property And Casualty Insurance Agent Assessments Diagnosis Chest pain, unspecified type SOB (shortness of breath) Shortness of breath Instructions Name Dates Details How to access health informa tion online Indication:Tobacco chew use Start:09-Aug-2019 Instruction Type:Patient Education How to access health informa tion online - Detail Indication:Tobacco chew use Start:09-Aug-2019 Instruction Type:Patient Education Patient Instructions Indication:Tobacco chew use Start:09-Aug-2019 Instruction Type:Provider Instructions for Treatment How to access health informa tion online Indication:BMI 34.0-34.9,adult Start:08-Jun-2019 Instruction Type:Patient Education How to access health informa tion online - Detail Indication:BMI 34.0-34.9,adult Start:08-Jun-2019 Instruction Type:Patient Education Patient Instructions Indication:BMI 34.0-34.9,adult Start:08-Jun-2019 Instruction Type:Provider Instructions for Treatment How to access health informa tion online Indication:BMI 34.0-34.9,adult Start:25-May-2019 Instruction Type:Patient Education How to access health informa tion online - Detail Indication:BMI 34.0-34.9,adult Start:25-May-2019 Instruction Type:Patient Education Patient Instructions Indication:BMI 34.0-34.9,adult Start:25-May-2019 Instruction Type:Provider Instructions for Treatment How to access health informa tion online Indication:Left flank pain Start:08-Nov-2016 Instruction Type:Patient Education How to access health informa tion online - Detail Indication:Left flank pain Start:08-Nov-2016 Instruction Type:Patient Education Patient Instructions Indication:Left flank pain Start:08-Nov-2016 Instruction Type:Provider Instructions for Treatment How to access health informa tion online Indication:Low back pain potentially associated with radiculopathy Start:17-Jun-2015 Instruction Type:Patient Education How to access health informa tion online - Detail Indication:Low back pain potentially associated with radiculopathy Start:17-Jun-2015 Instruction Type:Patient Education Patient Instructions Indication:Low back pain potentially associated with radiculopathy Start:17-Jun-2015 Instruction Type:Provider Instructions for Treatment How to access health informa tion online Indication:Otitis externa Start:19-May-2015 Instruction Type:Patient Education How to access health informa tion online - Detail Indication:Otitis externa Start:19-May-2015 Instruction Type:Patient Education Patient Instructions Indication:Otitis externa Start:19-May-2015 Instruction Type:Provider Instructions for Treatment Patient Instructions Indication:Vitamin D deficiency Start:19-Mar-2015 Instruction Type:Provider Instructions for Treatment Patient Instructions Indication:CHEST PAIN Start:29-Jan-2013 Instruction Type:Provider Instructions for Treatment Patient Instructions Indication:Fatigue Start:25-Dec-2012 Instruction Type:Provider Instructions for Treatment Reason for Referral Status Reason Specialty Diagnoses / Procedures Re ferred By Contact Referred To Contact Authorized Cardiology Diagnoses Chest pain, unspecified type SOB (shortness of breath) Hypercholesteremia Abnormal electrocardiogram Procedures ECHO Stress Test Sophia Kimble MD [address] [facility] [place] [address] Specialty Diagnoses / Procedures Referred By Contac t Referred To Contact [facility] Diagnoses Post-operative state Procedures CONSULT TO PHYSICAL THERAPY PHYSICAL THERAPY EVALUATION HIGH COMPLEX 45 MINS Usama Olivo, KRIS [address] [place] [phone] [facility] [address] [place] [address] Referral ID Status Reason Start Date Expiration Date V isits Requested Visits Authorized [id number] Denied Auto-Generate d Referral 05/27/2022 05/27/2023 1 0 Specialty Diagnoses / Procedures Referred By Contac t Referred To Contact XR IMAGING Diagnoses Post-operative state Procedures XR FOOT GENERAL 3V AP/LAT/OBL LEFT RADEX FOOT COMPLETE MINIMUM 3 VIEWS Usama Olivo, KRIS [address] [place] [address] Xr Imaging Referral ID Status Reason Start Date Expiration Date V isits Requested Visits Authorized [id number] Denied Auto-Generate d Referral 05/27/2022 06/26/2023 1 0 Specialty Diagnoses / Procedures Referred By Contac t Referred To Contact XR IMAGING Diagnoses Post-operative state Procedures XR ANKLE 2V AP/LAT LEFT RADIOLOGIC EXAMINATION ANKLE 2 VIEWS Usama Olivo, KRIS [address] [place] [phone] Xr Imaging Referral ID Status Reason Start Date Expiration Date V isits Requested Visits Authorized [id number] Denied Auto-Generate d Referral 05/27/2022 06/26/2023 1 0 Specialty Diagnoses / Procedures Referred By Contac t Referred To Contact Radiology Diagnoses Hyperlipidemia, unspecified Procedures CT cardiac scoring wo IV contrast Mariluz Gaytan, DO [address] [place] [address] Rd [address] [place] [address] Referral ID Status Reason Start Date Expiration Date Visits Requested Visits Authorized [id number] Authorized Perform Procedure 08/11/2023 08/10/2024 1 1 Chief Complaint and Reason for Visit Chief Complaint POST OP LEFT HEAL AN KLE REPAIR/PT HAS RX Chief Complaint POST OP LEFT HEAL AN KLE REPAIR/PT HAS RX Other instability, left ankle Chief Complaint Admit Date 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 May 03, 2024 1:43pm ACUTE - SORE THROAT July 25, 2024 7:3 4am chest congestion/cough August 20, 2024 2:18pm cough August 20, 2024 3:5 0pm EORDERS August 21, 2024 7:0 9am CHEST CONGESTION August 21, 2024 7:3 4am Reason for Visit Admit Date Essential hypertension May 03, 2024 1:43pm Prediabetes May 03, 2024 1: 43pm Colon cancer screening declined May 03, 2024 1:43pm Immunization declined May 03, 2024 1:43pm Establishing care with new doctorpalomo for May 03, 2024 1:43pm Stress May 03, 2024 1: 43pm Testosterone deficiency May 03 1:43pm Chest pain in adult May 03, 2024 1: 43pm Sore throat July 25, 2024 7:3 4am Essential hypertension August 20, 2024 2:18pm Prediabetes August 20, 2024 2:1 8pm Chews tobacco August 20, 2024 2:1 8pm Cough present for greater than 3 weeks A pril 2024 2:18pm Chest pain in adult August 20, 2024 2:1 8pm Obesity (BMI 30-39.9) August 20, 2024 2 :18pm Acute bronchitis, unspecified July 7:34am Chief Complaint Admit Date ACUTE - SORE THROAT July 25, 2024 7:3 4am chest congestion/cough August 20, 2024 2:18pm cough August 20, 2024 3:5 0pm EORDERS August 21, 2024 7:0 9am CHEST CONGESTION August 21, 2024 7:3 4am R KNEE PAIN November 13, 2024 11:4 1am lower back pain into leg pain- right kne e November 13, 2024 12:48pm Reason for Visit Admit Date Sore throat July 25, 2024 7:3 4am Essential hypertension August 20, 2024 2:18pm Prediabetes August 20, 2024 2:1 8pm Chews tobacco August 20, 2024 2:1 8pm Cough present for greater than 3 weeks A 2024 2:18pm Chest pain in adult August 20, 2024 2:1 8pm Obesity (BMI 30-39.9) August 20, 2024 2 :18pm Acute bronchitis, unspecified July 7:34am Chief Complaint Admit Date chest congestion/cough August 20, 2024 2:18pm cough August 20, 2024 3:5 0pm EORDERS August 21, 2024 7:0 9am CHEST CONGESTION August 21, 2024 7:3 4am R KNEE PAIN November 13, 2024 11:4 1am lower back pain into leg pain- right kne e November 13, 2024 12:48pm RT KNEE PAIN/LOCKING November 23, 2024 10: 59am RIGHT KNEE November 27, 2024 3:17 pm Reason for Visit Admit Date Essential hypertension August 20, 2024 2:18pm Prediabetes August 20, 2024 2:1 8pm Chews tobacco August 20, 2024 2:1 8pm Cough present for greater than 3 weeks A 2024 2:18pm Chest pain in adult August 20, 2024 2:1 8pm Obesity (BMI 30-39.9) August 20, 2024 2 :18pm Acute bronchitis, unspecified July 7:34am Effusion, right knee November 27, 2024 3:1 7pm Osteoarthritis of right knee November 27, 2024 3:17pm Right knee pain November 27, 2024 3:17 pm Tear of medial meniscus of right knee Ju ly 2024 3:17pm Additional Source Comments (unrecognized sect ion and content) No Status Records FoundNo Status Records FoundNo Status Records FoundNo Status Records FoundNo Status Records Found INFORMATION SOURCE (unrecogn ized section and content) DATE CREATED AUTHOR 10/26/2017 [facility] DATE CREATED AUTHOR AUTHOR'S ORGANIZ ATION 04/19/[address] [facility] DATE CREATED AUTHOR AUTHOR'S ORGANIZ ATION 09/04/2023 [facility] DATE CREATED AUTHOR AUTHOR'S ORGANIZ ATION 05/03/2024 [facility] DATE CREATED AUTHOR AUTHOR'S ORGANIZ ATION 11/26/2024 [facility] Goals (unrecognized section and content) Goals may be documented in a n alternate sectionGoals may be documented in an alternate sectionGoals may be documented in an alternate sectionGoals may be documented in an alternate sectionGoals may be documented in an alternate sectionGoals may be documented in an alternate sectionGoals may be documented in an alternate sectionGoals may be documented in an alternate section Source Comments (unrecognize d section and content) In the event this informatio n is protected by the Federal Confidentiality of Alcohol and Drug Abuse Patient Records regulations: The Federal rules restrict any use of the information to criminally investigate or prosecute any alcohol or drug abuse patient.[facility] the event this information is protected by the Federal Confidentiality of Alcohol and Drug Abuse Patient Records regulations: The Federal rules restrict any use of the information to criminally investigate or prosecute any alcohol or drug abuse patient.[facility] the event this information is protected by the Federal Confidentiality of Alcohol and Drug Abuse Patient Records regulations: The Federal rules restrict any use of the information to criminally investigate or prosecute any alcohol or drug abuse patient.[facility] the event this information is protected by the Federal Confidentiality of Alcohol and Drug Abuse Patient Records regulations: The Federal rules restrict any use of the information to criminally investigate or prosecute any alcohol or drug abuse patient.[facility] the event this information is protected by the Federal Confidentiality of Alcohol and Drug Abuse Patient Records regulations: The Federal rules restrict any use of the information to criminally investigate or prosecute any alcohol or drug abuse patient.[facility] the event this information is protected by the Federal Confidentiality of Alcohol and Drug Abuse Patient Records regulations: The Federal rules restrict any use of the information to criminally investigate or prosecute any alcohol or drug abuse patient.[facility] the event this information is protected by the Federal Confidentiality of Alcohol and Drug Abuse Patient Records regulations: The Federal rules restrict any use of the information to criminally investigate or prosecute any alcohol or drug abuse patient.[facility] the event this information is protected by the Federal Confidentiality of Alcohol and Drug Abuse Patient Records regulations: The Federal rules restrict any use of the information to criminally investigate or prosecute any alcohol or drug abuse patient.[facility] the event this information is protected by the Federal Confidentiality of Alcohol and Drug Abuse Patient Records regulations: The Federal rules restrict any use of the information to criminally investigate or prosecute any alcohol or drug abuse patient.[facility] the event this information is protected by the Federal Confidentiality of Alcohol and Drug Abuse Patient Records regulations: The Federal rules restrict any use of the information to criminally investigate or prosecute any alcohol or drug abuse patient.[facility]In the event this information is protected by the Federal Confidentiality of Alcohol and Drug Abuse Patient Records regulations: The Federal rules restrict any use of the information to criminally investigate or prosecute any alcohol or drug abuse patient.[facility] HospitalIn the event this information is protected by the Federal Confidentiality of Alcohol and Drug Abuse Patient Records regulations: The Federal rules restrict any use of the information to criminally investigate or prosecute any alcohol or drug abuse patient.[facility] HospitalIn the event this information is protected by the Federal Confidentiality of Alcohol and Drug Abuse Patient Records regulations: The Federal rules restrict any use of the information to criminally investigate or prosecute any alcohol or drug abuse patient.[facility] HospitalIn the event this information is protected by the Federal Confidentiality of Alcohol and Drug Abuse Patient Records regulations: The Federal rules restrict any use of the information to criminally investigate or prosecute any alcohol or drug abuse patient.[facility] the event this information is protected by the Federal Confidentiality of Alcohol and Drug Abuse Patient Records regulations: The Federal rules restrict any use of the information to criminally investigate or prosecute any alcohol or drug abuse patient.[facility]In the event this information is protected by the Federal Confidentiality of Alcohol and Drug Abuse Patient Records regulations: The Federal rules restrict any use of the information to criminally investigate or prosecute any alcohol or drug abuse patient.[facility] Reason for Visit (unrecogniz ed section and content) Reason Comments New Reason Comments Follow Up Pain Reason Comments Return Call Request Reason Comments Patient Question Reason Comments Medication Problem Reason Comments Pain Follow Up Post Op Reason Onset Date Comments Refill Request Refill Request 04/27/2022 Reason Comments Refill Request Reason Comments Appointment Reason Comments Established Patient Follow Up Post Op Specialty Diagnoses / Procedures Referred By Contac t Referred To Contact [facility] Diagnoses Postoperative state [Z98.890] Pain of left calf [M79.662] Procedures STA DVT lower LT Usama Olivo DPM [address] [place] [address] [facility] [address] [place] [address] Referral ID Status Reason Start Date Expiration Date V isits Requested Visits Authorized [id number] Closed Financial Clearance Required - Self Pay Patient Cleared - Admin/Senior Benefits Specialist /Director advise to proceed 05/13/2022 08/11/2022 1 1 Reason Comments Post Op Reason Comments Follow Up Pain Specialty Diagnoses / Procedures Referred By Contac t Referred To Contact ORTHOPAEDIC SURGERY Diagnoses Other specified postprocedural states PO lt ankle sx 04/07 Procedures POSTOP FOLLOW UP VISIT RELATED TO ORIGINAL PX REFERRAL TO [facility] FINANCIAL COUNSELOR POST OP Usama Olivo DPM [address] [place] [address] [facility] [id number] [place] [address] Referral ID Status Reason Start Date Expiration Date Visits Requested Visits Authorized [id number] Waiting for Response Financial Clearance Required - OON Payor OON Notification Letter Financial Clearance Not Required 3 08/18/2022 1 1 Reason Comments Follow Up Specialty Diagnoses / Procedures Referred By Levy t Referred To Contact Podiatry / ORTHOPAEDIC SURGERY Diagnoses PO lt ankle sx 04/07/22 Procedures REFERRAL TO [facility] FINANCIAL COUNSELOR POST OP Self Usama Olivo DPM [address] [place] [address] Referral ID Status Reason Start Date Expiration Date Visits Requested Visits Authorized [id number] Closed Financial Clearance Required - OON Payor OON Notification Letter Financial Clearance Not Required 06/24/2022 09/22/2022 1 1 Specialty Diagnoses / Procedures Referred By Levy t Referred To Contact Radiology Diagnoses Hyperlipidemia, unspecified Procedures CT cardiac scoring wo IV contrast Mariluz Gaytan DO [address] [facility] [address] [place] [address] Referral ID Status Reason Start Date Expiration Date Visits Requested Visits Authorized [id number] Authorized Perform Procedure 08/11/2023 08/10/2024 1 1 Care Teams (unrecognized sec tion and content) Molder Operator Relationship Specialty Start Date End Date Mariluz Gaytan DO [address] [facility] [address] [place] [address] PCP - General Internal Medicine 12/02/21 Molder Operator Relationship Specialty Start Date End Date Mariluz Gaytan DO [address] [facility] [address] [place] [address] PCP - General Internal Medicine 12/02/21 Molder Operator Relationship Specialty Start Date End Date Mariluz Gaytan, DO [address] [place] [address] PCP - General Internal Medicine 12/02/21 Molder Operator Relationship Specialty Start Date End Date Mariluz Gaytan, DO [address] [place] [address] PCP - General Internal Medicine 12/02/21 Molder Operator Relationship Specialty Start Date End Date Mariluz Gaytan, DO [address] [place] [address] PCP - General Internal Medicine 12/02/21 Molder Operator Relationship Specialty Start Date End Date Mariluz Gaytan, DO [address] [place] [address] PCP - General Internal Medicine 12/02/21 Molder Operator Relationship Specialty Start Date End Date Mariluz Gaytan, DO [address] [place] [address] PCP - General Internal Medicine 12/02/21 Molder Operator Relationship Specialty Start Date End Date Mariluz Gaytan, DO [address] [place] [address] PCP - General Internal Medicine 12/02/21 Molder Operator Relationship Specialty Start Date End Date Mariluz Gaytan, DO [address] [place] [address] PCP - General Internal Medicine 12/02/21 Molder Operator Relationship Specialty Start Date End Date Mariluz Gaytan, DO [address] [place] [address] PCP - General Internal Medicine 12/02/21 Molder Operator Relationship Specialty Start Date End Date Mariluz Gaytan, DO [address] [place] [address] PCP - General Internal Medicine 12/02/21 Molder Operator Relationship Specialty Start Date End Date Mariluz Gaytan, DO [address] [place] [address] PCP - General Internal Medicine 12/02/21 Team Status: Active Member Role Status Dates Dr. Mariluz Gaytan DO Family Provider Active Dr. Mariluz Gaytan DO Primary Care Provider Active Team Status: Inactive Member Role Status Dates Dr. Mariluz Gaytan DO Primary Care Provider Active Dr. Usama Olivo DO Attending Provider, Referring Provider Active Team Status: Inactive Member Role Status Dates Dr. Mariluz Gaytan DO Primary Care Provider Active Dr. Abran Guevara , DPM Attending Provider, Referrin g Provider Active Molder Operator Relationship Specialty Start Date End Date Gina Martinez, HUMAN SERVICES SUPERVISOR-PUBLIC HEALTH OUTREACH WORKER [address] [facility] [place] [address] PCP - MMO ACO PCP 06/02/23 Mariluz Gaytan DO [address] [facility] [address] [place] [address] PCP - General Internal Medicine 08/29/23 Team Status: Active Member Role Status Dates Dr. Mariluz Gaytan DO Family Provider Active Dr. Geneva Danielson MD Primary Care Provider Active Team Status: Inactive Member Role Status Dates Dr. Mariluz Gaytan DO Primary Care Provider Active Start: May 03, 2024 End: May 03, 2024 Dr. Mariluz Gaytan DO Referring Provider Active Start: May 03, 2024 End: May 03, 2024 Dr. Geneva Danielson MD Attending Provider Active Start: May 03, 2024 End: May 03, 2024 Team Status: Inactive Member Role Status Dates Dr. Geneva Danielson MD Primary Care Provider Active Start: July 25, 2024 End: July 25, 2024 Dr. Geneva Danielson MD Referring Provider Active Start: July 25, 2024 End: July 25, 2024 Alvino FRANCO, PA Attending Provider Active St art: July 25, 2024 End: July 25, 2024 Team Status: Inactive Member Role Status Dates Dr. Geneva Danielson MD Primary Care Provider Active Start: August 20, 2024 End: August 20, 2024 Dr. Geneva Danielson MD Attending Provider Active Start: August 20, 2024 End: August 20, 2024 Dr. Geneva Danielson MD Referring Provider Active Start: August 20, 2024 End: August 20, 2024 Team Status: Active Member Role Status Dates Dr. Geneva Danielson MD Primary Care Provider Active Start: August 21, 2024 Dr. Geneva Danielson MD Attending Provider Active Start: August 21, 2024 Dr. Geneva Danielson MD Referring Provider Active Start: August 21, 2024 Team Status: Inactive Member Role Status Dates Dr. Geneva Danielson MD Primary Care Provider Active Start: August 21, 2024 End: August 21, 2024 Dr. Geneva Danielson MD Referring Provider Active Start: August 21, 2024 End: August 21, 2024 Huy FRANCO, PA Attending Provider Active Start: August 21, 2024 End: August 21, 2024 Team Status: Active Member Role/Relationship Status Dates Dr. Mariluz Gaytan DO Family Provider Active Dr. Geneva Danielson MD Primary Care Provider Active Team Status: Inactive Member Role/Relationship Status Dates Dr. Geneva Danielson MD Primary Care Provider Active Start: July 25, 2024 End: July 25, 2024 Dr. Geneva Danielson MD Referring Provider Active Start: July 25, 2024 End: July 25, 2024 Alvino FRANCO, PA Attending Provider Active St art: July 25, 2024 End: July 25, 2024 Team Status: Inactive Member Role/Relationship Status Dates Dr. Geneva Danielson MD Primary Care Provider Active Start: August 20, 2024 End: August 20, 2024 Dr. Geneva Danielson MD Attending Provider Active Start: August 20, 2024 End: August 20, 2024 Dr. Geneva Danielson MD Referring Provider Active Start: August 20, 2024 End: August 20, 2024 Team Status: Inactive Member Role/Relationship Status Dates Dr. Geneva Danielson MD Primary Care Provider Active Start: August 20, 2024 End: August 20, 2024 Dr. Geneva Danielson MD Attending Provider Active Start: August 20, 2024 End: August 20, 2024 Dr. Geneva Danielson MD Referring Provider Active Start: August 20, 2024 End: August 20, 2024 Team Status: Inactive Member Role/Relationship Status Dates Dr. Geneva Danielson MD Primary Care Provider Active Start: August 21, 2024 End: August 21, 2024 Dr. Geneva Danielson MD Attending Provider Active Start: August 21, 2024 End: August 21, 2024 Dr. Geneva Danielson MD Referring Provider Active Start: August 21, 2024 End: August 21, 2024 Team Status: Inactive Member Role/Relationship Status Dates Dr. Geneva Danielson MD Primary Care Provider Active Start: August 21, 2024 End: August 21, 2024 Dr. Geneva Danielson MD Referring Provider Active Start: August 21, 2024 End: August 21, 2024 Huy Rodriguez PA, PA Attending Provider Active Start: August 21, 2024 End: August 21, 2024 Team Status: Inactive Member Role/Relationship Status Dates Dr. Geneva Danielson MD Primary Care Provider Active Start: August 31, 2024 End: August 31, 2024 Dr. Genvea Danielson MD Attending Provider Active Start: August 31, 2024 End: August 31, 2024 Dr. Geneva Danielson MD Referring Provider Active Start: August 31, 2024 End: August 31, 2024 Team Status: Inactive Member Role/Relationship Status Dates Dr. Geneva Danielson MD Primary Care Provider Active Start: November 13, 2024 End: November 13, 2024 Dr. Geneva Danielson MD Referring Provider Active Start: November 13, 2024 End: November 13, 2024 Huy FRANCO, PA Attending Provider Active Start: November 13, 2024 End: November 13, 2024 Team Status: Active Member Role/Relationship Status Dates Dr. Geneva Danielson MD Primary Care Provider Active Start: November 13, 2024 Huy Rodriguez PA, PA Attending Provider Active Start: November 13, 2024 Huy Rodriguez PA, PA Referring Provider Active Start: November 13, 2024 Team Status: Active Member Role/Relationship Status Dates Dr. Geneva Danielson MD Primary Care Provider Active Team Status: Inactive Member Role/Relationship Status Dates Dr. Geneva Danielson MD Primary Care Provider Active Start: November 13, 2024 End: November 13, 2024 Huy FRANCO PA Attending Provider Active Start: November 13, 2024 End: November 13, 2024 Huy FRANCO PA Referring Provider Active Start: November 13, 2024 End: November 13, 2024 Team Status: Inactive Member Role/Relationship Status Dates Dr. Geneva Danielson MD Primary Care Provider Active Start: August 20, 2024 End: August 20, 2024 Dr. Geneva Danielson MD Attending Provider Active Start: August 20, 2024 End: August 20, 2024 Dr. Geneva Danielson MD Referring Provider Active Start: August 20, 2024 End: August 20, 2024 Team Status: Inactive Member Role/Relationship Status Dates Dr. Geneva Danielson MD Primary Care Provider Active Start: August 21, 2024 End: August 21, 2024 Dr. Geneva Danielson MD Attending Provider Active Start: August 21, 2024 End: August 21, 2024 Dr. Geneva Danielson MD Referring Provider Active Start: August 21, 2024 End: August 21, 2024 Team Status: Inactive Member Role/Relationship Status Dates Dr. Geneva Danielson MD Primary Care Provider Active Start: August 21, 2024 End: August 21, 2024 Dr. Geneva Danielson MD Referring Provider Active Start: August 21, 2024 End: August 21, 2024 Huy FRANCO PA Attending Provider Active Start: August 21, 2024 End: August 21, 2024 Team Status: Inactive Member Role/Relationship Status Dates Dr. Geneva Danieslon MD Primary Care Provider Active Start: August 31, 2024 End: August 31, 2024 Dr. Geneva Danielson MD Attending Provider Active Start: August 31, 2024 End: August 31, 2024 Dr. Geneva Danielson MD Referring Provider Active Start: August 31, 2024 End: August 31, 2024 Team Status: Inactive Member Role/Relationship Status Dates Dr. Geneva Danielson MD Primary Care Provider Active Start: November 13, 2024 End: November 13, 2024 Dr. Geneva Danielson MD Referring Provider Active Start: November 13, 2024 End: November 13, 2024 JOAN Hess Attending Provider Active Start: November 13, 2024 End: November 13, 2024 Team Status: Inactive Member Role/Relationship Status Dates Dr. Geneva Danielson MD Primary Care Provider Active Start: November 13, 2024 End: November 13, 2024 JOAN Hess Attending Provider Active Start: November 13, 2024 End: November 13, 2024 JOAN Hess Referring Provider Active Start: November 13, 2024 End: November 13, 2024 Team Status: Active Member Role/Relationship Status Dates Dr. Geneva Danielson MD Primary Care Provider Active Start: November 23, 2024 JOAN Hess Attending Provider Active Start: November 23, 2024 JOAN Hess Referring Provider Active Start: November 23, 2024 Team Status: Inactive Member Role/Relationship Status Dates Dr. Geneva Danielson MD Primary Care Provider Active Start: November 27, 2024 End: November 27, 2024 Dr. Geneva Danielson MD Referring Provider Active Start: November 27, 2024 End: November 27, 2024 Saw Somers MD Attending Provider Active St art: November 27, 2024 End: November 27, 2024 FOR RECORDS PERTAINING TO PATIENTS WHO ARE OR HAVE BEEN ENROLLED IN A CHEMICAL DEPENDENCY/SUBSTANCEABUSE PROGRAM, SOME INFORMATION MAY BE OMITTED. This clinical summary was aggregated from multiple sources. Caution should be exercised in using it in the provision of clinical care. This summary normalizes information from multiple sources, and as a consequence, information in this document may materially change the coding, format and clinical context of patient data. In addition, data may be omitted in some cases. CLINICAL DECISIONS SHOULD BE BASED ON THE PRIMARY CLINICAL RECORDS. [facility] [employer] provides no warranty or guarantee of the accuracy or completeness of information in this document.
[2024-11-29 14:08] LABS: Lyme Scn Total Ab w/Rflx Negative (Negative)
== END | disposition home or self-care (01) ==
LOC: MTLAB 16:24
PROVIDERS: PCP Internal Medicine; Referring Provider Orthopaedic Surgery Sports Medicine; Visit Provider Orthopaedic Surgery Sports Medicine
DX: M25.461 Effusion, right knee (principal)
CPT/HCPCS: 36415; 80048; 84550; 85025; 86140; 86618